=== PATIENT | female | born 1930 | race Caucasian/White ===

== ENCOUNTER → 2017-03-18 | Outpatient (CLI) | payer MEDICARE, OTHER ==
--- NOTE | 2017-03-18 11:03 | XCELERA REPORT ---
[address] [address] Lower Extremity Arterial Evaluation Name: DEBORA JOEL Age: 86 yrs Gender: Female : 1930 Patient Status: Outpatient Patient Location: Study Date: 03/18/2017 08:48 AM Procedure: A color flow and duplex scan of the lower extremity arteries was performed bilaterally with velocity and waveform anaylsis. Ankle brachial indicies performed. Reason For Study: ULCER, CELLULITIS Ordering Physician: MIS ELIZONDO Performed By: Joel Green Measurements and Calculations Right Left CORRECTIONAL SUPERVISOR LIEUTENANT PSV 134.5 91.3 cm/sec Prox PFA PSV -196.4 cm/sec Dist SFA PSV -63.3 cm/sec Dist Pop A PSV 56.8 103.1 cm/sec Dist RAPHAEL PSV 82.9 59.1 cm/sec Prox ELECTROLYTIC DE SCALER PSV 13.9 cm/sec Dist ELECTROLYTIC DE SCALER PSV 9.8 44.1 cm/sec Harjinder Pedis PSV -68.4 cm/sec Right Side Arterial Evaluation Normal velocity and triphasic waveforms noted from the Common Femoral artery. to the Anterior Tibial artery. Biphasic in the Dorsalis Pedis with well preserved velocity. Monophasic in the Posterior Tibial artery . 0-19% stenosis at the Anterior Tibial artery. Sequential changes in the Posterior Tibial artery. Ankle Brachial index is 1.26 Difficult study with patient in wheel chair. Left Side Arterial Evaluation Normal velocity and triphasic waveforms noted from the Common Femoral artery to the infrageniculate vessels. 0 % stenosis noted.. Ankle Brachial index is 1.24 Difficult study with patient in wheel chair. Interpretation Summary Mild hemodynamically significant lesions in the right lower extremity only, on duplex imaging, at rest. No hemodynamically significant lesions in the left lower extremity only, on duplex imaging, at rest. Difficult study, done with the patient in a wheel chair. : MIS ELIZONDO Lennox
--- NOTE | 2017-03-18 11:12 | RADIOLOGY REPORT (SQ) ---
EXAM DESCRIPTION: ANKLE LEFT AP/LATERAL COMPLETED DATE/TIME: 03/18/2017 11:01 am REASON FOR STUDY: CELLULITIS LEFT LOWER LIMB: ULCER LEFT HEEL/MID FOOT L03.116 CELLULITIS OF LEFT L OWER LIMB L97.222 NON-PRESSURE CHRONIC ULCER OF LEFT CALF W FAT LAYER COMPARISON: None. NUMBER OF VIEWS: Two views. TECHNIQUE: AP and lateral radiographic images acquired of the left ankle. LIMITATIONS: None. FINDINGS: MINERALIZATION: There is severe diffuse osteopenia. BONES: No acute fracture or dislocation. No worrisome bone lesions. JOINTS: No effusions. SOFT TISSUES: There is fullness in the soft tissues along the heel and ventral surface of the foot. Mild soft tissue swelling dorsally. OTHER: No other significant finding. IMPRESSION: Diffuse osteopenia. No conventional radiographic evidence of osteomyelitis. There is a soft tissue defect and edema. TECHNICAL DOCUMENTATION: JOB ID: [id number] [employer]- All Rights Reserved
--- NOTE | 2017-03-18 11:13 | RADIOLOGY REPORT (SQ) ---
EXAM DESCRIPTION: FOOT LEFT COMPLETE COMPLETED DATE/TIME: 03/18/2017 11:01 am REASON FOR STUDY: CELLULITIS LEFT LOWER LIMB: ULCER LEFT HEEL/MID FOOT L03.116 CELLULITIS OF LEFT L OWER LIMB L97.222 NON-PRESSURE CHRONIC ULCER OF LEFT CALF W FAT LAYER COMPARISON: None. NUMBER OF VIEWS: Two views. TECHNIQUE: AP and lateral without weight bearing radiographic images acquired of the left foot. LIMITATIONS: None. FINDINGS: MINERALIZATION: There is diffuse osteopenia. BONES: No acute fracture or dislocation. No worrisome bone lesions. No significant osteophytes. JOINTS: No erosions. No noah-articular osteopenia. No chondrocalcinosis. SOFT TISSUES: Soft tissue fullness along the ventral aspect of the foot is again noted most marked un derlying the calcaneus. There is soft tissue swelling dorsally as well. OTHER: No other significant finding. IMPRESSION: Diffuse osteopenia. Soft tissue swelling. No conventional radiographic evidence of ost eomyelitis. TECHNICAL DOCUMENTATION: JOB ID: [id number] [employer]- All Rights Reserved
== END ==
LOC: SP 08:17
PROVIDERS: ATTEND Podiatrist
DX: L03.116 Cellulitis of left lower limb (principal); L97.222 Non-pressure chronic ulcer of left calf with fat layer exposed; L97.522 Non-pressure chronic ulcer of other part of left foot with fat layer exposed; L97.321 Non-pressure chronic ulcer of left ankle limited to breakdown of skin; G60.8 Other hereditary and idiopathic neuropathies
CPT/HCPCS: 93925

== ENCOUNTER 2017-05-13 13:50 | Inpatient (IN) | payer MEDICARE, OTHER ==
[2017-05-13] MEDS ORDERED: NORMAL SALINE 1000 ML 1,000 ML IV ONE (13:58)
[2017-05-13] MEDS ORDERED: CEFEPIME INJ 1 GM VIAL IM ONE ×2 (13:58→18:00)
[2017-05-13] MEDS ORDERED: VANCOMYCIN HCL INJ 1000 MG VIAL IV ONE ×2 (13:58→18:00)
--- NOTE | 2017-05-13 14:33 | ER Document Report ---
ED General - General Chief Complaint: Fever Stated Complaint: FEVER Time Seen by Provider: 05/13/17 13:58 Notes: 86-year-old female with a history of paraplegia postoperatively for several years bedbound and a history of a large wound on her back which is being treated with a wound VAC by Dr. Cornejo presents to the ED with increasing drainage malodorous from her wound as well as fever and altered mental status. This was yesterday and is slightly better today. It is now constant. She states she felt feverish but has no other complaints. She states that the wound VAC is always smelly. She has no cough shortness of breath headache or abdominal pain. No nausea or vomiting. Activated is a prehospital sepsis alert. TRAVEL OUTSIDE OF THE [place] IN LAST 30 DAYS: No Past Medical History - General Information source: Patient - Social History Smoking Status: Never Smoker Family History: None Review of Systems - Review of Systems Notes: REVIEW OF SYSTEMS GEN: Denies fever, chills, weight loss ENT: Denies sore throat, nasal discharge, ear pain EYES: Denies blurry vision, eye pain, discharge CV: Denies chest pain, palpitations, edema RESP: Denies cough, shortness of breath, wheezing GI: Denies abdominal pain, nausea, vomiting, diarrhea MSK: Denies joint pain/swelling, edema, SKIN: Wounds with wound VAC LYMPH: Denies swollen glands/lymph nodes NEURO: Slight lower extremity numbness and weakness PSYCH: Denies depression, suicidal or homicidal ideation PHYSICAL EXAMINATION General: No acute distress, well-nourished Head: Atraumatic, normocephalic ENT: Mouth normal, oropharynx moist, no exudates or tonsillar enlargement Eyes: Conjunctiva normal, pupils equal, lids normal Neck: No JVD, supple, no guarding CVS: Normal rate, regular rhythm, no murmurs Resp: No resp distress, equal and normal breath sounds bilaterally GI: Nondistended, soft, no tenderness to palpation, no rebound or guarding Ext: No deformities, no edema, normal range of motion in upper and lower ext Back: There is a deep ulcer approximately 4 x 4 centimeters across, containing purulent material that probes down to the bone, and left ischial area. Surrounded by mild redness but no bullae and there is no crepitus. Skin: No rash, warm Lymphatic: No lymphadeopathy noted Neuro: Awake, alert. Face symmetric. GCS 15. Physical Exam - Vital signs Vitals: Temp Pulse Resp BP Pulse Ox 99.8 F 82 18 111/45 L 97 05/13/17 14:26 05/13/17 14:26 05/13/17 14:26 05/13/17 14:26 05/13/17 14:26 Course - Re-evaluation Re-evalutation: 05/13/17 15:32 This is an 86-year-old female presenting with fever and tachycardia in the setting of oysterman immobility and a known ulcer in her left sacral issue area. On exam she is a very deep ulcer with poor granulation that probes to bone and is surrounded by redness and mild purulence. Her prehospital vital signs suggested sepsis so I initiated a sepsis protocol. She will receive antibiotics. I did obtain a wound culture. Other cultures obtained. She was given some fluids. Her vital signs remained stable. I discussed the case with the surgical list weight and balance control agent who agreed to see the patient in consultation but admit to the hospitalist. Patient was admitted to, and accepted by Dr. Kartik Torres at approximately 3: 30 PM. Patient and family were counseled. 05/13/17 15:34 - Vital Signs Vital signs: Temp Pulse Resp BP Pulse Ox 99.8 F 82 18 111/45 L 97 05/13/17 14:26 05/13/17 14:26 05/13/17 14:26 05/13/17 14:26 05/13/17 14:26 - Laboratory Result Diagrams: 05/13/17 14:17 05/13/17 14:17 Laboratory results interpreted by me: 05/13/17 05/13/17 05/13/17 14:17 14:17 14:17 Hgb 10.8 L Hct 32.0 L RDW 14.1 H PT 16.3 H VBG pH VBG pCO2 Sodium 133.4 L Carbon Dioxide 19 L Creatinine 1.29 H Est GFR ( Amer) 48 L Est GFR (Non-Af Amer) 39 L Glucose 115 H Calcium 8.1 L Direct Bilirubin 0.5 H Alkaline Phosphatase 136 H Total Protein 6.2 L Albumin 2.8 L 05/13/17 14:17 Hgb Hct RDW PT VBG pH 7.55 H VBG pCO2 24.7 L Sodium Carbon Dioxide Creatinine Est GFR ( Amer) Est GFR (Non-Af Amer) Glucose Calcium Direct Bilirubin Alkaline Phosphatase Total Protein Albumin - Diagnostic Test Radiology reviewed: Pending, Image reviewed Discharge - Discharge Clinical Impression: Decubitus ulcer of ischial area Qualifiers: Pressure ulcer stage: stage 4 Laterality: left Qualified Code(s): L89.324 - Pressure ulcer of left buttock, stage 4 Condition: Fair Disposition: ADMITTED INPATIENT Admitting Provider: Hospitalist Unit Admitted: Telemetry
[2017-05-13 14:37] LABS: VENOUS BLOOD BASE EXCESS 0.1 mmol/L; VENOUS BLOOD HCO3 21.3 mmol/L (20-32); VENOUS BLOOD PCO2 24.7 mmHg (35-63); VENOUS BLOOD PH 7.55 (7.30-7.42)
[2017-05-13 14:42] LABS: PROTHROMBIN TIME 16.3 SEC (11.4-15.4)
[2017-05-13 14:50] LABS: ABSOLUTE BASOPHILS # (AUTO) 0.1 10^3/uL (0.0-0.2); ABSOLUTE LYMPHOCYTES (AUTO) 1.3 10^3/uL (0.5-4.7); ABSOLUTE MONOCYTES (AUTO) 0.7 10^3/uL (0.1-1.4); ABSOLUTE NEUT (AUTO) 5.5 10^3/uL (1.7-8.2); BASOPHILS % (AUTO) 0.9 % (0-2); EOSINOPHILS % (AUTO) 0.5 % (0-6); HEMOGLOBIN 10.8 g/dL (12.0-15.5); HGB HCT DIFFERENCE 0.4; LYMPHOCYTES % (AUTO) 16.6 % (13-45); MEAN CORPUSCULAR HEMOGLOBIN 28.8 pg (27.0-33.4); MEAN CORPUSCULAR HGB CONC 33.7 g/dL (32.0-36.0); MEAN CORPUSCULAR VOLUME 86 fl (80-97); MONOCYTES % (AUTO) 9.9 % (3-13); RED BLOOD COUNT 3.74 10^6/uL (3.72-5.28); RED CELL DISTRIBUTION WIDTH 14.1 % (11.5-14.0); SEGMENTED NEUTROPHILS % (AUTO) 72.1 % (42-78); WHITE BLOOD COUNT 7.6 10^3/uL (4.0-10.5)
[2017-05-13 14:51] LABS: ALANINE AMINOTRANSFERASE 19 U/L (9-52); ALBUMIN 2.8 g/dL (3.5-5.0); ALKALINE PHOSPHATASE 136 U/L (38-126); ANION GAP 8 (5-19); ASPARTATE AMINO TRANSFERASE 16 U/L (14-36); BILIRUBIN,DIRECT 0.5 mg/dL (0.0-0.4); BILIRUBIN,TOTAL 0.6 mg/dL (0.2-1.3); BLOOD UREA NITROGEN 19 mg/dL (7-20); CALCIUM 8.1 mg/dL (8.4-10.2); CARBON DIOXIDE 19 mmol/L (22-30); CHLORIDE 106 mmol/L (98-107); CREATININE RESULT 1.29 mg/dL (0.52-1.25); GLUCOSE 115 mg/dL (75-110); SODIUM 133.4 mmol/L (137-145); TOTAL PROTEIN 6.2 g/dL (6.3-8.2)
--- NOTE | 2017-05-13 15:05 | RADIOLOGY REPORT (SQ) ---
EXAM DESCRIPTION: CHEST SINGLE VIEW COMPLETED DATE/TIME: 05/13/2017 2:49 pm REASON FOR STUDY: fever COMPARISON: None. EXAM PARAMETERS: NUMBER OF VIEWS: One view. TECHNIQUE: Single frontal radiographic view of the chest acquired. RADIATION DOSE: NA LIMITATIONS: None. FINDINGS: LUNGS AND PLEURA: No opacities, masses or pneumothorax. No pleural effusion. MEDIASTINUM AND HILAR STRUCTURES: No masses. Contour normal. HEART AND VASCULAR STRUCTURES: Heart normal in size. Normal vasculature. BONES: No acute findings. HARDWARE: None in the chest. OTHER: No other significant finding. IMPRESSION: NO ACUTE RADIOGRAPHIC FINDING IN THE CHEST. TECHNICAL DOCUMENTATION: JOB ID: [id number]
--- NOTE | 2017-05-13 16:14 | RADIOLOGY REPORT (SQ) ---
EXAM DESCRIPTION: CT PELVIS WITHOUT COMPLETED DATE/TIME: 05/13/2017 3:48 pm REASON FOR STUDY: deep decub L lower buttock to Bone COMPARISON: None. TECHNIQUE: CT scan of the pelvis performed without intravenous or oral contrast. Images reviewed wi th soft tissue and bone windows. Reconstructed coronal and sagittal MPR images reviewed. All images stored on PACS. All CT scanners at this facility use dose modulation, iterative reconstruction, and/or weight based d osing when appropriate to reduce radiation dose to as low as reasonably achievable (ALARA). [facility]: Dose Right [facility]: CareDose [facility]: Dose Right [facility]: Teradose 4D [facility]: [employer] RADIATION DOSE: Up-to-date CT equipment and radiation dose reduction techniques were employed. CTDIv ol: 10.6 mGy. DLP: 387 mGy-cm. mGy. LIMITATIONS: None. FINDINGS: There is a decubitus ulcer over the left gluteal region. Gas abuts the posterior margin o f the ischial tuberosity. No definite erosions or active periosteal reaction. Pelvic floor contents unremarkable. IMPRESSION: Left gluteal decubitus ulcer with gas abutting the ischial tuberosity. If important to evaluate for osteomyelitis, consider noncontrast MRI or bone scan. TECHNICAL DOCUMENTATION: JOB ID: [id number] Quality ID # [id number]: Final reports with documentation of one or more dose reduction techniques (e.g., Au tomated exposure control, adjustment of the mA and/or kV according to patient size, use of iterative reconstruction technique) 2010 [employer]- All Rights Reserved
[2017-05-13] MEDS ORDERED: CEFEPIME 2 GM/D5W RTU 50 ML IV ONE (17:34)
[2017-05-13] MEDS ORDERED: ACETAMINOPHEN 325 MG TABLET PO PRN (17:35)
[2017-05-13] MEDS ORDERED: ONDANSETRON HCL INJ/PF 4 MG/2 ML SDV IV PRN (17:35)
[2017-05-13] MEDS ORDERED: ERTAPENEM SODIUM INJ 1 GM VIAL IV SCH (17:45)
--- NOTE | 2017-05-13 18:10 | PDOC H&P ---
History of Present Illness Admission Date/PCP: 05/13/17 16:26 ROULA ISAAC PA-C Patient complains of: altered mental status History of Present Illness: DEBORA JOEL is a 86 year old female with history of spina bifida for multiple years chronically debilitated and bedbound sent to the emergency room by the family because of change in mental status. The patient has been dealing with decubitus ulcers for about 4 months. 2 months ago the patient developed a tunneling ulcer that is progressively getting worse and seen by Dr. Cornejo 2 weeks ago where debridement was performed and wound vacuum was placed. For the past week the patient has been noted to have foul-smelling drainage coming from the wound VAC. Subsequently she started getting confused and sluggish for the past 3 days. Family noted fever as well and decrease in appetite. There is no coughing. Patient denies painful urination. Patient denies any diarrhea as well. Patient had another decubitus ulcer on the left foot but improving according to the family. In the emergency room, temperature was 99.8 lactic acid level is normal WBC is normal. The patient was then referred for admission. Patient denies any sinus congestion no sore throat as well. Past Medical History Neurological Medical History: Reports: Other - Paraplegic Musculoskeltal Medical History: Reports: Other - Spina bifida Skin Medical History: Reports: Other - Multiple decubitus ulcers status 2-4 stage II of the foot and stage II-IV on the left buttocks Past Surgical History Past Surgical History: Reports: Other - Back surgery and surgery for spina bifida. Social History Information Source: Patient Smoking Status: Never Smoker Frequency of Alcohol Use: None Hx Recreational Drug Use: No Drugs: None Family History Family History: None Parental Family History Reviewed: Yes Children Family History Reviewed: Yes Sibling(s) Family History Reviewed.: Yes Medication/Allergy Allergies/Adverse Reactions: No Known Allergies Allergy (Unverified 05/13/17 17:00) Review of Systems Constitutional: PRESENT: chills, fever(s). ABSENT: headache(s), night sweats, weight gain, weight loss Ears: ABSENT: hearing changes Nose, Mouth, and Throat: ABSENT: mouth pain, sore throat Cardiovascular: ABSENT: chest pain, dyspnea on exertion, edema, orthropnea, palpitations Respiratory: ABSENT: cough, dyspnea, hemoptysis, sputum Gastrointestinal: ABSENT: abdominal pain, constipation, diarrhea, hematemesis, hematochezia, melena, nausea, vomiting Genitourinary: ABSENT: dysuria, hematuria Musculoskeletal: ABSENT: joint swelling Integumentary: ABSENT: pruritus, rash, wounds Neurological: PRESENT: other - Paraplegic. ABSENT: abnormal gait, abnormal speech, confusion, convulsions, dizziness, focal weakness, syncope Psychiatric: ABSENT: anxiety, depression, homidical ideation, suicidal ideation Endocrine: ABSENT: cold intolerance, heat intolerance, polydipsia, polyuria Hematologic/Lymphatic: ABSENT: easy bleeding, easy bruising Physical Exam Vital Signs: Temp Pulse Resp BP Pulse Ox 99.8 F 82 18 111/45 L 97 05/13/17 14:26 05/13/17 14:26 05/13/17 14:05/13/17 14:05/13/17 14:26 General appearance: PRESENT: no acute distress, cooperative Head exam: PRESENT: atraumatic, normocephalic Eye exam: PRESENT: conjunctiva pink, EOMI, PERRLA - Sluggish however. ABSENT: scleral icterus Ear exam: PRESENT: normal external ear exam. ABSENT: drainage Mouth exam: PRESENT: dry mucosa, neck supple, tongue midline Throat exam: ABSENT: post pharyngeal erythema, tonsillar erythema Neck exam: ABSENT: carotid bruit, JVD, lymphadenopathy, thyromegaly Respiratory exam: PRESENT: clear to auscultation shannan, unlabored. ABSENT: rales , rhonchi, wheezes Cardiovascular exam: PRESENT: RRR. ABSENT: diastolic murmur, rubs, systolic murmur, tachycardia Pulses: PRESENT: normal dorsalis pedis pul Vascular exam: PRESENT: normal capillary refill GI/Abdominal exam: PRESENT: normal bowel sounds, soft. ABSENT: distended, guarding, mass, organolmegaly, rebound, tenderness Rectal exam: PRESENT: deferred Extremities exam: PRESENT: pedal edema - Bilateral. ABSENT: calf tenderness Neurological exam: PRESENT: alert, awake, oriented to person, oriented to place , oriented to time, oriented to situation Psychiatric exam: PRESENT: appropriate affect, normal mood. ABSENT: homicidal ideation, suicidal ideation Skin exam: PRESENT: dry, warm, other - Patient has stage II decubitus ulcers noted on the distal aspect of the left leg medially on the malleolus and on the foot. There is a stage II decubitus ulcers noted posteriorly on the thigh just below the buttocks on the left. There is a stage IV decubitus ulcer with visualization of the bone on the left buttocks with foul-smelling drainage noted.. ABSENT: cyanosis Results Impressions: Chest X-Ray 05/13/17 13:58 IMPRESSION: NO ACUTE RADIOGRAPHIC FINDING IN THE CHEST. Pelvis CT 05/13/17 15:21 IMPRESSION: Left gluteal decubitus ulcer with gas abutting the ischial tuberosity. If important to evaluate for osteomyelitis, consider noncontrast MRI or bone scan. Assessment & Plan - Diagnosis (1) Osteomyelitis of left hip Is this a current diagnosis for this admission?: Yes (2) Decubitus ulcer, stage 4 with infection Is this a current diagnosis for this admission?: Yes (3) Anemia of chronic disease Is this a current diagnosis for this admission?: Yes (4) Paraplegia Is this a current diagnosis for this admission?: Yes (5) Decubitus ulcer, stage II Qualifiers: Pressure ulcer location: unspecified location Qualified Code(s): L89.92 - Pressure ulcer of unspecified site, stage 2 Is this a current diagnosis for this admission?: Yes (6) Spina bifida Qualifiers: Spinal region: unspecified Presence of hydrocephalus: without hydrocephalus Qualified Code(s): Q05.9 - Spina bifida, unspecified Is this a current diagnosis for this admission?: Yes - Time Time Spent: 50 to 70 Minutes - Inpatient Certification Based on my medical assessment, after consideration of the patient's comorbidities, presenting symptoms, or acuity I expect that the services needed warrant INPATIENT care.: Yes I certify that my determination is in accordance with my understanding of Medicare's requirements for reasonable and necessary INPATIENT services [42 CFR 412.3e].: Yes Medical Necessity: Significant Comorbidiites Make Outpatient Treatment Too Risky , Need For IV Fluids, Need for IV Antibiotics, Need for Surgery, Risk of Complication if Not Cared For in Hospital Post Hospital Care: D/C Ancillary Specialist Documentation - Plan Summary Plan Summary: The patient will be admitted to the medical floor. We will begin intravenous Invanz and vancomycin and send wound drainage for culture. We will consult surgery for evaluation and debridement of the wound. We will have radiology put a PICC line and consult workforce planner for 6 weeks of IV antibiotics for osteomyelitis in a shelter facility setting. Patient lives alone being cared for by her 2 sons, we will consult workforce planner for long-term placement. DVT prophylaxis with Lovenox will be placed. Further testing depends on the initial evaluations outlined above.
[2017-05-13] MEDS ORDERED: ENOXAPARIN SODIUM INJ 40 MG/0.4 ML DISP.SYRIN SUBCUT ONE (19:00)
--- NOTE | 2017-05-13 19:22 | EKG REPORT ---
SEVERITY:- ABNORMAL ECG - SINUS RHYTHM NONSPECIFIC T ABNORMALITIES, ANT-LAT LEADS : Confirmed by: Anjel Romo MD 13-May-2017 19:21:13
[2017-05-13] MEDS: DOCUSATE SODIUM 100 MG CAPSULE PO SCH (20:10)
[2017-05-13] MEDS: ERTAPENEM SODIUM 1 GM in NORMAL SALINE 50 ML IV SCH (21:46)
[2017-05-13] MEDS ORDERED: MAG HYDROX/AL HYDROX/SIMETH SUSP 30 ML UDCUP PO ONE (23:45)
[2017-05-14 00:49] LABS: APPEARANCE,URINE SLIGHTLY-CLOUDY; BILIRUBIN,URINE NEGATIVE (NEGATIVE); GLUCOSE, URINE NEGATIVE (NEGATIVE); KETONES,URINE NEGATIVE (NEGATIVE); LEUKOCYTE ESTERASE,URINE MODERATE (NEGATIVE); NITRITE,URINE NEGATIVE (NEGATIVE); PROTEIN,URINE NEGATIVE (NEGATIVE)
[2017-05-14 05:42] LABS: ABSOLUTE BASOPHILS # (AUTO) 0.1 10^3/uL (0.0-0.2); ABSOLUTE EOSINOPHILS # (AUTO) 0.2 10^3/uL (0.0-0.6); ABSOLUTE LYMPHOCYTES (AUTO) 1.1 10^3/uL (0.5-4.7); ABSOLUTE MONOCYTES (AUTO) 0.8 10^3/uL (0.1-1.4); ABSOLUTE NEUT (AUTO) 4.1 10^3/uL (1.7-8.2); BASOPHILS % (AUTO) 0.9 % (0-2); EOSINOPHILS % (AUTO) 2.5 % (0-6); HEMATOCRIT 32.2 % (36.0-47.0); HEMOGLOBIN 10.7 g/dL (12.0-15.5); HGB HCT DIFFERENCE -0.1; LYMPHOCYTES % (AUTO) 17.4 % (13-45); MEAN CORPUSCULAR HEMOGLOBIN 28.7 pg (27.0-33.4); MEAN CORPUSCULAR HGB CONC 33.1 g/dL (32.0-36.0); MEAN CORPUSCULAR VOLUME 87 fl (80-97); MONOCYTES % (AUTO) 13.3 % (3-13); RED BLOOD COUNT 3.72 10^6/uL (3.72-5.28); RED CELL DISTRIBUTION WIDTH 14.1 % (11.5-14.0); SEGMENTED NEUTROPHILS % (AUTO) 65.9 % (42-78); WHITE BLOOD COUNT 6.2 10^3/uL (4.0-10.5)
[2017-05-14 06:11] LABS: ANION GAP 8 (5-19); BLOOD UREA NITROGEN 18 mg/dL (7-20); CARBON DIOXIDE 21 mmol/L (22-30); CHLORIDE 110 mmol/L (98-107); CREATININE RESULT 1.25 mg/dL (0.52-1.25); GLUCOSE 99 mg/dL (75-110); POTASSIUM 4.4 mmol/L (3.6-5.0); SODIUM 138.9 mmol/L (137-145)
[2017-05-14] MEDS: LANSOPRAZOLE 30 MG TAB.RAP.DR PO SCH (06:14)
[2017-05-14] MEDS ORDERED: VANCOMYCIN HCL INJ 1000 MG VIAL IV SCH (10:00)
--- NOTE | 2017-05-14 11:01 | PDOC PROGRESS REPORT ---
Subjective Progress Note for:: 05/14/17 Subjective:: Patient denies any complaints. Physical Exam Vital Signs: Temp Pulse Resp BP Pulse Ox 97.8 F 70 16 114/39 L 100 05/14/17 08:38 05/14/17 08:38 05/14/17 08:38 05/14/17 08:38 05/14/17 08:38 Intake & Output 05/13/17 05/14/17 05/15/17 06:59 06:59 06:59 Intake Total 1170 Output Total 335 Balance 835 Weight 151.3 kg General appearance: PRESENT: no acute distress Eye exam: PRESENT: conjunctiva pink. ABSENT: scleral icterus Mouth exam: PRESENT: moist, tongue midline Neck exam: ABSENT: JVD Respiratory exam: PRESENT: clear to auscultation shannan. ABSENT: rales, rhonchi, wheezes Cardiovascular exam: PRESENT: RRR. ABSENT: diastolic murmur, rubs, systolic murmur GI/Abdominal exam: PRESENT: normal bowel sounds, soft. ABSENT: distended, guarding, mass, organolmegaly, rebound, tenderness Neurological exam: PRESENT: alert, awake, oriented to person, oriented to place , oriented to time, oriented to situation, CN II-XII grossly intact Psychiatric exam: PRESENT: appropriate affect Skin exam: PRESENT: other - Dressing in place on the sacrum. Results Laboratory Results: 05/14/17 04:41 05/14/17 04:41 05/14/17 05/14/17 05/14/17 00:15 04:41 04:41 WBC 6.2 RBC 3.72 Hgb 10.7 L Hct 32.2 L MCV 87 MCH 28.7 MCHC 33.1 RDW 14.1 H Plt Count 293 Seg Neutrophils % 65.9 Lymphocytes % 17.4 Monocytes % 13.3 H Eosinophils % 2.5 Basophils % 0.9 Absolute Neutrophils 4.1 Absolute Lymphocytes 1.1 Absolute Monocytes 0.8 Absolute Eosinophils 0.2 Absolute Basophils 0.1 Sodium 138.9 Potassium 4.4 Chloride 110 H Carbon Dioxide 21 L Anion Gap 8 BUN 18 Creatinine 1.25 Est GFR ( Amer) 49 L Est GFR (Non-Af Amer) 41 L Glucose 99 Calcium 8.0 L Urine Color YELLOW Urine Appearance SLIGHTLY-CLOUDY Urine pH 6.0 Ur Specific [place] 1.010 Urine Protein NEGATIVE Urine Glucose (UA) NEGATIVE Urine Ketones NEGATIVE Urine Blood SMALL H Urine Nitrite NEGATIVE Ur Leukocyte Esterase MODERATE H Urine WBC (Auto) 73 Urine RBC (Auto) 3 Impressions: Chest X-Ray 05/13/17 13:58 IMPRESSION: NO ACUTE RADIOGRAPHIC FINDING IN THE CHEST. Pelvis CT 05/13/17 15:21 IMPRESSION: Left gluteal decubitus ulcer with gas abutting the ischial tuberosity. If important to evaluate for osteomyelitis, consider noncontrast MRI or bone scan. Assessment & Plan - Diagnosis (1) Osteomyelitis of left hip Is this a current diagnosis for this admission?: YesPlan: Patient has decubitus ulcer with osteomyelitis now. Has been started on vancomycin and ertapenem. Awaiting culture results. Patient will need at least 6 weeks of IV antibiotics. She is unable to do home antibiotics given her debility and will need to go to a [facility] facility. (2) Decubitus ulcer, stage 4 with infection Is this a current diagnosis for this admission?: YesPlan: On antibiotics. Continue with local wound care. (3) Anemia of chronic disease Is this a current diagnosis for this admission?: YesPlan: Hemoglobin is stable (4) Paraplegia Is this a current diagnosis for this admission?: Yes (5) Spina bifida Qualifiers: Spinal region: unspecified Presence of hydrocephalus: without hydrocephalus Qualified Code(s): Q05.9 - Spina bifida, unspecified Is this a current diagnosis for this admission?: Yes - Time Time Spent with patient: 25-34 minutes - Inpatient Certification Medical Necessity: Need Close Monitoring Due to Risk of Patient Decompensation
[2017-05-14] MEDS: DOCUSATE SODIUM 100 MG CAPSULE PO SCH ×2 (12:22→18:31)
[2017-05-14] MEDS: ENOXAPARIN SODIUM INJ 40 MG/0.4 ML DISP.SYRIN SUBCUT SCH (12:24)
[2017-05-14] MEDS: NORMAL SALINE 1000 ML 1,000 ML IV PRN (12:41)
--- NOTE | 2017-05-14 14:19 | RADIOLOGY REPORT (SQ) ---
EXAM DESCRIPTION: PICC INSERTION; FLUORO/CV PLACEMENT; U/S GUIDE FOR VASCULAR ACCESS COMPLETED DATE/TIME: 05/14/2017 1:50 pm REASON FOR STUDY: Prolong IV antibiotics for osteomyelitis; IV ABX; IV ACCESS COMPARISON: AP chest 05/13/2017 FLUOROSCOPY TIME: 1 minutes 28 seconds 1 ultrasound and 1 fluoroscopic images saved to PACS. TECHNIQUE: Fluoroscopic and ultrasound guided PICC placement. LIMITATIONS: None. PROCEDURE: After written consent and assessment were obtained, the patient was brought into the fluo roscopy room and place supine on the table. Ultrasound was used on the patient's left arm for PICC a ccess. The left arm was prepped and draped in a sterile fashion along with the ultrasound probe. The entry site was anesthetized with 3 mL of 1% lidocaine. A 21 gauge 7 cm needle was advanced through th e skin and into the left basilic vein under live ultrasound guidance. An ultrasound image was saved to PACS confirming access site. A .018 guide wire was then inserted through the needle and into the venous system. The needle was the removed and an 11 blade scalpel was used to make a 1cm skin incisio n. A 5 fr peel-away sheath was advanced over the wire and into the venous system. A measurement was then made using the existing wire and live fluoroscopic guidance. The wire was then removed and the t rimmed. The PICC was advanced through the peel-away sheath and into the venous system. The peel-away sheath was removed and the catheter was adhered to the patients arm with a stat lock. The catheter wa s then aspirated and flushed and a sterile bandage was placed over the access site. A fluoroscopic s pot image was saved to PACS confirming the catheter tip within the superior vena cava. IMPRESSION: SUCCESSFUL PLACEMENT OF A 5 FR DUAL LUMEN 37 CM PICC IN THE LEFT BASILIC VEIN. COMMENT: Patient medication list reviewed: Yes- Quality ID# [id number]:Eligible professional attests to doc umenting in the medical record they obtained, updated, or reviewed the patient's current medications. . Quality ID 145: Final reports for procedures using fluoroscopy that document radiation exposure juvenal jose, or exposure time and number of fluorographic images (if radiation exposure indices are not avail able) Quality ID #76: The patient was prepped and draped using maximum sterile barrier technique including cap, mask, sterile gown, sterile gloves, a large sterile sheet, hand hygiene, and 2% Chlorhexidine fo r cutaneous antisepsis. When ultrasound is used, sterile ultrasound techniques are followed requiring sterile gel and sterile probes. TECHNICAL DOCUMENTATION: JOB ID: [id number] [facility] [employer]- All Rights Reserved
[2017-05-14] MEDS: VANCOMYCIN HCL 1,500 MG in DEXTROSE 5%-WATER 250 ML IV SCH (18:32)
[2017-05-14] MEDS: ERTAPENEM SODIUM 1 GM in NORMAL SALINE 50 ML IV SCH (21:55)
[2017-05-15 03:25] LABS: ABSOLUTE EOSINOPHILS # (AUTO) 0.2 10^3/uL (0.0-0.6); ABSOLUTE LYMPHOCYTES (AUTO) 1.6 10^3/uL (0.5-4.7); ABSOLUTE MONOCYTES (AUTO) 0.8 10^3/uL (0.1-1.4); ABSOLUTE NEUT (AUTO) 2.9 10^3/uL (1.7-8.2); BASOPHILS % (AUTO) 0.9 % (0-2); EOSINOPHILS % (AUTO) 4.4 % (0-6); HEMATOCRIT 28.4 % (36.0-47.0); HEMOGLOBIN 9.3 g/dL (12.0-15.5); HGB HCT DIFFERENCE -0.5; LYMPHOCYTES % (AUTO) 28.5 % (13-45); MEAN CORPUSCULAR HEMOGLOBIN 28.5 pg (27.0-33.4); MEAN CORPUSCULAR HGB CONC 32.8 g/dL (32.0-36.0); MEAN CORPUSCULAR VOLUME 87 fl (80-97); MONOCYTES % (AUTO) 15.1 % (3-13); RED BLOOD COUNT 3.26 10^6/uL (3.72-5.28); RED CELL DISTRIBUTION WIDTH 13.9 % (11.5-14.0); SEGMENTED NEUTROPHILS % (AUTO) 51.1 % (42-78); WHITE BLOOD COUNT 5.6 10^3/uL (4.0-10.5)
[2017-05-15 03:35] LABS: ANION GAP 8 (5-19); BLOOD UREA NITROGEN 12 mg/dL (7-20); CALCIUM 7.6 mg/dL (8.4-10.2); CARBON DIOXIDE 19 mmol/L (22-30); CHLORIDE 112 mmol/L (98-107); GLUCOSE 85 mg/dL (75-110); SODIUM 138.5 mmol/L (137-145)
[2017-05-15] MEDS: LANSOPRAZOLE 30 MG TAB.RAP.DR PO SCH (06:28)
[2017-05-15] MEDS: NORMAL SALINE 1000 ML 1,000 ML IV PRN (07:54)
[2017-05-15] MEDS: ENOXAPARIN SODIUM INJ 40 MG/0.4 ML DISP.SYRIN SUBCUT SCH (10:12)
[2017-05-15] MEDS: DOCUSATE SODIUM 100 MG CAPSULE PO SCH ×2 (10:12→18:06)
--- NOTE | 2017-05-15 11:42 | OPERATIVE REPORT E ---
Operative Report NAME: DEBORA JOEL : 1930 AGE: 86Y DATE OF SURGERY: 05/15/2017 ROOM: 403 PREOPERATIVE DIAGNOSIS: Deep decubitus ulcer along the left trochanteric area of the hip. POSTOPERATIVE DIAGNOSIS: Deep decubitus ulcer along the left trochanteric area of the hip. PROCEDURE: Sharp debridement of left trochanteric ulcer down to the bone. SURGEON: DEEPAK SMITH M.D. DESCRIPTION OF PROCEDURE: The patient was placed in the right lateral decubitus position and the left trochanteric hip ulcer was identified. There is some necrotic tissue around the sides of the ulcer, which roughly measured about 3 cm in diameter. The necrotic tissue was sharply debrided with the use of an 11-blade down to the area where it started to bleed. It was noted down into the bone. The bone can be identified. Because of this, theoretically, patient definitely has osteomyelitis and needed 6 weeks of IV antibiotics. After most of the necrotic tissue was debrided, the wound was packed with gauze. This will be removed later today. It was packed to control some of the bleeding. Sterile dressing was then placed on top. Other ulcers noted in sacral area that appears to be stage 2, relatively superficial and nothing to debride. Another ulcer along the left heel is dry with no evidence of infection. Therefore, I do not think this needed to be debrided at this time. Just leave the ulcer in site with thick scab in place unless it becomes infected or just leave it alone. She also has some superficial ulceration along the lateral distal lower leg and they do not need to be debrided at this time. Patient tolerated procedure well. DICTATING PHYSICIAN: DEEPAK SMITH M.D. [id number] PHY#: [id number] ID: [id number] JOB#: [id number] ACCT: [id number] cc:DEEPAK SMITH M.D. > [id number]
--- NOTE | 2017-05-15 13:11 | PDOC PROGRESS REPORT ---
Subjective Progress Note for:: 05/15/17 Subjective:: Patient denies any complaints. Physical Exam Vital Signs: Temp Pulse Resp BP Pulse Ox 98.0 F 61 19 120/43 L 100 05/15/17 11:08 05/15/17 11:08 05/15/17 11:08 05/15/17 11:08 05/15/17 11:08 Intake & Output 05/14/17 05/15/17 05/16/17 06:59 06:59 06:59 Intake Total 1170 2782 Output Total 335 320 Balance 835 2462 Weight 151.3 kg 76.1 kg General appearance: PRESENT: no acute distress Eye exam: PRESENT: conjunctiva pink. ABSENT: scleral icterus Mouth exam: PRESENT: moist, tongue midline Neck exam: ABSENT: JVD Respiratory exam: PRESENT: clear to auscultation shannan. ABSENT: rales, rhonchi, wheezes Cardiovascular exam: PRESENT: RRR. ABSENT: diastolic murmur, rubs, systolic murmur GI/Abdominal exam: PRESENT: normal bowel sounds, soft. ABSENT: distended, guarding, mass, organolmegaly, rebound, tenderness Extremities exam: ABSENT: calf tenderness, clubbing, pedal edema Neurological exam: PRESENT: alert, awake, oriented to person, oriented to place , oriented to time, oriented to situation, CN II-XII grossly intact. ABSENT: motor sensory deficit Psychiatric exam: PRESENT: appropriate affect Skin exam: PRESENT: dry, intact, warm. ABSENT: cyanosis, rash Results Laboratory Results: 05/15/17 03:10 05/15/17 03:10 05/15/17 05/15/17 03:10 03:10 WBC 5.6 RBC 3.26 L Hgb 9.3 L Hct 28.4 L MCV 87 MCH 28.5 MCHC 32.8 RDW 13.9 Plt Count 257 Seg Neutrophils % 51.1 Lymphocytes % 28.5 Monocytes % 15.1 H Eosinophils % 4.4 Basophils % 0.9 Absolute Neutrophils 2.9 Absolute Lymphocytes 1.6 Absolute Monocytes 0.8 Absolute Eosinophils 0.2 Absolute Basophils 0.0 Sodium 138.5 Potassium 4.0 Chloride 112 H Carbon Dioxide 19 L Anion Gap 8 BUN 12 Creatinine 1.10 Est GFR ( Amer) 57 L Est GFR (Non-Af Amer) 47 L Glucose 85 Calcium 7.6 L Impressions: Chest X-Ray 05/13/17 13:58 IMPRESSION: NO ACUTE RADIOGRAPHIC FINDING IN THE CHEST. Pelvis CT 05/13/17 15:21 IMPRESSION: Left gluteal decubitus ulcer with gas abutting the ischial tuberosity. If important to evaluate for osteomyelitis, consider noncontrast MRI or bone scan. Guidance Fluoroscopy 05/14/17 00:00 IMPRESSION: SUCCESSFUL PLACEMENT OF A 5 FR DUAL LUMEN 37 CM PICC IN THE LEFT BASILIC VEIN. Interventional Vascular Procedure 05/14/17 00:00 IMPRESSION: SUCCESSFUL PLACEMENT OF A 5 FR DUAL LUMEN 37 CM PICC IN THE LEFT BASILIC VEIN. PICC Line Insertion 05/14/17 00:00 IMPRESSION: SUCCESSFUL PLACEMENT OF A 5 FR DUAL LUMEN 37 CM PICC IN THE LEFT BASILIC VEIN. Assessment & Plan - Diagnosis (1) Osteomyelitis of left hip Is this a current diagnosis for this admission?: Yes Plan: Patient has decubitus ulcer with osteomyelitis now. Has been started on vancomycin and ertapenem. Patient will need at least 6 weeks of IV antibiotics. She is unable to do home antibiotics given her debility and will need to go to a alf facility. (2) Decubitus ulcer, stage 4 with infection Is this a current diagnosis for this admission?: Yes Plan: On antibiotics. Continue with local wound care. (3) Anemia of chronic disease Is this a current diagnosis for this admission?: Yes Plan: Hemoglobin is stable (4) Paraplegia Is this a current diagnosis for this admission?: Yes (5) Spina bifida Qualifiers: Spinal region: unspecified Presence of hydrocephalus: without hydrocephalus Qualified Code(s): Q05.9 - Spina bifida, unspecified Is this a current diagnosis for this admission?: Yes - Time Time Spent with patient: 25-34 minutes - Inpatient Certification Medical Necessity: Need for IV Antibiotics
[2017-05-15] MEDS: VANCOMYCIN HCL 1,500 MG in DEXTROSE 5%-WATER 250 ML IV SCH (18:06)
[2017-05-15] MEDS: ERTAPENEM SODIUM 1 GM in NORMAL SALINE 50 ML IV SCH (21:50)
[2017-05-16] MEDS: LANSOPRAZOLE 30 MG TAB.RAP.DR PO SCH (05:56)
[2017-05-16 06:16] LABS: ABSOLUTE BASOPHILS # (AUTO) 0.1 10^3/uL (0.0-0.2); ABSOLUTE EOSINOPHILS # (AUTO) 0.3 10^3/uL (0.0-0.6); ABSOLUTE LYMPHOCYTES (AUTO) 1.7 10^3/uL (0.5-4.7); ABSOLUTE MONOCYTES (AUTO) 0.9 10^3/uL (0.1-1.4); ABSOLUTE NEUT (AUTO) 2.8 10^3/uL (1.7-8.2); BASOPHILS % (AUTO) 1.1 % (0-2); HEMATOCRIT 29.9 % (36.0-47.0); HEMOGLOBIN 9.8 g/dL (12.0-15.5); HGB HCT DIFFERENCE -0.5; LYMPHOCYTES % (AUTO) 29.5 % (13-45); MEAN CORPUSCULAR HEMOGLOBIN 28.6 pg (27.0-33.4); MEAN CORPUSCULAR HGB CONC 32.7 g/dL (32.0-36.0); MEAN CORPUSCULAR VOLUME 87 fl (80-97); MONOCYTES % (AUTO) 15.4 % (3-13); RED BLOOD COUNT 3.42 10^6/uL (3.72-5.28); RED CELL DISTRIBUTION WIDTH 14.3 % (11.5-14.0); WHITE BLOOD COUNT 5.7 10^3/uL (4.0-10.5)
[2017-05-16 06:37] LABS: ANION GAP 7 (5-19); BLOOD UREA NITROGEN 10 mg/dL (7-20); CALCIUM 8.3 mg/dL (8.4-10.2); CARBON DIOXIDE 22 mmol/L (22-30); CHLORIDE 112 mmol/L (98-107); CREATININE RESULT 0.94 mg/dL (0.52-1.25); GLUCOSE 89 mg/dL (75-110); POTASSIUM 4.5 mmol/L (3.6-5.0); SODIUM 140.5 mmol/L (137-145)
[2017-05-16] MEDS: ENOXAPARIN SODIUM INJ 40 MG/0.4 ML DISP.SYRIN SUBCUT SCH (10:33)
[2017-05-16] MEDS: DOCUSATE SODIUM 100 MG CAPSULE PO SCH ×2 (10:33→18:03)
--- NOTE | 2017-05-16 11:04 | PDOC PROGRESS REPORT ---
Subjective Progress Note for:: 05/16/17 Subjective:: Patient denies any complaints. Physical Exam Vital Signs: Temp Pulse Resp BP Pulse Ox 98.0 F 68 18 121/42 L 100 05/16/17 08:36 05/16/17 08:36 05/16/17 08:36 05/16/17 08:36 05/16/17 08:36 Intake & Output 05/15/17 05/16/17 05/17/17 06:59 06:59 06:59 Intake Total 2782 2850 Output Total 320 2700 Balance 2462 150 Weight 76.1 kg 76.7 kg General appearance: PRESENT: no acute distress Eye exam: PRESENT: conjunctiva pink. ABSENT: scleral icterus Mouth exam: PRESENT: moist, tongue midline Neck exam: ABSENT: JVD Respiratory exam: PRESENT: clear to auscultation shannan. ABSENT: rales, rhonchi, wheezes Cardiovascular exam: PRESENT: RRR. ABSENT: diastolic murmur, rubs, systolic murmur GI/Abdominal exam: PRESENT: normal bowel sounds, soft. ABSENT: distended, guarding, mass, organolmegaly, rebound, tenderness Extremities exam: ABSENT: calf tenderness, clubbing, pedal edema Neurological exam: PRESENT: alert, awake, oriented to person, oriented to place , oriented to time, oriented to situation Psychiatric exam: PRESENT: appropriate affect Skin exam: PRESENT: other - dressing in place on sacrum Results Laboratory Results: 05/16/17 05:41 05/16/17 05:40 05/16/17 05/16/17 05:40 05:41 WBC 5.7 RBC 3.42 L Hgb 9.8 L Hct 29.9 L MCV 87 MCH 28.6 MCHC 32.7 RDW 14.3 H Plt Count 284 Seg Neutrophils % 49.0 Lymphocytes % 29.5 Monocytes % 15.4 H Eosinophils % 5.0 Basophils % 1.1 Absolute Neutrophils 2.8 Absolute Lymphocytes 1.7 Absolute Monocytes 0.9 Absolute Eosinophils 0.3 Absolute Basophils 0.1 Sodium 140.5 Potassium 4.5 Chloride 112 H Carbon Dioxide 22 Anion Gap 7 BUN 10 Creatinine 0.94 Est GFR ( Amer) > 60 Est GFR (Non-Af Amer) 57 L Glucose 89 Calcium 8.3 L 05/14/17 00:15 Catheterized Urine Urine Culture - Final NO GROWTH 2 DAYS Impressions: Chest X-Ray 05/13/17 13:58 IMPRESSION: NO ACUTE RADIOGRAPHIC FINDING IN THE CHEST. Pelvis CT 05/13/17 15:21 IMPRESSION: Left gluteal decubitus ulcer with gas abutting the ischial tuberosity. If important to evaluate for osteomyelitis, consider noncontrast MRI or bone scan. Guidance Fluoroscopy 05/14/17 00:00 IMPRESSION: SUCCESSFUL PLACEMENT OF A 5 FR DUAL LUMEN 37 CM PICC IN THE LEFT BASILIC VEIN. Interventional Vascular Procedure 05/14/17 00:00 IMPRESSION: SUCCESSFUL PLACEMENT OF A 5 FR DUAL LUMEN 37 CM PICC IN THE LEFT BASILIC VEIN. PICC Line Insertion 05/14/17 00:00 IMPRESSION: SUCCESSFUL PLACEMENT OF A 5 FR DUAL LUMEN 37 CM PICC IN THE LEFT BASILIC VEIN. Assessment & Plan - Diagnosis (1) Osteomyelitis of left hip Is this a current diagnosis for this admission?: Yes Plan: Patient has decubitus ulcer with osteomyelitis now. Has been started on vancomycin and ertapenem. Patient will need at least 6 weeks of IV antibiotics. She is unable to do home antibiotics given her debility and will need to go to a long term facility. (2) Decubitus ulcer, stage 4 with infection Is this a current diagnosis for this admission?: Yes Plan: On antibiotics. Continue with local wound care. (3) Anemia of chronic disease Is this a current diagnosis for this admission?: Yes Plan: Hemoglobin is stable (4) Paraplegia Is this a current diagnosis for this admission?: Yes (5) Spina bifida Qualifiers: Spinal region: unspecified Presence of hydrocephalus: without hydrocephalus Qualified Code(s): Q05.9 - Spina bifida, unspecified Is this a current diagnosis for this admission?: Yes - Time Time Spent with patient: 25-34 minutes - Inpatient Certification Medical Necessity: Need for IV Antibiotics
[2017-05-16] MEDS: NORMAL SALINE 1000 ML 1,000 ML IV PRN (18:04)
[2017-05-16] MEDS: ERTAPENEM SODIUM 1 GM in NORMAL SALINE 50 ML IV SCH (21:55)
[2017-05-17] MEDS: LANSOPRAZOLE 30 MG TAB.RAP.DR PO SCH (05:11)
[2017-05-17 06:10] LABS: ABSOLUTE BASOPHILS # (AUTO) 0.1 10^3/uL (0.0-0.2); ABSOLUTE EOSINOPHILS # (AUTO) 0.3 10^3/uL (0.0-0.6); ABSOLUTE LYMPHOCYTES (AUTO) 1.7 10^3/uL (0.5-4.7); ABSOLUTE MONOCYTES (AUTO) 0.8 10^3/uL (0.1-1.4); ABSOLUTE NEUT (AUTO) 3.2 10^3/uL (1.7-8.2); BASOPHILS % (AUTO) 1.2 % (0-2); EOSINOPHILS % (AUTO) 4.3 % (0-6); HEMATOCRIT 30.5 % (36.0-47.0); HGB HCT DIFFERENCE -0.5; MEAN CORPUSCULAR HEMOGLOBIN 28.7 pg (27.0-33.4); MEAN CORPUSCULAR HGB CONC 32.8 g/dL (32.0-36.0); MEAN CORPUSCULAR VOLUME 88 fl (80-97); MONOCYTES % (AUTO) 13.2 % (3-13); RED BLOOD COUNT 3.48 10^6/uL (3.72-5.28); RED CELL DISTRIBUTION WIDTH 14.3 % (11.5-14.0); SEGMENTED NEUTROPHILS % (AUTO) 53.3 % (42-78); WHITE BLOOD COUNT 5.9 10^3/uL (4.0-10.5)
[2017-05-17 06:32] LABS: ANION GAP 7 (5-19); BLOOD UREA NITROGEN 8 mg/dL (7-20); CALCIUM 8.3 mg/dL (8.4-10.2); CARBON DIOXIDE 23 mmol/L (22-30); CHLORIDE 110 mmol/L (98-107); GLUCOSE 87 mg/dL (75-110); POTASSIUM 4.4 mmol/L (3.6-5.0); SODIUM 140.3 mmol/L (137-145)
[2017-05-17] MEDS: ENOXAPARIN SODIUM INJ 40 MG/0.4 ML DISP.SYRIN SUBCUT SCH (10:23)
[2017-05-17] MEDS: DOCUSATE SODIUM 100 MG CAPSULE PO SCH ×2 (10:24→17:44)
[2017-05-17] MEDS: NORMAL SALINE 1000 ML 1,000 ML IV PRN (10:24)
--- NOTE | 2017-05-17 13:40 | PDOC PROGRESS REPORT ---
Subjective Progress Note for:: 05/17/17 Subjective:: Patient denies any complaints. Physical Exam Vital Signs: Temp Pulse Resp BP Pulse Ox 98.0 F 69 18 106/41 L 98 05/17/17 11:53 05/17/17 11:53 05/17/17 11:53 05/17/17 11:53 05/17/17 11:53 Intake & Output 05/16/17 05/17/17 05/18/17 06:59 06:59 06:59 Intake Total 2850 2470 Output Total 2700 2600 Balance 150 -130 Weight 76.7 kg 76.7 kg General appearance: PRESENT: no acute distress Eye exam: PRESENT: conjunctiva pink. ABSENT: scleral icterus Mouth exam: PRESENT: moist, tongue midline Neck exam: ABSENT: JVD Respiratory exam: PRESENT: clear to auscultation shannan. ABSENT: rales, rhonchi, wheezes Cardiovascular exam: PRESENT: RRR. ABSENT: diastolic murmur, rubs, systolic murmur GI/Abdominal exam: PRESENT: normal bowel sounds, soft. ABSENT: distended, guarding, mass, organolmegaly, rebound, tenderness Extremities exam: ABSENT: calf tenderness, clubbing, pedal edema Neurological exam: PRESENT: alert, awake, oriented to person, oriented to place , oriented to time, oriented to situation, CN II-XII grossly intact Psychiatric exam: PRESENT: appropriate affect Skin exam: PRESENT: dry, intact, warm, other. ABSENT: cyanosis, rash Results Laboratory Results: 05/17/17 05:45 05/17/17 05:45 05/17/17 05/17/17 05:45 05:45 WBC 5.9 RBC 3.48 L Hgb 10.0 L Hct 30.5 L MCV 88 MCH 28.7 MCHC 32.8 RDW 14.3 H Plt Count 298 Seg Neutrophils % 53.3 Lymphocytes % 28.0 Monocytes % 13.2 H Eosinophils % 4.3 Basophils % 1.2 Absolute Neutrophils 3.2 Absolute Lymphocytes 1.7 Absolute Monocytes 0.8 Absolute Eosinophils 0.3 Absolute Basophils 0.1 Sodium 140.3 Potassium 4.4 Chloride 110 H Carbon Dioxide 23 Anion Gap 7 BUN 8 Creatinine 0.90 Est GFR ( Amer) > 60 Est GFR (Non-Af Amer) > 60 Glucose 87 Calcium 8.3 L 05/14/17 00:15 Catheterized Urine Urine Culture - Final NO GROWTH 2 DAYS Impressions: Chest X-Ray 05/13/17 13:58 IMPRESSION: NO ACUTE RADIOGRAPHIC FINDING IN THE CHEST. Pelvis CT 05/13/17 15:21 IMPRESSION: Left gluteal decubitus ulcer with gas abutting the ischial tuberosity. If important to evaluate for osteomyelitis, consider noncontrast MRI or bone scan. Guidance Fluoroscopy 05/14/17 00:00 IMPRESSION: SUCCESSFUL PLACEMENT OF A 5 FR DUAL LUMEN 37 CM PICC IN THE LEFT BASILIC VEIN. Interventional Vascular Procedure 05/14/17 00:00 IMPRESSION: SUCCESSFUL PLACEMENT OF A 5 FR DUAL LUMEN 37 CM PICC IN THE LEFT BASILIC VEIN. PICC Line Insertion 05/14/17 00:00 IMPRESSION: SUCCESSFUL PLACEMENT OF A 5 FR DUAL LUMEN 37 CM PICC IN THE LEFT BASILIC VEIN. Assessment & Plan - Diagnosis (1) Osteomyelitis of left hip Is this a current diagnosis for this admission?: Yes Plan: Patient has decubitus ulcer with osteomyelitis now. Has been on ertapenem. Patient will need at least 6 weeks of IV antibiotics. She is unable to do home antibiotics given her debility and will need to go to a senior living facility. (2) Decubitus ulcer, stage 4 with infection Is this a current diagnosis for this admission?: Yes Plan: On antibiotics. Continue with local wound care. (3) Anemia of chronic disease Is this a current diagnosis for this admission?: Yes Plan: Hemoglobin is stable (4) Paraplegia Is this a current diagnosis for this admission?: Yes (5) Spina bifida Qualifiers: Spinal region: unspecified Presence of hydrocephalus: without hydrocephalus Qualified Code(s): Q05.9 - Spina bifida, unspecified Is this a current diagnosis for this admission?: Yes - Time Time Spent with patient: 25-34 minutes - Inpatient Certification Medical Necessity: Need for IV Antibiotics - Plan Summary Plan Summary: We will plan on discharge to skilled nurse facility when a bed becomes available.
[2017-05-17] MEDS: ERTAPENEM SODIUM 1 GM in NORMAL SALINE 50 ML IV SCH (22:53)
[2017-05-18] MEDS: NORMAL SALINE 1000 ML 1,000 ML IV PRN ×2 (01:34→15:55)
[2017-05-18] MEDS: LANSOPRAZOLE 30 MG TAB.RAP.DR PO SCH (05:28)
[2017-05-18 05:42] LABS: ABSOLUTE BASOPHILS # (AUTO) 0.1 10^3/uL (0.0-0.2); ABSOLUTE EOSINOPHILS # (AUTO) 0.3 10^3/uL (0.0-0.6); ABSOLUTE LYMPHOCYTES (AUTO) 1.7 10^3/uL (0.5-4.7); ABSOLUTE MONOCYTES (AUTO) 0.8 10^3/uL (0.1-1.4); ABSOLUTE NEUT (AUTO) 4.7 10^3/uL (1.7-8.2); BASOPHILS % (AUTO) 0.9 % (0-2); EOSINOPHILS % (AUTO) 3.5 % (0-6); HEMOGLOBIN 9.1 g/dL (12.0-15.5); HGB HCT DIFFERENCE 0.3; MEAN CORPUSCULAR HEMOGLOBIN 29.2 pg (27.0-33.4); MEAN CORPUSCULAR HGB CONC 33.5 g/dL (32.0-36.0); MEAN CORPUSCULAR VOLUME 87 fl (80-97); MONOCYTES % (AUTO) 10.1 % (3-13); RED CELL DISTRIBUTION WIDTH 13.9 % (11.5-14.0); SEGMENTED NEUTROPHILS % (AUTO) 62.5 % (42-78); WHITE BLOOD COUNT 7.5 10^3/uL (4.0-10.5)
[2017-05-18 05:56] LABS: ANION GAP 5 (5-19); BLOOD UREA NITROGEN 9 mg/dL (7-20); CALCIUM 7.4 mg/dL (8.4-10.2); CARBON DIOXIDE 23 mmol/L (22-30); CHLORIDE 112 mmol/L (98-107); CREATININE RESULT 0.87 mg/dL (0.52-1.25); GLUCOSE 106 mg/dL (75-110); POTASSIUM 3.8 mmol/L (3.6-5.0); SODIUM 139.8 mmol/L (137-145)
[2017-05-18] MEDS: DOCUSATE SODIUM 100 MG CAPSULE PO SCH ×2 (11:36→18:16)
[2017-05-18] MEDS: NORMAL SALINE 10 ML SDV (SCHEDULED) IV SCH ×2 (11:36→21:42)
[2017-05-18] MEDS: ENOXAPARIN SODIUM INJ 40 MG/0.4 ML DISP.SYRIN SUBCUT SCH (11:37)
--- NOTE | 2017-05-18 12:14 | PDOC PROGRESS REPORT ---
Subjective Progress Note for:: 05/18/17 Subjective:: Patient denies any complaints. Physical Exam Vital Signs: Temp Pulse Resp BP Pulse Ox 97.8 F 67 16 109/47 L 99 05/18/17 08:13 05/18/17 08:13 05/18/17 08:13 05/18/17 08:13 05/18/17 08:13 Intake & Output 05/17/17 05/18/17 05/19/17 06:59 06:59 06:59 Intake Total 2470 1989 Output Total 2600 800 Balance -130 1190 Weight 76.7 kg 76.7 kg General appearance: PRESENT: no acute distress Eye exam: PRESENT: conjunctiva pink. ABSENT: scleral icterus Ear exam: PRESENT: normal external ear exam Mouth exam: PRESENT: moist, tongue midline Neck exam: ABSENT: JVD Respiratory exam: PRESENT: clear to auscultation shannan. ABSENT: rales, rhonchi, wheezes Cardiovascular exam: PRESENT: RRR. ABSENT: diastolic murmur, rubs, systolic murmur Pulses: PRESENT: normal dorsalis pedis pul GI/Abdominal exam: PRESENT: normal bowel sounds, soft. ABSENT: distended, guarding, mass, organolmegaly, rebound, tenderness Neurological exam: PRESENT: alert, awake, oriented to person, oriented to place , oriented to time, oriented to situation, CN II-XII grossly intact. ABSENT: motor sensory deficit Psychiatric exam: PRESENT: appropriate affect Skin exam: PRESENT: dry, intact, warm. ABSENT: cyanosis, rash Results Laboratory Results: 05/18/17 05:25 05/18/17 05:25 05/17/17 05/18/17 05/18/17 18:26 05:25 05:25 WBC 7.5 RBC 3.10 L Hgb 9.1 L Hct 27.0 L MCV 87 MCH 29.2 MCHC 33.5 RDW 13.9 Plt Count 306 Seg Neutrophils % 62.5 Lymphocytes % 23.0 Monocytes % 10.1 Eosinophils % 3.5 Basophils % 0.9 Absolute Neutrophils 4.7 Absolute Lymphocytes 1.7 Absolute Monocytes 0.8 Absolute Eosinophils 0.3 Absolute Basophils 0.1 Sodium 139.8 Potassium 3.8 Chloride 112 H Carbon Dioxide 23 Anion Gap 5 BUN 9 Creatinine 0.87 Est GFR ( Amer) > 60 Est GFR (Non-Af Amer) > 60 Glucose 106 Calcium 7.4 L Stool Occult Blood NEGATIVE Impressions: Chest X-Ray 05/13/17 13:58 IMPRESSION: NO ACUTE RADIOGRAPHIC FINDING IN THE CHEST. Pelvis CT 05/13/17 15:21 IMPRESSION: Left gluteal decubitus ulcer with gas abutting the ischial tuberosity. If important to evaluate for osteomyelitis, consider noncontrast MRI or bone scan. Guidance Fluoroscopy 05/14/17 00:00 IMPRESSION: SUCCESSFUL PLACEMENT OF A 5 FR DUAL LUMEN 37 CM PICC IN THE LEFT BASILIC VEIN. Interventional Vascular Procedure 05/14/17 00:00 IMPRESSION: SUCCESSFUL PLACEMENT OF A 5 FR DUAL LUMEN 37 CM PICC IN THE LEFT BASILIC VEIN. PICC Line Insertion 05/14/17 00:00 IMPRESSION: SUCCESSFUL PLACEMENT OF A 5 FR DUAL LUMEN 37 CM PICC IN THE LEFT BASILIC VEIN. Assessment & Plan - Diagnosis (1) Osteomyelitis of left hip Is this a current diagnosis for this admission?: Yes Plan: Patient has decubitus ulcer with osteomyelitis now. Has been on ertapenem. Patient will need at least 6 weeks of IV antibiotics. She is unable to do home antibiotics given her debility and will need to go to a snf facility. (2) Decubitus ulcer, stage 4 with infection Is this a current diagnosis for this admission?: Yes Plan: On antibiotics. Continue with local wound care. (3) Anemia of chronic disease Is this a current diagnosis for this admission?: Yes Plan: Hemoglobin is stable (4) Paraplegia Is this a current diagnosis for this admission?: Yes (5) Spina bifida Qualifiers: Spinal region: unspecified Presence of hydrocephalus: without hydrocephalus Qualified Code(s): Q05.9 - Spina bifida, unspecified Is this a current diagnosis for this admission?: Yes - Time Time Spent with patient: 25-34 minutes - Inpatient Certification Medical Necessity: Need Close Monitoring Due to Risk of Patient Decompensation - Plan Summary Plan Summary: Patient be discharged to skilled nurse facility when bed becomes available.
[2017-05-18] MEDS: ERTAPENEM SODIUM 1 GM in NORMAL SALINE 50 ML IV SCH (21:42)
[2017-05-19] MEDS: LANSOPRAZOLE 30 MG TAB.RAP.DR PO SCH (05:16)
[2017-05-19 05:34] LABS: ABSOLUTE BASOPHILS # (AUTO) 0.1 10^3/uL (0.0-0.2); ABSOLUTE EOSINOPHILS # (AUTO) 0.2 10^3/uL (0.0-0.6); ABSOLUTE LYMPHOCYTES (AUTO) 1.7 10^3/uL (0.5-4.7); ABSOLUTE MONOCYTES (AUTO) 0.8 10^3/uL (0.1-1.4); ABSOLUTE NEUT (AUTO) 7.2 10^3/uL (1.7-8.2); BASOPHILS % (AUTO) 1.3 % (0-2); EOSINOPHILS % (AUTO) 2.4 % (0-6); HEMOGLOBIN 9.3 g/dL (12.0-15.5); HGB HCT DIFFERENCE -0.1; LYMPHOCYTES % (AUTO) 16.6 % (13-45); MEAN CORPUSCULAR HEMOGLOBIN 28.9 pg (27.0-33.4); MEAN CORPUSCULAR HGB CONC 33.1 g/dL (32.0-36.0); MEAN CORPUSCULAR VOLUME 87 fl (80-97); MONOCYTES % (AUTO) 7.6 % (3-13); RED BLOOD COUNT 3.21 10^6/uL (3.72-5.28); RED CELL DISTRIBUTION WIDTH 14.4 % (11.5-14.0); SEGMENTED NEUTROPHILS % (AUTO) 72.1 % (42-78)
[2017-05-19 05:50] LABS: ANION GAP 5 (5-19); BLOOD UREA NITROGEN 9 mg/dL (7-20); CALCIUM 7.3 mg/dL (8.4-10.2); CARBON DIOXIDE 20 mmol/L (22-30); CHLORIDE 114 mmol/L (98-107); CREATININE RESULT 0.81 mg/dL (0.52-1.25); GLUCOSE 78 mg/dL (75-110); POTASSIUM 3.7 mmol/L (3.6-5.0); SODIUM 138.9 mmol/L (137-145)
[2017-05-19] MEDS ORDERED: VANCOMYCIN HCL 0 MG in DEXTROSE 5%-WATER 250 ML IV NR (08:00)
--- NOTE | 2017-05-19 09:27 | PDOC PROGRESS REPORT ---
Subjective Progress Note for:: 05/19/17 Subjective:: Patient denies any complaints. She did have a fever yesterday evening. Physical Exam Vital Signs: Temp Pulse Resp BP Pulse Ox 97.7 F 68 14 113/43 L 98 05/19/17 04:00 05/19/17 04:00 05/19/17 04:00 05/19/17 04:00 05/19/17 04:00 Intake & Output 05/18/17 05/19/17 05/20/17 06:59 06:59 06:59 Intake Total 1989 2209 Output Total 800 1025 Balance 1190 1185 Weight 76.7 kg 77 kg General appearance: PRESENT: no acute distress Eye exam: PRESENT: conjunctiva pink. ABSENT: scleral icterus Mouth exam: PRESENT: moist, tongue midline Neck exam: ABSENT: JVD Respiratory exam: PRESENT: clear to auscultation shannan. ABSENT: rales, rhonchi, wheezes Cardiovascular exam: PRESENT: RRR. ABSENT: diastolic murmur, rubs, systolic murmur GI/Abdominal exam: PRESENT: normal bowel sounds, soft. ABSENT: distended, guarding, mass, organolmegaly, rebound, tenderness Extremities exam: ABSENT: calf tenderness, clubbing, pedal edema Neurological exam: PRESENT: alert, awake, oriented to person, oriented to place , oriented to time, oriented to situation Psychiatric exam: PRESENT: appropriate affect Skin exam: PRESENT: other - Dressing in place on the sacrum. Results Laboratory Results: 05/19/17 05:22 05/19/17 05:22 05/19/17 05/19/17 05:22 05:22 WBC 10.0 RBC 3.21 L Hgb 9.3 L Hct 28.0 L MCV 87 MCH 28.9 MCHC 33.1 RDW 14.4 H Plt Count 303 Seg Neutrophils % 72.1 Lymphocytes % 16.6 Monocytes % 7.6 Eosinophils % 2.4 Basophils % 1.3 Absolute Neutrophils 7.2 Absolute Lymphocytes 1.7 Absolute Monocytes 0.8 Absolute Eosinophils 0.2 Absolute Basophils 0.1 Sodium 138.9 Potassium 3.7 Chloride 114 H Carbon Dioxide 20 L Anion Gap 5 BUN 9 Creatinine 0.81 Est GFR ( Amer) > 60 Est GFR (Non-Af Amer) > 60 Glucose 78 Calcium 7.3 L Impressions: Chest X-Ray 05/13/17 13:58 IMPRESSION: NO ACUTE RADIOGRAPHIC FINDING IN THE CHEST. Pelvis CT 05/13/17 15:21 IMPRESSION: Left gluteal decubitus ulcer with gas abutting the ischial tuberosity. If important to evaluate for osteomyelitis, consider noncontrast MRI or bone scan. Guidance Fluoroscopy 05/14/17 00:00 IMPRESSION: SUCCESSFUL PLACEMENT OF A 5 FR DUAL LUMEN 37 CM PICC IN THE LEFT BASILIC VEIN. Interventional Vascular Procedure 05/14/17 00:00 IMPRESSION: SUCCESSFUL PLACEMENT OF A 5 FR DUAL LUMEN 37 CM PICC IN THE LEFT BASILIC VEIN. PICC Line Insertion 05/14/17 00:00 IMPRESSION: SUCCESSFUL PLACEMENT OF A 5 FR DUAL LUMEN 37 CM PICC IN THE LEFT BASILIC VEIN. Assessment & Plan - Diagnosis (1) Osteomyelitis of left hip Is this a current diagnosis for this admission?: Yes Plan: Patient has decubitus ulcer with osteomyelitis now. Has been on ertapenem. The patient spiked a temperature last night. Because of this we will add back on vancomycin. Patient will need at least 6 weeks of IV antibiotics. She is unable to do home antibiotics given her debility and will need to go to a custodial facility. (2) Decubitus ulcer, stage 4 with infection Is this a current diagnosis for this admission?: Yes Plan: On antibiotics. Continue with local wound care. (3) Anemia of chronic disease Is this a current diagnosis for this admission?: Yes Plan: Hemoglobin is stable (4) Paraplegia Is this a current diagnosis for this admission?: Yes (5) Spina bifida Qualifiers: Spinal region: unspecified Presence of hydrocephalus: without hydrocephalus Qualified Code(s): Q05.9 - Spina bifida, unspecified Is this a current diagnosis for this admission?: Yes - Time Time Spent with patient: 25-34 minutes - Inpatient Certification Medical Necessity: Need for IV Antibiotics
[2017-05-19] MEDS: DOCUSATE SODIUM 100 MG CAPSULE PO SCH ×2 (09:38→17:33)
[2017-05-19] MEDS: VANCOMYCIN HCL 1,250 MG in DEXTROSE 5%-WATER 250 ML IV SCH (09:39)
[2017-05-19] MEDS: NORMAL SALINE 10 ML SDV (SCHEDULED) IV SCH ×2 (09:39→22:10)
[2017-05-19] MEDS: ENOXAPARIN SODIUM INJ 40 MG/0.4 ML DISP.SYRIN SUBCUT SCH (09:40)
[2017-05-19] MEDS: ERTAPENEM SODIUM 1 GM in NORMAL SALINE 50 ML IV SCH (22:10)
[2017-05-20] MEDS: NORMAL SALINE 1000 ML 1,000 ML IV PRN (00:36)
[2017-05-20] MEDS: LANSOPRAZOLE 30 MG TAB.RAP.DR PO SCH (05:30)
[2017-05-20 05:48] LABS: ABSOLUTE EOSINOPHILS # (AUTO) 0.3 10^3/uL (0.0-0.6); ABSOLUTE LYMPHOCYTES (AUTO) 1.7 10^3/uL (0.5-4.7); ABSOLUTE MONOCYTES (AUTO) 0.7 10^3/uL (0.1-1.4); BASOPHILS % (AUTO) 0.7 % (0-2); EOSINOPHILS % (AUTO) 4.7 % (0-6); HEMATOCRIT 27.2 % (36.0-47.0); HGB HCT DIFFERENCE -0.2; LYMPHOCYTES % (AUTO) 25.4 % (13-45); MEAN CORPUSCULAR HEMOGLOBIN 28.4 pg (27.0-33.4); MEAN CORPUSCULAR VOLUME 86 fl (80-97); MONOCYTES % (AUTO) 10.8 % (3-13); RED BLOOD COUNT 3.16 10^6/uL (3.72-5.28); RED CELL DISTRIBUTION WIDTH 14.6 % (11.5-14.0); SEGMENTED NEUTROPHILS % (AUTO) 58.4 % (42-78); WHITE BLOOD COUNT 6.8 10^3/uL (4.0-10.5)
[2017-05-20 06:03] LABS: ANION GAP 5 (5-19); BLOOD UREA NITROGEN 14 mg/dL (7-20); CALCIUM 7.6 mg/dL (8.4-10.2); CARBON DIOXIDE 22 mmol/L (22-30); CHLORIDE 114 mmol/L (98-107); CREATININE RESULT 0.81 mg/dL (0.52-1.25); GLUCOSE 86 mg/dL (75-110); POTASSIUM 3.9 mmol/L (3.6-5.0); SODIUM 140.6 mmol/L (137-145)
[2017-05-20] MEDS: ZINC SULFATE 220 MG CAPSULE PO SCH (10:03)
[2017-05-20] MEDS: ASCORBIC ACID 500 MG TABLET PO SCH (10:03)
[2017-05-20] MEDS: DOCUSATE SODIUM 100 MG CAPSULE PO SCH ×2 (10:03→17:51)
[2017-05-20] MEDS: MULTIVITAMIN TABLET PO SCH (10:03)
[2017-05-20] MEDS: NORMAL SALINE 10 ML SDV (SCHEDULED) IV SCH ×2 (10:04→23:50)
[2017-05-20] MEDS: VANCOMYCIN HCL 1,250 MG in DEXTROSE 5%-WATER 250 ML IV SCH (10:05)
[2017-05-20] MEDS: ENOXAPARIN SODIUM INJ 40 MG/0.4 ML DISP.SYRIN SUBCUT SCH (10:06)
--- NOTE | 2017-05-20 15:39 | OPERATIVE REPORT E ---
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 POSTOPERATIVE DIAGNOSIS: Multiple stage IV and stage III pressure decubiti of the left ischium, central sacral coccygeal area, left upper thigh, and left leg. OPERATION: Excisional debridement of skin, devitalized subcutaneous tissue, and fascia of stage IV left ischial wound. SURGEON: YOHANA ESCOBAR M.D. ANESTHESIA: None. DRAINS: None. TISSUE REMOVED OR ALTERED: None, viable tissue. COMPLICATIONS: None. PROCEDURE: Patient was rolled on the right lateral decubitus position. A surgical timeout was conducted. The wounds needing debridement consisted of the left ischial tuberosity stage IV pressure ulcer which was deep, with a significant amount of foul-smelling black liquified fibrinous eschar. The eschar was sharply debrided with tenotomy scissors and #10 blade. We got down to the periosteum areas. Certainly this appears clinically to be consistent with osteomyelitis. The sacral wound and the left upper thigh wound posteriorly did not require immediate debridement. Approximately 2 gm of tissue was removed. The wound of the left ischium was approximately 4 x 4 x 4 cm. The wounds were irrigated with saline, washed with peroxide, re-irrigated with saline and packed with gauze 4 x 4. Patient tolerated the procedure well. RECOMMENDATIONS: 1. New, high level of pressure offloading; I discussed this with the patient and patient's son provisionally. They will need to explore specialty care beds as well. These wounds will not heal on her posterior pelvis without pressure offloading; the proximity of the wounds to the fecal stream is also problematic in this 86-year-old weak female. 2. Suggested consulting Discharge Planning and Home Health Services to consider Specialty Intermediate Facility to assist with complex wound management. 3. Patient can continue to follow up with the [facility]. DICTATING PHYSICIAN: YOHANA ESCOBAR M.D. [id number] PHY#: [id number] ID: [id number] JOB#: [id number] ACCT: [id number] cc:YOHANA ESCOBAR M.D. >
--- NOTE | 2017-05-20 15:56 | PDOC PROGRESS REPORT ---
Subjective Progress Note for:: 05/20/17 Subjective:: Patient denies any complaints. Physical Exam Vital Signs: Temp Pulse Resp BP Pulse Ox 98.5 F 73 17 112/41 L 99 05/20/17 12:01 05/20/17 12:01 05/20/17 12:01 05/20/17 12:01 05/20/17 12:01 Intake & Output 05/19/17 05/20/17 05/21/17 06:59 06:59 06:59 Intake Total 2210 3570 Output Total 1025 2075 Balance 1185 1495 Weight 77 kg 81.3 kg General appearance: PRESENT: no acute distress Eye exam: PRESENT: conjunctiva pink. ABSENT: scleral icterus Ear exam: PRESENT: normal external ear exam Mouth exam: PRESENT: moist, tongue midline Neck exam: ABSENT: JVD Respiratory exam: PRESENT: clear to auscultation shannan. ABSENT: rales, rhonchi, wheezes Cardiovascular exam: PRESENT: RRR. ABSENT: diastolic murmur, rubs, systolic murmur GI/Abdominal exam: PRESENT: normal bowel sounds, soft. ABSENT: distended, guarding, mass, organolmegaly, rebound, tenderness Extremities exam: ABSENT: calf tenderness, clubbing, pedal edema Neurological exam: PRESENT: alert, awake, oriented to person, oriented to place , oriented to time, oriented to situation Psychiatric exam: PRESENT: appropriate affect Skin exam: PRESENT: other - Stage IV decubitus on the left lower buttock area near the gluteal fold area Results Laboratory Results: 05/20/17 05:35 05/20/17 05:35 05/20/17 05/20/17 05:35 05:35 WBC 6.8 RBC 3.16 L Hgb 9.0 L Hct 27.2 L MCV 86 MCH 28.4 MCHC 33.0 RDW 14.6 H Plt Count 314 Seg Neutrophils % 58.4 Lymphocytes % 25.4 Monocytes % 10.8 Eosinophils % 4.7 Basophils % 0.7 Absolute Neutrophils 4.0 Absolute Lymphocytes 1.7 Absolute Monocytes 0.7 Absolute Eosinophils 0.3 Absolute Basophils 0.0 Sodium 140.6 Potassium 3.9 Chloride 114 H Carbon Dioxide 22 Anion Gap 5 BUN 14 Creatinine 0.81 Est GFR ( Amer) > 60 Est GFR (Non-Af Amer) > 60 Glucose 86 Calcium 7.6 L Impressions: Chest X-Ray 05/13/17 13:58 IMPRESSION: NO ACUTE RADIOGRAPHIC FINDING IN THE CHEST. Pelvis CT 05/13/17 15:21 IMPRESSION: Left gluteal decubitus ulcer with gas abutting the ischial tuberosity. If important to evaluate for osteomyelitis, consider noncontrast MRI or bone scan. Guidance Fluoroscopy 05/14/17 00:00 IMPRESSION: SUCCESSFUL PLACEMENT OF A 5 FR DUAL LUMEN 37 CM PICC IN THE LEFT BASILIC VEIN. Interventional Vascular Procedure 05/14/17 00:00 IMPRESSION: SUCCESSFUL PLACEMENT OF A 5 FR DUAL LUMEN 37 CM PICC IN THE LEFT BASILIC VEIN. PICC Line Insertion 05/14/17 00:00 IMPRESSION: SUCCESSFUL PLACEMENT OF A 5 FR DUAL LUMEN 37 CM PICC IN THE LEFT BASILIC VEIN. Assessment & Plan - Diagnosis (1) Osteomyelitis of left hip Is this a current diagnosis for this admission?: Yes Plan: Patient has decubitus ulcer with osteomyelitis now. Has been on ertapenem. The patient spiked a temperature earlier in the week. Because of this we added back on vancomycin. Patient will need at least 6 weeks of IV antibiotics. I discussed the case with infectious disease at [facility]. They recommended changing the ertapenem to Rocephin. She is unable to do home antibiotics given her debility and will need to go to a [facility] facility. (2) Decubitus ulcer, stage 4 with infection Is this a current diagnosis for this admission?: Yes Plan: On antibiotics. Continue with local wound care. (3) Anemia of chronic disease Is this a current diagnosis for this admission?: Yes Plan: Hemoglobin is stable (4) Paraplegia Is this a current diagnosis for this admission?: Yes (5) Spina bifida Qualifiers: Spinal region: unspecified Presence of hydrocephalus: without hydrocephalus Qualified Code(s): Q05.9 - Spina bifida, unspecified Is this a current diagnosis for this admission?: Yes - Time Time Spent with patient: 25-34 minutes - Inpatient Certification Medical Necessity: Need for IV Antibiotics
[2017-05-20] MEDS ORDERED: CEFTRIAXONE 2 GM/D5W RTU 2 GM/50 ML RTUPB IV SCH (22:00)
[2017-05-21] MEDS: NORMAL SALINE 10 ML SDV (AFTER EACH USE) IV PRN (05:08)
[2017-05-21] MEDS: LANSOPRAZOLE 30 MG TAB.RAP.DR PO SCH (05:10)
[2017-05-21 06:29] LABS: ABSOLUTE BASOPHILS # (AUTO) 0.1 10^3/uL (0.0-0.2); ABSOLUTE EOSINOPHILS # (AUTO) 0.4 10^3/uL (0.0-0.6); ABSOLUTE LYMPHOCYTES (AUTO) 1.7 10^3/uL (0.5-4.7); ABSOLUTE MONOCYTES (AUTO) 0.9 10^3/uL (0.1-1.4); ABSOLUTE NEUT (AUTO) 4.8 10^3/uL (1.7-8.2); BASOPHILS % (AUTO) 0.9 % (0-2); EOSINOPHILS % (AUTO) 4.7 % (0-6); HEMATOCRIT 26.9 % (36.0-47.0); HGB HCT DIFFERENCE 0.1; LYMPHOCYTES % (AUTO) 22.1 % (13-45); MEAN CORPUSCULAR HGB CONC 33.5 g/dL (32.0-36.0); MEAN CORPUSCULAR VOLUME 87 fl (80-97); MONOCYTES % (AUTO) 11.7 % (3-13); RED BLOOD COUNT 3.11 10^6/uL (3.72-5.28); RED CELL DISTRIBUTION WIDTH 14.2 % (11.5-14.0); SEGMENTED NEUTROPHILS % (AUTO) 60.6 % (42-78); WHITE BLOOD COUNT 7.8 10^3/uL (4.0-10.5)
[2017-05-21 06:40] LABS: ANION GAP 6 (5-19); BLOOD UREA NITROGEN 17 mg/dL (7-20); CALCIUM 7.9 mg/dL (8.4-10.2); CARBON DIOXIDE 24 mmol/L (22-30); CHLORIDE 110 mmol/L (98-107); CREATININE RESULT 0.84 mg/dL (0.52-1.25); GLUCOSE 91 mg/dL (75-110); POTASSIUM 4.1 mmol/L (3.6-5.0); SODIUM 140.1 mmol/L (137-145)
[2017-05-21] MEDS: MULTIVITAMIN TABLET PO SCH (11:06)
[2017-05-21] MEDS: ASCORBIC ACID 500 MG TABLET PO SCH (11:07)
[2017-05-21] MEDS: ZINC SULFATE 220 MG CAPSULE PO SCH (11:07)
[2017-05-21] MEDS: NORMAL SALINE 10 ML SDV (SCHEDULED) IV SCH (11:07)
[2017-05-21] MEDS: ENOXAPARIN SODIUM INJ 40 MG/0.4 ML DISP.SYRIN SUBCUT SCH (11:08)
[2017-05-21] MEDS: NORMAL SALINE 1000 ML 1,000 ML IV PRN (11:10)
[2017-05-21] MEDS: VANCOMYCIN HCL 1,250 MG in DEXTROSE 5%-WATER 250 ML IV SCH (11:11)
[2017-05-21] MEDS: DOCUSATE SODIUM 100 MG CAPSULE PO SCH ×2 (11:13→17:50)
[2017-05-21] MEDS ORDERED: AMPICILLIN SOD/SULBACTAM 1.5 GM VIAL IV SCH (14:00)
--- NOTE | 2017-05-21 14:04 | PDOC PROGRESS REPORT ---
Subjective Progress Note for:: 05/21/17 Subjective:: Patient is feeling much better. There is no chills or fever. Denies any shortness of breath, nausea or vomiting, abdominal pain, purulent drainage in the wounds. No diarrhea noted as well. Physical Exam Vital Signs: Temp Pulse Resp BP Pulse Ox 97.9 F 84 20 119/34 L 98 05/21/17 12:47 05/21/17 12:47 05/21/17 12:47 05/21/17 12:47 05/21/17 12:47 Intake & Output 05/20/17 05/21/17 05/22/17 06:59 06:59 06:59 Intake Total 3570 1310 Output Total 2075 1700 Balance 1495 -390 Weight 81.3 kg 79 kg General appearance: PRESENT: no acute distress, cooperative Head exam: PRESENT: normocephalic Eye exam: PRESENT: EOMI Mouth exam: PRESENT: moist, neck supple Neck exam: ABSENT: JVD Respiratory exam: PRESENT: clear to auscultation shannan. ABSENT: rhonchi, wheezes Cardiovascular exam: PRESENT: RRR. ABSENT: gallop GI/Abdominal exam: PRESENT: normal bowel sounds, soft. ABSENT: distended Neurological exam: PRESENT: alert, awake, oriented to situation Skin exam: PRESENT: dry, warm. ABSENT: cyanosis Results Laboratory Results: 05/21/17 05:10 05/21/17 05:10 05/21/17 05/21/17 05:10 05:10 WBC 7.8 RBC 3.11 L Hgb 9.0 L Hct 26.9 L MCV 87 MCH 29.0 MCHC 33.5 RDW 14.2 H Plt Count 324 Seg Neutrophils % 60.6 Lymphocytes % 22.1 Monocytes % 11.7 Eosinophils % 4.7 Basophils % 0.9 Absolute Neutrophils 4.8 Absolute Lymphocytes 1.7 Absolute Monocytes 0.9 Absolute Eosinophils 0.4 Absolute Basophils 0.1 Sodium 140.1 Potassium 4.1 Chloride 110 H Carbon Dioxide 24 Anion Gap 6 BUN 17 Creatinine 0.84 Est GFR ( Amer) > 60 Est GFR (Non-Af Amer) > 60 Glucose 91 Calcium 7.9 L Impressions: Chest X-Ray 05/13/17 13:58 IMPRESSION: NO ACUTE RADIOGRAPHIC FINDING IN THE CHEST. Pelvis CT 05/13/17 15:21 IMPRESSION: Left gluteal decubitus ulcer with gas abutting the ischial tuberosity. If important to evaluate for osteomyelitis, consider noncontrast MRI or bone scan. Guidance Fluoroscopy 05/14/17 00:00 IMPRESSION: SUCCESSFUL PLACEMENT OF A 5 FR DUAL LUMEN 37 CM PICC IN THE LEFT BASILIC VEIN. Interventional Vascular Procedure 05/14/17 00:00 IMPRESSION: SUCCESSFUL PLACEMENT OF A 5 FR DUAL LUMEN 37 CM PICC IN THE LEFT BASILIC VEIN. PICC Line Insertion 05/14/17 00:00 IMPRESSION: SUCCESSFUL PLACEMENT OF A 5 FR DUAL LUMEN 37 CM PICC IN THE LEFT BASILIC VEIN. Assessment & Plan - Diagnosis (1) Osteomyelitis of left hip Is this a current diagnosis for this admission?: Yes (2) Decubitus ulcer, stage 4 with infection Is this a current diagnosis for this admission?: Yes (3) Anemia of chronic disease Is this a current diagnosis for this admission?: Yes (4) Paraplegia Is this a current diagnosis for this admission?: Yes (5) Decubitus ulcer, stage II Qualifiers: Pressure ulcer location: unspecified location Qualified Code(s): L89.92 - Pressure ulcer of unspecified site, stage 2 Is this a current diagnosis for this admission?: Yes (6) Spina bifida Qualifiers: Spinal region: unspecified Presence of hydrocephalus: without hydrocephalus Qualified Code(s): Q05.9 - Spina bifida, unspecified Is this a current diagnosis for this admission?: Yes - Time Time Spent with patient: 25-34 minutes - Plan Summary Plan Summary: Laboratories reviewed culture and sensitivity as well reviewed. Organisms are sensitive to ampicillin. I will therefore start the patient on Unasyn and arrange for home IV antibiotics and wound care in a [facility] facility setting. Continue supportive care. Discontinue ceftriaxone and vancomycin.
[2017-05-21] MEDS: AMPICILLIN SODIUM/SULBACTAM NA 1.5 GM in NORMAL SALINE 50 ML IV SCH (17:52)
[2017-05-22] MEDS: NORMAL SALINE 10 ML SDV (SCHEDULED) IV SCH ×3 (00:26→22:05)
[2017-05-22] MEDS: AMPICILLIN SODIUM/SULBACTAM NA 1.5 GM in NORMAL SALINE 50 ML IV SCH ×5 (00:26→23:31)
[2017-05-22] MEDS: NORMAL SALINE 1000 ML 1,000 ML IV PRN (00:26)
[2017-05-22] MEDS: NORMAL SALINE 10 ML SDV (AFTER EACH USE) IV PRN (04:47)
[2017-05-22] MEDS: LANSOPRAZOLE 30 MG TAB.RAP.DR PO SCH (06:59)
[2017-05-22] MEDS: ENOXAPARIN SODIUM INJ 40 MG/0.4 ML DISP.SYRIN SUBCUT SCH (09:52)
[2017-05-22] MEDS: MULTIVITAMIN TABLET PO SCH (09:53)
[2017-05-22] MEDS: DOCUSATE SODIUM 100 MG CAPSULE PO SCH ×2 (09:53→18:18)
[2017-05-22] MEDS: ASCORBIC ACID 500 MG TABLET PO SCH (09:53)
[2017-05-22] MEDS: ZINC SULFATE 220 MG CAPSULE PO SCH (09:53)
--- NOTE | 2017-05-22 15:15 | PDOC PROGRESS REPORT ---
Subjective Progress Note for:: 05/22/17 Subjective:: Patient voiced no complaints. Denies any nausea or vomiting. No chills or fever. No diarrhea. Patient is doing well. Physical Exam Vital Signs: Temp Pulse Resp BP Pulse Ox 98.5 F 73 17 110/41 L 97 05/22/17 08:06 05/22/17 08:06 05/22/17 08:06 05/22/17 08:06 05/22/17 08:06 Intake & Output 05/21/17 05/22/17 05/23/17 06:59 06:59 06:59 Intake Total 1310 2793 Output Total 1700 1600 Balance -390 1193 Weight 79 kg 81.2 kg General appearance: PRESENT: no acute distress, cooperative Eye exam: PRESENT: EOMI Mouth exam: PRESENT: moist, neck supple Neck exam: ABSENT: JVD Respiratory exam: PRESENT: clear to auscultation shannan Cardiovascular exam: PRESENT: RRR GI/Abdominal exam: PRESENT: soft. ABSENT: distended Extremities exam: PRESENT: pedal edema - Unchanged Neurological exam: PRESENT: alert, awake, oriented to situation Results Laboratory Results: 05/21/17 05:10 05/21/17 05:10 Impressions: Chest X-Ray 05/13/17 13:58 IMPRESSION: NO ACUTE RADIOGRAPHIC FINDING IN THE CHEST. Pelvis CT 05/13/17 15:21 IMPRESSION: Left gluteal decubitus ulcer with gas abutting the ischial tuberosity. If important to evaluate for osteomyelitis, consider noncontrast MRI or bone scan. Guidance Fluoroscopy 05/14/17 00:00 IMPRESSION: SUCCESSFUL PLACEMENT OF A 5 FR DUAL LUMEN 37 CM PICC IN THE LEFT BASILIC VEIN. Interventional Vascular Procedure 05/14/17 00:00 IMPRESSION: SUCCESSFUL PLACEMENT OF A 5 FR DUAL LUMEN 37 CM PICC IN THE LEFT BASILIC VEIN. PICC Line Insertion 05/14/17 00:00 IMPRESSION: SUCCESSFUL PLACEMENT OF A 5 FR DUAL LUMEN 37 CM PICC IN THE LEFT BASILIC VEIN. Assessment & Plan - Diagnosis (1) Osteomyelitis of left hip Is this a current diagnosis for this admission?: Yes (2) Decubitus ulcer, stage 4 with infection Is this a current diagnosis for this admission?: Yes (3) Anemia of chronic disease Is this a current diagnosis for this admission?: Yes (4) Paraplegia Is this a current diagnosis for this admission?: Yes (5) Decubitus ulcer, stage II Qualifiers: Pressure ulcer location: unspecified location Qualified Code(s): L89.92 - Pressure ulcer of unspecified site, stage 2 Is this a current diagnosis for this admission?: Yes (6) Spina bifida Qualifiers: Spinal region: unspecified Presence of hydrocephalus: without hydrocephalus Qualified Code(s): Q05.9 - Spina bifida, unspecified Is this a current diagnosis for this admission?: Yes - Time Time Spent with patient: Less than 15 minutes - Plan Summary Plan Summary: Continue current IV antibiotics. IV fluids to [facility]. Awaiting long-term care placement.
[2017-05-23] MEDS: AMPICILLIN SODIUM/SULBACTAM NA 1.5 GM in NORMAL SALINE 50 ML IV SCH ×3 (05:13→18:34)
[2017-05-23] MEDS: LANSOPRAZOLE 30 MG TAB.RAP.DR PO SCH (05:13)
[2017-05-23] MEDS: NORMAL SALINE 1000 ML 1,000 ML IV PRN (06:42)
[2017-05-23] MEDS: ENOXAPARIN SODIUM INJ 40 MG/0.4 ML DISP.SYRIN SUBCUT SCH (09:58)
[2017-05-23] MEDS: DOCUSATE SODIUM 100 MG CAPSULE PO SCH ×2 (09:58→18:34)
[2017-05-23] MEDS: ASCORBIC ACID 500 MG TABLET PO SCH (09:58)
[2017-05-23] MEDS: MULTIVITAMIN TABLET PO SCH (09:59)
[2017-05-23] MEDS: ZINC SULFATE 220 MG CAPSULE PO SCH (09:59)
[2017-05-23] MEDS: NORMAL SALINE 10 ML SDV (SCHEDULED) IV SCH ×2 (10:18→21:43)
--- NOTE | 2017-05-23 11:34 | PDOC PROGRESS REPORT ---
Subjective Progress Note for:: 05/23/17 Subjective:: Patient voiced no complaints. Denies any nausea or vomiting. No chills or fever. No diarrhea. Stable at this time. Physical Exam Vital Signs: Temp Pulse Resp BP Pulse Ox 98.7 F 83 17 111/57 L 96 05/23/17 07:56 05/23/17 07:56 05/23/17 07:56 05/23/17 07:56 05/23/17 07:56 Intake & Output 05/22/17 05/23/17 05/24/17 06:59 06:59 06:59 Intake Total 2793 2520 Output Total 1600 1450 Balance 1193 1070 Weight 81.2 kg 79.2 kg General appearance: PRESENT: no acute distress, cooperative Head exam: PRESENT: normocephalic Eye exam: PRESENT: EOMI Mouth exam: PRESENT: moist, neck supple Neck exam: ABSENT: JVD Respiratory exam: PRESENT: clear to auscultation shannan Cardiovascular exam: PRESENT: RRR GI/Abdominal exam: PRESENT: soft. ABSENT: distended Neurological exam: PRESENT: alert, awake, oriented to situation Skin exam: PRESENT: dry, warm. ABSENT: cyanosis Results Laboratory Results: 05/21/17 05:10 05/21/17 05:10 Impressions: Chest X-Ray 05/13/17 13:58 IMPRESSION: NO ACUTE RADIOGRAPHIC FINDING IN THE CHEST. Pelvis CT 05/13/17 15:21 IMPRESSION: Left gluteal decubitus ulcer with gas abutting the ischial tuberosity. If important to evaluate for osteomyelitis, consider noncontrast MRI or bone scan. Guidance Fluoroscopy 05/14/17 00:00 IMPRESSION: SUCCESSFUL PLACEMENT OF A 5 FR DUAL LUMEN 37 CM PICC IN THE LEFT BASILIC VEIN. Interventional Vascular Procedure 05/14/17 00:00 IMPRESSION: SUCCESSFUL PLACEMENT OF A 5 FR DUAL LUMEN 37 CM PICC IN THE LEFT BASILIC VEIN. PICC Line Insertion 05/14/17 00:00 IMPRESSION: SUCCESSFUL PLACEMENT OF A 5 FR DUAL LUMEN 37 CM PICC IN THE LEFT BASILIC VEIN. Assessment & Plan - Diagnosis (1) Osteomyelitis of left hip Is this a current diagnosis for this admission?: Yes (2) Decubitus ulcer, stage 4 with infection Is this a current diagnosis for this admission?: Yes (3) Anemia of chronic disease Is this a current diagnosis for this admission?: Yes (4) Paraplegia Is this a current diagnosis for this admission?: Yes (5) Decubitus ulcer, stage II Qualifiers: Pressure ulcer location: unspecified location Qualified Code(s): L89.92 - Pressure ulcer of unspecified site, stage 2 Is this a current diagnosis for this admission?: Yes (6) Spina bifida Qualifiers: Spinal region: unspecified Presence of hydrocephalus: without hydrocephalus Qualified Code(s): Q05.9 - Spina bifida, unspecified Is this a current diagnosis for this admission?: Yes - Time Time Spent with patient: Less than 15 minutes - Plan Summary Plan Summary: Continue current medications and anti-biotics. Await SNF bed.
[2017-05-24] MEDS: AMPICILLIN SODIUM/SULBACTAM NA 1.5 GM in NORMAL SALINE 50 ML IV SCH ×5 (00:04→23:22)
[2017-05-24] MEDS: LANSOPRAZOLE 30 MG TAB.RAP.DR PO SCH (05:25)
[2017-05-24] MEDS: ZINC SULFATE 220 MG CAPSULE PO SCH (10:57)
[2017-05-24] MEDS: MULTIVITAMIN TABLET PO SCH (10:58)
[2017-05-24] MEDS: ASCORBIC ACID 500 MG TABLET PO SCH (10:58)
[2017-05-24] MEDS: NORMAL SALINE 10 ML SDV (SCHEDULED) IV SCH ×2 (10:58→23:22)
[2017-05-24] MEDS: ENOXAPARIN SODIUM INJ 40 MG/0.4 ML DISP.SYRIN SUBCUT SCH (10:59)
[2017-05-24] MEDS: DOCUSATE SODIUM 100 MG CAPSULE PO SCH ×2 (10:59→17:57)
--- NOTE | 2017-05-24 11:31 | PDOC PROGRESS REPORT ---
Subjective Progress Note for:: 05/24/17 Subjective:: Voice no complaints. No diarrhea, chills nor fever. Physical Exam Vital Signs: Temp Pulse Resp BP Pulse Ox 99.2 F 73 18 108/56 L 96 05/24/17 08:22 05/24/17 08:22 05/24/17 08:22 05/24/17 08:22 05/24/17 08:22 Intake & Output 05/23/17 05/24/17 05/25/17 06:59 06:59 06:59 Intake Total 2520 1584 200 Output Total 1450 1600 700 Balance 1070 -16 -500 Weight 79.2 kg 78.6 kg General appearance: PRESENT: no acute distress, cooperative, obese Mouth exam: PRESENT: moist, neck supple Respiratory exam: PRESENT: clear to auscultation shannan Cardiovascular exam: PRESENT: RRR GI/Abdominal exam: PRESENT: soft. ABSENT: distended Neurological exam: PRESENT: alert, awake, oriented to situation Results Laboratory Results: 05/21/17 05:10 05/21/17 05:10 Impressions: Chest X-Ray 05/13/17 13:58 IMPRESSION: NO ACUTE RADIOGRAPHIC FINDING IN THE CHEST. Pelvis CT 05/13/17 15:21 IMPRESSION: Left gluteal decubitus ulcer with gas abutting the ischial tuberosity. If important to evaluate for osteomyelitis, consider noncontrast MRI or bone scan. Guidance Fluoroscopy 05/14/17 00:00 IMPRESSION: SUCCESSFUL PLACEMENT OF A 5 FR DUAL LUMEN 37 CM PICC IN THE LEFT BASILIC VEIN. Interventional Vascular Procedure 05/14/17 00:00 IMPRESSION: SUCCESSFUL PLACEMENT OF A 5 FR DUAL LUMEN 37 CM PICC IN THE LEFT BASILIC VEIN. PICC Line Insertion 05/14/17 00:00 IMPRESSION: SUCCESSFUL PLACEMENT OF A 5 FR DUAL LUMEN 37 CM PICC IN THE LEFT BASILIC VEIN. Assessment & Plan - Diagnosis (1) Osteomyelitis of left hip Is this a current diagnosis for this admission?: Yes (2) Decubitus ulcer, stage 4 with infection Is this a current diagnosis for this admission?: Yes (3) Anemia of chronic disease Is this a current diagnosis for this admission?: Yes (4) Paraplegia Is this a current diagnosis for this admission?: Yes (5) Decubitus ulcer, stage II Qualifiers: Pressure ulcer location: unspecified location Qualified Code(s): L89.92 - Pressure ulcer of unspecified site, stage 2 Is this a current diagnosis for this admission?: Yes (6) Spina bifida Qualifiers: Spinal region: unspecified Presence of hydrocephalus: without hydrocephalus Qualified Code(s): Q05.9 - Spina bifida, unspecified Is this a current diagnosis for this admission?: Yes - Time Time Spent with patient: Less than 15 minutes - Plan Summary Plan Summary: Awaiting subacute bed for wound care, IV antibiotics for 4 weeks, and physical therapy.
[2017-05-24] MEDS: NORMAL SALINE 1000 ML 1,000 ML IV PRN (19:05)
[2017-05-25] MEDS: LANSOPRAZOLE 30 MG TAB.RAP.DR PO SCH (05:50)
[2017-05-25] MEDS: AMPICILLIN SODIUM/SULBACTAM NA 1.5 GM in NORMAL SALINE 50 ML IV SCH ×4 (05:50→23:09)
--- NOTE | 2017-05-25 09:36 | PDOC PROGRESS REPORT ---
Subjective Progress Note for:: 05/25/17 Subjective:: Patient voices no complaints at all. Denies having diarrhea. No chills or fever reported. No shortness of breath noted as well. Physical Exam Vital Signs: Temp Pulse Resp BP Pulse Ox 98.7 F 71 16 108/37 L 97 05/25/17 08:35 05/25/17 08:35 05/25/17 08:35 05/25/17 08:35 05/25/17 08:35 Intake & Output 05/24/17 05/25/17 05/26/17 06:59 06:59 06:59 Intake Total 1584 2659 Output Total 1600 2700 Balance -16 -41 Weight 78.6 kg 78.6 kg General appearance: PRESENT: no acute distress, cooperative Head exam: PRESENT: normocephalic Eye exam: PRESENT: EOMI Mouth exam: PRESENT: moist, neck supple Neck exam: ABSENT: JVD Respiratory exam: PRESENT: clear to auscultation shnanan. ABSENT: rhonchi, wheezes Cardiovascular exam: PRESENT: RRR. ABSENT: gallop GI/Abdominal exam: PRESENT: soft. ABSENT: distended Neurological exam: PRESENT: alert, awake, oriented to situation Skin exam: PRESENT: dry, warm. ABSENT: cyanosis Results Laboratory Results: 05/21/17 05:10 05/21/17 05:10 Impressions: Chest X-Ray 05/13/17 13:58 IMPRESSION: NO ACUTE RADIOGRAPHIC FINDING IN THE CHEST. Pelvis CT 05/13/17 15:21 IMPRESSION: Left gluteal decubitus ulcer with gas abutting the ischial tuberosity. If important to evaluate for osteomyelitis, consider noncontrast MRI or bone scan. Guidance Fluoroscopy 05/14/17 00:00 IMPRESSION: SUCCESSFUL PLACEMENT OF A 5 FR DUAL LUMEN 37 CM PICC IN THE LEFT BASILIC VEIN. Interventional Vascular Procedure 05/14/17 00:00 IMPRESSION: SUCCESSFUL PLACEMENT OF A 5 FR DUAL LUMEN 37 CM PICC IN THE LEFT BASILIC VEIN. PICC Line Insertion 05/14/17 00:00 IMPRESSION: SUCCESSFUL PLACEMENT OF A 5 FR DUAL LUMEN 37 CM PICC IN THE LEFT BASILIC VEIN. Assessment & Plan - Diagnosis (1) Osteomyelitis of left hip Is this a current diagnosis for this admission?: Yes (2) Decubitus ulcer, stage 4 with infection Is this a current diagnosis for this admission?: Yes (3) Anemia of chronic disease Is this a current diagnosis for this admission?: Yes (4) Paraplegia Is this a current diagnosis for this admission?: Yes (5) Decubitus ulcer, stage II Qualifiers: Pressure ulcer location: unspecified location Qualified Code(s): L89.92 - Pressure ulcer of unspecified site, stage 2 Is this a current diagnosis for this admission?: Yes (6) Spina bifida Qualifiers: Spinal region: unspecified Presence of hydrocephalus: without hydrocephalus Qualified Code(s): Q05.9 - Spina bifida, unspecified Is this a current diagnosis for this admission?: Yes - Time Time Spent with patient: Less than 15 minutes - Plan Summary Plan Summary: Continue current antibiotics. Awaiting [facility] facility bed.
[2017-05-25] MEDS: MULTIVITAMIN TABLET PO SCH (10:30)
[2017-05-25] MEDS: ZINC SULFATE 220 MG CAPSULE PO SCH (10:30)
[2017-05-25] MEDS: DOCUSATE SODIUM 100 MG CAPSULE PO SCH ×2 (10:30→18:25)
[2017-05-25] MEDS: ASCORBIC ACID 500 MG TABLET PO SCH (10:33)
[2017-05-25] MEDS: ENOXAPARIN SODIUM INJ 40 MG/0.4 ML DISP.SYRIN SUBCUT SCH (10:34)
[2017-05-25] MEDS: NORMAL SALINE 10 ML SDV (SCHEDULED) IV SCH ×2 (10:36→22:50)
[2017-05-25] MEDS: NORMAL SALINE 1000 ML 1,000 ML IV PRN (22:49)
[2017-05-26] MEDS: AMPICILLIN SODIUM/SULBACTAM NA 1.5 GM in NORMAL SALINE 50 ML IV SCH ×4 (05:45→23:18)
[2017-05-26] MEDS: LANSOPRAZOLE 30 MG TAB.RAP.DR PO SCH (05:45)
--- NOTE | 2017-05-26 09:58 | PDOC PROGRESS REPORT ---
Subjective Progress Note for:: 05/26/17 Subjective:: Patient is doing well, no reported diarrhea, no reported temperature spikes, nausea no vomiting. Tolerating diet. Patient voices no complaints. Physical Exam Vital Signs: Temp Pulse Resp BP Pulse Ox 98.3 F 72 17 111/34 L 96 05/26/17 08:02 05/26/17 08:02 05/26/17 08:02 05/26/17 08:02 05/26/17 08:02 Intake & Output 05/25/17 05/26/17 05/27/17 06:59 06:59 06:59 Intake Total 2659 3074 Output Total 2700 2160 Balance -41 914 Weight 78.6 kg 79.3 kg General appearance: PRESENT: no acute distress, cooperative Head exam: PRESENT: normocephalic Eye exam: PRESENT: EOMI Mouth exam: PRESENT: moist, neck supple Neck exam: ABSENT: JVD Respiratory exam: PRESENT: clear to auscultation shannan Cardiovascular exam: PRESENT: RRR GI/Abdominal exam: PRESENT: soft. ABSENT: distended Neurological exam: PRESENT: alert, awake, oriented to situation Skin exam: PRESENT: dry, warm. ABSENT: cyanosis Results Laboratory Results: 05/21/17 05:10 05/21/17 05:10 Impressions: Chest X-Ray 05/13/17 13:58 IMPRESSION: NO ACUTE RADIOGRAPHIC FINDING IN THE CHEST. Pelvis CT 05/13/17 15:21 IMPRESSION: Left gluteal decubitus ulcer with gas abutting the ischial tuberosity. If important to evaluate for osteomyelitis, consider noncontrast MRI or bone scan. Guidance Fluoroscopy 05/14/17 00:00 IMPRESSION: SUCCESSFUL PLACEMENT OF A 5 FR DUAL LUMEN 37 CM PICC IN THE LEFT BASILIC VEIN. Interventional Vascular Procedure 05/14/17 00:00 IMPRESSION: SUCCESSFUL PLACEMENT OF A 5 FR DUAL LUMEN 37 CM PICC IN THE LEFT BASILIC VEIN. PICC Line Insertion 05/14/17 00:00 IMPRESSION: SUCCESSFUL PLACEMENT OF A 5 FR DUAL LUMEN 37 CM PICC IN THE LEFT BASILIC VEIN. Assessment & Plan - Diagnosis (1) Osteomyelitis of left hip Is this a current diagnosis for this admission?: Yes (2) Decubitus ulcer, stage 4 with infection Is this a current diagnosis for this admission?: Yes (3) Anemia of chronic disease Is this a current diagnosis for this admission?: Yes (4) Paraplegia Is this a current diagnosis for this admission?: Yes (5) Decubitus ulcer, stage II Qualifiers: Pressure ulcer location: unspecified location Qualified Code(s): L89.92 - Pressure ulcer of unspecified site, stage 2 Is this a current diagnosis for this admission?: Yes (6) Spina bifida Qualifiers: Spinal region: unspecified Presence of hydrocephalus: without hydrocephalus Qualified Code(s): Q05.9 - Spina bifida, unspecified Is this a current diagnosis for this admission?: Yes - Time Time Spent with patient: Less than 15 minutes - Plan Summary Plan Summary: Continue current medications and supportive care. Awaiting subacute facility bed for transfer.
[2017-05-26] MEDS: ASCORBIC ACID 500 MG TABLET PO SCH (11:45)
[2017-05-26] MEDS: DOCUSATE SODIUM 100 MG CAPSULE PO SCH ×2 (11:46→18:27)
[2017-05-26] MEDS: ZINC SULFATE 220 MG CAPSULE PO SCH (11:46)
[2017-05-26] MEDS: ENOXAPARIN SODIUM INJ 40 MG/0.4 ML DISP.SYRIN SUBCUT SCH (11:47)
[2017-05-26] MEDS: MULTIVITAMIN TABLET PO SCH (11:47)
[2017-05-26] MEDS: NORMAL SALINE 10 ML SDV (SCHEDULED) IV SCH ×2 (12:07→23:18)
[2017-05-27] MEDS: LANSOPRAZOLE 30 MG TAB.RAP.DR PO SCH (06:01)
[2017-05-27] MEDS: AMPICILLIN SODIUM/SULBACTAM NA 1.5 GM in NORMAL SALINE 50 ML IV SCH ×3 (06:01→18:30)
[2017-05-27] MEDS: ASCORBIC ACID 500 MG TABLET PO SCH (09:59)
[2017-05-27] MEDS: MULTIVITAMIN TABLET PO SCH (09:59)
[2017-05-27] MEDS: ZINC SULFATE 220 MG CAPSULE PO SCH (09:59)
[2017-05-27] MEDS: DOCUSATE SODIUM 100 MG CAPSULE PO SCH ×2 (09:59→18:30)
[2017-05-27] MEDS: ENOXAPARIN SODIUM INJ 40 MG/0.4 ML DISP.SYRIN SUBCUT SCH (10:03)
--- NOTE | 2017-05-27 11:15 | PDOC PROGRESS REPORT ---
Subjective Progress Note for:: 05/27/17 Subjective:: Denies having any diarrhea. Voices no complaints at all. Physical Exam Vital Signs: Temp Pulse Resp BP Pulse Ox 98.4 F 75 17 99/50 L 97 05/27/17 07:57 05/27/17 07:57 05/27/17 07:57 05/27/17 07:57 05/27/17 07:57 Intake & Output 05/26/17 05/27/17 05/28/17 06:59 06:59 06:59 Intake Total 3074 2184 Output Total 2160 1800 Balance 914 384 Weight 79.3 kg 79.2 kg General appearance: PRESENT: no acute distress, cooperative Eye exam: PRESENT: EOMI Mouth exam: PRESENT: moist, neck supple Neck exam: ABSENT: JVD Respiratory exam: PRESENT: clear to auscultation shannan Cardiovascular exam: PRESENT: RRR GI/Abdominal exam: PRESENT: soft. ABSENT: distended Neurological exam: PRESENT: alert, awake, oriented to situation Skin exam: PRESENT: dry, warm. ABSENT: cyanosis Results Laboratory Results: 05/21/17 05:10 05/21/17 05:10 Impressions: Chest X-Ray 05/13/17 13:58 IMPRESSION: NO ACUTE RADIOGRAPHIC FINDING IN THE CHEST. Pelvis CT 05/13/17 15:21 IMPRESSION: Left gluteal decubitus ulcer with gas abutting the ischial tuberosity. If important to evaluate for osteomyelitis, consider noncontrast MRI or bone scan. Guidance Fluoroscopy 05/14/17 00:00 IMPRESSION: SUCCESSFUL PLACEMENT OF A 5 FR DUAL LUMEN 37 CM PICC IN THE LEFT BASILIC VEIN. Interventional Vascular Procedure 05/14/17 00:00 IMPRESSION: SUCCESSFUL PLACEMENT OF A 5 FR DUAL LUMEN 37 CM PICC IN THE LEFT BASILIC VEIN. PICC Line Insertion 05/14/17 00:00 IMPRESSION: SUCCESSFUL PLACEMENT OF A 5 FR DUAL LUMEN 37 CM PICC IN THE LEFT BASILIC VEIN. Assessment & Plan - Diagnosis (1) Osteomyelitis of left hip Is this a current diagnosis for this admission?: Yes (2) Decubitus ulcer, stage 4 with infection Is this a current diagnosis for this admission?: Yes (3) Anemia of chronic disease Is this a current diagnosis for this admission?: Yes (4) Paraplegia Is this a current diagnosis for this admission?: Yes (5) Decubitus ulcer, stage II Qualifiers: Pressure ulcer location: unspecified location Qualified Code(s): L89.92 - Pressure ulcer of unspecified site, stage 2 Is this a current diagnosis for this admission?: Yes (6) Spina bifida Qualifiers: Spinal region: unspecified Presence of hydrocephalus: without hydrocephalus Qualified Code(s): Q05.9 - Spina bifida, unspecified Is this a current diagnosis for this admission?: Yes - Time Time Spent with patient: Less than 15 minutes - Plan Summary Plan Summary: Continue current medication and antibiotic. Awaiting approval by [facility] facility for patient to be admitted for wound care, IV antibiotic infusion for 4 weeks, and therapy.
[2017-05-27] MEDS: NORMAL SALINE 10 ML SDV (SCHEDULED) IV SCH ×2 (13:03→21:49)
[2017-05-28] MEDS: AMPICILLIN SODIUM/SULBACTAM NA 1.5 GM in NORMAL SALINE 50 ML IV SCH ×3 (00:31→11:26)
[2017-05-28] MEDS: LANSOPRAZOLE 30 MG TAB.RAP.DR PO SCH (05:16)
[2017-05-28] MEDS: ASCORBIC ACID 500 MG TABLET PO SCH (09:46)
[2017-05-28] MEDS: DOCUSATE SODIUM 100 MG CAPSULE PO SCH ×2 (09:47→17:56)
[2017-05-28] MEDS: MULTIVITAMIN TABLET PO SCH (09:47)
[2017-05-28] MEDS: ZINC SULFATE 220 MG CAPSULE PO SCH (09:48)
[2017-05-28] MEDS: ENOXAPARIN SODIUM INJ 40 MG/0.4 ML DISP.SYRIN SUBCUT SCH (09:52)
[2017-05-28] MEDS: NORMAL SALINE 10 ML SDV (AFTER EACH USE) IV PRN ×2 (09:52→10:07)
[2017-05-28] MEDS: NORMAL SALINE 10 ML SDV (SCHEDULED) IV SCH ×2 (10:15→22:19)
[2017-05-28] MEDS: ONDANSETRON HCL INJ/PF 4 MG/2 ML SDV IV PRN ×2 (11:31→17:56)
--- NOTE | 2017-05-28 13:30 | PDOC PROGRESS REPORT ---
Subjective Progress Note for:: 05/28/17 Subjective:: Patient denies any complaints. Physical Exam Vital Signs: Temp Pulse Resp BP Pulse Ox 97.8 F 70 14 104/82 99 05/28/17 11:40 05/28/17 11:40 05/28/17 11:40 05/28/17 11:40 05/28/17 11:40 Intake & Output 05/27/17 05/28/17 05/29/17 06:59 06:59 06:59 Intake Total 2184 2292 Output Total 1800 2150 Balance 384 142 Weight 79.2 kg 79.2 kg General appearance: PRESENT: no acute distress Eye exam: PRESENT: conjunctiva pink. ABSENT: scleral icterus Mouth exam: PRESENT: moist, tongue midline Neck exam: ABSENT: JVD Respiratory exam: PRESENT: clear to auscultation shannan. ABSENT: rales, rhonchi, wheezes Cardiovascular exam: PRESENT: RRR. ABSENT: diastolic murmur, rubs, systolic murmur GI/Abdominal exam: PRESENT: normal bowel sounds, soft. ABSENT: distended, guarding, mass, organolmegaly, rebound, tenderness Extremities exam: ABSENT: calf tenderness, clubbing, pedal edema Neurological exam: PRESENT: alert, awake, oriented to person, oriented to place , oriented to time, oriented to situation Psychiatric exam: PRESENT: appropriate affect Skin exam: PRESENT: other - Dressing in place on the buttock Results Laboratory Results: 05/21/17 05:10 05/21/17 05:10 Impressions: Chest X-Ray 05/13/17 13:58 IMPRESSION: NO ACUTE RADIOGRAPHIC FINDING IN THE CHEST. Pelvis CT 05/13/17 15:21 IMPRESSION: Left gluteal decubitus ulcer with gas abutting the ischial tuberosity. If important to evaluate for osteomyelitis, consider noncontrast MRI or bone scan. Guidance Fluoroscopy 05/14/17 00:00 IMPRESSION: SUCCESSFUL PLACEMENT OF A 5 FR DUAL LUMEN 37 CM PICC IN THE LEFT BASILIC VEIN. Interventional Vascular Procedure 05/14/17 00:00 IMPRESSION: SUCCESSFUL PLACEMENT OF A 5 FR DUAL LUMEN 37 CM PICC IN THE LEFT BASILIC VEIN. PICC Line Insertion 05/14/17 00:00 IMPRESSION: SUCCESSFUL PLACEMENT OF A 5 FR DUAL LUMEN 37 CM PICC IN THE LEFT BASILIC VEIN. Assessment & Plan - Diagnosis (1) Osteomyelitis of left hip Is this a current diagnosis for this admission?: Yes Plan: Patient has decubitus ulcer with osteomyelitis now. Currently on Unasyn. Patient will need at least 6 weeks of IV antibiotics. She is unable to do home antibiotics given her debility and will need to go [facility] a [facility] facility. (2) Decubitus ulcer, stage 4 with infection Is this a current diagnosis for this admission?: Yes Plan: On antibiotics. Continue with local wound care. (3) Anemia of chronic disease Is this a current diagnosis for this admission?: Yes Plan: Hemoglobin is stable (4) Paraplegia Is this a current diagnosis for this admission?: Yes (5) Spina bifida Qualifiers: Spinal region: unspecified Presence of hydrocephalus: without hydrocephalus Qualified Code(s): Q05.9 - Spina bifida, unspecified Is this a current diagnosis for this admission?: Yes - Time Time Spent with patient: 15-24 minutes - Inpatient Certification Medical Necessity: Need for IV Antibiotics - Plan Summary Plan Summary: We will transfer to skilled nurse facility for IV antibiotics when a bed becomes available.
[2017-05-29] MEDS: LANSOPRAZOLE 30 MG TAB.RAP.DR PO SCH (05:24)
[2017-05-29 06:26] LABS: ABSOLUTE BASOPHILS # (AUTO) 0.1 10^3/uL (0.0-0.2); ABSOLUTE EOSINOPHILS # (AUTO) 0.2 10^3/uL (0.0-0.6); ABSOLUTE LYMPHOCYTES (AUTO) 1.1 10^3/uL (0.5-4.7); ABSOLUTE MONOCYTES (AUTO) 0.9 10^3/uL (0.1-1.4); ABSOLUTE NEUT (AUTO) 8.7 10^3/uL (1.7-8.2); BASOPHILS % (AUTO) 0.7 % (0-2); HEMATOCRIT 25.7 % (36.0-47.0); HEMOGLOBIN 8.4 g/dL (12.0-15.5); HGB HCT DIFFERENCE -0.5; LYMPHOCYTES % (AUTO) 10.2 % (13-45); MEAN CORPUSCULAR HEMOGLOBIN 28.4 pg (27.0-33.4); MEAN CORPUSCULAR HGB CONC 32.8 g/dL (32.0-36.0); MEAN CORPUSCULAR VOLUME 87 fl (80-97); MONOCYTES % (AUTO) 8.6 % (3-13); RED BLOOD COUNT 2.97 10^6/uL (3.72-5.28); RED CELL DISTRIBUTION WIDTH 14.4 % (11.5-14.0); SEGMENTED NEUTROPHILS % (AUTO) 78.5 % (42-78)
[2017-05-29 06:32] LABS: ANION GAP 7 (5-19); BLOOD UREA NITROGEN 22 mg/dL (7-20); CARBON DIOXIDE 23 mmol/L (22-30); CHLORIDE 111 mmol/L (98-107); CREATININE RESULT 0.94 mg/dL (0.52-1.25); GLUCOSE 92 mg/dL (75-110); POTASSIUM 4.4 mmol/L (3.6-5.0); SODIUM 140.7 mmol/L (137-145)
[2017-05-29] MEDS: MULTIVITAMIN TABLET PO SCH (09:29)
[2017-05-29] MEDS: DOCUSATE SODIUM 100 MG CAPSULE PO SCH ×2 (09:29→18:31)
[2017-05-29] MEDS: ZINC SULFATE 220 MG CAPSULE PO SCH (09:29)
[2017-05-29] MEDS: ASCORBIC ACID 500 MG TABLET PO SCH (09:29)
[2017-05-29] MEDS: NORMAL SALINE 10 ML SDV (SCHEDULED) IV SCH ×2 (09:30→23:37)
[2017-05-29] MEDS: ENOXAPARIN SODIUM INJ 40 MG/0.4 ML DISP.SYRIN SUBCUT SCH (10:00)
--- NOTE | 2017-05-29 11:14 | PDOC PROGRESS REPORT ---
Subjective Progress Note for:: 05/29/17 Subjective:: Patient denies any complaints. Physical Exam Vital Signs: Temp Pulse Resp BP Pulse Ox 98.8 F 80 20 112/42 L 95 05/29/17 07:47 05/29/17 07:47 05/29/17 07:47 05/29/17 07:47 05/29/17 07:47 Intake & Output 05/28/17 05/29/17 05/30/17 06:59 06:59 06:59 Intake Total 2292 1660 Output Total 2150 2900 Balance 142 -1240 Weight 79.2 kg 79.2 kg General appearance: PRESENT: no acute distress Eye exam: PRESENT: conjunctiva pink. ABSENT: scleral icterus Mouth exam: PRESENT: moist, tongue midline Neck exam: ABSENT: JVD Respiratory exam: PRESENT: clear to auscultation shannan. ABSENT: rales, rhonchi, wheezes Cardiovascular exam: PRESENT: RRR. ABSENT: diastolic murmur, rubs, systolic murmur GI/Abdominal exam: PRESENT: normal bowel sounds, soft. ABSENT: distended, guarding, mass, organolmegaly, rebound, tenderness Extremities exam: ABSENT: calf tenderness, clubbing, pedal edema Neurological exam: PRESENT: alert, awake, oriented to person, oriented to place , oriented to time, oriented to situation, CN II-XII grossly intact. ABSENT: motor sensory deficit Psychiatric exam: PRESENT: appropriate affect Skin exam: PRESENT: other - Dressing in place on the buttocks Results Laboratory Results: 05/29/17 05:55 05/29/17 05:55 05/29/17 05/29/17 05:55 05:55 WBC 11.0 H RBC 2.97 L Hgb 8.4 L Hct 25.7 L MCV 87 MCH 28.4 MCHC 32.8 RDW 14.4 H Plt Count 336 Seg Neutrophils % 78.5 H Lymphocytes % 10.2 L Monocytes % 8.6 Eosinophils % 2.0 Basophils % 0.7 Absolute Neutrophils 8.7 H Absolute Lymphocytes 1.1 Absolute Monocytes 0.9 Absolute Eosinophils 0.2 Absolute Basophils 0.1 Sodium 140.7 Potassium 4.4 Chloride 111 H Carbon Dioxide 23 Anion Gap 7 BUN 22 H Creatinine 0.94 Est GFR ( Amer) > 60 Est GFR (Non-Af Amer) 57 L Glucose 92 Calcium 8.0 L Impressions: Chest X-Ray 05/13/17 13:58 IMPRESSION: NO ACUTE RADIOGRAPHIC FINDING IN THE CHEST. Pelvis CT 05/13/17 15:21 IMPRESSION: Left gluteal decubitus ulcer with gas abutting the ischial tuberosity. If important to evaluate for osteomyelitis, consider noncontrast MRI or bone scan. Guidance Fluoroscopy 05/14/17 00:00 IMPRESSION: SUCCESSFUL PLACEMENT OF A 5 FR DUAL LUMEN 37 CM PICC IN THE LEFT BASILIC VEIN. Interventional Vascular Procedure 05/14/17 00:00 IMPRESSION: SUCCESSFUL PLACEMENT OF A 5 FR DUAL LUMEN 37 CM PICC IN THE LEFT BASILIC VEIN. PICC Line Insertion 05/14/17 00:00 IMPRESSION: SUCCESSFUL PLACEMENT OF A 5 FR DUAL LUMEN 37 CM PICC IN THE LEFT BASILIC VEIN. Assessment & Plan - Diagnosis (1) Osteomyelitis of left hip Is this a current diagnosis for this admission?: Yes Plan: Patient has decubitus ulcer with osteomyelitis now. Currently on Unasyn. Patient will need at least 6 weeks of IV antibiotics. She is unable to do home antibiotics given her debility and will need to go to a [facility] facility. (2) Decubitus ulcer, stage 4 with infection Is this a current diagnosis for this admission?: Yes Plan: On antibiotics. Continue with local wound care. (3) Anemia of chronic disease Is this a current diagnosis for this admission?: Yes Plan: Hemoglobin is stable (4) Paraplegia Is this a current diagnosis for this admission?: Yes (5) Spina bifida Qualifiers: Spinal region: unspecified Presence of hydrocephalus: without hydrocephalus Qualified Code(s): Q05.9 - Spina bifida, unspecified Is this a current diagnosis for this admission?: Yes - Time Time Spent with patient: 25-34 minutes - Inpatient Certification Medical Necessity: Need for IV Antibiotics - Plan Summary Plan Summary: We will discharge to a skilled nurse facility when a bed becomes available.
[2017-05-29] MEDS: NORMAL SALINE 1000 ML 1,000 ML IV PRN (18:33)
[2017-05-30] MEDS: LANSOPRAZOLE 30 MG TAB.RAP.DR PO SCH (05:44)
[2017-05-30] MEDS: ENOXAPARIN SODIUM INJ 40 MG/0.4 ML DISP.SYRIN SUBCUT SCH (09:28)
[2017-05-30] MEDS: ASCORBIC ACID 500 MG TABLET PO SCH (09:28)
[2017-05-30] MEDS: ZINC SULFATE 220 MG CAPSULE PO SCH (09:28)
[2017-05-30] MEDS: MULTIVITAMIN TABLET PO SCH (09:28)
[2017-05-30] MEDS: DOCUSATE SODIUM 100 MG CAPSULE PO SCH ×2 (09:29→17:10)
[2017-05-30] MEDS: NORMAL SALINE 10 ML SDV (SCHEDULED) IV SCH ×2 (09:30→22:47)
--- NOTE | 2017-05-30 10:11 | PDOC PROGRESS REPORT ---
Subjective Progress Note for:: 05/30/17 Subjective:: Patient denies any complaints. Physical Exam Vital Signs: Temp Pulse Resp BP Pulse Ox 98.1 F 73 16 111/38 L 95 05/30/17 07:55 05/30/17 07:55 05/30/17 07:55 05/30/17 07:55 05/30/17 07:55 Intake & Output 05/29/17 05/30/17 05/31/17 06:59 06:59 06:59 Intake Total 1660 2460 Output Total 2900 1730 Balance -1240 730 Weight 79.2 kg 79.2 kg General appearance: PRESENT: no acute distress Eye exam: PRESENT: conjunctiva pink. ABSENT: scleral icterus Mouth exam: PRESENT: moist, tongue midline Neck exam: ABSENT: JVD Respiratory exam: PRESENT: clear to auscultation shannan. ABSENT: rales, rhonchi, wheezes Cardiovascular exam: PRESENT: RRR. ABSENT: diastolic murmur, rubs, systolic murmur GI/Abdominal exam: PRESENT: normal bowel sounds, soft. ABSENT: distended, guarding, mass, organolmegaly, rebound, tenderness Extremities exam: ABSENT: calf tenderness, clubbing, pedal edema Neurological exam: PRESENT: alert, awake, oriented to person, oriented to place , oriented to time, oriented to situation Psychiatric exam: PRESENT: appropriate affect Skin exam: PRESENT: other - Dressing in place on her buttock Results Laboratory Results: 05/29/17 05:55 05/29/17 05:55 Impressions: Chest X-Ray 05/13/17 13:58 IMPRESSION: NO ACUTE RADIOGRAPHIC FINDING IN THE CHEST. Pelvis CT 05/13/17 15:21 IMPRESSION: Left gluteal decubitus ulcer with gas abutting the ischial tuberosity. If important to evaluate for osteomyelitis, consider noncontrast MRI or bone scan. Guidance Fluoroscopy 05/14/17 00:00 IMPRESSION: SUCCESSFUL PLACEMENT OF A 5 FR DUAL LUMEN 37 CM PICC IN THE LEFT BASILIC VEIN. Interventional Vascular Procedure 05/14/17 00:00 IMPRESSION: SUCCESSFUL PLACEMENT OF A 5 FR DUAL LUMEN 37 CM PICC IN THE LEFT BASILIC VEIN. PICC Line Insertion 05/14/17 00:00 IMPRESSION: SUCCESSFUL PLACEMENT OF A 5 FR DUAL LUMEN 37 CM PICC IN THE LEFT BASILIC VEIN. Assessment & Plan - Diagnosis (1) Osteomyelitis of left hip Is this a current diagnosis for this admission?: Yes Plan: Patient has decubitus ulcer with osteomyelitis now. Currently on Unasyn. Patient will need at least 6 weeks of IV antibiotics. She is unable to do home antibiotics given her debility and will need to go to a longterm facility. (2) Decubitus ulcer, stage 4 with infection Is this a current diagnosis for this admission?: Yes Plan: On antibiotics. Continue with local wound care. (3) Anemia of chronic disease Is this a current diagnosis for this admission?: Yes Plan: Hemoglobin is stable (4) Paraplegia Is this a current diagnosis for this admission?: Yes (5) Spina bifida Qualifiers: Spinal region: unspecified Presence of hydrocephalus: without hydrocephalus Qualified Code(s): Q05.9 - Spina bifida, unspecified Is this a current diagnosis for this admission?: Yes - Time Time Spent with patient: 25-34 minutes - Inpatient Certification Medical Necessity: Need Close Monitoring Due to Risk of Patient Decompensation, Need for IV Antibiotics - Plan Summary Plan Summary: We will discharge to a longterm facility when bed becomes available.
[2017-05-30] MEDS: AMPICILLIN SODIUM/SULBACTAM NA 1.5 GM in NORMAL SALINE 50 ML IV SCH ×2 (14:10→20:22)
[2017-05-30] MEDS: NYSTATIN TOPICAL POWDER 15 GM TP SCH (17:10)
[2017-05-30] MEDS: MAG HYDROX/AL HYDROX/SIMETH SUSP 30 ML UDCUP PO PRN (18:14)
[2017-05-31] MEDS: NORMAL SALINE 1000 ML 1,000 ML IV PRN (02:19)
[2017-05-31] MEDS: AMPICILLIN SODIUM/SULBACTAM NA 1.5 GM in NORMAL SALINE 50 ML IV SCH ×4 (02:19→21:15)
[2017-05-31] MEDS: LANSOPRAZOLE 30 MG TAB.RAP.DR PO SCH (06:15)
[2017-05-31] MEDS: NORMAL SALINE 10 ML SDV (SCHEDULED) IV SCH ×2 (09:32→21:17)
[2017-05-31] MEDS: MULTIVITAMIN TABLET PO SCH (09:32)
[2017-05-31] MEDS: ZINC SULFATE 220 MG CAPSULE PO SCH (09:32)
[2017-05-31] MEDS: ENOXAPARIN SODIUM INJ 40 MG/0.4 ML DISP.SYRIN SUBCUT SCH (09:32)
[2017-05-31] MEDS: ASCORBIC ACID 500 MG TABLET PO SCH (09:32)
[2017-05-31] MEDS: DOCUSATE SODIUM 100 MG CAPSULE PO SCH ×2 (09:32→17:58)
[2017-05-31] MEDS: NYSTATIN TOPICAL POWDER 15 GM TP SCH ×2 (09:33→17:59)
--- NOTE | 2017-05-31 10:00 | PDOC PROGRESS REPORT ---
Subjective Progress Note for:: 05/31/17 Subjective:: Patient denies any complaints. Physical Exam Vital Signs: Temp Pulse Resp BP Pulse Ox 98.4 F 71 20 109/36 L 96 05/31/17 04:00 05/31/17 04:00 05/31/17 04:00 05/31/17 04:00 05/31/17 04:00 Intake & Output 05/30/17 05/31/17 06/01/17 06:59 06:59 06:59 Intake Total 2460 1355 Output Total 1730 2675 Balance 730 -1320 Weight 79.2 kg 76.2 kg General appearance: PRESENT: no acute distress Eye exam: PRESENT: conjunctiva pink. ABSENT: scleral icterus Mouth exam: PRESENT: moist, tongue midline Neck exam: ABSENT: JVD Respiratory exam: PRESENT: clear to auscultation shannan. ABSENT: rales, rhonchi, wheezes Cardiovascular exam: PRESENT: RRR. ABSENT: diastolic murmur, rubs, systolic murmur GI/Abdominal exam: PRESENT: normal bowel sounds, soft. ABSENT: distended, guarding, mass, organolmegaly, rebound, tenderness Neurological exam: PRESENT: alert, awake, oriented to person, oriented to place , oriented to time, oriented to situation Psychiatric exam: PRESENT: appropriate affect Skin exam: PRESENT: other - Dressings in place on the buttocks Results Laboratory Results: 05/29/17 05:55 05/29/17 05:55 Impressions: Chest X-Ray 05/13/17 13:58 IMPRESSION: NO ACUTE RADIOGRAPHIC FINDING IN THE CHEST. Pelvis CT 05/13/17 15:21 IMPRESSION: Left gluteal decubitus ulcer with gas abutting the ischial tuberosity. If important to evaluate for osteomyelitis, consider noncontrast MRI or bone scan. Guidance Fluoroscopy 05/14/17 00:00 IMPRESSION: SUCCESSFUL PLACEMENT OF A 5 FR DUAL LUMEN 37 CM PICC IN THE LEFT BASILIC VEIN. Interventional Vascular Procedure 05/14/17 00:00 IMPRESSION: SUCCESSFUL PLACEMENT OF A 5 FR DUAL LUMEN 37 CM PICC IN THE LEFT BASILIC VEIN. PICC Line Insertion 05/14/17 00:00 IMPRESSION: SUCCESSFUL PLACEMENT OF A 5 FR DUAL LUMEN 37 CM PICC IN THE LEFT BASILIC VEIN. Assessment & Plan - Diagnosis (1) Osteomyelitis of left hip Is this a current diagnosis for this admission?: Yes Plan: Patient has decubitus ulcer with osteomyelitis now. Currently on Unasyn. Patient will need at least 6 weeks of IV antibiotics. She is unable to do home antibiotics given her debility and will need to go to a [facility] facility. (2) Decubitus ulcer, stage 4 with infection Is this a current diagnosis for this admission?: Yes Plan: On antibiotics. Continue with local wound care. (3) Anemia of chronic disease Is this a current diagnosis for this admission?: Yes Plan: Hemoglobin is stable (4) Paraplegia Is this a current diagnosis for this admission?: Yes (5) Spina bifida Qualifiers: Spinal region: unspecified Presence of hydrocephalus: without hydrocephalus Qualified Code(s): Q05.9 - Spina bifida, unspecified Is this a current diagnosis for this admission?: Yes - Time Time Spent with patient: 25-34 minutes - Inpatient Certification Medical Necessity: Need for IV Antibiotics - Plan Summary Plan Summary: Awaiting on skilled nurse facility placement.
[2017-06-01] MEDS: AMPICILLIN SODIUM/SULBACTAM NA 1.5 GM in NORMAL SALINE 50 ML IV SCH ×4 (03:46→21:53)
[2017-06-01] MEDS: LANSOPRAZOLE 30 MG TAB.RAP.DR PO SCH (06:53)
[2017-06-01] MEDS: DOCUSATE SODIUM 100 MG CAPSULE PO SCH ×2 (10:02→17:09)
[2017-06-01] MEDS: ASCORBIC ACID 500 MG TABLET PO SCH (10:02)
[2017-06-01] MEDS: ENOXAPARIN SODIUM INJ 40 MG/0.4 ML DISP.SYRIN SUBCUT SCH (10:02)
[2017-06-01] MEDS: NORMAL SALINE 10 ML SDV (SCHEDULED) IV SCH ×2 (10:02→21:48)
[2017-06-01] MEDS: NYSTATIN TOPICAL POWDER 15 GM TP SCH ×2 (10:02→17:08)
[2017-06-01] MEDS: ZINC SULFATE 220 MG CAPSULE PO SCH (10:03)
[2017-06-01] MEDS: MULTIVITAMIN TABLET PO SCH (10:03)
--- NOTE | 2017-06-01 10:15 | PDOC PROGRESS REPORT ---
Subjective Progress Note for:: 06/01/17 Subjective:: Patient denies any complaints. Physical Exam Vital Signs: Temp Pulse Resp BP Pulse Ox 99.1 F 77 16 111/39 L 95 06/01/17 08:22 06/01/17 08:22 06/01/17 08:22 06/01/17 08:22 06/01/17 08:22 Intake & Output 05/31/17 06/01/17 06/02/17 06:59 06:59 06:59 Intake Total 1355 2903 Output Total 2675 1875 Balance -1320 1028 Weight 76.2 kg 76.2 kg General appearance: PRESENT: no acute distress Eye exam: PRESENT: conjunctiva pink. ABSENT: scleral icterus Mouth exam: PRESENT: moist, tongue midline Neck exam: ABSENT: JVD Respiratory exam: PRESENT: clear to auscultation shannan. ABSENT: rales, rhonchi, wheezes Cardiovascular exam: PRESENT: RRR. ABSENT: diastolic murmur, rubs, systolic murmur GI/Abdominal exam: PRESENT: normal bowel sounds, soft. ABSENT: distended, guarding, mass, organolmegaly, rebound, tenderness Extremities exam: ABSENT: calf tenderness, clubbing, pedal edema Neurological exam: PRESENT: alert, awake, oriented to person, oriented to place , oriented to time, oriented to situation Psychiatric exam: PRESENT: appropriate affect Skin exam: PRESENT: other - Dressing in place on the buttocks Results Laboratory Results: 05/29/17 05:55 05/29/17 05:55 Impressions: Chest X-Ray 05/13/17 13:58 IMPRESSION: NO ACUTE RADIOGRAPHIC FINDING IN THE CHEST. Pelvis CT 05/13/17 15:21 IMPRESSION: Left gluteal decubitus ulcer with gas abutting the ischial tuberosity. If important to evaluate for osteomyelitis, consider noncontrast MRI or bone scan. Guidance Fluoroscopy 05/14/17 00:00 IMPRESSION: SUCCESSFUL PLACEMENT OF A 5 FR DUAL LUMEN 37 CM PICC IN THE LEFT BASILIC VEIN. Interventional Vascular Procedure 05/14/17 00:00 IMPRESSION: SUCCESSFUL PLACEMENT OF A 5 FR DUAL LUMEN 37 CM PICC IN THE LEFT BASILIC VEIN. PICC Line Insertion 05/14/17 00:00 IMPRESSION: SUCCESSFUL PLACEMENT OF A 5 FR DUAL LUMEN 37 CM PICC IN THE LEFT BASILIC VEIN. Assessment & Plan - Diagnosis (1) Osteomyelitis of left hip Is this a current diagnosis for this admission?: Yes Plan: Patient has decubitus ulcer with osteomyelitis now. Currently on Unasyn. Patient will need at least 6 weeks of IV antibiotics. She is unable to do home antibiotics given her debility and will need to go to a care home facility. (2) Decubitus ulcer, stage 4 with infection Is this a current diagnosis for this admission?: Yes Plan: On antibiotics. Continue with local wound care. (3) Anemia of chronic disease Is this a current diagnosis for this admission?: Yes Plan: Hemoglobin is stable (4) Paraplegia Is this a current diagnosis for this admission?: Yes (5) Spina bifida Qualifiers: Spinal region: unspecified Presence of hydrocephalus: without hydrocephalus Qualified Code(s): Q05.9 - Spina bifida, unspecified Is this a current diagnosis for this admission?: Yes - Time Time Spent with patient: 25-34 minutes - Inpatient Certification Medical Necessity: Need Close Monitoring Due to Risk of Patient Decompensation, Need for IV Antibiotics - Plan Summary Plan Summary: Awaiting on a bed at a skilled nurse facility for IV antibiotics.
[2017-06-01] MEDS: NORMAL SALINE 1000 ML 1,000 ML IV PRN (13:50)
[2017-06-02] MEDS: AMPICILLIN SODIUM/SULBACTAM NA 1.5 GM in NORMAL SALINE 50 ML IV SCH ×4 (03:27→22:13)
[2017-06-02] MEDS: LANSOPRAZOLE 30 MG TAB.RAP.DR PO SCH (06:18)
[2017-06-02] MEDS: ASCORBIC ACID 500 MG TABLET PO SCH (10:10)
[2017-06-02] MEDS: DOCUSATE SODIUM 100 MG CAPSULE PO SCH ×2 (10:10→17:06)
[2017-06-02] MEDS: NORMAL SALINE 10 ML SDV (SCHEDULED) IV SCH ×2 (10:10→22:17)
[2017-06-02] MEDS: MULTIVITAMIN TABLET PO SCH (10:10)
[2017-06-02] MEDS: ZINC SULFATE 220 MG CAPSULE PO SCH (10:10)
[2017-06-02] MEDS: ENOXAPARIN SODIUM INJ 40 MG/0.4 ML DISP.SYRIN SUBCUT SCH (10:11)
[2017-06-02] MEDS: NYSTATIN TOPICAL POWDER 15 GM TP SCH ×2 (10:11→17:06)
--- NOTE | 2017-06-02 10:11 | PDOC PROGRESS REPORT ---
Subjective Progress Note for:: 06/02/17 Subjective:: Patient denies any complaints. Physical Exam Vital Signs: Temp Pulse Resp BP Pulse Ox 99.1 F 75 18 111/40 L 98 06/02/17 07:36 06/02/17 07:36 06/02/17 07:36 06/02/17 07:36 06/02/17 07:36 Intake & Output 06/01/17 06/02/17 06/03/17 06:59 06:59 06:59 Intake Total 2903 1942 Output Total 1875 1460 Balance 1028 482 Weight 76.2 kg 75.5 kg General appearance: PRESENT: no acute distress Eye exam: PRESENT: conjunctiva pink. ABSENT: scleral icterus Mouth exam: PRESENT: moist, tongue midline Neck exam: ABSENT: JVD Respiratory exam: PRESENT: clear to auscultation shannan. ABSENT: rales, rhonchi, wheezes Cardiovascular exam: PRESENT: RRR. ABSENT: diastolic murmur, rubs, systolic murmur GI/Abdominal exam: PRESENT: normal bowel sounds, soft. ABSENT: distended, guarding, mass, organolmegaly, rebound, tenderness Extremities exam: ABSENT: calf tenderness, clubbing, pedal edema Neurological exam: PRESENT: alert, awake, oriented to person, oriented to place , oriented to time, oriented to situation Psychiatric exam: PRESENT: appropriate affect Skin exam: PRESENT: other - Dressings in place and the sacrum and buttocks Results Laboratory Results: 05/29/17 05:55 05/29/17 05:55 Impressions: Chest X-Ray 05/13/17 13:58 IMPRESSION: NO ACUTE RADIOGRAPHIC FINDING IN THE CHEST. Pelvis CT 05/13/17 15:21 IMPRESSION: Left gluteal decubitus ulcer with gas abutting the ischial tuberosity. If important to evaluate for osteomyelitis, consider noncontrast MRI or bone scan. Guidance Fluoroscopy 05/14/17 00:00 IMPRESSION: SUCCESSFUL PLACEMENT OF A 5 FR DUAL LUMEN 37 CM PICC IN THE LEFT BASILIC VEIN. Interventional Vascular Procedure 05/14/17 00:00 IMPRESSION: SUCCESSFUL PLACEMENT OF A 5 FR DUAL LUMEN 37 CM PICC IN THE LEFT BASILIC VEIN. PICC Line Insertion 05/14/17 00:00 IMPRESSION: SUCCESSFUL PLACEMENT OF A 5 FR DUAL LUMEN 37 CM PICC IN THE LEFT BASILIC VEIN. Assessment & Plan - Diagnosis (1) Osteomyelitis of left hip Is this a current diagnosis for this admission?: Yes Plan: Patient has decubitus ulcer with osteomyelitis now. Currently on Unasyn. Patient will need at least 6 weeks of IV antibiotics. She is unable to do home antibiotics given her debility and will need to go to a [facility] facility. (2) Decubitus ulcer, stage 4 with infection Is this a current diagnosis for this admission?: Yes Plan: On antibiotics. Continue with local wound care. (3) Anemia of chronic disease Is this a current diagnosis for this admission?: Yes Plan: Hemoglobin is stable (4) Paraplegia Is this a current diagnosis for this admission?: Yes (5) Spina bifida Qualifiers: Spinal region: unspecified Presence of hydrocephalus: without hydrocephalus Qualified Code(s): Q05.9 - Spina bifida, unspecified Is this a current diagnosis for this admission?: Yes - Time Time Spent with patient: 25-34 minutes - Inpatient Certification Medical Necessity: Need for IV Antibiotics
[2017-06-02] MEDS: ONDANSETRON HCL INJ/PF 4 MG/2 ML SDV IV PRN (12:06)
[2017-06-03] MEDS: AMPICILLIN SODIUM/SULBACTAM NA 1.5 GM in NORMAL SALINE 50 ML IV SCH ×4 (03:25→21:58)
[2017-06-03 03:57] LABS: ABSOLUTE BASOPHILS # (AUTO) 0.1 10^3/uL (0.0-0.2); ABSOLUTE EOSINOPHILS # (AUTO) 0.4 10^3/uL (0.0-0.6); ABSOLUTE LYMPHOCYTES (AUTO) 1.7 10^3/uL (0.5-4.7); ABSOLUTE MONOCYTES (AUTO) 0.9 10^3/uL (0.1-1.4); ABSOLUTE NEUT (AUTO) 4.1 10^3/uL (1.7-8.2); BASOPHILS % (AUTO) 1.2 % (0-2); EOSINOPHILS % (AUTO) 4.9 % (0-6); HEMATOCRIT 26.5 % (36.0-47.0); HEMOGLOBIN 8.8 g/dL (12.0-15.5); HGB HCT DIFFERENCE -0.1; LYMPHOCYTES % (AUTO) 24.4 % (13-45); MEAN CORPUSCULAR HEMOGLOBIN 28.5 pg (27.0-33.4); MEAN CORPUSCULAR HGB CONC 33.3 g/dL (32.0-36.0); MEAN CORPUSCULAR VOLUME 86 fl (80-97); MONOCYTES % (AUTO) 11.9 % (3-13); RED CELL DISTRIBUTION WIDTH 14.1 % (11.5-14.0); SEGMENTED NEUTROPHILS % (AUTO) 57.6 % (42-78); WHITE BLOOD COUNT 7.2 10^3/uL (4.0-10.5)
[2017-06-03 04:09] LABS: ANION GAP 9 (5-19); BLOOD UREA NITROGEN 21 mg/dL (7-20); CALCIUM 8.5 mg/dL (8.4-10.2); CARBON DIOXIDE 24 mmol/L (22-30); CHLORIDE 108 mmol/L (98-107); CREATININE RESULT 0.91 mg/dL (0.52-1.25); GLUCOSE 89 mg/dL (75-110); POTASSIUM 4.6 mmol/L (3.6-5.0)
[2017-06-03] MEDS: LANSOPRAZOLE 30 MG TAB.RAP.DR PO SCH (05:04)
[2017-06-03] MEDS: ENOXAPARIN SODIUM INJ 40 MG/0.4 ML DISP.SYRIN SUBCUT SCH (10:47)
[2017-06-03] MEDS: DOCUSATE SODIUM 100 MG CAPSULE PO SCH ×2 (10:47→17:44)
[2017-06-03] MEDS: ASCORBIC ACID 500 MG TABLET PO SCH (10:47)
[2017-06-03] MEDS: MULTIVITAMIN TABLET PO SCH (10:47)
[2017-06-03] MEDS: ZINC SULFATE 220 MG CAPSULE PO SCH (10:47)
[2017-06-03] MEDS: NYSTATIN TOPICAL POWDER 15 GM TP SCH ×2 (10:49→17:45)
[2017-06-03] MEDS: NORMAL SALINE 10 ML SDV (SCHEDULED) IV SCH ×2 (10:49→21:58)
[2017-06-03] MEDS: MAG HYDROX/AL HYDROX/SIMETH SUSP 30 ML UDCUP PO PRN (11:32)
--- NOTE | 2017-06-03 13:20 | PDOC PROGRESS REPORT ---
Subjective Progress Note for:: 06/03/17 Subjective:: Patient denies any complaints. Physical Exam Vital Signs: Temp Pulse Resp BP Pulse Ox 98.0 F 74 15 112/44 L 98 06/03/17 11:21 06/03/17 11:21 06/03/17 11:21 06/03/17 11:21 06/03/17 11:21 Intake & Output 06/02/17 06/03/17 06/04/17 06:59 06:59 06:59 Intake Total 1942 2535 Output Total 1460 825 Balance 482 1710 Weight 75.5 kg 73 kg General appearance: PRESENT: no acute distress Eye exam: PRESENT: conjunctiva pink. ABSENT: scleral icterus Mouth exam: PRESENT: moist, tongue midline Neck exam: ABSENT: JVD Respiratory exam: PRESENT: clear to auscultation shannan. ABSENT: rales, rhonchi, wheezes Cardiovascular exam: PRESENT: RRR. ABSENT: diastolic murmur, rubs, systolic murmur GI/Abdominal exam: PRESENT: normal bowel sounds, soft. ABSENT: distended, guarding, mass, organolmegaly, rebound, tenderness Neurological exam: PRESENT: alert, awake, oriented to person, oriented to place , oriented to time, oriented to situation, CN II-XII grossly intact Psychiatric exam: PRESENT: appropriate affect Skin exam: PRESENT: other - Dressing in place on the sacrum and buttocks area Results Laboratory Results: 06/03/17 03:30 06/03/17 03:30 06/03/17 06/03/17 03:30 03:30 WBC 7.2 RBC 3.10 L Hgb 8.8 L Hct 26.5 L MCV 86 MCH 28.5 MCHC 33.3 RDW 14.1 H Plt Count 340 Seg Neutrophils % 57.6 Lymphocytes % 24.4 Monocytes % 11.9 Eosinophils % 4.9 Basophils % 1.2 Absolute Neutrophils 4.1 Absolute Lymphocytes 1.7 Absolute Monocytes 0.9 Absolute Eosinophils 0.4 Absolute Basophils 0.1 Sodium 141.0 Potassium 4.6 Chloride 108 H Carbon Dioxide 24 Anion Gap 9 BUN 21 H Creatinine 0.91 Est GFR ( Amer) > 60 Est GFR (Non-Af Amer) 59 L Glucose 89 Calcium 8.5 Impressions: Chest X-Ray 05/13/17 13:58 IMPRESSION: NO ACUTE RADIOGRAPHIC FINDING IN THE CHEST. Pelvis CT 05/13/17 15:21 IMPRESSION: Left gluteal decubitus ulcer with gas abutting the ischial tuberosity. If important to evaluate for osteomyelitis, consider noncontrast MRI or bone scan. Guidance Fluoroscopy 05/14/17 00:00 IMPRESSION: SUCCESSFUL PLACEMENT OF A 5 FR DUAL LUMEN 37 CM PICC IN THE LEFT BASILIC VEIN. Interventional Vascular Procedure 05/14/17 00:00 IMPRESSION: SUCCESSFUL PLACEMENT OF A 5 FR DUAL LUMEN 37 CM PICC IN THE LEFT BASILIC VEIN. PICC Line Insertion 05/14/17 00:00 IMPRESSION: SUCCESSFUL PLACEMENT OF A 5 FR DUAL LUMEN 37 CM PICC IN THE LEFT BASILIC VEIN. Assessment & Plan - Diagnosis (1) Osteomyelitis of left hip Is this a current diagnosis for this admission?: Yes Plan: Patient has decubitus ulcer with osteomyelitis now. Currently on Unasyn. Patient will need at least 6 weeks of IV antibiotics. She is unable to do home antibiotics given her debility and will need to go to a correction facility. (2) Decubitus ulcer, stage 4 with infection Is this a current diagnosis for this admission?: Yes Plan: On antibiotics. Continue with local wound care. (3) Anemia of chronic disease Is this a current diagnosis for this admission?: Yes Plan: Hemoglobin is stable (4) Paraplegia Is this a current diagnosis for this admission?: Yes (5) Spina bifida Qualifiers: Spinal region: unspecified Presence of hydrocephalus: without hydrocephalus Qualified Code(s): Q05.9 - Spina bifida, unspecified Is this a current diagnosis for this admission?: Yes - Time Time Spent with patient: 25-34 minutes - Inpatient Certification Medical Necessity: Need for IV Antibiotics
[2017-06-03] MEDS: ONDANSETRON HCL INJ/PF 4 MG/2 ML SDV IV PRN (14:08)
[2017-06-03] MEDS ORDERED: MAG HYDROX/AL HYDROX/SIMETH SUSP 30 ML UDCUP PO PRN (17:44)
[2017-06-03] MEDS ORDERED: LIDOCAINE 2% VISCOUS SOLN 20 ML UDCUP PO PRN (17:44)
[2017-06-04] MEDS: AMPICILLIN SODIUM/SULBACTAM NA 1.5 GM in NORMAL SALINE 50 ML IV SCH ×2 (03:03→08:35)
[2017-06-04] MEDS: LANSOPRAZOLE 30 MG TAB.RAP.DR PO SCH (06:28)
--- NOTE | 2017-06-04 09:26 | PDOC PROGRESS REPORT ---
Subjective Progress Note for:: 06/04/17 Subjective:: Patient voices no complaints at all. There is no diarrhea. No chills or fever. Patient is on a chronic Alberto catheter. She had leukocytosis late last month and has normalized. She is going on her fourth week of IV antibiotics. Repeat culture now growing Pseudomonas. No reported nausea or vomiting, abdominal pain nor diarrhea. Physical Exam Vital Signs: Temp Pulse Resp BP Pulse Ox 98.4 F 74 18 142/46 H 96 06/04/17 07:35 06/04/17 07:35 06/04/17 07:35 06/04/17 07:35 06/04/17 07:35 Intake & Output 06/03/17 06/04/17 06/05/17 06:59 06:59 06:59 Intake Total 2535 1940 Output Total 825 1200 Balance 1710 740 Weight 73 kg 78.4 kg General appearance: PRESENT: no acute distress, cooperative Head exam: PRESENT: normocephalic Eye exam: PRESENT: EOMI Mouth exam: PRESENT: moist, neck supple Neck exam: ABSENT: JVD Respiratory exam: PRESENT: clear to auscultation shannan, unlabored Cardiovascular exam: PRESENT: RRR, +S1, +S2. ABSENT: gallop GI/Abdominal exam: PRESENT: normal bowel sounds, soft. ABSENT: distended, tenderness Extremities exam: PRESENT: pedal edema Neurological exam: PRESENT: alert, awake, oriented to situation Skin exam: PRESENT: dry, warm. ABSENT: cyanosis Results Laboratory Results: 06/03/17 03:30 06/03/17 03:30 Impressions: Chest X-Ray 05/13/17 13:58 IMPRESSION: NO ACUTE RADIOGRAPHIC FINDING IN THE CHEST. Pelvis CT 05/13/17 15:21 IMPRESSION: Left gluteal decubitus ulcer with gas abutting the ischial tuberosity. If important to evaluate for osteomyelitis, consider noncontrast MRI or bone scan. Guidance Fluoroscopy 05/14/17 00:00 IMPRESSION: SUCCESSFUL PLACEMENT OF A 5 FR DUAL LUMEN 37 CM PICC IN THE LEFT BASILIC VEIN. Interventional Vascular Procedure 05/14/17 00:00 IMPRESSION: SUCCESSFUL PLACEMENT OF A 5 FR DUAL LUMEN 37 CM PICC IN THE LEFT BASILIC VEIN. PICC Line Insertion 05/14/17 00:00 IMPRESSION: SUCCESSFUL PLACEMENT OF A 5 FR DUAL LUMEN 37 CM PICC IN THE LEFT BASILIC VEIN. Assessment & Plan - Diagnosis (1) Osteomyelitis of left hip Is this a current diagnosis for this admission?: Yes (2) Decubitus ulcer, stage 4 with infection Is this a current diagnosis for this admission?: Yes (3) Anemia of chronic disease Is this a current diagnosis for this admission?: Yes (4) Paraplegia Is this a current diagnosis for this admission?: Yes (5) Decubitus ulcer, stage II Qualifiers: Pressure ulcer location: unspecified location Qualified Code(s): L89.92 - Pressure ulcer of unspecified site, stage 2 Is this a current diagnosis for this admission?: Yes (6) Spina bifida Qualifiers: Spinal region: unspecified Presence of hydrocephalus: without hydrocephalus Qualified Code(s): Q05.9 - Spina bifida, unspecified Is this a current diagnosis for this admission?: Yes - Time Time Spent with patient: 25-34 minutes - Plan Summary Plan Summary: We are going to change the antibiotic to Zosyn every 8 hours. Discontinue ampicillin. Continue wound care. Patient is off wound VAC at this time. Continue supportive care.
[2017-06-04] MEDS ORDERED: PIPERACILLIN/TAZOBACTAM 3.375 GM VIAL IV SCH (09:30)
[2017-06-04] MEDS: ASCORBIC ACID 500 MG TABLET PO SCH (10:13)
[2017-06-04] MEDS: MULTIVITAMIN TABLET PO SCH (10:13)
[2017-06-04] MEDS: NORMAL SALINE 10 ML SDV (SCHEDULED) IV SCH ×2 (10:13→22:49)
[2017-06-04] MEDS: ZINC SULFATE 220 MG CAPSULE PO SCH (10:13)
[2017-06-04] MEDS: DOCUSATE SODIUM 100 MG CAPSULE PO SCH ×2 (10:14→18:05)
[2017-06-04] MEDS: ENOXAPARIN SODIUM INJ 40 MG/0.4 ML DISP.SYRIN SUBCUT SCH (10:14)
[2017-06-04] MEDS: NYSTATIN TOPICAL POWDER 15 GM TP SCH ×2 (10:16→18:06)
[2017-06-04] MEDS: PIPERACILLIN SODIUM/TAZOBACTAM 3.375 GM in NORMAL SALINE 100 ML IV SCH ×2 (15:06→22:49)
[2017-06-05] MEDS: LANSOPRAZOLE 30 MG TAB.RAP.DR PO SCH (05:28)
[2017-06-05] MEDS: PIPERACILLIN SODIUM/TAZOBACTAM 3.375 GM in NORMAL SALINE 100 ML IV SCH ×3 (05:28→21:14)
--- NOTE | 2017-06-05 10:59 | PDOC PROGRESS REPORT ---
Subjective Progress Note for:: 06/05/17 Subjective:: Patient voiced no complaints. No diarrhea chills or fever. No nausea or vomiting. No pain or discomfort at this time. Physical Exam Vital Signs: Temp Pulse Resp BP Pulse Ox 97.8 F 62 19 114/51 L 98 06/05/17 08:28 06/05/17 08:28 06/05/17 08:28 06/05/17 08:28 06/05/17 08:28 Intake & Output 06/04/17 06/05/17 06/06/17 06:59 06:59 06:59 Intake Total 1940 1198 Output Total 1200 300 Balance 740 898 Weight 78.4 kg 78.5 kg General appearance: PRESENT: no acute distress, cooperative Mouth exam: PRESENT: moist, neck supple Neck exam: ABSENT: JVD Respiratory exam: PRESENT: clear to auscultation shannan Cardiovascular exam: PRESENT: RRR GI/Abdominal exam: PRESENT: soft. ABSENT: distended Extremities exam: PRESENT: pedal edema Neurological exam: PRESENT: alert, awake, oriented to situation Skin exam: PRESENT: dry, warm. ABSENT: cyanosis Results Laboratory Results: 06/03/17 03:30 06/03/17 03:30 Impressions: Chest X-Ray 05/13/17 13:58 IMPRESSION: NO ACUTE RADIOGRAPHIC FINDING IN THE CHEST. Pelvis CT 05/13/17 15:21 IMPRESSION: Left gluteal decubitus ulcer with gas abutting the ischial tuberosity. If important to evaluate for osteomyelitis, consider noncontrast MRI or bone scan. Guidance Fluoroscopy 05/14/17 00:00 IMPRESSION: SUCCESSFUL PLACEMENT OF A 5 FR DUAL LUMEN 37 CM PICC IN THE LEFT BASILIC VEIN. Interventional Vascular Procedure 05/14/17 00:00 IMPRESSION: SUCCESSFUL PLACEMENT OF A 5 FR DUAL LUMEN 37 CM PICC IN THE LEFT BASILIC VEIN. PICC Line Insertion 05/14/17 00:00 IMPRESSION: SUCCESSFUL PLACEMENT OF A 5 FR DUAL LUMEN 37 CM PICC IN THE LEFT BASILIC VEIN. Assessment & Plan - Diagnosis (1) Osteomyelitis of left hip Is this a current diagnosis for this admission?: Yes (2) Decubitus ulcer, stage 4 with infection Is this a current diagnosis for this admission?: Yes (3) Anemia of chronic disease Is this a current diagnosis for this admission?: Yes (4) Paraplegia Is this a current diagnosis for this admission?: Yes (5) Decubitus ulcer, stage II Qualifiers: Pressure ulcer location: unspecified location Qualified Code(s): L89.92 - Pressure ulcer of unspecified site, stage 2 Is this a current diagnosis for this admission?: Yes (6) Spina bifida Qualifiers: Spinal region: unspecified Presence of hydrocephalus: without hydrocephalus Qualified Code(s): Q05.9 - Spina bifida, unspecified Is this a current diagnosis for this admission?: Yes - Time Time Spent with patient: Less than 15 minutes - Plan Summary Plan Summary: Continue current antibiotic. Awaiting placement.
[2017-06-05] MEDS: DOCUSATE SODIUM 100 MG CAPSULE PO SCH ×2 (11:42→18:41)
[2017-06-05] MEDS: MULTIVITAMIN TABLET PO SCH (11:42)
[2017-06-05] MEDS: ZINC SULFATE 220 MG CAPSULE PO SCH (11:43)
[2017-06-05] MEDS: ASCORBIC ACID 500 MG TABLET PO SCH (11:43)
[2017-06-05] MEDS: ENOXAPARIN SODIUM INJ 40 MG/0.4 ML DISP.SYRIN SUBCUT SCH (11:46)
[2017-06-05] MEDS: NORMAL SALINE 10 ML SDV (SCHEDULED) IV SCH ×2 (12:18→21:18)
[2017-06-05] MEDS: NYSTATIN TOPICAL POWDER 15 GM TP SCH ×2 (12:18→18:41)
[2017-06-06] MEDS: LANSOPRAZOLE 30 MG TAB.RAP.DR PO SCH (06:09)
[2017-06-06] MEDS: PIPERACILLIN SODIUM/TAZOBACTAM 3.375 GM in NORMAL SALINE 100 ML IV SCH ×3 (06:09→22:51)
[2017-06-06] MEDS: ASCORBIC ACID 500 MG TABLET PO SCH (09:32)
[2017-06-06] MEDS: ZINC SULFATE 220 MG CAPSULE PO SCH (09:33)
[2017-06-06] MEDS: DOCUSATE SODIUM 100 MG CAPSULE PO SCH ×2 (09:33→18:05)
[2017-06-06] MEDS: MULTIVITAMIN TABLET PO SCH (09:33)
[2017-06-06] MEDS: ENOXAPARIN SODIUM INJ 40 MG/0.4 ML DISP.SYRIN SUBCUT SCH (09:34)
[2017-06-06] MEDS: NORMAL SALINE 10 ML SDV (SCHEDULED) IV SCH ×2 (10:38→22:51)
[2017-06-06] MEDS: NYSTATIN TOPICAL POWDER 15 GM TP SCH (10:38)
--- NOTE | 2017-06-06 13:31 | PDOC PROGRESS REPORT ---
Subjective Progress Note for:: 06/06/17 Subjective:: Patient voices no complaints. No reported temperature spikes diarrhea. No nausea or vomiting. Doing well. Physical Exam Vital Signs: Temp Pulse Resp BP Pulse Ox 98.0 F 72 18 121/52 L 99 06/06/17 12:00 06/06/17 12:00 06/06/17 12:00 06/06/17 12:00 06/06/17 12:00 Intake & Output 06/05/17 06/06/17 06/07/17 06:59 06:59 06:59 Intake Total 1198 1797 Output Total 300 1200 Balance 898 597 Weight 78.5 kg 74.6 kg General appearance: PRESENT: no acute distress, cooperative Neck exam: ABSENT: JVD Respiratory exam: PRESENT: clear to auscultation shannan Cardiovascular exam: PRESENT: RRR. ABSENT: gallop GI/Abdominal exam: PRESENT: soft. ABSENT: distended Neurological exam: PRESENT: alert, awake, oriented to situation Skin exam: PRESENT: dry, warm. ABSENT: cyanosis Results Laboratory Results: 06/03/17 03:30 06/03/17 03:30 Impressions: Chest X-Ray 05/13/17 13:58 IMPRESSION: NO ACUTE RADIOGRAPHIC FINDING IN THE CHEST. Pelvis CT 05/13/17 15:21 IMPRESSION: Left gluteal decubitus ulcer with gas abutting the ischial tuberosity. If important to evaluate for osteomyelitis, consider noncontrast MRI or bone scan. Guidance Fluoroscopy 05/14/17 00:00 IMPRESSION: SUCCESSFUL PLACEMENT OF A 5 FR DUAL LUMEN 37 CM PICC IN THE LEFT BASILIC VEIN. Interventional Vascular Procedure 05/14/17 00:00 IMPRESSION: SUCCESSFUL PLACEMENT OF A 5 FR DUAL LUMEN 37 CM PICC IN THE LEFT BASILIC VEIN. PICC Line Insertion 05/14/17 00:00 IMPRESSION: SUCCESSFUL PLACEMENT OF A 5 FR DUAL LUMEN 37 CM PICC IN THE LEFT BASILIC VEIN. Assessment & Plan - Diagnosis (1) Osteomyelitis of left hip Is this a current diagnosis for this admission?: Yes (2) Decubitus ulcer, stage 4 with infection Is this a current diagnosis for this admission?: Yes (3) Anemia of chronic disease Is this a current diagnosis for this admission?: Yes (4) Paraplegia Is this a current diagnosis for this admission?: Yes (5) Decubitus ulcer, stage II Qualifiers: Pressure ulcer location: unspecified location Qualified Code(s): L89.92 - Pressure ulcer of unspecified site, stage 2 Is this a current diagnosis for this admission?: Yes (6) Spina bifida Qualifiers: Spinal region: unspecified Presence of hydrocephalus: without hydrocephalus Qualified Code(s): Q05.9 - Spina bifida, unspecified Is this a current diagnosis for this admission?: Yes - Time Time Spent with patient: Less than 15 minutes - Plan Summary Plan Summary: Continue current medications. Awaiting subacute bed for rehab, wound care, and IV antibiotic infusion.
[2017-06-07] MEDS: LANSOPRAZOLE 30 MG TAB.RAP.DR PO SCH (06:08)
[2017-06-07] MEDS: PIPERACILLIN SODIUM/TAZOBACTAM 3.375 GM in NORMAL SALINE 100 ML IV SCH ×2 (06:08→13:09)
[2017-06-07] MEDS: ZINC SULFATE 220 MG CAPSULE PO SCH (10:17)
[2017-06-07] MEDS: DOCUSATE SODIUM 100 MG CAPSULE PO SCH ×2 (10:17→18:45)
[2017-06-07] MEDS: ASCORBIC ACID 500 MG TABLET PO SCH (10:17)
[2017-06-07] MEDS: MULTIVITAMIN TABLET PO SCH (10:17)
[2017-06-07] MEDS: ENOXAPARIN SODIUM INJ 40 MG/0.4 ML DISP.SYRIN SUBCUT SCH (10:19)
[2017-06-07] MEDS: NORMAL SALINE 10 ML SDV (AFTER EACH USE) IV PRN (10:19)
--- NOTE | 2017-06-07 11:38 | PDOC PROGRESS REPORT ---
Subjective Progress Note for:: 06/07/17 Subjective:: Patient voiced no complaints. No diarrhea chills nor fever. Physical Exam Vital Signs: Temp Pulse Resp BP Pulse Ox 97.7 F 61 18 123/50 L 98 06/07/17 08:00 06/07/17 08:00 06/07/17 08:00 06/07/17 08:00 06/07/17 08:00 Intake & Output 06/06/17 06/07/17 06/08/17 06:59 06:59 06:59 Intake Total 1797 1637 Output Total 1200 1120 Balance 597 517 Weight 74.6 kg 74.7 kg General appearance: PRESENT: no acute distress, cooperative Neurological exam: PRESENT: alert, awake, oriented to person, oriented to place , oriented to time, oriented to situation Psychiatric exam: ABSENT: agitated Focused psych exam: ABSENT: restlessness Skin exam: ABSENT: cyanosis Results Laboratory Results: 06/03/17 03:30 06/03/17 03:30 06/02/17 16:15 Decubitis Ulcer - Coccyx Gram Stain - Final 06/02/17 16:15 Decubitis Ulcer - Coccyx Wound Culture - Final Pseudomonas Aeruginosa No Anaerobic Organisms Impressions: Chest X-Ray 05/13/17 13:58 IMPRESSION: NO ACUTE RADIOGRAPHIC FINDING IN THE CHEST. Pelvis CT 05/13/17 15:21 IMPRESSION: Left gluteal decubitus ulcer with gas abutting the ischial tuberosity. If important to evaluate for osteomyelitis, consider noncontrast MRI or bone scan. Guidance Fluoroscopy 05/14/17 00:00 IMPRESSION: SUCCESSFUL PLACEMENT OF A 5 FR DUAL LUMEN 37 CM PICC IN THE LEFT BASILIC VEIN. Interventional Vascular Procedure 05/14/17 00:00 IMPRESSION: SUCCESSFUL PLACEMENT OF A 5 FR DUAL LUMEN 37 CM PICC IN THE LEFT BASILIC VEIN. PICC Line Insertion 05/14/17 00:00 IMPRESSION: SUCCESSFUL PLACEMENT OF A 5 FR DUAL LUMEN 37 CM PICC IN THE LEFT BASILIC VEIN. Assessment & Plan - Diagnosis (1) Osteomyelitis of left hip Is this a current diagnosis for this admission?: Yes (2) Decubitus ulcer, stage 4 with infection Is this a current diagnosis for this admission?: Yes (3) Anemia of chronic disease Is this a current diagnosis for this admission?: Yes (4) Paraplegia Is this a current diagnosis for this admission?: Yes (5) Decubitus ulcer, stage II Qualifiers: Pressure ulcer location: unspecified location Qualified Code(s): L89.92 - Pressure ulcer of unspecified site, stage 2 Is this a current diagnosis for this admission?: Yes (6) Spina bifida Qualifiers: Spinal region: unspecified Presence of hydrocephalus: without hydrocephalus Qualified Code(s): Q05.9 - Spina bifida, unspecified Is this a current diagnosis for this admission?: Yes - Time Time Spent with patient: Less than 15 minutes - Plan Summary Plan Summary: Continue current medications. Still waiting for subacute rehabilitation bed.
[2017-06-07] MEDS: NORMAL SALINE 10 ML SDV (SCHEDULED) IV SCH ×2 (13:10→22:03)
[2017-06-07] MEDS: ONDANSETRON HCL INJ/PF 4 MG/2 ML SDV IV PRN (19:42)
[2017-06-07] MEDS: PIPERACILLIN SODIUM/TAZOBACTAM 3.375 GM in DEXTROSE 5%-WATER 100 ML IV SCH (22:03)
[2017-06-08] MEDS: PIPERACILLIN SODIUM/TAZOBACTAM 3.375 GM in DEXTROSE 5%-WATER 100 ML IV SCH ×3 (05:41→22:19)
[2017-06-08] MEDS: LANSOPRAZOLE 30 MG TAB.RAP.DR PO SCH (05:41)
[2017-06-08] MEDS: MULTIVITAMIN TABLET PO SCH (11:05)
[2017-06-08] MEDS: ASCORBIC ACID 500 MG TABLET PO SCH (11:05)
[2017-06-08] MEDS: ZINC SULFATE 220 MG CAPSULE PO SCH (11:05)
[2017-06-08] MEDS ORDERED: SODIUM CHLORIDE 5% OPH SOLN 15 ML OU PRN (11:06)
[2017-06-08] MEDS: DOCUSATE SODIUM 100 MG CAPSULE PO SCH ×2 (11:06→18:29)
[2017-06-08] MEDS: ENOXAPARIN SODIUM INJ 40 MG/0.4 ML DISP.SYRIN SUBCUT SCH (11:07)
[2017-06-08] MEDS: NORMAL SALINE 10 ML SDV (SCHEDULED) IV SCH ×2 (11:07→22:19)
--- NOTE | 2017-06-08 11:09 | PDOC PROGRESS REPORT ---
Subjective Progress Note for:: 06/08/17 Subjective:: Complain of dry eyes today. Otherwise no chills fever nausea vomiting or diarrhea. No pain or discomfort. Physical Exam Vital Signs: Temp Pulse Resp BP Pulse Ox 97.7 F 65 16 118/52 L 98 06/08/17 08:51 06/08/17 08:51 06/08/17 08:51 06/08/17 08:51 06/08/17 08:51 Intake & Output 06/07/17 06/08/17 06/09/17 06:59 06:59 06:59 Intake Total 1637 1550 Output Total 1120 1200 Balance 517 350 Weight 74.7 kg 74.8 kg General appearance: PRESENT: no acute distress, cooperative Eye exam: PRESENT: conjunctiva pink, EOMI. ABSENT: conjunctival injection Mouth exam: PRESENT: moist, neck supple Results Laboratory Results: 06/03/17 03:30 06/03/17 03:30 Impressions: Chest X-Ray 05/13/17 13:58 IMPRESSION: NO ACUTE RADIOGRAPHIC FINDING IN THE CHEST. Pelvis CT 05/13/17 15:21 IMPRESSION: Left gluteal decubitus ulcer with gas abutting the ischial tuberosity. If important to evaluate for osteomyelitis, consider noncontrast MRI or bone scan. Guidance Fluoroscopy 05/14/17 00:00 IMPRESSION: SUCCESSFUL PLACEMENT OF A 5 FR DUAL LUMEN 37 CM PICC IN THE LEFT BASILIC VEIN. Interventional Vascular Procedure 05/14/17 00:00 IMPRESSION: SUCCESSFUL PLACEMENT OF A 5 FR DUAL LUMEN 37 CM PICC IN THE LEFT BASILIC VEIN. PICC Line Insertion 05/14/17 00:00 IMPRESSION: SUCCESSFUL PLACEMENT OF A 5 FR DUAL LUMEN 37 CM PICC IN THE LEFT BASILIC VEIN. Assessment & Plan - Diagnosis (1) Osteomyelitis of left hip Is this a current diagnosis for this admission?: Yes (2) Decubitus ulcer, stage 4 with infection Is this a current diagnosis for this admission?: Yes (3) Anemia of chronic disease Is this a current diagnosis for this admission?: Yes (4) Paraplegia Is this a current diagnosis for this admission?: Yes (5) Decubitus ulcer, stage II Qualifiers: Pressure ulcer location: unspecified location Qualified Code(s): L89.92 - Pressure ulcer of unspecified site, stage 2 Is this a current diagnosis for this admission?: Yes (6) Spina bifida Qualifiers: Spinal region: unspecified Presence of hydrocephalus: without hydrocephalus Qualified Code(s): Q05.9 - Spina bifida, unspecified Is this a current diagnosis for this admission?: Yes - Time Time Spent with patient: Less than 15 minutes - Plan Summary Plan Summary: We will give saline eyedrops as needed, continue IV antibiotics going on her fourth week, continue supportive care, awaiting bed at the facility.
[2017-06-08] MEDS: NORMAL SALINE 1000 ML 1,000 ML IV PRN (18:30)
[2017-06-09] MEDS: PIPERACILLIN SODIUM/TAZOBACTAM 3.375 GM in DEXTROSE 5%-WATER 100 ML IV SCH ×3 (06:21→22:34)
[2017-06-09] MEDS: LANSOPRAZOLE 30 MG TAB.RAP.DR PO SCH (06:21)
[2017-06-09] MEDS: ASCORBIC ACID 500 MG TABLET PO SCH (11:33)
[2017-06-09] MEDS: MULTIVITAMIN TABLET PO SCH (11:33)
[2017-06-09] MEDS: ZINC SULFATE 220 MG CAPSULE PO SCH (11:33)
[2017-06-09] MEDS: DOCUSATE SODIUM 100 MG CAPSULE PO SCH ×2 (11:34→19:07)
[2017-06-09] MEDS: ENOXAPARIN SODIUM INJ 40 MG/0.4 ML DISP.SYRIN SUBCUT SCH (11:35)
[2017-06-09] MEDS: NORMAL SALINE 10 ML SDV (SCHEDULED) IV SCH ×2 (11:39→22:35)
--- NOTE | 2017-06-09 12:01 | PDOC PROGRESS REPORT ---
Subjective Progress Note for:: 06/09/17 Subjective:: Patient voices no complaints at all. No reported diarrhea, chills nor fever, respiratory distress, nor any discomfort. Physical Exam Vital Signs: Temp Pulse Resp BP Pulse Ox 97.5 F 62 16 131/60 H 96 06/09/17 08:24 06/09/17 08:24 06/09/17 08:00 06/09/17 08:24 06/09/17 08:24 Intake & Output 06/08/17 06/09/17 06/10/17 06:59 06:59 06:59 Intake Total 1550 1579 Output Total 1200 800 Balance 350 779 Weight 74.8 kg General appearance: PRESENT: no acute distress, cooperative Neurological exam: PRESENT: alert, awake, oriented to situation Psychiatric exam: ABSENT: agitated Focused psych exam: ABSENT: restlessness Results Laboratory Results: 06/03/17 03:30 06/03/17 03:30 Impressions: Chest X-Ray 05/13/17 13:58 IMPRESSION: NO ACUTE RADIOGRAPHIC FINDING IN THE CHEST. Pelvis CT 05/13/17 15:21 IMPRESSION: Left gluteal decubitus ulcer with gas abutting the ischial tuberosity. If important to evaluate for osteomyelitis, consider noncontrast MRI or bone scan. Guidance Fluoroscopy 05/14/17 00:00 IMPRESSION: SUCCESSFUL PLACEMENT OF A 5 FR DUAL LUMEN 37 CM PICC IN THE LEFT BASILIC VEIN. Interventional Vascular Procedure 05/14/17 00:00 IMPRESSION: SUCCESSFUL PLACEMENT OF A 5 FR DUAL LUMEN 37 CM PICC IN THE LEFT BASILIC VEIN. PICC Line Insertion 05/14/17 00:00 IMPRESSION: SUCCESSFUL PLACEMENT OF A 5 FR DUAL LUMEN 37 CM PICC IN THE LEFT BASILIC VEIN. Assessment & Plan - Diagnosis (1) Osteomyelitis of left hip Is this a current diagnosis for this admission?: Yes (2) Decubitus ulcer, stage 4 with infection Is this a current diagnosis for this admission?: Yes (3) Anemia of chronic disease Is this a current diagnosis for this admission?: Yes (4) Paraplegia Is this a current diagnosis for this admission?: Yes (5) Decubitus ulcer, stage II Qualifiers: Pressure ulcer location: unspecified location Qualified Code(s): L89.92 - Pressure ulcer of unspecified site, stage 2 Is this a current diagnosis for this admission?: Yes (6) Spina bifida Qualifiers: Spinal region: unspecified Presence of hydrocephalus: without hydrocephalus Qualified Code(s): Q05.9 - Spina bifida, unspecified Is this a current diagnosis for this admission?: Yes - Time Time Spent with patient: 25-34 minutes - Patient completing her fourth week of IV antibiotic in the hospital. Still waiting for subacute rehabilitation bed.
[2017-06-09] MEDS: NORMAL SALINE 10 ML SDV (AFTER EACH USE) IV PRN (22:34)
[2017-06-10] MEDS: LANSOPRAZOLE 30 MG TAB.RAP.DR PO SCH (05:39)
[2017-06-10] MEDS: PIPERACILLIN SODIUM/TAZOBACTAM 3.375 GM in DEXTROSE 5%-WATER 100 ML IV SCH ×3 (05:39→21:54)
[2017-06-10] MEDS: MULTIVITAMIN TABLET PO SCH (09:41)
[2017-06-10] MEDS: ZINC SULFATE 220 MG CAPSULE PO SCH (09:41)
[2017-06-10] MEDS: ASCORBIC ACID 500 MG TABLET PO SCH (09:41)
[2017-06-10] MEDS: DOCUSATE SODIUM 100 MG CAPSULE PO SCH ×2 (09:41→19:17)
[2017-06-10] MEDS: ENOXAPARIN SODIUM INJ 40 MG/0.4 ML DISP.SYRIN SUBCUT SCH (09:42)
[2017-06-10] MEDS: NORMAL SALINE 10 ML SDV (SCHEDULED) IV SCH ×2 (09:48→21:54)
[2017-06-10] MEDS: ONDANSETRON HCL INJ/PF 4 MG/2 ML SDV IV PRN (12:57)
--- NOTE | 2017-06-10 16:18 | PDOC PROGRESS REPORT ---
Subjective Progress Note for:: 06/10/17 Subjective:: Patient has been stable without any complaints. No diarrhea at all. No reported distress or discomfort. Physical Exam Vital Signs: Temp Pulse Resp BP Pulse Ox 98.1 F 70 15 133/54 H 99 06/10/17 00:00 06/10/17 11:25 06/10/17 11:25 06/10/17 11:25 06/10/17 11:25 Intake & Output 06/09/17 06/10/17 06/11/17 06:59 06:59 06:59 Intake Total 1579 1959 Output Total 800 2850 Balance 779 -891 Weight 75.5 kg General appearance: PRESENT: no acute distress, cooperative Neurological exam: PRESENT: alert, awake, oriented to person, oriented to place , oriented to time, oriented to situation Results Laboratory Results: 06/03/17 03:30 06/03/17 03:30 Impressions: Chest X-Ray 05/13/17 13:58 IMPRESSION: NO ACUTE RADIOGRAPHIC FINDING IN THE CHEST. Pelvis CT 05/13/17 15:21 IMPRESSION: Left gluteal decubitus ulcer with gas abutting the ischial tuberosity. If important to evaluate for osteomyelitis, consider noncontrast MRI or bone scan. Guidance Fluoroscopy 05/14/17 00:00 IMPRESSION: SUCCESSFUL PLACEMENT OF A 5 FR DUAL LUMEN 37 CM PICC IN THE LEFT BASILIC VEIN. Interventional Vascular Procedure 05/14/17 00:00 IMPRESSION: SUCCESSFUL PLACEMENT OF A 5 FR DUAL LUMEN 37 CM PICC IN THE LEFT BASILIC VEIN. PICC Line Insertion 05/14/17 00:00 IMPRESSION: SUCCESSFUL PLACEMENT OF A 5 FR DUAL LUMEN 37 CM PICC IN THE LEFT BASILIC VEIN. Assessment & Plan - Diagnosis (1) Osteomyelitis of left hip Is this a current diagnosis for this admission?: Yes (2) Decubitus ulcer, stage 4 with infection Is this a current diagnosis for this admission?: Yes (3) Anemia of chronic disease Is this a current diagnosis for this admission?: Yes (4) Paraplegia Is this a current diagnosis for this admission?: Yes (5) Decubitus ulcer, stage II Qualifiers: Pressure ulcer location: unspecified location Qualified Code(s): L89.92 - Pressure ulcer of unspecified site, stage 2 Is this a current diagnosis for this admission?: Yes (6) Spina bifida Qualifiers: Spinal region: unspecified Presence of hydrocephalus: without hydrocephalus Qualified Code(s): Q05.9 - Spina bifida, unspecified Is this a current diagnosis for this admission?: Yes - Time Time Spent with patient: Less than 15 minutes - Plan Summary Plan Summary: Patient is awaiting facility for subacute care and IV antibiotic infusion. Patient is completing 4 weeks.
[2017-06-11] MEDS: LANSOPRAZOLE 30 MG TAB.RAP.DR PO SCH (05:49)
[2017-06-11] MEDS: PIPERACILLIN SODIUM/TAZOBACTAM 3.375 GM in DEXTROSE 5%-WATER 100 ML IV SCH (05:49)
[2017-06-11] MEDS: ASCORBIC ACID 500 MG TABLET PO SCH (09:25)
[2017-06-11] MEDS: DOCUSATE SODIUM 100 MG CAPSULE PO SCH (09:25)
[2017-06-11] MEDS: ZINC SULFATE 220 MG CAPSULE PO SCH (09:25)
[2017-06-11] MEDS: MULTIVITAMIN TABLET PO SCH (09:25)
[2017-06-11] MEDS: NORMAL SALINE 10 ML SDV (SCHEDULED) IV SCH (09:26)
[2017-06-11] MEDS: ENOXAPARIN SODIUM INJ 40 MG/0.4 ML DISP.SYRIN SUBCUT SCH (09:26)
--- NOTE | 2017-06-11 10:24 | PDOC TRANSFER SUMMARY ---
General - Admit/Disc Date/PCP Admission Date/Primary Care Provider: 05/13/17 17:35 ROULA ISAAC PA-C Discharge Date: 06/11/17 - Discharge Diagnosis (1) Osteomyelitis of left hip Is this a current diagnosis for this admission?: Yes Summary: getting zosyn iv. Last dose July 01, 2017 (2) Decubitus ulcer, stage 4 with infection Is this a current diagnosis for this admission?: Yes (3) Anemia of chronic disease Is this a current diagnosis for this admission?: Yes (4) Paraplegia Is this a current diagnosis for this admission?: Yes (5) Spina bifida Is this a current diagnosis for this admission?: Yes - Additional Information Discharge Diet: Regular Discharge Activity: Bedrest Home Medications: Ascorbic Acid [Vitamin C 500 mg Tablet] 500 mg PO DAILY tablet 06/11/17 Docusate Sodium [Colace 100 mg Capsule] 100 mg PO BID capsule 06/11/17 Heparin Sodium,Porcine [Heparin Flush 10 Unit/ml 5 ml Disp.syrg] 30 unit IV .AFTER EACH USE PRN disp.syrin 06/11/17 Heparin Sodium,Porcine [Heparin Flush 10 Unit/ml 5 ml Disp.syrg] 30 unit IV Q12 disp.syrin 06/11/17 Multivitamin [Tab-A-Shahzad (Multiple Vitamin) Tablet] 1 tab PO DAILY tablet 06/11 Piperacillin Sodium/Tazobactam [Zosyn Inj 3.375 gm Vial] 3.375 gm IV Q8 vial Sodium Chloride [Landy-128 Oph Soln 5% 15 ml] 1 drop OU Q3HP PRN bottle Zinc Sulfate [Zinc-220 Capsule] 220 mg PO DAILY capsule 06/11/17 History of Present Illness Admission Date/PCP: 05/13/17 17:35 ROULA ISAAC PA-C History of Present Illness: DEBORA JOEL is a 86 year old female with history of spina bifida for multiple years chronically debilitated and bedbound sent to the emergency room by the family because of change in mental status. The patient has been dealing with decubitus ulcers for about 4 months. 2 months ago the patient developed a tunneling ulcer that is progressively getting worse and seen by Dr. Cornejo 2 weeks ago where debridement was performed and wound vacuum was placed. For the past week the patient has been noted to have foul-smelling drainage coming from the wound VAC. Subsequently she started getting confused and sluggish for the past 3 days. Family noted fever as well and decrease in appetite. There is no coughing. Patient denies painful urination. Patient denies any diarrhea as well. Patient had another decubitus ulcer on the left foot but improving according to the family. In the emergency room, temperature was 99.8 lactic acid level is normal WBC is normal. The patient was then referred for admission. Patient denies any sinus congestion no sore throat as well. Hospital Course Hospital Course: 86 year old female with paraplegia secondary to spina bifida who presented with decubiti of sacrum and buttocks. She had debridement by surgery and the sacral wound went to the coccyx, consistent with osteomyelitis. She was started on IV antibiotics and grew out E. coli, enterococcus, and pseudomonas. She was placed on zosyn 3.375 grams q 8 hours for six weeks total. The last dose will be July 01, 2017. She has been getting wet to dry dressing changes to the coccyx wound BID. the other wounds have been getting allyven dressings changed daily. The coccyx wound is stage 4. She also has wounds on left hip, right buttock and heels. She has paraplegia and has no other chronic health problems. Physical Exam Vital Signs: Temp Pulse Resp BP Pulse Ox 98.1 F 71 17 117/65 97 06/11/17 00:29 06/11/17 00:29 06/11/17 00:29 06/11/17 00:29 06/11/17 00:29 Intake & Output 06/10/17 06/11/17 06/12/17 06:59 06:59 06:59 Intake Total 1959 1085 Output Total 2850 900 Balance -891 185 Weight 75.5 kg 75.5 kg General appearance: PRESENT: no acute distress Eye exam: PRESENT: conjunctiva pink. ABSENT: scleral icterus Mouth exam: PRESENT: moist, tongue midline Neck exam: ABSENT: JVD Respiratory exam: PRESENT: clear to auscultation shannan. ABSENT: rales, rhonchi, wheezes Cardiovascular exam: PRESENT: RRR. ABSENT: diastolic murmur, rubs, systolic murmur Vascular exam: PRESENT: normal capillary refill GI/Abdominal exam: PRESENT: normal bowel sounds, soft. ABSENT: distended, guarding, mass, organolmegaly, rebound, tenderness Extremities exam: ABSENT: calf tenderness, clubbing Neurological exam: PRESENT: alert, awake, oriented to person, oriented to place , oriented to time, oriented to situation, CN II-XII grossly intact, motor sensory deficit - paraplegia Psychiatric exam: PRESENT: appropriate affect Skin exam: PRESENT: other - sacral, left hip, right buttock wounds. also bilateral heel wounds Results Laboratory Results: 06/03/17 03:30 06/03/17 03:30 Impressions: Chest X-Ray 05/13/17 13:58 IMPRESSION: NO ACUTE RADIOGRAPHIC FINDING IN THE CHEST. Pelvis CT 05/13/17 15:21 IMPRESSION: Left gluteal decubitus ulcer with gas abutting the ischial tuberosity. If important to evaluate for osteomyelitis, consider noncontrast MRI or bone scan. Guidance Fluoroscopy 05/14/17 00:00 IMPRESSION: SUCCESSFUL PLACEMENT OF A 5 FR DUAL LUMEN 37 CM PICC IN THE LEFT BASILIC VEIN. Interventional Vascular Procedure 05/14/17 00:00 IMPRESSION: SUCCESSFUL PLACEMENT OF A 5 FR DUAL LUMEN 37 CM PICC IN THE LEFT BASILIC VEIN. PICC Line Insertion 05/14/17 00:00 IMPRESSION: SUCCESSFUL PLACEMENT OF A 5 FR DUAL LUMEN 37 CM PICC IN THE LEFT BASILIC VEIN. Transfer Plan - Disposition Transfer Plan: transfer to [facility] for iv antibiotics - Time Spent with Patient Time spent with patient: Greater than 30 Minutes Qualifiers PATEINT BEING DISCHARGED WITH ANY OF THE FOLLOWING DIAGNOSIS?: No Plan Discharge Plan: transfer to [facility] today Time Spent: Greater than 30 Minutes
[2017-06-11 12:34] VITALS: BP 106/38
== END 2017-06-11 14:59 | DRG 463 ==
LOC: ER 13:50 → UNDOADMIN 16:26 → EH 16:26 → 4N 19:03
PROC: 0JBC0ZZ Excision of Pelvic Region Subcutaneous Tissue and Fascia, Open Approach (ICD-10-PCS; principal; 2017-05-13)
PROC: 02HV33Z Insertion of Infusion Device into Superior Vena Cava, Percutaneous Approach (ICD-10-PCS; 2017-05-14)
PROC: B5181ZA Fluoroscopy of Superior Vena Cava using Low Osmolar Contrast, Guidance (ICD-10-PCS; 2017-05-14)
PROC: B548ZZA Ultrasonography of Superior Vena Cava, Guidance (ICD-10-PCS; 2017-05-14)
PROC: 0QB70ZZ Excision of Left Upper Femur, Open Approach (ICD-10-PCS; 2017-05-15)
DX: M86.8X8 Other osteomyelitis, other site (principal); L89.154 Pressure ulcer of sacral region, stage 4; L89.893 Pressure ulcer of other site, stage 3; G82.20 Paraplegia, unspecified; Q05.9 Spina bifida, unspecified; D63.8 Anemia in other chronic diseases classified elsewhere; Z74.01 Bed confinement status; Z79.899 Other long term (current) drug therapy
CPT/HCPCS: 36415; 36569; 71010; 72192; 76937; 77001; 80048; 80053; 80202; 81001; 82272; 82803; 82962; 83605; 84443; 85025; 85610; 85652; 86140; 87040; 87070; 87075; 87077; 87086; 87186; 87205; 93005; 93010; 99285; J0295; J0692; J0696; J1335; J1642; J1650; J2405; J2543; J3370; J3490; J7030; J7060

== ENCOUNTER → 2017-06-26 | Outpatient (CLI) | payer MEDICARE, OTHER ==
--- NOTE | 2017-06-26 16:57 | RADIOLOGY REPORT (SQ) ---
EXAM DESCRIPTION: MRI PELVIS COMBO COMPLETED DATE/TIME: 06/26/2017 3:52 pm REASON FOR STUDY: PRESSURE ULCER OF LEFT BUTTOCK STAGE 4 L89.324 PRESSURE ULCER OF LEFT BUTTOCK, ST AGE 6 COMPARISON: CT pelvis without contrast 05/13/2017 TECHNIQUE: Multiplanar multisequence imaging performed without and with contrast including axial, sa gittal and coronal T2, axial T, axial gradient fat sat T1, axial, sagittal and coronal fat sat T2 pos t contrast. CONTRAST TYPE AND DOSE: 15 mL Prohance. RENAL FUNCTION: GFR > 60. LIMITATIONS: None. FINDINGS: The patient has a left ischial decubitus ulcer, with an air-filled tract from the skin to the inferior aspect of the ischium. There is abnormal marrow edema and contrast enhancement in the left ischium worrisome for osteomyelit is, best shown on coronal images 13-18, and axial images 28-37. There is profound muscular atrophy throughout the left gluteal muscles. BLADDER AND URETHRA: Alberto catheter in the bladder. Bladder unremarkable. Urethra not well seen. PELVIC SOFT TISSUES: No adenopathy or free fluid UTERUS: Uterus is 8 x 5 x 7 cm size. There is fluid in the fundal endometrium, and a 2.6 cm submucos al left fundal fibroid. RIGHT OVARY: Normal size. No masses. LEFT OVARY: Normal size. No masses. 1.6 cm cyst left ovary FREE FLUID: None. PELVIC SKELETAL STRUCTURES: No fracture. EXTRA PELVIS SOFT TISSUES: No inguinal adenopathy. Left gluteal muscle atrophy OTHER: No other significant finding. IMPRESSION: Left ischial decubitus ulcer, with an air field tract from the skin to the inferior surf lucas of the ischium. Abnormal marrow edema and marrow enhancement of the left ischium worrisome for o steomyelitis TECHNICAL DOCUMENTATION: JOB ID: [id number] [employer]- All Rights Reserved
== END ==
LOC: RAD 14:55
PROVIDERS: ATTEND Surgery
DX: L89.324 Pressure ulcer of left buttock, stage 4 (principal)
CPT/HCPCS: 72197; A9576

== ENCOUNTER → 2017-08-14 | Outpatient (CLI) | payer MEDICARE, OTHER ==
[2017-08-14 11:19] LABS: ALBUMIN 3.3 g/dL (3.5-5.0); C-REACTIVE PROTEIN 64.5 mg/L (<10.0)
[2017-08-14 11:29] LABS: PREALBUMIN 9.8 mg/dL (17.6-36.0)
== END ==
LOC: LAB 09:52
PROVIDERS: ATTEND Surgery
DX: L89.893 Pressure ulcer of other site, stage 3 (principal); M86.38 Chronic multifocal osteomyelitis, other site
CPT/HCPCS: 36415; 82040; 84134; 86140

== ENCOUNTER → 2017-08-21 | Outpatient (CLI) | payer MEDICARE, OTHER ==
--- NOTE | 2017-08-21 12:35 | RADIOLOGY REPORT (SQ) ---
EXAM DESCRIPTION: MRI PELVIS COMBO COMPLETED DATE/TIME: 08/21/2017 10:13 am REASON FOR STUDY: CHRONIC MULTIFOCAL OSTEOMYELITIS OTHER SITE M86.38 CHRONIC MULTIFOCAL OSTEOMYELIT IS, OTHER SITE L89.324 PRESSURE ULCER OF LEFT BUTTOCK, STAGE 4 COMPARISON: MRI pelvis 06/26/2017 CT pelvis 05/13/2017 TECHNIQUE: Multiplanar multisequence imaging performed without and with contrast including axial, sa gittal and coronal T2, axial T, axial gradient fat sat T1, axial, sagittal and coronal fat sat T2 pos t contrast. CONTRAST TYPE AND DOSE: 15 mL Prohance. RENAL FUNCTION: GFR > 60. LIMITATIONS: None. FINDINGS: The patient has a left ischial region decubitus ulcer, 3.6 cm in diameter. An air filled tract extends from the skin surface to the left ischial tuberosity. Tract has enhancing granulation tissue. No focal abscess. There is persistent abnormal marrow edema and contrast enhancement along the left ischial tuberosity, unchanged from 06/26/2017 MRI pelvis. No right-sided ischial ulcer. There is edema of the skin and subcutaneous fat along the sacrococcygeal junction, early or developin g decubitus ulcer may be present in this area. This is a new finding compared to 06/26/2017. BLADDER AND URETHRA: Bladder decompressed with Alberto catheter. No gross mucosal lesions. PELVIC SOFT TISSUES: Normal. No masses. No free pelvic fluid. UTERUS: Normal size. Unchanged submucosal fibroids. RIGHT OVARY: Normal size. No masses. LEFT OVARY: Normal size. No masses. FREE FLUID: None. PELVIC SKELETAL STRUCTURES: As above EXTRA PELVIS SOFT TISSUES: As above OTHER: No other significant finding. IMPRESSION: Persistent left ischial decubitus ulcer with granulation tissue along its path to the le ft ischial tuberosity. Persistent left ischial tuberosity marrow edema and enhancement worrisome for osteomyelitis New area of skin thickening, skin edema and subcutaneous edema over the sacrococcygeal junction regio n worrisome for developing sacral decubitus ulcer TECHNICAL DOCUMENTATION: JOB ID: [id number] All Rights Reserved
== END ==
LOC: RAD 08:07
PROVIDERS: ATTEND Surgery
DX: M86.38 Chronic multifocal osteomyelitis, other site (principal); L89.324 Pressure ulcer of left buttock, stage 4
CPT/HCPCS: 82565; 72197; A9576

== ENCOUNTER 2017-08-28 11:01 | Emergency (ER) | payer MEDICARE, OTHER ==
[~2017-08-28 11:01] MED LIST: CEFTRIAXONE 1 GM/D5W RTU 1 GM/50 ML RTUPB IV SCH
[2017-08-28] MEDS ORDERED: ONDANSETRON HCL INJ/PF 4 MG/2 ML SDV IV ONE (11:14)
[2017-08-28] MEDS ORDERED: ACETAMINOPHEN 325 MG TABLET PO ONE (11:40)
[2017-08-28 11:47] LABS: HEMOGLOBIN 10.5 g/dL (12.0-15.5); HGB HCT DIFFERENCE -0.5; MEAN CORPUSCULAR HEMOGLOBIN 27.2 pg (27.0-33.4); MEAN CORPUSCULAR HGB CONC 32.7 g/dL (32.0-36.0); MEAN CORPUSCULAR VOLUME 83 fl (80-97); RED BLOOD COUNT 3.86 10^6/uL (3.72-5.28); RED CELL DISTRIBUTION WIDTH 15.7 % (11.5-14.0); WHITE BLOOD COUNT 18.4 10^3/uL (4.0-10.5)
[2017-08-28 12:09] LABS: ALANINE AMINOTRANSFERASE 26 U/L (9-52); ALBUMIN 3.3 g/dL (3.5-5.0); ALKALINE PHOSPHATASE 132 U/L (38-126); ANION GAP 15 (5-19); ASPARTATE AMINO TRANSFERASE 21 U/L (14-36); BILIRUBIN,DIRECT 0.4 mg/dL (0.0-0.4); BILIRUBIN,TOTAL 0.5 mg/dL (0.2-1.3); BLOOD UREA NITROGEN 42 mg/dL (7-20); CALCIUM 8.5 mg/dL (8.4-10.2); CARBON DIOXIDE 16 mmol/L (22-30); CHLORIDE 104 mmol/L (98-107); CREATININE RESULT 1.79 mg/dL (0.52-1.25); GLUCOSE 130 mg/dL (75-110); LIPASE 143.1 U/L (23-300); POTASSIUM 4.6 mmol/L (3.6-5.0); SODIUM 135.3 mmol/L (137-145); TOTAL PROTEIN 6.6 g/dL (6.3-8.2)
[2017-08-28 12:17] LABS: BAND NEUTROPHILS % (MANUAL) 5 % (3-5); BASOPHILS % (MANUAL) 0 % (0-2); EOSINOPHILS % (MANUAL) 0 % (0-6); LYMPHOCYTES % (MANUAL) 0 % (13-45); TOTAL CELLS COUNTED 100
[2017-08-28 12:18] LABS: ANISOCYTOSIS SLIGHT
[2017-08-28] MEDS ORDERED: NORMAL SALINE 1000 ML 1,000 ML IV ONE ×4 (12:27→15:42)
--- NOTE | 2017-08-28 12:27 | ER Document Report ---
ED GI/ - General Chief Complaint: Nausea Stated Complaint: NAUSEA,VOMITING Time Seen by Provider: 08/28/17 11:13 Notes: The patient is a 86-year-old female, past medical history chronic sacral wounds (followed at the wound care center), spina bifida, indwelling waterman due to wounds, presents from the wound care center after she started having nausea and vomiting this morning. Patient was found to have a fever on arrival to the ER. She was given 4 mg IV Zofran and 200 mL normal saline with mild relief of her nausea. Patient denies abdominal pain, chest pain, shortness of breath, urinary symptoms, cough, rash, dysuria, flank pain, hematemesis, diarrhea or constipation. TRAVEL OUTSIDE OF THE [place] IN LAST 30 DAYS: No - Related Data Allergies/Adverse Reactions: gabapentin Adverse Reaction (Verified 08/28/17 11:46) Past Medical History - General Information source: Patient - Social History Smoking Status: Never Smoker Chew tobacco use (# tins/day): No Frequency of alcohol use: None Drug Abuse: None Family History: None Patient has suicidal ideation: No Patient has homicidal ideation: No Renal/ Medical History: Denies: Hx Peritoneal Dialysis Past Surgical History: Reports: Other - Back surgery and surgery for spina bifida. Review of Systems - Review of Systems Notes: REVIEW OF SYSTEMS: CONSTITUTIONAL: +fevers, -chills EENT: -eye pain, -difficulty swallowing, -nasal congestion CARDIOVASCULAR:-chest pain, -syncope. RESPIRATORY: -cough, -SOB GASTROINTESTINAL: -abdominal pain, +nausea, +vomiting, -diarrhea GENITOURINARY: -dysuria, -hematuria MUSCULOSKELETAL: -back pain, -neck pain SKIN: -rash or skin lesions. HEMATOLOGIC: -easy bruising or bleeding. LYMPHATIC: -swollen, enlarged glands. NEUROLOGICAL: -altered mental status or loss of consciousness, -headache, - neurologic symptoms PSYCHIATRIC: -anxiety, -depression. ALL OTHER SYSTEMS REVIEWED AND NEGATIVE. Physical Exam - Vital signs Vitals: Temp Pulse Resp BP Pulse Ox 103 F H 98 20 132/89 H 96 08/28/17 11:01 08/28/17 11:01 08/28/17 11:01 08/28/17 11:01 08/28/17 11:01 - Notes Notes: PHYSICAL EXAMINATION: GENERAL: Well-appearing, well-nourished and in no acute distress. HEAD: Atraumatic, normocephalic. EYES: Pupils equal round and reactive to light, extraocular movements intact, sclera anicteric, conjunctiva are normal. ENT: nares patent, oropharynx clear without exudates. Moist mucous membranes. NECK: Normal range of motion, supple without lymphadenopathy LUNGS: Breath sounds clear to auscultation bilaterally and equal. No wheezes rales or rhonchi. HEART: Regular rate and rhythm without murmurs ABDOMEN: Soft, nontender, normoactive bowel sounds. No guarding, no rebound. No masses appreciated. : Chronic indwelling waterman. EXTREMITIES: Chronic contractions of lower extremities. NEUROLOGICAL: AAOx4. No acute findings. PSYCH: Normal mood, normal affect. SKIN: Chronic sacral wounds. Course - Re-evaluation Re-evalutation: Patient with a few hours of nausea and vomiting. She was found to have a fever on arrival to the ER and a leukocytosis. Patient also has acute kidney injury, most likely from prerenal azotemia and dehydration and a 7 mm obstructing distal right urethral calculus on CT. Rocephin started and patient requires transfer due to septic kidney stone to a center with urology. Please call to [facility] [place] at 14:52 and awaiting transfer. 08/28/17 15:30 [facility] [place] said Dr. Mcnally (Urologist) is in surgery and it may be some time to call back. Placed call to [facility] to discuss transfer and awaiting callback. 08/28/17 15:45 Spoke to Danna Lynn (Dr. Jay's PA at [facility]) and Dr. Jay has accepted patient to OR for emergent removal. Pt started on ABx and continues on IVF due to pt becoming hypotensive. - Vital Signs Vital signs: Temp Pulse Resp BP Pulse Ox 102.5 F H 98 23 H 75/61 L 96 08/28/17 14:30 08/28/17 11:01 08/28/17 15:06 08/28/17 15:06 08/28/17 15:06 - Laboratory Result Diagrams: 08/28/17 11:20 08/28/17 11:20 Laboratory results interpreted by me: 08/28/17 08/28/17 08/28/17 11:20 11:20 14:20 WBC 18.4 H Hgb 10.5 L Hct 32.0 L RDW 15.7 H Seg Neuts % (Manual) 89 H Lymphocytes % (Manual) 0 L Abs Neuts (Manual) 17.3 H Abs Lymphs (Manual) 0.0 L VBG pH VBG pCO2 VBG HCO3 Sodium 135.3 L Carbon Dioxide 16 L BUN 42 H Creatinine 1.79 H Est GFR ( Amer) 33 L Est GFR (Non-Af Amer) 27 L Glucose 130 H Alkaline Phosphatase 132 H Albumin 3.3 L Urine Protein 100 H Urine Ketones TRACE H Urine Blood MODERATE H Urine Nitrite POSITIVE H Ur Leukocyte Esterase LARGE H 08/28/17 14:54 WBC Hgb Hct RDW Seg Neuts % (Manual) Lymphocytes % (Manual) Abs Neuts (Manual) Abs Lymphs (Manual) VBG pH 7.49 H VBG pCO2 20.7 L VBG HCO3 15.4 L Sodium Carbon Dioxide BUN Creatinine Est GFR ( Amer) Est GFR (Non-Af Amer) Glucose Alkaline Phosphatase Albumin Urine Protein Urine Ketones Urine Blood Urine Nitrite Ur Leukocyte Esterase - Diagnostic Test Radiology reviewed: Image reviewed, Reports reviewed Radiology results interpreted by me: CXR: NAD - EKG Interpretation by Me EKG shows normal: Sinus rhythm, [place], Intervals, QRS Complexes, ST-T Waves Rate: Normal When compared to previous EKG there are: No significant change Critical Care Note - Critical Care Note Total time excluding time spent on procedures (mins): 35 Discharge - Discharge Clinical Impression: Kidney stone, SUAD (acute kidney injury) UTI (urinary tract infection) Qualifiers: Urinary tract infection type: site unspecified Hematuria presence: with hematuria Qualified Code(s): N39.0 - Urinary tract infection, site not specified Condition: Serious Disposition: [facility]
--- NOTE | 2017-08-28 13:02 | RADIOLOGY REPORT (SQ) ---
EXAM DESCRIPTION: CHEST SINGLE VIEW COMPLETED DATE/TIME: 08/28/2017 12:52 pm REASON FOR STUDY: fever COMPARISON: 05/13/2017. EXAM PARAMETERS: NUMBER OF VIEWS: One view. TECHNIQUE: Single frontal radiographic view of the chest acquired. RADIATION DOSE: NA LIMITATIONS: None. FINDINGS: LUNGS AND PLEURA: No opacities, masses or pneumothorax. No pleural effusion. MEDIASTINUM AND HILAR STRUCTURES: No masses. Contour normal. HEART AND VASCULAR STRUCTURES: Heart normal in size. Normal vasculature. BONES: No acute findings. HARDWARE: None in the chest. OTHER: No other significant finding. IMPRESSION: NO ACUTE RADIOGRAPHIC FINDING IN THE CHEST. TECHNICAL DOCUMENTATION: JOB ID: [id number] [email or web address]- All Rights Reserved
--- NOTE | 2017-08-28 13:22 | EKG REPORT ---
SEVERITY:- ABNORMAL ECG - SINUS RHYTHM ABNORMAL T, CONSIDER ISCHEMIA, LATERAL LEADS : Confirmed by: Anjel Romo MD 28-Aug-2017 13:22:35
--- NOTE | 2017-08-28 14:31 | RADIOLOGY REPORT (SQ) ---
EXAM DESCRIPTION: CT ABD/PELVIS NO ORAL OR IV COMPLETED DATE/TIME: 08/28/2017 2:10 pm REASON FOR STUDY: N/V, obstruction? Elevated GFR COMPARISON: MRI pelvis 08/21/2017, 06/26/2017 CT pelvis 05/13/2017 TECHNIQUE: CT scan of the abdomen and pelvis performed without intravenous or oral contrast. Images reviewed with lung, soft tissue, and bone windows. Reconstructed coronal and sagittal MPR images revi ewed. All images stored on PACS. All CT scanners at this facility use dose modulation, iterative reconstruction, and/or weight based d osing when appropriate to reduce radiation dose to as low as reasonably achievable (ALARA). [facility]: Dose Right [facility]: CareDose [facility]: Dose Right [facility]: Teradose 4D [facility]: LawKick RADIATION DOSE: 7.1mGy. LIMITATIONS: Motion artifact. Streak artifact from lumbar hardware at L1-2 FINDINGS: LOWER CHEST: Cardiomegaly. Hiatal hernia. No focal infiltrates NON-CONTRASTED LIVER, SPLEEN, ADRENALS: Evaluation limited by lack of IV contrast. No identified sign ificant masses. PANCREAS: No masses. No peripancreatic inflammatory changes. GALLBLADDER: No identified stones by CT criteria. No inflammatory changes to suggest cholecystitis. RIGHT KIDNEY AND URETER: A 7 mm distal right ureteral stone is present with moderate right hydronephr osis and hydroureter. Calculus is best shown on axial image 70 and coronal image 36. A 12 mm right lower pole calculus is present, intrarenal nonobstructive, with Hounsfield units of 124 . No focal right renal masses or cysts. LEFT KIDNEY AND URETER: No suspicious masses. Assessment limited by lack of IV contrast. No signifi cant calcifications. No hydronephrosis or hydroureter. AORTA AND RETROPERITONEUM: No aneurysm. No retroperitoneal masses or adenopathy. BOWEL AND PERITONEAL CAVITY: No obvious masses or inflammatory changes. No free fluid. Colonic diver ticulosis without CT signs of acute diverticulitis APPENDIX: Normal. PELVIS, BLADDER, AND ABDOMINAL WALL:No abnormal masses. No free fluid. Bladder normal. BONES: Lumbar fusion at L1-2 with hardware. OTHER: There is a left ischial decubitus ulcer extending down to the ischial tuberosity. Stable bony sclerosis left ischial tuberosity. IMPRESSION: Moderate right hydronephrosis and hydroureter from distal right ureteral calculus. COMMENT: Quality ID # [id number]: Final reports with documentation of one or more dose reduction techniques (e.g., Automated exposure control, adjustment of the mA and/or kV according to patient size, use of iterative reconstruction technique) TECHNICAL DOCUMENTATION: JOB ID: [id number] [employer]- All Rights Reserved
[2017-08-28] MEDS ORDERED: CEFTRIAXONE 1 GM/D5W RTU 1 GM/50 ML RTUPB IV ONE (14:48)
[2017-08-28 15:00] LABS: APPEARANCE,URINE TURBID; BILIRUBIN,URINE NEGATIVE (NEGATIVE); CALCIUM OXALATE CRYSTALS,URINE FEW /HPF; GLUCOSE, URINE NEGATIVE (NEGATIVE); KETONES,URINE TRACE mg/dL (NEGATIVE); LEUKOCYTE ESTERASE,URINE LARGE (NEGATIVE); NITRITE,URINE POSITIVE (NEGATIVE); PROTEIN,URINE 100 mg/dL (NEGATIVE); URINE SPECIFIC GRAVITY 1.019; UROBILINOGEN,URINE NEGATIVE mg/dL (<2.0)
[2017-08-28 15:08] LABS: VENOUS BLOOD BASE EXCESS -6.5 mmol/L; VENOUS BLOOD HCO3 15.4 mmol/L (20-32); VENOUS BLOOD PCO2 20.7 mmHg (35-63); VENOUS BLOOD PH 7.49 (7.30-7.42)
[2017-08-28 16:19] VITALS: BP 85/38
== END 2017-08-28 16:45 | disposition short-term general hospital (02) ==
LOC: ER 11:01
DX: A41.9 Sepsis, unspecified organism (principal); N13.6 Pyonephrosis; N17.9 Acute kidney failure, unspecified; R31.9 Hematuria, unspecified; R11.2 Nausea with vomiting, unspecified; R50.9 Fever, unspecified; Q05.9 Spina bifida, unspecified
CPT/HCPCS: 93005; 99291; 96361; 51702; 96374; 36415; 87040; 83690; 85025; 87077; 80053; 81001; 84484; 87186; 82803; 83605; 71010; 74176; 93010; A9270; J2405; J7030

== ENCOUNTER 2019-08-15 20:05 | Inpatient (IN) | payer MEDICARE, OTHER ==
[2019-08-15 20:37] LABS: HEMATOCRIT 34.2 % (36.0-47.0); MEAN CORPUSCULAR HEMOGLOBIN 26.6 pg (27.0-33.4); MEAN CORPUSCULAR HGB CONC 32.2 g/dL (32.0-36.0); MEAN CORPUSCULAR VOLUME 83 fl (80-97); PLATELET COUNT 239 10^3/uL (150-450); RED BLOOD COUNT 4.13 10^6/uL (3.72-5.28); RED CELL DISTRIBUTION WIDTH 15.3 % (11.5-14.0); WHITE BLOOD COUNT 17.3 10^3/uL (4.0-10.5)
[2019-08-15] MEDS ORDERED: NORMAL SALINE 1000 ML 1,000 ML IV ONE (20:50)
[2019-08-15] MEDS ORDERED: CEFTRIAXONE 1 GM/D5W RTU 1 GM/50 ML RTUPB IV ONE (20:53)
[2019-08-15 20:59] LABS: ALBUMIN 3.4 g/dL (3.5-5.0); ALKALINE PHOSPHATASE 113 U/L (38-126); ANION GAP 13 (5-19); ASPARTATE AMINO TRANSFERASE 21 U/L (14-36); BILIRUBIN,DIRECT 0.4 mg/dL (0.0-0.4); BILIRUBIN,TOTAL 0.9 mg/dL (0.2-1.3); BLOOD UREA NITROGEN 40 mg/dL (7-20); CALCIUM 8.2 mg/dL (8.4-10.2); CARBON DIOXIDE 19 mmol/L (22-30); CHLORIDE 105 mmol/L (98-107); GLUCOSE 112 mg/dL (75-110); POTASSIUM 4.7 mmol/L (3.6-5.0); TOTAL PROTEIN 7.8 g/dL (6.3-8.2)
[2019-08-15 21:00] LABS: ABSOLUTE LYMPHOCYTES# (MANUAL) 0.7 10^3/uL (0.5-4.7); ABSOLUTE MONOCYTES # (MANUAL) 0.5 10^3/uL (0.1-1.4); ANISOCYTOSIS SLIGHT; BAND NEUTROPHILS % (MANUAL) 2 % (3-5); BASOPHILS % (MANUAL) 0 % (0-2); EOSINOPHILS % (MANUAL) 4 % (0-6); LYMPHOCYTES % (MANUAL) 4 % (13-45); MONOCYTES % (MANUAL) 3 % (3-13); PLATELET COMMENT ADEQUATE; SEGMENTED NEUTROPHILS % (MAN) 87 % (42-78); TOTAL CELLS COUNTED 100
[2019-08-15 21:14] LABS: APPEARANCE,URINE SLIGHTLY-CLOUDY; BILIRUBIN,URINE NEGATIVE (NEGATIVE); COLOR,URINE AMBER; GLUCOSE, URINE NEGATIVE (NEGATIVE); KETONES,URINE 20 mg/dL (NEGATIVE); LEUKOCYTE ESTERASE,URINE LARGE (NEGATIVE); NITRITE,URINE POSITIVE (NEGATIVE); PROTEIN,URINE 30 mg/dL (NEGATIVE); URINE SPECIFIC GRAVITY 1.015; UROBILINOGEN,URINE NEGATIVE mg/dL (<2.0)
[2019-08-15] MEDS ORDERED: ONDANSETRON HCL INJ/PF 4 MG/2 ML SDV IV ONE (21:26)
[2019-08-15] MEDS ORDERED: ACETAMINOPHEN 325 MG TABLET PO ONE (21:42)
[2019-08-15] MEDS ORDERED: NORMAL SALINE 1000 ML 400 ML IV ONE (21:43)
--- NOTE | 2019-08-15 21:43 | ER Document Report ---
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 States on 07/05/2019 she did present to her primary care provider. States she was diagnosed with a urinary tract infection and placed on Macrobid. States she has been taking medications as prescribed. States in the last 3 days she started with some generalized nausea and intermittent episodes of diarrhea. States she does see wound management for decubitus ulcer as well as an ulcer on her right lower extremity. States she sees wound management every other Saturday and also has a home health aide change her bandages every Saturday and Saturday. Patient voices she has not been able to eat or drink anything in the last 24 hours due to nausea. Patient's denying any trauma, injuries, falls. She is denying any abdominal pain although states she cannot feel from her bellybutton distally. TRAVEL OUTSIDE OF THE [place] IN LAST 30 DAYS: No - Related Data Allergies/Adverse Reactions: gabapentin Adverse Reaction (Verified 08/15/19 20:15) Home Medications: zofran. mirtazapine, nitrofurantoin, Past Medical History - General Information source: Patient - Social History Smoking Status: Never Smoker Chew tobacco use (# tins/day): No Frequency of alcohol use: None Drug Abuse: None Family History: None Patient has suicidal ideation: No Patient has homicidal ideation: No - Past Medical History Cardiac Medical History: Denies: Hx Hypercholesterolemia, Hx Hypertension Pulmonary Medical History: Denies: Hx COPD Endocrine Medical History: Denies: Hx Diabetes Mellitus Type 1, Hx Diabetes Francesca itus Type 2 Renal/ Medical History: Denies: Hx Peritoneal Dialysis Past Surgical History: Reports: Hx Orthopedic Surgery - [facility], Other - Back surgery and surgery for spina bifida. Review of Systems - Review of Systems Constitutional: Fever EENT: No symptoms reported Cardiovascular: No symptoms reported Respiratory: No symptoms reported Gastrointestinal: See HPI Genitourinary: See HPI Female Genitourinary: No symptoms reported Musculoskeletal: See HPI Skin: See HPI Hematologic/Lymphatic: No symptoms reported Neurological/Psychological: See HPI Physical Exam - Vital signs Vitals: Temp Pulse Resp BP Pulse Ox 99.2 F 96 24 H 111/44 L 98 08/15/19 20:05 08/15/19 20:05 08/15/19 20:05 08/15/19 20:05 08/15/19 20:05 - Notes Notes: GENERAL: Alert, interacts well. No acute distress. HEAD: Normocephalic, atraumatic. EYES: Pupils equal, round, and reactive to light. Extraocular movements intact. ENT: Oral mucosa dry, tongue midline. NECK: Full range of motion. Supple. Trachea midline. LUNGS: Clear to auscultation bilaterally, no wheezes, rales, or rhonchi. No respiratory distress. HEART: Regular rate and rhythm. No murmur ABDOMEN: Soft, non-tender. Non-distended. Bowel sounds present in all 4 q uadrants. EXTREMITIES: Moves BL upper extremities spontaneously, normal radial pulses bilaterally. No cyanosis. LBTKA, ulcer noted right lower foot, dressed with clean gauze. BACK: no cervical, thoracic, lumbar midline tenderness. NEUROLOGICAL: Alert and oriented x3. Normal speech. PSYCH: Normal affect, normal mood. SKIN: Warm, dry, normal turgor. Course - Re-evaluation Re-evalutation: Patient does have a urinary Alberto catheter all the time. 08/15/19 21:42 Nurses have performed a rectal temperature at this time and patient is noted to be febrile at 101. She remains non-tachycardic, non-hypotensive. I have treated with oral antipyretics. Patient's urine does show signs of infection, treated with ceftriaxone via IV. Patient had received 500 cc normal saline solution by EMS. Did receive another liter in the emergency department. 08/15/19 21:44 With EMS' fluid and ED fluid pt. did receive 30 mL/kg fluid bolus. 08/15/19 22:49 I have spoken with hospitalist Dr. Leal who will admit the patient. - Vital Signs Vital signs: Temp Pulse Resp BP Pulse Ox 99.5 F 96 18 98/30 L 91 L 08/15/19 22:55 08/15/19 20:05 08/15/19 23:01 08/15/19 23:00 08/15/19 23:01 - Laboratory Result Diagrams: 08/15/19 20:28 08/15/19 20:28 Laboratory results interpreted by me: 08/15/19 08/15/19 08/15/19 20:28 20:28 20:34 WBC 17.3 H Hgb 11.0 L Hct 34.2 L MCH 26.6 L RDW 15.3 H Seg Neuts % (Manual) 87 H Band Neutrophils % 2 L Lymphocytes % (Manual) 4 L Abs Neuts (Manual) 15.4 H Absolute Eos (Manual) 0.7 H Sodium 136.7 L Carbon Dioxide 19 L BUN 40 H Est GFR ( Amer) 58 L Est GFR (MDRD) Non-Af 48 L Glucose 112 H Calcium 8.2 L Albumin 3.4 L Urine Protein 30 H Urine Ketones 20 H Urine Blood MODERATE H Urine Nitrite POSITIVE H Ur Leukocyte Esterase LARGE H Discharge - Discharge Clinical Impression: Urinary tract infection Qualifiers: Urinary tract infection type: catheter-associated UTI Indwelling urinary catheter type: indwelling urethral catheter Encounter type: initial encounter Qualified Code(s): T83.511A - Infection and inflammatory reaction due to indwelling urethral catheter, initial encounter Condition: Stable Disposition: ADMITTED INPATIENT Admitting Provider: Elvis (Hospitalist) Unit Admitted: Medical Floor
--- NOTE | 2019-08-15 21:48 | RADIOLOGY REPORT (SQ) ---
EXAM DESCRIPTION: [facility]: XR CHEST 1 VIEW CLINICAL HISTORY: 88 years Female, Tachypnea COMPARISON: 08/28/2017 FINDINGS: Lungs are clear, with no focal infiltrate, pneumothorax, or pleural effusion. Heart appears slightly enlarged, but this is likely due to the AP portable positioning. Bony structures are unremarkable. IMPRESSION: 1. No acute pulmonary findings.
[2019-08-15] MEDS ORDERED: TEMAZEPAM 7.5 MG CAPSULE PO PRN (23:41)
[2019-08-15] MEDS ORDERED: MAGNESIUM HYDROXIDE SUSP 30 ML UDCUP PO PRN (23:41)
[2019-08-15] MEDS ORDERED: MORPHINE SULFATE 10 MG/ML INJ IV PRN ×3 (23:44)
[2019-08-16] MEDS ORDERED: INFLUENZA QUAD (6MOS+) 2019-20 VAC 0.5 ML SYR IM ONE (01:24)
--- NOTE | 2019-08-16 01:24 | PDOC H&P ---
History of Present Illness Admission Date/PCP: 08/15/2019 23:03 NO LOCAL MD Patient complains of: Fever History of Present Illness: DEBORA JOEL is a 88 year old female who presented to the emergency room with a a 10-day history of fever. The patient and her family admit that she had developed a subjective fever and was evaluated at a local walk-in clinic 10 days ago with a diagnosis of urinary tract infection (in the setting of a chronic indwelling Alberto catheter) and treatment with Macrobid twice daily which she has taken to the completion of the prescription (10 days). The urine culture from that visit grew Proteus mirabilis not sensitive to Macrobid (sensitive to Rocephin). Since that time her fever has progressively worsened and has been associated with chills and generalized malaise. For the last 3 days her fever has been accompanied by diarrhea, nausea and decreased oral intake. She denies other associated or accompanying signs and symptoms. She admits prior similar symptoms with infections in the past. She has not identified any aggravating or ameliorating factors for her fever. In the emergency room she is found to have an elevated temperature at 101 F, and elevated white blood count and signs of obvious dehydration. She was started on IV antibiotics and given bolus IV fluids. She will subsequently be admitted to the hospital for further evaluatio n and treatment. Past Medical History Cardiac Medical History: Denies: Coronary Artery Disease, Hyperlipidema, Hypertension Pulmonary Medical History: Denies: Asthma, Chronic Obstructive Pulmonary Disease (COPD) EENT Medical History: Denies: Cataracts, Ears - Hearing aids Neurological Medical History: Reports: Other - Spina bifida with paraplegia Denies: Hemorrhagic CVA, Ischemic CVA, Seizures Endocrine Medical History: Denies: Diabetes Mellitus Type 1, Diabetes Mellitus Type 2, Hyperthyroidism, Hypothyroidism Renal/ Medical History: Reports: Other - Chronic indwelling Alberto catheter Denies: Chronic Kidney Disease, Nephrolithiasis Malignancy Medical History: Reports: None GI Medical History: Denies: Cirrhosis, Crohn's Disease, Hepatitis, Ulcerative Colitis Musculoskeltal Medical History: Reports: Other - 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 Social History Information Source: Patient, Relative Lives with: Family Smoking Status: Never Smoker Electronic Cigarette use?: No Frequency of Alcohol Use: None Hx Recreational Drug Use: No Drugs: None Hx Prescription Drug Abuse: No - Advance Directive Resuscitation Status: Full Code Surrogate healthcare decision maker:: Juanpablo Joel Family History Family History: denies: CAD, DM, Hypertension, Malignancy Parental Family History Reviewed: Yes Children Family History Reviewed: No Sibling(s) Family History Reviewed.: Yes Medication/Allergy Home Medications: Mirtazapine [Remeron 15 mg Tablet] 1 tab PO DAILY 08/16/19 Ondansetron [Zofran Odt 4 mg Tablet (6 Tab/ER Disp)] 1 tab PO Q8H PRN 08/16/19 Allergies/Adverse Reactions: gabapentin Adverse Reaction (Verified 08/15/19 20:15) Review of Systems Constitutional: PRESENT: as per HPI, anorexia, chills, fever(s), other - Male is Eyes: ABSENT: visual disturbances, other - Eye pain Ears: ABSENT: hearing changes, other - Ear pain Nose, Mouth, and Throat: PRESENT: other - Dry lips and mouth. ABSENT: headache(s), mouth pain, sore throat Cardiovascular: ABSENT: chest pain, palpitations Respiratory: ABSENT: cough, dyspnea Gastrointestinal: ABSENT: abdominal pain, constipation, diarrhea, nausea, vomiting Genitourinary: PRESENT: other - chronic indwelling Alberto catheter. ABSENT: dysuria, hematuria Musculoskeletal: ABSENT: back pain, joint swelling, muscle weakness Integumentary: ABSENT: pruritus, rash Neurological: ABSENT: confusion, convulsions, focal weakness, memory loss, syncope Psychiatric: ABSENT: anxiety, depression Endocrine: ABSENT: cold intolerance, heat intolerance Hematologic/Lymphatic: ABSENT: easy bleeding, easy bruising Allergic/Immunologic: ABSENT: seasonal rhinorrhea Physical Exam Vital Signs: Temp Pulse Resp BP Pulse Ox 99.5 F 96 18 98/30 L 91 L 08/15/19 22:55 08/15/19 20:05 08/15/19 23:01 08/15/19 23:00 08/15/19 23:01 Intake & Output 08/13/19 08/14/19 08/15/19 23:59 23:59 23:59 Intake Total 1050 Balance 1050 Weight 63.3 kg General appearance: PRESENT: no acute distress, cooperative Head exam: PRESENT: atraumatic, normocephalic Eye exam: PRESENT: conjunctiva pink. ABSENT: conjunctival injection, scleral icterus Ear exam: PRESENT: normal external ear exam. ABSENT: bleeding, drainage Mouth exam: PRESENT: dry mucosa, neck supple Neck exam: ABSENT: thyromegaly, tracheal deviation Respiratory exam: PRESENT: clear to auscultation shannan, symmetrical, unlabored Cardiovascular exam: PRESENT: RRR. ABSENT: clicks, gallop, rubs Pulses: PRESENT: normal radial pulses, normal dorsalis pedis pul Vascular exam: PRESENT: normal capillary refill. ABSENT: pallor GI/Abdominal exam: PRESENT: normal bowel sounds, soft Rectal exam: PRESENT: deferred Extremities exam: ABSENT: joint swelling, pedal edema Musculoskeletal exam: PRESENT: deformity - Status post left BKA, other - Paraplegia is noted Neurological exam: PRESENT: alert, oriented to person, oriented to place, oriented to time, oriented to situation, CN II-XII grossly intact, motor sensory deficit - Paraplegia is noted Psychiatric exam: PRESENT: appropriate affect, normal mood Skin exam: PRESENT: dry, warm, other - There is noted to be a sacral decubitus ulcer present, there is a decubitus ulcer of the right heel noted. ABSENT: jaundice, rash, urticaria Results Laboratory Results: 08/15/19 20:28 08/15/19 20:28 08/15/19 08/15/19 08/15/19 20:28 20:28 20:34 WBC 17.3 H RBC 4.13 Hgb 11.0 L Hct 34.2 L MCV 83 MCH 26.6 L MCHC 32.2 RDW 15.3 H Plt Count 239 Seg Neutrophils % Not Reportable Sodium 136.7 L Potassium 4.7 Chloride 105 Carbon Dioxide 19 L Anion Gap 13 BUN 40 H Creatinine 1.08 Est GFR ( Amer) 58 L Glucose 112 H Lactic Acid Calcium 8.2 L Total Bilirubin 0.9 AST 21 Alkaline Phosphatase 113 Total Protein 7.8 Albumin 3.4 L Urine Color LYUDMILA Urine Appearance SLIGHTLY-CLOUDY Urine pH 7.0 Ur Specific [place] 1.015 Urine Protein 30 H Urine Glucose (UA) NEGATIVE Urine Ketones 20 H Urine Blood MODERATE H Urine Nitrite POSITIVE H Ur Leukocyte Esterase LARGE H Urine WBC (Auto) 52 Urine RBC (Auto) 23 08/15/19 21:50 WBC RBC Hgb Hct MCV MCH MCHC RDW Plt Count Seg Neutrophils % Sodium Potassium Chloride Carbon Dioxide Anion Gap BUN Creatinine Est GFR ( Amer) Glucose Lactic Acid 1.5 Calcium Total Bilirubin AST Alkaline Phosphatase Total Protein Albumin Urine Color Urine Appearance Urine pH Ur Specific [place] Urine Protein Urine Glucose (UA) Urine Ketones Urine Blood Urine Nitrite Ur Leukocyte Esterase Urine WBC (Auto) Urine RBC (Auto) Impressions: Chest X-Ray 08/15/19 20:52 IMPRESSION: 1. No acute pulmonary findings. Assessment and Plan - Diagnosis (1) Urinary tract infection Qualifiers: Urinary tract infection type: catheter-associated UTI Indwelling urinary catheter type: indwelling urethral catheter Encounter type: initial encounter Qualified Code(s): T83.511A - Infection and inflammatory reaction due to indwelling urethral catheter, initial encounter; N39.0 - Urinary tract infection, site not specified Is this a current diagnosis for this admission?: Yes (2) Leukocytosis Qualifiers: Leukocytosis type: unspecified Qualified Code(s): D72.829 - Elevated white blood cell count, unspecified Is this a current diagnosis for this admission?: Yes (3) Decreased oral intake Is this a current diagnosis for this admission?: Yes (4) Nausea Is this a current diagnosis for this admission?: Yes (5) Fever and chills Is this a current diagnosis for this admission?: Yes (6) Anemia of chronic disease Is this a current diagnosis for this admission?: Yes (7) Paraplegia Is this a current diagnosis for this admission?: Yes (8) Spina bifida Qualifiers: Spinal region: lumbosacral Presence of hydrocephalus: without hydrocephalus Qualified Code(s): Q05.7 - Lumbar spina bifida without hydrocephalus Is this a current diagnosis for this admission?: Yes (9) Decubitus ulcer of right heel Qualifiers: Pressure injury stage: unspecified pressure injury stage Qualified Code(s): L89.619 - Pressure ulcer of right heel, unspecified stage Is this a current diagnosis for this admission?: Yes (10) Decubitus ulcer of sacral area Qualifiers: Pressure injury stage: unspecified pressure injury stage Qualified Code(s): L89.159 - Pressure ulcer of sacral region, unspecified stage Is this a current diagnosis for this admission?: Yes - Plan Summary Summary: Patient is admitted to the medical floor and will receive routine supportive and symptomatic cares. She will be treated with IV fluid utilizing D5LR at 167 mL/h initially. She will be treated with IV antibiotics utilizing Rocephin 1 g daily. Her fever will be treated with Tylenol as required. She will have daily CBCs and metabolic profiles obtained for ongoing evaluation and adjustment of therapy. She will receive wound care by the nursing staff and a surgical consult may be obtained if required. Her current wound management is done by the local wound care clinic. She will use morphine sulfate 2 to 4 mg IV every 2 hours on as-needed basis for pain. She will have Phenergan 12.5 mg IV every 4 hours on an as-needed basis for nausea or vomiting. - Time Time Spent with patient: 15-24 minutes Medications reviewed and adjusted accordingly: Yes Anticipated discharge: Home with Homehealth - Inpatient Certification Based on my medical assessment, after consideration of the patient's comorbidities, presenting symptoms, or acuity I expect that the services needed warrant INPATIENT care.: Yes I certify that my determination is in accordance with my understanding of Medicare's requirements for reasonable and necessary INPATIENT services [42 CFR 412.3e].: Yes Medical Necessity: Failure to Improve With Outpatient Therapy, Need Close Monitoring Due to Risk of Patient Decompensation, Need For IV Fluids, Need for IV Antibiotics, Risk of Complication if Not Cared For in Hospital
[2019-08-16] MEDS: DEXTROSE 5%-LACTATED RINGERS 1,000 ML IV PRN ×3 (05:29→17:54)
[2019-08-16] MEDS: HEPARIN SOD (PORCINE) 5,000 UNIT/ML 1 ML VIAL SUBCUT SCH ×3 (05:29→21:53)
[2019-08-16 05:31] LABS: HEMATOCRIT 30.3 % (36.0-47.0); HEMOGLOBIN 9.9 g/dL (12.0-15.5); MEAN CORPUSCULAR HGB CONC 32.9 g/dL (32.0-36.0); MEAN CORPUSCULAR VOLUME 82 fl (80-97); PLATELET COUNT 210 10^3/uL (150-450); RED BLOOD COUNT 3.68 10^6/uL (3.72-5.28); RED CELL DISTRIBUTION WIDTH 15.4 % (11.5-14.0); WHITE BLOOD COUNT 11.1 10^3/uL (4.0-10.5)
[2019-08-16 05:55] LABS: ANION GAP 10 (5-19); BLOOD UREA NITROGEN 38 mg/dL (7-20); CALCIUM 7.9 mg/dL (8.4-10.2); CARBON DIOXIDE 20 mmol/L (22-30); CHLORIDE 104 mmol/L (98-107); GLUCOSE 89 mg/dL (75-110); POTASSIUM 4.3 mmol/L (3.6-5.0)
[2019-08-16] MEDS: FAMOTIDINE 20 MG TABLET PO SCH ×2 (10:11→21:48)
[2019-08-16] MEDS: DOCUSATE SODIUM 100 MG CAPSULE PO SCH ×2 (10:12→17:03)
--- NOTE | 2019-08-16 15:21 | PDOC PROGRESS REPORT ---
Subjective Progress Note for:: 08/16/19 Subjective:: No adverse events overnight. Vital signs been stable. White blood cell count is down. Cultures are still pending. The only thing she is complaining of today is a little bit of blurred vision which is bilateral and symmetrical. Reason For Visit: URINARY TRACT INFECTION,DEHYDRATION Physical Exam Vital Signs: Temp Pulse Resp BP Pulse Ox 97.8 F 64 18 102/40 L 95 08/16/19 07:21 08/16/19 07:21 08/16/19 07:21 08/16/19 07:21 08/16/19 07:21 Intake & Output 08/15/19 08/16/19 08/17/19 06:59 06:59 06:59 Intake Total 1450 1000 Output Total 300 Balance 1150 1000 Weight 61.5 kg General appearance: PRESENT: no acute distress, cooperative, disheveled Eye exam: PRESENT: EOMI, PERRLA. ABSENT: conjunctival injection, nystagmus, scleral icterus Respiratory exam: PRESENT: clear to auscultation shannan, symmetrical, unlabored. ABSENT: accessory muscle use, chest wall tenderness, crackles, prolonged expiratory phas, rhonchi, tachypnea, wheezes Cardiovascular exam: PRESENT: RRR, +S1, +S2 Pulses: PRESENT: normal carotid pulses Vascular exam: PRESENT: normal capillary refill GI/Abdominal exam: PRESENT: normal bowel sounds, soft. ABSENT: distended, guarding, rebound, tenderness Extremities exam: ABSENT: clubbing, pedal edema Musculoskeletal exam: PRESENT: normal inspection. ABSENT: deformity Neurological exam: PRESENT: alert, awake, oriented to person, oriented to place, oriented to time, oriented to situation, CN II-XII grossly intact Psychiatric exam: PRESENT: appropriate affect, normal mood Skin exam: PRESENT: dry, warm Results Laboratory Results: 08/16/19 04:08 08/16/19 04:08 08/15/19 08/15/19 08/15/19 20:28 20:28 20:34 WBC 17.3 H RBC 4.13 Hgb 11.0 L Hct 34.2 L MCV 83 MCH 26.6 L MCHC 32.2 RDW 15.3 H Plt Count 239 Seg Neutrophils % Not Reportable Sodium 136.7 L Potassium 4.7 Chloride 105 Carbon Dioxide 19 L Anion Gap 13 BUN 40 H Creatinine 1.08 Est GFR ( Amer) 58 L Glucose 112 H Lactic Acid Calcium 8.2 L Magnesium Total Bilirubin 0.9 AST 21 Alkaline Phosphatase 113 Total Protein 7.8 Albumin 3.4 L Urine Color LYUDMILA Urine Appearance SLIGHTLY-CLOUDY Urine pH 7.0 Ur Specific [place] 1.015 Urine Protein 30 H Urine Glucose (UA) NEGATIVE Urine Ketones 20 H Urine Blood MODERATE H Urine Nitrite POSITIVE H Ur Leukocyte Esterase LARGE H Urine WBC (Auto) 52 Urine RBC (Auto) 23 08/15/19 08/16/19 08/16/19 21:50 04:08 04:08 WBC 11.1 H RBC 3.68 L Hgb 9.9 L Hct 30.3 L MCV 82 MCH 27.0 MCHC 32.9 RDW 15.4 H Plt Count 210 Seg Neutrophils % Sodium 134.4 L Potassium 4.3 Chloride 104 Carbon Dioxide 20 L Anion Gap 10 BUN 38 H Creatinine 1.10 Est GFR ( Amer) 57 L Glucose 89 Lactic Acid 1.5 Calcium 7.9 L Magnesium 2.1 Total Bilirubin AST Alkaline Phosphatase Total Protein Albumin Urine Color Urine Appearance Urine pH Ur Specific [place] Urine Protein Urine Glucose (UA) Urine Ketones Urine Blood Urine Nitrite Ur Leukocyte Esterase Urine WBC (Auto) Urine RBC (Auto) Impressions: Chest X-Ray 08/15/19 20:52 IMPRESSION: 1. No acute pulmonary findings. Assessment and Plan - Diagnosis (1) Urinary tract infection Qualifiers: Urinary tract infection type: catheter-associated UTI Indwelling urinary catheter type: indwelling urethral catheter Encounter type: initial encounter Qualified Code(s): T83.511A - Infection and inflammatory reaction due to indwelling urethral catheter, initial encounter; N39.0 - Urinary tract infection, site not specified Is this a current diagnosis for this admission?: Yes Plan: Currently on Rocephin, cultures pending (2) Decubitus ulcer of right heel Qualifiers: Pressure injury stage: unspecified pressure injury stage Qualified Code(s): L89.619 - Pressure ulcer of right heel, unspecified stage Is this a current diagnosis for this admission?: Yes Plan: Local wound care including offloading (3) Decubitus ulcer of sacral area Qualifiers: Pressure injury stage: unspecified pressure injury stage Qualified Code(s): L89.159 - Pressure ulcer of sacral region, unspecified stage Is this a current diagnosis for this admission?: Yes Plan: Local wound care as she was doing at home (4) Paraplegia Is this a current diagnosis for this admission?: Yes (5) Spina bifida Qualifiers: Spinal region: lumbosacral Presence of hydrocephalus: without hydrocephalus Qualified Code(s): Q05.7 - Lumbar spina bifida without hydrocephalus Is this a current diagnosis for this admission?: Yes - Plan Summary Summary: Patient is admitted to the medical floor and will receive routine supportive and symptomatic cares. She will be treated with IV fluid utilizing D5LR at 167 mL/h initially. She will be treated with IV antibiotics utilizing Rocephin 1 g daily. Her fever will be treated with Tylenol as required. She will have daily CBCs and metabolic profiles obtained for ongoing evaluation and adjustment of therapy. She will receive wound care by the nursing staff and a surgical consult may be obtained if required. Her current wound management is done by the local wound care clinic. She will use morphine sulfate 2 to 4 mg IV every 2 hours on as-needed basis for pain. She will have Phenergan 12.5 mg IV every 4 hours on an as-needed basis for nausea or vomiting. - Time Time Spent with patient: 15-24 minutes
[2019-08-16] MEDS: ACETAMINOPHEN 325 MG TABLET PO PRN (21:50)
[2019-08-16] MEDS ORDERED: CEFTRIAXONE 1 GM/D5W RTU 1 GM/50 ML RTUPB IV SCH (22:00)
[2019-08-17] MEDS: HEPARIN SOD (PORCINE) 5,000 UNIT/ML 1 ML VIAL SUBCUT SCH ×3 (05:33→21:29)
[2019-08-17] MEDS: DEXTROSE 5%-LACTATED RINGERS 1,000 ML IV PRN ×2 (05:33→12:24)
[2019-08-17 05:48] LABS: HEMATOCRIT 28.1 % (36.0-47.0); HEMOGLOBIN 9.3 g/dL (12.0-15.5); MEAN CORPUSCULAR HEMOGLOBIN 27.3 pg (27.0-33.4); MEAN CORPUSCULAR HGB CONC 33.1 g/dL (32.0-36.0); MEAN CORPUSCULAR VOLUME 83 fl (80-97); PLATELET COUNT 203 10^3/uL (150-450); RED BLOOD COUNT 3.41 10^6/uL (3.72-5.28); RED CELL DISTRIBUTION WIDTH 15.2 % (11.5-14.0); WHITE BLOOD COUNT 6.7 10^3/uL (4.0-10.5)
[2019-08-17] MEDS: DOCUSATE SODIUM 100 MG CAPSULE PO SCH ×2 (09:11→17:05)
[2019-08-17] MEDS: FAMOTIDINE 20 MG TABLET PO SCH ×2 (09:13→21:29)
[2019-08-17] MEDS: MAG HYDROX/AL HYDROX/SIMETH SUSP 30 ML UDCUP PO PRN (12:43)
--- NOTE | 2019-08-17 15:00 | PDOC PROGRESS REPORT ---
Subjective Progress Note for:: 08/17/19 Subjective:: No adverse events overnight. No new complaints. She says that her vision is not so blurry today. Appetite is fair. Reason For Visit: URINARY TRACT INFECTION,DEHYDRATION Physical Exam Vital Signs: Temp Pulse Resp BP Pulse Ox 98.1 F 67 18 115/35 L 98 08/17/19 11:13 08/17/19 11:13 08/17/19 11:13 08/17/19 11:13 08/17/19 11:13 Intake & Output 08/16/19 08/17/19 08/18/19 06:59 06:59 06:59 Intake Total 1450 4223 1480 Output Total 300 1775 Balance 1150 2448 1480 Weight 61.5 kg 58.8 kg 58.8 kg General appearance: PRESENT: no acute distress, cooperative, disheveled Eye exam: PRESENT: EOMI, PERRLA. ABSENT: conjunctival injection, nystagmus, scleral icterus Respiratory exam: PRESENT: clear to auscultation shannan, symmetrical, unlabored. ABSENT: accessory muscle use, chest wall tenderness, crackles, prolonged expiratory phas, rhonchi, tachypnea, wheezes Cardiovascular exam: PRESENT: RRR, +S1, +S2 Pulses: PRESENT: normal carotid pulses Vascular exam: PRESENT: normal capillary refill GI/Abdominal exam: PRESENT: normal bowel sounds, soft. ABSENT: distended, guarding, rebound, tenderness Neurological exam: PRESENT: alert, awake, oriented to person, oriented to place, oriented to time, oriented to situation Psychiatric exam: PRESENT: appropriate affect, normal mood Results Laboratory Results: 08/17/19 04:40 08/16/19 04:08 08/17/19 04:40 WBC 6.7 RBC 3.41 L Hgb 9.3 L Hct 28.1 L MCV 83 MCH 27.3 MCHC 33.1 RDW 15.2 H Plt Count 203 08/15/19 20:34 Alberto Catheter Urine Culture - Final Pseudomonas Aeruginosa Impressions: Chest X-Ray 08/15/19 20:52 IMPRESSION: 1. No acute pulmonary findings. Assessment and Plan - Diagnosis (1) Urinary tract infection Qualifiers: Urinary tract infection type: catheter-associated UTI Indwelling urinary ca theter type: indwelling urethral catheter Encounter type: initial encounter Qualified Code(s): T83.511A - Infection and inflammatory reaction due to indwelling urethral catheter, initial encounter; N39.0 - Urinary tract infection, site not specified Is this a current diagnosis for this admission?: Yes Plan: This is turned out to be a Pseudomonas that is resistant for quinolones. I have switched her antibiotics from Rocephin to cefepime. (2) Decubitus ulcer of right heel Qualifiers: Pressure injury stage: unspecified pressure injury stage Qualified Code(s): L89.619 - Pressure ulcer of right heel, unspecified stage Is this a current diagnosis for this admission?: Yes Plan: Local wound care including offloading (3) Decubitus ulcer of sacral area Qualifiers: Pressure injury stage: unspecified pressure injury stage Qualified Code(s): L89.159 - Pressure ulcer of sacral region, unspecified stage Is this a current diagnosis for this admission?: Yes Plan: Local wound care as she was doing at home (4) Paraplegia Is this a current diagnosis for this admission?: Yes (5) Spina bifida Qualifiers: Spinal region: lumbosacral Presence of hydrocephalus: without hydrocephalus Qualified Code(s): Q05.7 - Lumbar spina bifida without hydrocephalus Is this a current diagnosis for this admission?: Yes - Plan Summary Summary: Patient is admitted to the medical floor and will receive routine supportive and symptomatic cares. She will be treated with IV fluid utilizing D5LR at 167 mL/h initially. She will be treated with IV antibiotics utilizing Rocephin 1 g daily. Her fever will be treated with Tylenol as required. She will have daily CBCs and metabolic profiles obtained for ongoing evaluation and adjustment of therapy. She will receive wound care by the nursing staff and a surgical consult may be obtained if required. Her current wound management is done by the local wound care clinic. She will use morphine sulfate 2 to 4 mg IV every 2 hours on as-needed basis for pain. She will have Phenergan 12.5 mg IV every 4 hours on an as-needed basis for nausea or vomiting. - Time Time Spent with patient: 15-24 minutes
[2019-08-17] MEDS: CEFEPIME 1 GM/D5W RTU 1 GM/50 ML RTUPB IV SCH (21:29)
[2019-08-18] MEDS: DEXTROSE 5%-LACTATED RINGERS 1,000 ML IV PRN ×3 (02:59→20:14)
[2019-08-18] MEDS: HEPARIN SOD (PORCINE) 5,000 UNIT/ML 1 ML VIAL SUBCUT SCH ×3 (05:09→21:03)
[2019-08-18 05:15] LABS: HEMATOCRIT 27.4 % (36.0-47.0); HEMOGLOBIN 9.2 g/dL (12.0-15.5); MEAN CORPUSCULAR HEMOGLOBIN 27.5 pg (27.0-33.4); MEAN CORPUSCULAR HGB CONC 33.5 g/dL (32.0-36.0); MEAN CORPUSCULAR VOLUME 82 fl (80-97); PLATELET COUNT 244 10^3/uL (150-450); RED BLOOD COUNT 3.34 10^6/uL (3.72-5.28); RED CELL DISTRIBUTION WIDTH 15.3 % (11.5-14.0); WHITE BLOOD COUNT 7.4 10^3/uL (4.0-10.5)
[2019-08-18] MEDS: FAMOTIDINE 20 MG TABLET PO SCH ×2 (10:05→21:03)
[2019-08-18] MEDS: CEFEPIME 1 GM/D5W RTU 1 GM/50 ML RTUPB IV SCH ×2 (10:07→21:04)
[2019-08-18] MEDS: DOCUSATE SODIUM 100 MG CAPSULE PO SCH ×2 (10:15→17:00)
--- NOTE | 2019-08-18 16:19 | PDOC PROGRESS REPORT ---
Subjective Progress Note for:: 08/18/19 Subjective:: No adverse events overnight. No new complaints. Vital signs been stable. She says she feels pretty good. The only other thing she is had today has been a little bit of nausea. Reason For Visit: URINARY TRACT INFECTION,DEHYDRATION Physical Exam Vital Signs: Temp Pulse Resp BP Pulse Ox 98.8 F 78 17 134/39 H 96 08/18/19 12:00 08/18/19 12:00 08/18/19 12:00 08/18/19 12:00 08/18/19 12:00 Intake & Output 08/17/19 08/18/19 08/19/19 06:59 06:59 06:59 Intake Total 4223 3156 1914 Output Total 1775 1875 Balance 2448 1281 1914 Weight 58.8 kg 60.6 kg General appearance: PRESENT: no acute distress, cooperative, disheveled Eye exam: PRESENT: EOMI, PERRLA. ABSENT: conjunctival injection, nystagmus, scleral icterus Respiratory exam: PRESENT: clear to auscultation shannan, symmetrical, unlabored. ABSENT: accessory muscle use, chest wall tenderness, crackles, prolonged expiratory phas, rhonchi, tachypnea, wheezes Cardiovascular exam: PRESENT: RRR, +S1, +S2 Pulses: PRESENT: normal carotid pulses Vascular exam: PRESENT: normal capillary refill GI/Abdominal exam: PRESENT: normal bowel sounds, soft. ABSENT: distended, guarding, rebound, tenderness Neurological exam: PRESENT: alert, awake, oriented to person, oriented to place, oriented to time, oriented to situation Psychiatric exam: PRESENT: appropriate affect, normal mood Results Laboratory Results: 08/18/19 03:26 08/16/19 04:08 08/18/19 03:26 WBC 7.4 RBC 3.34 L Hgb 9.2 L Hct 27.4 L MCV 82 MCH 27.5 MCHC 33.5 RDW 15.3 H Plt Count 244 08/15/19 21:05 Blood Blood Culture - Final Staphylococcus Aureus Micrococcus Species 08/15/19 20:34 Alberto Catheter Urine Culture - Final Pseudomonas Aeruginosa Impressions: Chest X-Ray 08/15/19 20:52 IMPRESSION: 1. No acute pulmonary findings. Assessment and Plan - Diagnosis (1) Urinary tract infection Qualifiers: Urinary tract infection type: catheter-associated UTI Indwelling urinary c atheter type: indwelling urethral catheter Encounter type: initial encounter Qualified Code(s): T83.511A - Infection and inflammatory reaction due to indwelling urethral catheter, initial encounter; N39.0 - Urinary tract infection, site not specified Is this a current diagnosis for this admission?: Yes Plan: This is turned out to be a Pseudomonas that is resistant for quinolones. I have switched her antibiotics from Rocephin to cefepime. (2) Decubitus ulcer of right heel Qualifiers: Pressure injury stage: unspecified pressure injury stage Qualified Code(s): L89.619 - Pressure ulcer of right heel, unspecified stage Is this a current diagnosis for this admission?: Yes Plan: Local wound care including offloading (3) Decubitus ulcer of sacral area Qualifiers: Pressure injury stage: unspecified pressure injury stage Qualified Code(s): L89.159 - Pressure ulcer of sacral region, unspecified stage Is this a current diagnosis for this admission?: Yes Plan: Local wound care as she was doing at home (4) Paraplegia Is this a current diagnosis for this admission?: Yes (5) Spina bifida Qualifiers: Spinal region: lumbosacral Presence of hydrocephalus: without hydrocephalus Qualified Code(s): Q05.7 - Lumbar spina bifida without hydrocephalus Is this a current diagnosis for this admission?: Yes (6) Positive blood culture Is this a current diagnosis for this admission?: Yes Plan: Positive for a Staphylococcus aureus, MSSA. This is not management with booklet of her urine. I think she has a history of growing MRSA from 1 of her wounds, and this is definitely not bad organism. However, antibiotics that she has been on would have been sufficient to treat it now that we have the susceptibilities and we know this for effect. She is not really been looking like someone who had a true staph aureus bacteremia, I am not sure if she needs to be put through a work-up for it, so I have consulted infectious disease. Repeat blood cultures have been ordered. - Plan Summary Summary: Patient is admitted to the medical floor and will receive routine supportive and symptomatic cares. She will be treated with IV fluid utilizing D5LR at 167 mL/h initially. She will be treated with IV antibiotics utilizing Rocephin 1 g daily. Her fever will be treated with Tylenol as required. She will have daily CBCs and metabolic profiles obtained for ongoing evaluation and adjustment of therapy. She will receive wound care by the nursing staff and a surgical consult may be obtained if required. Her current wound management is done by the local wound care clinic. She will use morphine sulfate 2 to 4 mg IV every 2 hours on as-needed basis for pain. She will have Phenergan 12.5 mg IV every 4 hours on an as-needed basis for nausea or vomiting. - Time Time Spent with patient: 25-34 minutes
[2019-08-18] MEDS: PROMETHAZINE HCL INJ 25 MG/1 ML VIAL IV PRN (19:44)
[2019-08-18] MEDS: MAG HYDROX/AL HYDROX/SIMETH SUSP 30 ML UDCUP PO PRN (21:03)
[2019-08-18] MEDS: ACETAMINOPHEN 325 MG TABLET PO PRN (21:03)
[2019-08-19] MEDS: DEXTROSE 5%-LACTATED RINGERS 1,000 ML IV PRN ×3 (03:37→17:03)
[2019-08-19] MEDS: HEPARIN SOD (PORCINE) 5,000 UNIT/ML 1 ML VIAL SUBCUT SCH ×3 (05:06→21:07)
[2019-08-19] MEDS: PROMETHAZINE HCL INJ 25 MG/1 ML VIAL IV PRN ×3 (08:03→19:45)
[2019-08-19] MEDS: CEFEPIME 1 GM/D5W RTU 1 GM/50 ML RTUPB IV SCH ×2 (09:19→21:07)
[2019-08-19] MEDS: DOCUSATE SODIUM 100 MG CAPSULE PO SCH ×2 (09:19→17:04)
[2019-08-19] MEDS: FAMOTIDINE 20 MG TABLET PO SCH ×2 (09:19→21:06)
--- NOTE | 2019-08-19 10:16 | Progress Note ---
Provider Note Provider Note: [facility] Telephone Advice Consultation Chart reviewed. Patient is an 88-year-old woman with multiple comorbidities including chronic anemia, spina bifida with paraplegia and chronic indwelling waterman catheter, right heel decubitus ulcer and sacral ulcer. 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 She was brought to the hospital due to low grade fever at home. She visited her PCP about 10 days prior to admission due to same symptoms. She was diagnosed with UTI due to Proteus mirabilis. She received Macrobid, but apparently it was resistant to Macrobid. She continued not feeling well, she developed diarrhea, nausea, fever, chills, malaise, decreased oral intake. On admission she had fever of 101, had leukocytosis of 17k. She received IV fluids and ceftriaxone for possible UTI as UA was positive. Her blood cultures from 08/15 grew MSSA and Micrococcus, urine culture from same date grew Pseudomonas aeruginosa (resistant to fluoroquinolones). Ceftriaxone was changed to cefepime. Patient has clinically improved, she is afebrile and stable now, ID consulted for recommendations. 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 Allergies: gabapentin Adverse Reaction (Verified 08/15/19 20:15) Medications: Mirtazapine [Remeron 15 mg Tablet] 15 mg PO DAILYP PRN 08/16/19 Ondansetron [Zofran Odt 4 mg Tablet (6 Tab/ER Disp)] 1 tab PO Q8H PRN 08/16/19 Vital Signs: Temp Pulse Resp BP Pulse Ox 97.5 F 63 18 141/37 H 95 08/19/19 08:00 08/19/19 08:00 08/19/19 08:00 08/19/19 08:00 08/19/19 08:00 Intake & Output 08/18/19 08/19/19 08/20/19 06:59 06:59 06:59 Intake Total 1106 3821 957 Output Total 7071 1045 Balance 1281 5256 957 Weight 60.6 kg 62.6 kg Weight/Height Weight 62.6 kg Height 5 ft 2 in Laboratories: 08/18/19 03:26 08/16/19 04:08 MCV 82 fl (80-97) 08/18/19 03:26 MCH 27.5 pg (27.0-33.4) 08/18/19 03:26 MCHC 33.5 g/dL (32.0-36.0) 08/18/19 03:26 RDW 15.3 % (11.5-14.0) H 08/18/19 03:26 Seg Neutrophils % Not Reportable 08/15/19 20:28 Chloride 104 mmol/L (98-107) 08/16/19 04:08 Carbon Dioxide 20 mmol/L (22-30) L 08/16/19 04:08 Anion Gap 10 (5-19) 08/16/19 04:08 Est GFR ( Amer) 57 (>60) L 08/16/19 04:08 Glucose 89 mg/dL (75-110) 08/16/19 04:08 Lactic Acid 1.5 mmol/L (0.7-2.1) 08/15/19 21:50 Calcium 7.9 mg/dL (8.4-10.2) L 08/16/19 04:08 Magnesium 2.1 mg/dL (1.6-2.3) 08/16/19 04:08 Total Bilirubin 0.9 mg/dL (0.2-1.3) 08/15/19 20:28 AST 21 U/L (14-36) 08/15/19 20:28 Alkaline Phosphatase 113 U/L (38-126) 08/15/19 20:28 Total Protein 7.8 g/dL (6.3-8.2) 08/15/19 20:28 Albumin 3.4 g/dL (3.5-5.0) L 08/15/19 20:28 Urine Color LUYDMILA 08/15/19 20:34 Urine Appearance SLIGHTLY-CLOUDY 08/15/19 20:34 Urine pH 7.0 (5.0-9.0) 08/15/19 20:34 Ur Specific [place] 1.015 08/15/19 20:34 Urine Protein 30 mg/dL (NEGATIVE) H 08/15/19 20:34 Urine Glucose (UA) NEGATIVE mg/dL (NEGATIVE) 08/15/19 20:34 Urine Ketones 20 mg/dL (NEGATIVE) H 08/15/19 20:34 Urine Blood MODERATE (NEGATIVE) H 08/15/19 20:34 Urine Nitrite POSITIVE (NEGATIVE) H 08/15/19 20:34 Ur Leukocyte Esterase LARGE (NEGATIVE) H 08/15/19 20:34 Urine WBC (Auto) 52 /HPF 08/15/19 20:34 Urine RBC (Auto) 23 /HPF 08/15/19 20:34 Microbiology: 08/15/19 21:05 Blood Culture - Final Staphylococcus Aureus Micrococcus Species 08/15 Urine Culture Pseudomonas aeruginosa (resistant to fluoroquinolones) Radiology: Chest X-Ray 08/15/19 20:52 IMPRESSION: 1. No acute pulmonary findings. Assessment and Recommendations: Patient evaluated due to MSSA bacteremia and Pseudomonas UTI in the setting of indwelling waterman catheter. She clinically improved on cetriaxone even though the Pseudomonas from the urine was not being treated raising the possibility of it being a colonizer from the catheter. She is currently on cefepime which is adequate for both. Will recommended catheter exchange and TTE to rule out endocarditis. New blood cultures from 08/18 are in process. Not sure if the source of the MSSA bacteremia are the ulcers, but will recommend assess the ulcers for any potential need for source control (debridement, I&D if underlying abscess) or osteomyelitis as it will determine duration of therapy (4 vs 6 weeks). For now, continue cefepime and follow new cultures, TTE and ulcers evaluation. Shara Leos MD [facility] Infectious Disease [phone]
--- NOTE | 2019-08-19 19:05 | PDOC PROGRESS REPORT ---
Subjective Progress Note for:: 08/19/19 Subjective:: No adverse events overnight. No new complaints. She says she still has a little bit of nausea intermittently, but it responds to medication. No fevers. She did have one elevated temperature overnight last night but no clinical fever. Reason For Visit: URINARY TRACT INFECTION,DEHYDRATION Physical Exam Vital Signs: Temp Pulse Resp BP Pulse Ox 98.8 F 76 14 125/35 L 94 08/19/19 16:00 08/19/19 16:00 08/19/19 16:00 08/19/19 16:00 08/19/19 16:00 Intake & Output 08/18/19 08/19/19 08/20/19 06:59 06:59 06:59 Intake Total 3156 6421 2006 Output Total 1187 6730 Balance 1281 3936 2006 Weight 60.6 kg 62.6 kg General appearance: PRESENT: no acute distress, cooperative, disheveled Eye exam: PRESENT: EOMI, PERRLA. ABSENT: conjunctival injection, nystagmus, scleral icterus Respiratory exam: PRESENT: clear to auscultation shannan, symmetrical, unlabored. ABSENT: accessory muscle use, chest wall tenderness, crackles, prolonged expiratory phas, rhonchi, tachypnea, wheezes Cardiovascular exam: PRESENT: RRR, +S1, +S2 Pulses: PRESENT: normal carotid pulses Vascular exam: PRESENT: normal capillary refill GI/Abdominal exam: PRESENT: normal bowel sounds, soft. ABSENT: distended, guarding, rebound, tenderness Neurological exam: PRESENT: alert, awake, oriented to person, oriented to place, oriented to time, oriented to situation Psychiatric exam: PRESENT: appropriate affect, normal mood Results Laboratory Results: 08/18/19 03:26 08/16/19 04:08 Impressions: Chest X-Ray 08/15/19 20:52 IMPRESSION: 1. No acute pulmonary findings. Assessment and Plan - Diagnosis (1) Urinary tract infection Qualifiers: Urinary tract infection type: catheter-associated UTI Indwelling urinary catheter type: indwelling urethral catheter Encounter type: initial encounter Qualified Code(s): T83.511A - Infection and inflammatory reaction due to indwelling urethral catheter, initial encounter; N39.0 - Urinary tract infection, site not specified Is this a current diagnosis for this admission?: Yes Plan: This is turned out to be a Pseudomonas that is resistant for quinolones. I have switched her antibiotics from Rocephin to cefepime. (2) Decubitus ulcer of right heel Qualifiers: Pressure injury stage: unspecified pressure injury stage Qualified Code(s): L89.619 - Pressure ulcer of right heel, unspecified stage Is this a current diagnosis for this admission?: Yes Plan: Local wound care including offloading. Will obtain a surgical consultation and infectious disease recommendation. (3) Decubitus ulcer of sacral area Qualifiers: Pressure injury stage: unspecified pressure injury stage Qualified Code(s): L89.159 - Pressure ulcer of sacral region, unspecified stage Is this a current diagnosis for this admission?: Yes Plan: Local wound care as she was doing at home. Will obtain surgical consultation and infectious disease recommendation. (4) Paraplegia Is this a current diagnosis for this admission?: Yes (5) Spina bifida Qualifiers: Spinal region: lumbosacral Presence of hydrocephalus: without hydrocephalus Qualified Code(s): Q05.7 - Lumbar spina bifida without hydrocephalus Is this a current diagnosis for this admission?: Yes (6) Positive blood culture Is this a current diagnosis for this admission?: Yes Plan: We will get a TTE and surgical consultation as recommended by infectious disease - Plan Summary Summary: Patient is admitted to the medical floor and will receive routine supportive and symptomatic cares. She will be treated with IV fluid utilizing D5LR at 167 mL/h initially. She will be treated with IV antibiotics utilizing Rocephin 1 g daily. Her fever will be treated with Tylenol as required. She will have daily CBCs and metabolic profiles obtained for ongoing evaluation and adjustment of therapy. She will receive wound care by the nursing staff and a surgical consult may be obtained if required. Her current wound management is done by the local wound care clinic. She will use morphine sulfate 2 to 4 mg IV every 2 hours on as-needed basis for pain. She will have Phenergan 12.5 mg IV every 4 hours on an as-needed basis for nausea or vomiting. - Time Time Spent with patient: 15-24 minutes
[2019-08-20] MEDS: DEXTROSE 5%-LACTATED RINGERS 1,000 ML IV PRN ×4 (00:10→21:53)
[2019-08-20] MEDS: PROMETHAZINE HCL INJ 25 MG/1 ML VIAL IV PRN ×3 (00:10→15:32)
[2019-08-20] MEDS: HEPARIN SOD (PORCINE) 5,000 UNIT/ML 1 ML VIAL SUBCUT SCH ×3 (05:10→21:53)
[2019-08-20] MEDS: CEFEPIME 1 GM/D5W RTU 1 GM/50 ML RTUPB IV SCH ×2 (10:09→21:53)
[2019-08-20] MEDS: DOCUSATE SODIUM 100 MG CAPSULE PO SCH ×2 (10:13→17:12)
[2019-08-20] MEDS: FAMOTIDINE 20 MG TABLET PO SCH ×2 (10:13→21:53)
--- NOTE | 2019-08-20 14:13 | PDOC CONSULTATION ---
Consultation Consult Date: 08/20/19 Provider Consulted: DEEPAK SMITH Consult reason:: Right foot ulcer and sacral decubitus ulcer History of Present Illness Admission Date/PCP: 08/15/19 23:24 NO LOCALMD History of Present Illness: DEBORA JOEL is a 88 year old female post left BKA about a year ago and noted to have sacral and right foot decubitus ulcers. Patient was admitted for sepsis with UTI. Surgeries been consulted for an opinion on the sacral and right foot ulcers. Past Medical History Cardiac Medical History: Denies: Coronary Artery Disease, Hyperlipidema, Hypertension Pulmonary Medical History: Denies: Asthma, Chronic Obstructive Pulmonary Disease (COPD) EENT Medical History: Denies: Cataracts, Ears - Hearing aids Neurological Medical History: Reports: Other - Spina bifida with paraplegia Denies: Hemorrhagic CVA, Ischemic CVA, Seizures Endocrine Medical History: Denies: Diabetes Mellitus Type 1, Diabetes Mellitus Type 2, Hyperthyroidism, Hypothyroidism Renal/ Medical History: Reports: Other - Chronic indwelling Alberto catheter Denies: Chronic Kidney Disease, Nephrolithiasis Malignancy Medical History: Reports: None GI Medical History: Denies: Cirrhosis, Crohn's Disease, Hepatitis, Ulcerative Colitis Musculoskeltal Medical History: Reports: Other - 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 Social History Lives with: Family Smoking Status: Never Smoker Electronic Cigarette use?: No Frequency of Alcohol Use: None Hx Recreational Drug Use: No Drugs: None Hx Prescription Drug Abuse: No - Advance Directive Resuscitation Status: Full Code Family History Family History: denies: CAD, DM, Hypertension, Malignancy Parental Family History Reviewed: Yes Children Family History Reviewed: No Sibling(s) Family History Reviewed.: No Medication/Allergy Home Medications: Mirtazapine [Remeron 15 mg Tablet] 15 mg PO DAILYP PRN 08/16/19 Ondansetron [Zofran Odt 4 mg Tablet (6 Tab/ER Disp)] 1 tab PO Q8H PRN 08/16/19 Allergies/Adverse Reactions: gabapentin Adverse Reaction (Verified 08/15/19 20:15) Review of Systems Constitutional: PRESENT: fever(s) Integumentary: PRESENT: other - Mild pains along the sacral and right foot ulcer sites. Physical Exam Vital Signs: Temp Pulse Resp BP Pulse Ox 97.1 F 68 16 120/36 L 95 08/20/19 12:00 08/20/19 12:00 08/20/19 12:00 08/20/19 12:00 08/20/19 12:00 Intake & Output 08/19/19 08/20/19 08/21/19 06:59 06:59 06:59 Intake Total 4721 5783 270 Output Total 1945 875 350 Balance 2776 4908 -80 Weight 62.6 kg 62.4 kg General appearance: PRESENT: mild distress Head exam: PRESENT: atraumatic Eye exam: PRESENT: conjunctiva pink Neck exam: PRESENT: full ROM Cardiovascular exam: PRESENT: RRR Pulses: PRESENT: normal radial pulses Vascular exam: PRESENT: normal capillary refill Rectal exam: PRESENT: deferred, other - There is white deep stage II decubitus ulcer on the sacral area. This may be worse decubitus that appears to be healing quite well since its located through a 1-1/2 cm deep ulcer with surrounding skin that appears healed but has a less than 1 cm stage II sacral decubitus right in the center of the cavitation. Extremities exam: PRESENT: other - There is a superficial ulceration along the right foot towards the heel roughly measuring about 2 x 3cm. This does not appear to be full-thickness ulceration and therefore states 1-2 sacral decubitus. This is apparently is being treated with silver dressing. Results Laboratory Results: 08/18/19 03:26 08/16/19 04:08 Impressions: Chest X-Ray 08/15/19 20:52 IMPRESSION: 1. No acute pulmonary findings. Assessment & Plan - Diagnosis (1) Stage II pressure ulcer of right heel Is this a current diagnosis for this admission?: Yes (2) Sacral decubitus ulcer, stage II Is this a current diagnosis for this admission?: Yes (3) Urinary tract infection Qualifiers: Urinary tract infection type: catheter-associated UTI Indwelling urinary catheter type: indwelling urethral catheter Encounter type: initial encounter Qualified Code(s): T83.511A - Infection and inflammatory reaction due to indwelling urethral catheter, initial encounter; N39.0 - Urinary tract infection, site not specified Is this a current diagnosis for this admission?: Yes - Time Time Spent: 30 to 50 Minutes - Inpatient Certification Medical Necessity: Need for IV Antibiotics - Plan Summary Plan Summary: 88-year-old female admitted for UTI with sepsis. She has grade 1-2 right heel decubitus ulcer and grade 2 sacral decubitus. Both ulcer areas does not look inflamed and therefore patient sepsis most likely from the UTI rather than for these decubitus ulcers. Recommendations 1 continue with local wound care to right foot/heel grade 1-2 ulceration with silver preparation 2 start wet-to-dry dressing to the sacral decubitus area daily Surgery will sign off and call us for any further questions
--- NOTE | 2019-08-20 16:00 | PDOC PROGRESS REPORT ---
Subjective Progress Note for:: 08/20/19 Subjective:: No adverse events overnight. No new complaints. No elevated temperatures overnight. She is very pleasant. Reason For Visit: URINARY TRACT INFECTION,DEHYDRATION Physical Exam Vital Signs: Temp Pulse Resp BP Pulse Ox 97.1 F 68 16 120/36 L 95 08/20/19 12:00 08/20/19 12:00 08/20/19 12:00 08/20/19 12:00 08/20/19 12:00 Intake & Output 08/19/19 08/20/19 08/21/19 06:59 06:59 06:59 Intake Total 4721 5783 1270 Output Total 1945 875 350 Balance 5746 3848 920 Weight 62.6 kg 62.4 kg General appearance: PRESENT: no acute distress, cooperative, disheveled Eye exam: PRESENT: EOMI, PERRLA. ABSENT: conjunctival injection, nystagmus, scleral icterus Respiratory exam: PRESENT: clear to auscultation shannan, symmetrical, unlabored. ABSENT: accessory muscle use, chest wall tenderness, crackles, prolonged expiratory phas, rhonchi, tachypnea, wheezes Cardiovascular exam: PRESENT: RRR, +S1, +S2 Pulses: PRESENT: normal carotid pulses Vascular exam: PRESENT: normal capillary refill GI/Abdominal exam: PRESENT: normal bowel sounds, soft. ABSENT: distended, guarding, rebound, tenderness Neurological exam: PRESENT: alert, awake, oriented to person, oriented to place, oriented to time, oriented to situation Psychiatric exam: PRESENT: appropriate affect, normal mood Results Laboratory Results: 08/18/19 03:26 08/16/19 04:08 Impressions: Chest X-Ray 08/15/19 20:52 IMPRESSION: 1. No acute pulmonary findings. Assessment and Plan - Diagnosis (1) Urinary tract infection Qualifiers: Urinary tract infection type: catheter-associated UTI Indwelling urinary catheter type: indwelling urethral catheter Encounter type: initial encounter Qualified Code(s): T83.511A - Infection and inflammatory reaction due to indwelling urethral catheter, initial encounter; N39.0 - Urinary tract infection , site not specified Is this a current diagnosis for this admission?: Yes Plan: This is turned out to be a Pseudomonas that is resistant for quinolones. I have switched her antibiotics from Rocephin to cefepime. (2) Decubitus ulcer of right heel Qualifiers: Pressure injury stage: unspecified pressure injury stage Qualified Code(s): L89.619 - Pressure ulcer of right heel, unspecified stage Is this a current diagnosis for this admission?: Yes Plan: Local wound care including offloading. Dr. Clark did not believe the wound to be a source of infection. (3) Decubitus ulcer of sacral area Qualifiers: Pressure injury stage: unspecified pressure injury stage Qualified Code(s): L89.159 - Pressure ulcer of sacral region, unspecified stage Is this a current diagnosis for this admission?: Yes Plan: Local wound care as she was doing at home. Dr. Clark did not believe the wound to be a source of infection. (4) Paraplegia Is this a current diagnosis for this admission?: Yes (5) Spina bifida Qualifiers: Spinal region: lumbosacral Presence of hydrocephalus: without hydrocephalus Qualified Code(s): Q05.7 - Lumbar spina bifida without hydrocephalus Is this a current diagnosis for this admission?: Yes (6) Positive blood culture Is this a current diagnosis for this admission?: Yes Plan: Dr. Gomez saw the patient and checked out the wounds and do not believe them to be the source of her infection. TTE has been done and the read is still pending. It was reported preliminarily to be a technically difficult study, so if the views of the valves are not good, we may have to get her set up for a SYMONE. Repeat blood cultures are negative thus far. - Plan Summary Summary: Patient is admitted to the medical floor and will receive routine supportive and symptomatic cares. She will be treated with IV fluid utilizing D5LR at 167 mL/h initially. She will be treated with IV antibiotics utilizing Rocephin 1 g daily. Her fever will be treated with Tylenol as required. She will have daily CBCs and metabolic profiles obtained for ongoing evaluation and adjustment of therapy. She will receive wound care by the nursing staff and a surgical consult may be obtained if required. Her current wound management is done by the local wound care clinic. She will use morphine sulfate 2 to 4 mg IV every 2 hours on as-needed basis for pain. She will have Phenergan 12.5 mg IV every 4 hours on an as-needed basis for nausea or vomiting. - Time Time Spent with patient: 15-24 minutes
[2019-08-21] MEDS: DEXTROSE 5%-LACTATED RINGERS 1,000 ML IV PRN ×3 (04:27→18:33)
[2019-08-21] MEDS: HEPARIN SOD (PORCINE) 5,000 UNIT/ML 1 ML VIAL SUBCUT SCH ×3 (06:24→21:01)
[2019-08-21] MEDS: DOCUSATE SODIUM 100 MG CAPSULE PO SCH ×2 (09:32→18:33)
[2019-08-21] MEDS: FAMOTIDINE 20 MG TABLET PO SCH ×2 (09:32→21:01)
[2019-08-21] MEDS: PROMETHAZINE HCL INJ 25 MG/1 ML VIAL IV PRN (09:33)
[2019-08-21] MEDS: CEFEPIME 1 GM/D5W RTU 1 GM/50 ML RTUPB IV SCH ×2 (09:33→21:01)
--- NOTE | 2019-08-21 17:34 | PDOC PROGRESS REPORT ---
Subjective Progress Note for:: 08/21/19 Subjective:: No adverse events overnight. No new complaints. No fevers. She still has a little bit of intermittent nausea, but apparently has been going on for months. She says she usually takes the Zofran dissolving wafers at home and those do a pretty good job for her. She has been responding to IV Zofran here. Reason For Visit: URINARY TRACT INFECTION,DEHYDRATION Physical Exam Vital Signs: Temp Pulse Resp BP Pulse Ox 99.2 F 71 19 135/53 H 93 08/21/19 16:00 08/21/19 16:00 08/21/19 16:00 08/21/19 16:00 08/21/19 16:00 Intake & Output 08/20/19 08/21/19 08/22/19 06:59 06:59 06:59 Intake Total 5783 3520 1050 Output Total 875 1725 Balance 4908 1795 1050 Weight 62.4 kg 61.8 kg 61.8 kg General appearance: PRESENT: no acute distress, cooperative, disheveled Eye exam: PRESENT: EOMI, PERRLA. ABSENT: conjunctival injection, nystagmus, scleral icterus Respiratory exam: PRESENT: clear to auscultation shannan, symmetrical, unlabored. ABSENT: accessory muscle use, chest wall tenderness, crackles, prolonged expiratory phas, rhonchi, tachypnea, wheezes Cardiovascular exam: PRESENT: RRR, +S1, +S2 Pulses: PRESENT: normal carotid pulses Vascular exam: PRESENT: normal capillary refill GI/Abdominal exam: PRESENT: normal bowel sounds, soft. ABSENT: distended, guarding, rebound, tenderness Neurological exam: PRESENT: alert, awake, oriented to person, oriented to place, oriented to time, oriented to situation Psychiatric exam: PRESENT: appropriate affect, normal mood Results Laboratory Results: 08/18/19 03:26 08/16/19 04:08 08/15/19 21:50 Blood Blood Culture - Final NO GROWTH IN 5 DAYS Impressions: Chest X-Ray 08/15/19 20:52 IMPRESSION: 1. No acute pulmonary findings. Assessment and Plan - Diagnosis (1) Urinary tract infection Qualifiers: Urinary tract infection type: catheter-associated UTI Indwelling urinary catheter type: indwelling urethral catheter Encounter type: initial encounter Qualified Code(s): T83.511A - Infection and inflammatory reaction due to indwelling urethral catheter, initial encounter; N39.0 - Urinary tract infecti on, site not specified Is this a current diagnosis for this admission?: Yes Plan: This is turned out to be a Pseudomonas that is resistant for quinolones. I have switched her antibiotics from Rocephin to cefepime. (2) Decubitus ulcer of right heel Qualifiers: Pressure injury stage: unspecified pressure injury stage Qualified Code(s): L89.619 - Pressure ulcer of right heel, unspecified stage Is this a current diagnosis for this admission?: Yes Plan: Local wound care including offloading. Dr. Clark did not believe the wound to be a source of infection. (3) Decubitus ulcer of sacral area Qualifiers: Pressure injury stage: unspecified pressure injury stage Qualified Code(s): L89.159 - Pressure ulcer of sacral region, unspecified stage Is this a current diagnosis for this admission?: Yes Plan: Local wound care as she was doing at home. Dr. Clark did not believe the wound to be a source of infection. (4) Paraplegia Is this a current diagnosis for this admission?: Yes (5) Spina bifida Qualifiers: Spinal region: lumbosacral Presence of hydrocephalus: without hydrocephalus Qualified Code(s): Q05.7 - Lumbar spina bifida without hydrocephalus Is this a current diagnosis for this admission?: Yes (6) Positive blood culture Is this a current diagnosis for this admission?: Yes Plan: Going to go ahead and get a PICC line because she is going to need at least 2 weeks of IV antibiotics. It is not MSSA in the blood and so we have to consider it is a legitimate infection. Still waiting for the echocardiogram to get read, but based on my review I do not think that the images are very good quality. We will try to get her set up for a SYMONE next week. - Plan Summary Summary: Patient is admitted to the medical floor and will receive routine supportive and symptomatic cares. She will be treated with IV fluid utilizing D5LR at 167 mL/h initially. She will be treated with IV antibiotics utilizing Rocephin 1 g daily. Her fever will be treated with Tylenol as required. She will have daily CBCs and metabolic profiles obtained for ongoing evaluation and adjustment of therapy. She will receive wound care by the nursing staff and a surgical consult may be obtained if required. Her current wound management is done by the local wound care clinic. She will use morphine sulfate 2 to 4 mg IV every 2 hours on as-needed basis for pain. She will have Phenergan 12.5 mg IV every 4 hours on an as-needed basis for nausea or vomiting. - Time Time Spent with patient: 15-24 minutes
[2019-08-22] MEDS: HEPARIN SOD (PORCINE) 5,000 UNIT/ML 1 ML VIAL SUBCUT SCH ×3 (05:11→22:49)
[2019-08-22] MEDS: DEXTROSE 5%-LACTATED RINGERS 1,000 ML IV PRN ×2 (05:12→14:31)
[2019-08-22] MEDS: PROMETHAZINE HCL INJ 25 MG/1 ML VIAL IV PRN (05:14)
[2019-08-22] MEDS: CEFEPIME 1 GM/D5W RTU 1 GM/50 ML RTUPB IV SCH ×2 (09:49→22:49)
[2019-08-22] MEDS: FAMOTIDINE 20 MG TABLET PO SCH ×2 (09:50→22:48)
[2019-08-22] MEDS ORDERED: ONDANSETRON 4 MG TAB.RAPDIS ONE (10:06)
[2019-08-22] MEDS: DOCUSATE SODIUM 100 MG CAPSULE PO SCH ×2 (14:29→17:35)
[2019-08-22] MEDS: POLYETHYLENE GLYCOL 3350 POWDER 17 GM/1 PACKET PO SCH (14:29)
[2019-08-22] MEDS: ONDANSETRON 4 MG TAB.RAPDIS SL PRN ×2 (14:29→23:30)
--- NOTE | 2019-08-22 16:43 | PDOC PROGRESS REPORT ---
Subjective Progress Note for:: 08/22/19 Subjective:: No adverse events overnight. No new complaints. Nausea has improved. No fevers. Reason For Visit: URINARY TRACT INFECTION,DEHYDRATION Physical Exam Vital Signs: Temp Pulse Resp BP Pulse Ox 98.2 F 80 17 142/64 H 94 08/22/19 11:43 08/22/19 11:43 08/22/19 11:43 08/22/19 11:43 08/22/19 11:43 Intake & Output 08/21/19 08/22/19 08/23/19 06:59 06:59 06:59 Intake Total 3520 3490 1050 Output Total 1725 1750 Balance 1795 1740 1050 Weight 61.8 kg 62.4 kg General appearance: PRESENT: no acute distress, cooperative, disheveled Eye exam: PRESENT: EOMI, PERRLA. ABSENT: conjunctival injection, nystagmus, scleral icterus Respiratory exam: PRESENT: clear to auscultation shannan, symmetrical, unlabored. ABSENT: accessory muscle use, chest wall tenderness, crackles, prolonged expiratory phas, rhonchi, tachypnea, wheezes Cardiovascular exam: PRESENT: RRR, +S1, +S2 Pulses: PRESENT: normal carotid pulses Vascular exam: PRESENT: normal capillary refill GI/Abdominal exam: PRESENT: normal bowel sounds, soft. ABSENT: distended, guarding, rebound, tenderness Neurological exam: PRESENT: alert, awake, oriented to person, oriented to place, oriented to time, oriented to situation Psychiatric exam: PRESENT: appropriate affect, normal mood Results Laboratory Results: 08/18/19 03:26 08/16/19 04:08 Impressions: Chest X-Ray 08/15/19 20:52 IMPRESSION: 1. No acute pulmonary findings. Assessment and Plan - Diagnosis (1) Urinary tract infection Qualifiers: Urinary tract infection type: catheter-associated UTI Indwelling urinary catheter type: indwelling urethral catheter Encounter type: initial encounter Qualified Code(s): T83.511A - Infection and inflammatory reaction due to indwelling urethral catheter, initial encounter; N39.0 - Urinary tract infection, site not specified Is this a current diagnosis for this admission?: Yes Plan: This is turned out to be a Pseudomonas that is resistant for quinolones. I have switched her antibiotics from Rocephin to cefepime. (2) Decubitus ulcer of right heel Qualifiers: Pressure injury stage: unspecified pressure injury stage Qualified Code(s): L89.619 - Pressure ulcer of right heel, unspecified stage Is this a current diagnosis for this admission?: Yes Plan: Local wound care including offloading. Dr. Clark did not believe the wound to be a source of infection. (3) Decubitus ulcer of sacral area Qualifiers: Pressure injury stage: unspecified pressure injury stage Qualified Code(s): L89.159 - Pressure ulcer of sacral region, unspecified stage Is this a current diagnosis for this admission?: Yes Plan: Local wound care as she was doing at home. Dr. Clark did not believe the wound to be a source of infection. (4) Paraplegia Is this a current diagnosis for this admission?: Yes (5) Spina bifida Qualifiers: Spinal region: lumbosacral Presence of hydrocephalus: without hydrocephalus Qualified Code(s): Q05.7 - Lumbar spina bifida without hydrocephalus Is this a current diagnosis for this admission?: Yes (6) Positive blood culture Is this a current diagnosis for this admission?: Yes Plan: Going to go ahead and get a PICC line because she is going to need at least 2 weeks of IV antibiotics. It is MSSA in the blood and so we have to consider it is a legitimate infection. Still waiting for the echocardiogram to get read, but based on my review I do not think that the images are very good quality. We will try to get her set up for a SYMONE next week. - Plan Summary Summary: Patient is admitted to the medical floor and will receive routine supportive and symptomatic cares. She will be treated with IV fluid utilizing D5LR at 167 mL/h initially. She will be treated with IV antibiotics utilizing Rocephin 1 g daily. Her fever will be treated with Tylenol as required. She will have daily CBCs and metabolic profiles obtained for ongoing evaluation and adjustment of therapy. She will receive wound care by the nursing staff and a surgical consult may be obtained if required. Her current wound management is done by the local wound care clinic. She will use morphine sulfate 2 to 4 mg IV every 2 hours on as-needed basis for pain. She will have Phenergan 12.5 mg IV every 4 hours on an as-needed basis for nausea or vomiting. - Time Time Spent with patient: 15-24 minutes
[2019-08-23] MEDS: DEXTROSE 5%-LACTATED RINGERS 1,000 ML IV PRN ×3 (01:50→22:51)
[2019-08-23] MEDS: HEPARIN SOD (PORCINE) 5,000 UNIT/ML 1 ML VIAL SUBCUT SCH ×3 (06:58→22:51)
[2019-08-23] MEDS: ONDANSETRON 4 MG TAB.RAPDIS SL PRN ×2 (07:09→14:45)
[2019-08-23] MEDS: DOCUSATE SODIUM 100 MG CAPSULE PO SCH ×2 (10:29→19:13)
[2019-08-23] MEDS: CEFEPIME 1 GM/D5W RTU 1 GM/50 ML RTUPB IV SCH ×2 (10:30→22:51)
[2019-08-23] MEDS: FAMOTIDINE 20 MG TABLET PO SCH ×2 (10:30→22:51)
--- NOTE | 2019-08-23 13:17 | XCELERA REPORT ---
[address] [address] Transthoracic Echocardiogram Report Name: DEBORA JOEL Age: 88 yrs Gender: Female : 1930 Patient Status: Inpatient Patient Location: [address] [place], [place] [address] Study Date: 08/19/2019 06:03 PM Height: 62 in Weight: 138 lb BSA: 1.6 m2 Procedure: A two-dimensional transthoracic echocardiogram with color flow and Doppler was performed. Study Quality: Technically suboptimal. poor endocardial visualsation and poor doppler interogation. Reason For Study: MSSA bacteremia Ordering Physician: OBEY TAVAREZ Performed By: Cindy De Luna Interpretation Summary poor endocardial visualsation and poor doppler interogation. Probably no LVH.Probably moderate diffuse hypokinesis and moderately reduced LVEF. No or AR. Trace MR probably. Probably trace TR and mild pulmonary hypertension.RVSP is 43 mm of Hg , with RA mean of 10. Moderate left pleural effusion. No pericardial effusion. Recommend SYMONE. MMode/2D Measurements & Calculations RVDd: 2.2 cm LVIDd: 3.4 cm FS: 20.5 % Ao root diam: 2.4 cm IVSd: 1.1 cm LVIDs: 2.7 cm EDV(Teich): 48.4 ml Ao root area: 4.7 cm2 LVPWd: 0.92 cm ESV(Teich): 27.7 ml LA dimension: 3.4 cm EF(Teich): 42.8 % Doppler Measurements & Calculations MV E max angeli: MV P1/2t max angeli: Ao V2 max: LV V1 max P.8 cm/sec 107.2 cm/sec 138.5 cm/sec 2.4 mmHg MV A max angeli: MV P1/2t: 49.1 msec Ao max P.7 mmHgLV V1 max: 122.9 cm/sec MVA(P1/2t): 4.5 cm2 77.5 cm/sec MV E/A: 0.47 MV dec slope: 639.8 cm/sec2 MV dec time: 0.18 sec PA V2 max: TR max angeli: MV P1/2t-pr_phl: 89.0 cm/sec 289.1 cm/sec 49.1 msec PA max P.2 mmHg TR max P.4 mmHg : OBEY TAVAREZ Lakshmi
--- NOTE | 2019-08-23 14:35 | PDOC PROGRESS REPORT ---
Subjective Progress Note for:: 08/23/19 Subjective:: No adverse events overnight. No new complaints. Nausea has improved. No fevers. She still not eating very much even though she is not nauseated. Reason For Visit: URINARY TRACT INFECTION,DEHYDRATION Physical Exam Vital Signs: Temp Pulse Resp BP Pulse Ox 98.2 F 77 15 135/44 H 91 L 08/23/19 10:53 08/23/19 10:53 08/23/19 10:53 08/23/19 10:53 08/23/19 10:53 Intake & Output 08/22/19 08/23/19 08/24/19 06:59 06:59 06:59 Intake Total 3490 2902 1635 Output Total 1750 3150 400 Balance 1740 -248 1235 Weight 62.4 kg 63.2 kg General appearance: PRESENT: no acute distress, cooperative, disheveled Eye exam: PRESENT: EOMI, PERRLA. ABSENT: conjunctival injection, nystagmus, scleral icterus Respiratory exam: PRESENT: clear to auscultation shannan, symmetrical, unlabored. ABSENT: accessory muscle use, chest wall tenderness, crackles, prolonged expiratory phas, rhonchi, tachypnea, wheezes Cardiovascular exam: PRESENT: RRR, +S1, +S2 Pulses: PRESENT: normal carotid pulses Vascular exam: PRESENT: normal capillary refill GI/Abdominal exam: PRESENT: normal bowel sounds, soft. ABSENT: distended, guarding, rebound, tenderness Neurological exam: PRESENT: alert, awake, oriented to person, oriented to place, oriented to time, oriented to situation Psychiatric exam: PRESENT: appropriate affect, normal mood Results Laboratory Results: 08/18/19 03:26 08/16/19 04:08 08/18/19 10:38 Blood Blood Culture - Final NO GROWTH IN 5 DAYS 08/18/19 10:44 Blood Blood Culture - Final NO GROWTH IN 5 DAYS Impressions: Chest X-Ray 08/15/19 20:52 IMPRESSION: 1. No acute pulmonary findings. Assessment and Plan - Diagnosis (1) Urinary tract infection Qualifiers: Urinary tract infection type: catheter-associated UTI Indwelling urinary catheter type: indwelling urethral catheter Encounter type: initial encounter Qualified Code(s): T83.511A - Infection and inflammatory reaction due to indwelling urethral catheter, initial encounter; N39.0 - Urinary tract infection, site not specified Is this a current diagnosis for this admission?: Yes Plan: This is turned out to be a Pseudomonas that is resistant for quinolones. I have switched her antibiotics from Rocephin to cefepime. (2) Decubitus ulcer of right heel Qualifiers: Pressure injury stage: unspecified pressure injury stage Qualified Code(s): L89.619 - Pressure ulcer of right heel, unspecified stage Is this a current diagnosis for this admission?: Yes Plan: Local wound care including offloading. Dr. Clark did not believe the wound to be a source of infection. (3) Decubitus ulcer of sacral area Qualifiers: Pressure injury stage: unspecified pressure injury stage Qualified Code(s): L89.159 - Pressure ulcer of sacral region, unspecified stage Is this a current diagnosis for this admission?: Yes Plan: Local wound care as she was doing at home. Dr. Clark did not believe the wound to be a source of infection. (4) Paraplegia Is this a current diagnosis for this admission?: Yes (5) Spina bifida Qualifiers: Spinal region: lumbosacral Presence of hydrocephalus: without hydrocephalus Qualified Code(s): Q05.7 - Lumbar spina bifida without hydrocephalus Is this a current diagnosis for this admission?: Yes (6) Positive blood culture Is this a current diagnosis for this admission?: Yes Plan: Going to go ahead and get a PICC line because she is going to need at least 2 weeks of IV antibiotics. It is MSSA in the blood and so we have to consider it is a legitimate infection. Still waiting for the echocardiogram to get read, but based on my review I do not think that the images are very good quality. We will try to get her set up for a SYMONE next week. - Plan Summary Summary: Patient is admitted to the medical floor and will receive routine supportive and symptomatic cares. She will be treated with IV fluid utilizing D5LR at 167 mL/h initially. She will be treated with IV antibiotics utilizing Rocephin 1 g daily. Her fever will be treated with Tylenol as required. She will have daily CBCs and metabolic profiles obtained for ongoing evaluation and adjustment of therapy. She will receive wound care by the nursing staff and a surgical consult may be obtained if required. Her current wound management is done by the local wound care clinic. She will use morphine sulfate 2 to 4 mg IV every 2 hours on as-needed basis for pain. She will have Phenergan 12.5 mg IV every 4 hours on an as-needed basis for nausea or vomiting. - Time Time Spent with patient: 15-24 minutes
[2019-08-23] MEDS: POLYETHYLENE GLYCOL 3350 POWDER 17 GM/1 PACKET PO SCH (18:40)
[2019-08-24] MEDS: ONDANSETRON 4 MG TAB.RAPDIS SL PRN ×3 (02:33→18:10)
[2019-08-24] MEDS: DEXTROSE 5%-LACTATED RINGERS 1,000 ML IV PRN ×2 (06:18→22:25)
[2019-08-24] MEDS: HEPARIN SOD (PORCINE) 5,000 UNIT/ML 1 ML VIAL SUBCUT SCH ×3 (06:19→22:31)
[2019-08-24] MEDS: DOCUSATE SODIUM 100 MG CAPSULE PO SCH ×2 (10:18→18:09)
[2019-08-24] MEDS: FAMOTIDINE 20 MG TABLET PO SCH ×2 (10:19→22:27)
[2019-08-24] MEDS: CEFEPIME 1 GM/D5W RTU 1 GM/50 ML RTUPB IV SCH (10:19)
--- NOTE | 2019-08-24 10:45 | RADIOLOGY REPORT (SQ) ---
EXAM DESCRIPTION: PICC INSERTION; FLUORO/CV PLACEMENT; U/S GUIDE FOR VASCULAR ACCESS COMPLETED DATE/TIME: 08/24/2019 9:51 am REASON FOR STUDY: IV access; IV ACCESS COMPARISON: AP chest 08/15/2019 FLUOROSCOPY TIME: 13 seconds 1 ultrasound and 1 fluoroscopic digital images saved to PACS. TECHNIQUE: Fluoroscopic and ultrasound guided PICC placement. LIMITATIONS: None. PROCEDURE: After written consent and assessment were obtained, the patient was brought into the fluo roscopy room and placed supine on the table. Ultrasound evaluation of potential access sites were per formed. After successfully identifying a patent left basilic vein, the left arm was prepped and drape d in a sterile fashion along with the ultrasound probe. The entry site was anesthetized with 1% lidoc scott. A 21 gauge 7 cm needle was advanced through the skin and into the basilic vein under live ultra sound guidance. An ultrasound image was saved to PACS confirming access site. A .018 guide wire was then inserted through the needle and into the venous system. The needle was then removed and an 11 b lade scalpel was used to make a 1cm skin incision. A 5 fr peel-away sheath was advanced over the wir e and into the venous system. A measurement was then made using the existing wire and live fluoroscop ic guidance. The wire was then removed and trimmed. The PICC was advanced through the peel-away sheat h and into the venous system. The peel-away sheath was removed and the catheter was adhered to the pa tients arm with a stat lock. The catheter was then aspirated and flushed and a sterile bandage was pl aced over the access site. A fluoroscopic spot image was saved to PACS confirming the catheter tip w ithin the superior vena cava. IMPRESSION: SUCCESSFUL PLACEMENT OF A 5 FR DUAL LUMEN 40 CM PICC IN THE LEFT BASILIC VEIN. COMMENT: Patient medication list reviewed: Yes- Quality ID# 130:Eligible professional attests to doc umenting in the medical record they obtained, updated, or reviewed the patient's current medications. . Quality ID 145: Final reports for procedures using fluoroscopy that document radiation exposure juvenal jose, or exposure time and number of fluorographic images (if radiation exposure indices are not avail able) Quality ID #76: The patient was prepped and draped using maximum sterile barrier technique including cap, mask, sterile gown, sterile gloves, a large sterile sheet, hand hygiene, and 2% Chlorhexidine fo r cutaneous antisepsis. When ultrasound is used, sterile ultrasound techniques are followed requiring sterile gel and sterile probes. TECHNICAL DOCUMENTATION: JOB ID: [id number] [employer]- All Rights Reserved rev-02/14 Reading location - IP/workstation name: [email or web address]
[2019-08-24] MEDS: POLYETHYLENE GLYCOL 3350 POWDER 17 GM/1 PACKET PO SCH (12:09)
--- NOTE | 2019-08-24 20:10 | PDOC PROGRESS REPORT ---
Subjective Progress Note for:: 08/24/19 Reason For Visit: URINARY TRACT INFECTION,DEHYDRATION Physical Exam Vital Signs: Temp Pulse Resp BP Pulse Ox 98.6 F 89 17 162/66 H 93 08/24/19 16:51 08/24/19 16:51 08/24/19 16:51 08/24/19 16:51 08/24/19 16:51 Intake & Output 08/23/19 08/24/19 08/25/19 06:59 06:59 06:59 Intake Total 2902 4440 1480 Output Total 3150 1700 Balance -248 2740 1480 Weight 63.2 kg 64.9 kg 64.9 kg General appearance: PRESENT: no acute distress, cooperative, disheveled Eye exam: PRESENT: EOMI, PERRLA. ABSENT: conjunctival injection, nystagmus, scleral icterus Respiratory exam: PRESENT: clear to auscultation shannan, symmetrical, unlabored. ABSENT: accessory muscle use, chest wall tenderness, crackles, prolonged expi ratory phas, rhonchi, tachypnea, wheezes Cardiovascular exam: PRESENT: RRR, +S1, +S2 Pulses: PRESENT: normal carotid pulses Vascular exam: PRESENT: normal capillary refill GI/Abdominal exam: PRESENT: normal bowel sounds, soft. ABSENT: distended, guarding, rebound, tenderness Neurological exam: PRESENT: alert, awake, oriented to person, oriented to place, oriented to time, oriented to situation Psychiatric exam: PRESENT: appropriate affect, normal mood Results Laboratory Results: 08/18/19 03:26 08/16/19 04:08 Impressions: Chest X-Ray 08/15/19 20:52 IMPRESSION: 1. No acute pulmonary findings. Guidance Fluoroscopy 08/24/19 00:00 IMPRESSION: SUCCESSFUL PLACEMENT OF A 5 FR DUAL LUMEN 40 CM PICC IN THE LEFT BASILIC VEIN. Interventional Vascular Procedure 08/24/19 00:00 IMPRESSION: SUCCESSFUL PLACEMENT OF A 5 FR DUAL LUMEN 40 CM PICC IN THE LEFT BASILIC VEIN. PICC Line Insertion 08/24/19 00:00 IMPRESSION: SUCCESSFUL PLACEMENT OF A 5 FR DUAL LUMEN 40 CM PICC IN THE LEFT BASILIC VEIN. Assessment and Plan - Diagnosis (1) Urinary tract infection Qualifiers: Urinary tract infection type: catheter-associated UTI Indwelling urinary catheter type: indwelling urethral catheter Encounter type: initial encounter Qualified Code(s): T83.511A - Infection and inflammatory reaction due to indwelling urethral catheter, initial encounter; N39.0 - Urinary tract infection, site not specified Is this a current diagnosis for this admission?: Yes Plan: This is turned out to be a Pseudomonas that is resistant for quinolones. I have switched her antibiotics from Rocephin to cefepime. She will need a total of 10 days of cefepime (2) Decubitus ulcer of right heel Qualifiers: Pressure injury stage: unspecified pressure injury stage Qualified Code(s): L89.619 - Pressure ulcer of right heel, unspecified stage Is this a current diagnosis for this admission?: Yes Plan: Local wound care including offloading. Dr. Clark did not believe the wound to be a source of infection. (3) Decubitus ulcer of sacral area Qualifiers: Pressure injury stage: unspecified pressure injury stage Qualified Code(s): L89.159 - Pressure ulcer of sacral region, unspecified stage Is this a current diagnosis for this admission?: Yes Plan: Local wound care as she was doing at home. Dr. Clark did not believe the wound to be a source of infection. (4) Paraplegia Is this a current diagnosis for this admission?: Yes (5) Spina bifida Qualifiers: Spinal region: lumbosacral Presence of hydrocephalus: without hydrocephalus Qualified Code(s): Q05.7 - Lumbar spina bifida without hydrocephalus Is this a current diagnosis for this admission?: Yes (6) Positive blood culture Is this a current diagnosis for this admission?: Yes Plan: She has a PICC line now and the plan is for her to get a SYMONE on Saturday afternoon. If it is negative, she will need a total of 2 weeks of antibiotics for the MSSA that grew in the one blood culture from the first day of the set of negative blood cultures. The MSSA was pansensitive, so it seems as though it has responded to the cefepime that she has been on for her urinary tract infection. She would need another 4 days of Ancef after she completes her cefep atif. She has had family give her IV antibiotics at home and everyone seems to be comfortable with that plan at discharge. - Plan Summary Summary: Patient is admitted to the medical floor and will receive routine supportive and symptomatic cares. She will be treated with IV fluid utilizing D5LR at 167 mL/h initially. She will be treated with IV antibiotics utilizing Rocephin 1 g daily. Her fever will be treated with Tylenol as required. She will have daily CBCs and metabolic profiles obtained for ongoing evaluation and adjustment of therapy. She will receive wound care by the nursing staff and a surgical consult may be obtained if required. Her current wound management is done by the local wound care clinic. She will use morphine sulfate 2 to 4 mg IV every 2 hours on as-needed basis for pain. She will have Phenergan 12.5 mg IV every 4 hours on an as-needed basis for nausea or vomiting. - Time Time Spent with patient: 15-24 minutes
[2019-08-24] MEDS: ACETAMINOPHEN 325 MG TABLET PO PRN (22:30)
[2019-08-25] MEDS: ONDANSETRON 4 MG TAB.RAPDIS SL PRN ×4 (04:20→23:16)
[2019-08-25] MEDS: HEPARIN SOD (PORCINE) 5,000 UNIT/ML 1 ML VIAL SUBCUT SCH ×3 (05:15→21:13)
[2019-08-25] MEDS: DEXTROSE 5%-LACTATED RINGERS 1,000 ML IV PRN ×4 (06:57→23:23)
--- NOTE | 2019-08-25 08:32 | Progress Note ---
Provider Note Provider Note: [facility] Telephone Advice - Follow Up Chart reviewed. Patient initially evaluated due to MSSA bacteremia and UTI with Pseudomonas (catheter associated). She was initially on ceftriaxone empiricall y, then transitioned to cefepime. Urine culture was finalized and grew Pseudomonas (resistant to fluoroquinolones). Blood cultures wirh MSSA and Micrococcus. She has multiple decubitus ulcers but these were evaluated by surgery and didn't seem to be the source of the MSSA bacteremia. She had a TTE that was negative for valvular vegetations, but it was technically difficult. She has been scheduled for a SYMONE tomorrow. She is otherwise stable and comfortable per notes. Leukocytosis resolved. Vital Signs: Temp Pulse Resp BP Pulse Ox 98.6 F 76 18 141/50 H 92 08/25/19 00:00 08/25/19 00:00 08/25/19 00:00 08/25/19 00:00 08/25/19 00:00 Intake & Output 08/24/19 08/25/19 08/26/19 06:59 06:59 06:59 Intake Total 4440 2630 Output Total 1700 1175 Balance 2740 1455 Weight 64.9 kg 64.3 kg Weight/Height Weight 64.3 kg Height 5 ft 2 in Laboratories: 08/18/19 03:26 08/16/19 04:08 MCV 82 fl (80-97) 08/18/19 03:26 MCH 27.5 pg (27.0-33.4) 08/18/19 03:26 MCHC 33.5 g/dL (32.0-36.0) 08/18/19 03:26 RDW 15.3 % (11.5-14.0) H 08/18/19 03:26 Seg Neutrophils % Not Reportable 08/15/19 20:28 Chloride 104 mmol/L (98-107) 08/16/19 04:08 Carbon Dioxide 20 mmol/L (22-30) L 08/16/19 04:08 Anion Gap 10 (5-19) 08/16/19 04:08 Est GFR ( Amer) 57 (>60) L 08/16/19 04:08 Glucose 89 mg/dL (75-110) 08/16/19 04:08 Lactic Acid 1.5 mmol/L (0.7-2.1) 08/15/19 21:50 Calcium 7.9 mg/dL (8.4-10.2) L 08/16/19 04:08 Magnesium 2.1 mg/dL (1.6-2.3) 08/16/19 04:08 Total Bilirubin 0.9 mg/dL (0.2-1.3) 08/15/19 20:28 AST 21 U/L (14-36) 08/15/19 20:28 Alkaline Phosphatase 113 U/L (38-126) 08/15/19 20:28 Total Protein 7.8 g/dL (6.3-8.2) 08/15/19 20:28 Albumin 3.4 g/dL (3.5-5.0) L 08/15/19 20:28 Urine Color LYUDMILA 08/15/19 20:34 Urine Appearance SLIGHTLY-CLOUDY 08/15/19 20:34 Urine pH 7.0 (5.0-9.0) 08/15/19 20:34 Ur Specific [place] 1.015 08/15/19 20:34 Urine Protein 30 mg/dL (NEGATIVE) H 08/15/19 20:34 Urine Glucose (UA) NEGATIVE mg/dL (NEGATIVE) 08/15/19 20:34 Urine Ketones 20 mg/dL (NEGATIVE) H 08/15/19 20:34 Urine Blood MODERATE (NEGATIVE) H 08/15/19 20:34 Urine Nitrite POSITIVE (NEGATIVE) H 08/15/19 20:34 Ur Leukocyte Esterase LARGE (NEGATIVE) H 08/15/19 20:34 Urine WBC (Auto) 52 /HPF 08/15/19 20:34 Urine RBC (Auto) 23 /HPF 08/15/19 20:34 Microbiology: Blood culture: 08/15 MSSA + Micrococcus 1 set, 1 set negative 08/18 Negative Urine Culture 08/15 Pseudomonas aeruginosa (resistant to fluoroquinolones) Radiology: Chest X-Ray 08/15/19 20:52 IMPRESSION: 1. No acute pulmonary findings. Guidance Fluoroscopy 08/24/19 00:00 IMPRESSION: SUCCESSFUL PLACEMENT OF A 5 FR DUAL LUMEN 40 CM PICC IN THE LEFT BASILIC VEIN. Interventional Vascular Procedure 08/24/19 00:00 IMPRESSION: SUCCESSFUL PLACEMENT OF A 5 FR DUAL LUMEN 40 CM PICC IN THE LEFT BASILIC VEIN. PICC Line Insertion 11/25/19 00:00 IMPRESSION: SUCCESSFUL PLACEMENT OF A 5 FR DUAL LUMEN 40 CM PICC IN THE LEFT BASILIC VEIN. TTE: Poor endocardial visualization. Assessment nad recommendations: Patient with Pseudomonas aeruginosa UTI and MSSA bacteremia of unknown source. Multiple decubitus ulcers ruled out as the source of Staph bacteremia, she is awaiting for SYMONE to rule out endocarditis, although suspicion is low as she cleared the infection from the bloodstream and no other stigmata of endocarditis. She has received almost 10 days of cefepime for PSeudomonas UTI, can transition to cefazolin 2g every 8 hr after completing 10 days of cefepime. Duration of therapy for MSSA bacteremia of unknown source, from the community, should be 4 weeks, even if low grade bacteremia. The fact that Micrococcus was present as well raises suspicion for contaminaiton, but Staphylococcus aureus shouldn't be considered a contaminant as it can seed other areas in the body and cause metastatic infection (discitis, VOM, epidural abscess, septic arthritis, endocarditis, etc). For this reason, will recommend a total of 4 weeks from negative blood cultures if SYMONE negative for endocarditis. If SYMONE is positive, she will need 6 weeks. Please call us back if any questions. Shara Leos MD [facility] Infectious Disease [phone]
[2019-08-25] MEDS: DOCUSATE SODIUM 100 MG CAPSULE PO SCH ×2 (09:01→17:03)
[2019-08-25] MEDS: FAMOTIDINE 20 MG TABLET PO SCH ×2 (09:04→21:13)
[2019-08-25] MEDS ORDERED: CEFEPIME 1 GM/D5W RTU 1 GM/50 ML RTUPB IV SCH (10:00)
[2019-08-25] MEDS: POLYETHYLENE GLYCOL 3350 POWDER 17 GM/1 PACKET PO SCH (11:35)
[2019-08-25] MEDS ORDERED: NORMAL SALINE 10 ML SDV (AFTER EACH USE) IV PRN (13:30)
--- NOTE | 2019-08-25 17:09 | PDOC PROGRESS REPORT ---
Subjective Progress Note for:: 08/25/19 Reason For Visit: URINARY TRACT INFECTION,DEHYDRATION 08/25/2019 Patient has MSSA bacteremia, multiple decubitus ulcers at the source. She is scheduled for SYMONE tomorrow to rule out endocarditis even though suspicion is low Physical Exam Vital Signs: Temp Pulse Resp BP Pulse Ox 97.4 F 75 18 141/45 H 93 08/25/19 11:31 08/25/19 11:31 08/25/19 11:31 08/25/19 11:31 08/25/19 11:31 Intake & Output 08/24/19 08/25/19 08/26/19 06:59 06:59 06:59 Intake Total 4440 2630 1000 Output Total 1700 1175 Balance 2740 1455 1000 Weight 64.9 kg 64.3 kg General appearance: PRESENT: no acute distress Respiratory exam: PRESENT: clear to auscultation shannan. ABSENT: rales, rhonchi, wheezes Cardiovascular exam: PRESENT: RRR. ABSENT: diastolic murmur, rubs, systolic murmur Neurological exam: PRESENT: alert, awake, oriented to person, oriented to place, oriented to time, oriented to situation, CN II-XII grossly intact. ABSENT: motor sensory deficit Psychiatric exam: PRESENT: appropriate affect, normal mood. ABSENT: homicidal ideation, suicidal ideation Results Laboratory Results: 08/18/19 03:26 08/16/19 04:08 Impressions: Chest X-Ray 08/15/19 20:52 IMPRESSION: 1. No acute pulmonary findings. Guidance Fluoroscopy 08/24/19 00:00 IMPRESSION: SUCCESSFUL PLACEMENT OF A 5 FR DUAL LUMEN 40 CM PICC IN THE LEFT BASILIC VEIN. Interventional Vascular Procedure 08/24/19 00:00 IMPRESSION: SUCCESSFUL PLACEMENT OF A 5 FR DUAL LUMEN 40 CM PICC IN THE LEFT BASILIC VEIN. PICC Line Insertion 08/24/19 00:00 IMPRESSION: SUCCESSFUL PLACEMENT OF A 5 FR DUAL LUMEN 40 CM PICC IN THE LEFT BASILIC VEIN. Assessment and Plan - Diagnosis (1) Decreased oral intake Is this a current diagnosis for this admission?: Yes (2) Decubitus ulcer of right heel Qualifiers: Pressure injury stage: unspecified pressure injury stage Qualified Code(s): L89.619 - Pressure ulcer of right heel, unspecified stage Is this a current diagnosis for this admission?: Yes (3) Decubitus ulcer of sacral area Qualifiers: Pressure injury stage: unspecified pressure injury stage Qualified Code(s): L89.159 - Pressure ulcer of sacral region, unspecified stage Is this a current diagnosis for this admission?: Yes (4) Positive blood culture Is this a current diagnosis for this admission?: Yes (5) Sacral decubitus ulcer, stage II Is this a current diagnosis for this admission?: Yes (6) Spina bifida Qualifiers: Spinal region: lumbosacral Presence of hydrocephalus: without hydrocephalus Qualified Code(s): Q05.7 - Lumbar spina bifida without hydrocephalus Is this a current diagnosis for this admission?: Yes - Plan Summary Summary: Patient is admitted to the medical floor and will receive routine supportive and symptomatic cares. She will be treated with IV fluid utilizing D5LR at 167 mL/h initially. She will be treated with IV antibiotics utilizing Rocephin 1 g daily. Her fever will be treated with Tylenol as required. She will have daily CBCs and metabolic profiles obtained for ongoing evaluation and adjustment of therapy. She will receive wound care by the nursing staff and a surgical consult may be obtained if required. Her current wound management is done by the local wound care clinic. She will use morphine sulfate 2 to 4 mg IV every 2 hours on as-needed basis for pain. She will have Phenergan 12.5 mg IV every 4 hours on an as-needed basis for nausea or vomiting. 08/25/2019 Temperature 97.4 pulse 81 blood pressure 141/45, O2 sat 93% on room air Labs have been checked recently, recheck in the a.m. She is scheduled for SYMONE tomorrow And has PICC line in place and will need IV antibiotics for the next 4 weeks if SYMONE is negative if it is positive she will need 6 weeks For swollen 2 g every 8 hours - Time Time Spent with patient: 25-34 minutes
[2019-08-25] MEDS: NORMAL SALINE 10 ML SDV (SCHEDULED) IV SCH (21:13)
[2019-08-26] MEDS: ONDANSETRON 4 MG TAB.RAPDIS SL PRN ×4 (04:42→22:56)
[2019-08-26] MEDS: HEPARIN SOD (PORCINE) 5,000 UNIT/ML 1 ML VIAL SUBCUT SCH ×3 (05:42→21:23)
[2019-08-26] MEDS: DEXTROSE 5%-LACTATED RINGERS 1,000 ML IV PRN ×3 (08:08→22:57)
[2019-08-26 08:23] LABS: ABSOLUTE BASOPHILS # (AUTO) 0.1 10^3/uL (0.0-0.2); ABSOLUTE EOSINOPHILS # (AUTO) 0.5 10^3/uL (0.0-0.6); ABSOLUTE LYMPHOCYTES (AUTO) 1.7 10^3/uL (0.5-4.7); ABSOLUTE MONOCYTES (AUTO) 0.7 10^3/uL (0.1-1.4); ABSOLUTE NEUT (AUTO) 4.5 10^3/uL (1.7-8.2); BASOPHILS % (AUTO) 1.1 % (0-2); EOSINOPHILS % (AUTO) 6.7 % (0-6); HEMATOCRIT 26.7 % (36.0-47.0); HEMOGLOBIN 8.9 g/dL (12.0-15.5); LYMPHOCYTES % (AUTO) 22.4 % (13-45); MEAN CORPUSCULAR HEMOGLOBIN 27.1 pg (27.0-33.4); MEAN CORPUSCULAR HGB CONC 33.2 g/dL (32.0-36.0); MEAN CORPUSCULAR VOLUME 82 fl (80-97); MONOCYTES % (AUTO) 9.5 % (3-13); PLATELET COUNT 240 10^3/uL (150-450); RED BLOOD COUNT 3.27 10^6/uL (3.72-5.28); RED CELL DISTRIBUTION WIDTH 15.6 % (11.5-14.0); SEGMENTED NEUTROPHILS % (AUTO) 60.3 % (42-78); TOTAL CELLS COUNTED % (AUTO) 100 %; WHITE BLOOD COUNT 7.4 10^3/uL (4.0-10.5)
[2019-08-26 08:36] LABS: BLOOD UREA NITROGEN 6 mg/dL (7-20); CALCIUM 7.5 mg/dL (8.4-10.2); GLUCOSE 94 mg/dL (75-110); POTASSIUM 4.1 mmol/L (3.6-5.0)
[2019-08-26 08:43] LABS: CARBON DIOXIDE 27 mmol/L (22-30); CHLORIDE 107 mmol/L (98-107)
[2019-08-26 08:48] LABS: ANION GAP 3 (5-19)
[2019-08-26] MEDS: FAMOTIDINE 20 MG TABLET PO SCH ×2 (09:17→21:24)
[2019-08-26] MEDS: DOCUSATE SODIUM 100 MG CAPSULE PO SCH ×2 (09:19→17:44)
[2019-08-26] MEDS: NORMAL SALINE 10 ML SDV (SCHEDULED) IV SCH ×2 (09:19→21:24)
[2019-08-26] MEDS ORDERED: BENZOCAINE 20% AEROSOL SPRAY 60 GM ONE (11:34)
[2019-08-26] MEDS ORDERED: LIDOCAINE 2% VISCOUS SOLN 20 ML UDCUP ONE (11:34)
[2019-08-26] MEDS: POLYETHYLENE GLYCOL 3350 POWDER 17 GM/1 PACKET PO SCH (11:49)
[2019-08-26] MEDS ORDERED: LIDOCAINE 2% JELLY 5 ML TUBE ONE (13:19)
[2019-08-26] MEDS ORDERED: PROPOFOL INJ 200 MG/20 ML VIAL IV ONE (13:47)
--- NOTE | 2019-08-26 13:59 | PDOC PROGRESS REPORT ---
Subjective Progress Note for:: 08/26/19 Reason For Visit: URINARY TRACT INFECTION,DEHYDRATION UTI 08/26/2019 Had a SYMONE today results are not completed Supinate discharging patient either tomorrow or Joaquim It is normal now 7.4 and has been normal for several days Electrolytes appear grossly normal though calcium is low I will replace this, albumin is slightly low as well She is medically stable, patient has PICC line, patient will be discharged on IV antibiotics Physical Exam Vital Signs: Temp Pulse Resp BP Pulse Ox 98.0 F 97 18 165/61 H 91 L 08/26/19 13:16 08/26/19 13:16 08/26/19 13:16 08/26/19 13:16 08/26/19 13:16 Intake & Output 08/25/19 08/26/19 08/27/19 06:59 06:59 06:59 Intake Total 2630 4967 237 Output Total 1175 1025 600 Balance 1455 3942 -363 Weight 64.3 kg 67.4 kg General appearance: PRESENT: no acute distress Respiratory exam: PRESENT: clear to auscultation shannan. ABSENT: rales, rhonchi, wheezes Cardiovascular exam: PRESENT: RRR. ABSENT: diastolic murmur, rubs, systolic murmur Neurological exam: PRESENT: alert, awake, oriented to person, oriented to place, oriented to time, oriented to situation, CN II-XII grossly intact. ABSENT: motor sensory deficit Psychiatric exam: PRESENT: appropriate affect, normal mood. ABSENT: homicidal ideation, suicidal ideation Results Laboratory Results: 08/26/19 06:55 08/26/19 06:55 08/26/19 08/26/19 06:55 06:55 WBC 7.4 RBC 3.27 L Hgb 8.9 L Hct 26.7 L MCV 82 MCH 27.1 MCHC 33.2 RDW 15.6 H Plt Count 240 Seg Neutrophils % 60.3 Sodium 136.7 L Potassium 4.1 Chloride 107 Carbon Dioxide 27 Anion Gap 3 L BUN 6 L Creatinine 0.64 Est GFR ( Amer) > 60 Glucose 94 Calcium 7.5 L Impressions: Chest X-Ray 08/15/19 20:52 IMPRESSION: 1. No acute pulmonary findings. Guidance Fluoroscopy 08/24/19 00:00 IMPRESSION: SUCCESSFUL PLACEMENT OF A 5 FR DUAL LUMEN 40 CM PICC IN THE LEFT BASILIC VEIN. Interventional Vascular Procedure 08/24/19 00:00 IMPRESSION: SUCCESSFUL PLACEMENT OF A 5 FR DUAL LUMEN 40 CM PICC IN THE LEFT BASILIC VEIN. PICC Line Insertion 08/24/19 00:00 IMPRESSION: SUCCESSFUL PLACEMENT OF A 5 FR DUAL LUMEN 40 CM PICC IN THE LEFT BASILIC VEIN. Assessment and Plan - Diagnosis (1) Decreased oral intake Is this a current diagnosis for this admission?: Yes (2) Decubitus ulcer of right heel Qualifiers: Pressure injury stage: unspecified pressure injury stage Qualified Code(s): L89.619 - Pressure ulcer of right heel, unspecified stage Is this a current diagnosis for this admission?: Yes (3) Decubitus ulcer of sacral area Qualifiers: Pressure injury stage: unspecified pressure injury stage Qualified Code(s): L89.159 - Pressure ulcer of sacral region, unspecified stage Is this a current diagnosis for this admission?: Yes (4) Positive blood culture Is this a current diagnosis for this admission?: Yes (5) Sacral decubitus ulcer, stage II Is this a current diagnosis for this admission?: Yes (6) Spina bifida Qualifiers: Spinal region: lumbosacral Presence of hydrocephalus: without hydrocephalus Qualified Code(s): Q05.7 - Lumbar spina bifida without hydrocephalus Is this a current diagnosis for this admission?: Yes - Plan Summary Summary: Patient is admitted to the medical floor and will receive routine supportive and symptomatic cares. She will be treated with IV fluid utilizing D5LR at 167 mL/h initially. She will be treated with IV antibiotics utilizing Rocephin 1 g daily. Her fever will be treated with Tylenol as required. She will have daily CBCs and metabolic profiles obtained for ongoing evaluation and adjustment of therapy. She will receive wound care by the nursing staff and a surgical consult may be obtained if required. Her current wound management is done by [facility] local wound care clinic. She will use morphine sulfate 2 to 4 mg IV every 2 hours on as-needed basis for pain. She will have Phenergan 12.5 mg IV every 4 hours on an as-needed basis for nausea or vomiting. 08/25/2019 Temperature 97.4 pulse 81 blood pressure 141/45, O2 sat 93% on room air Labs have been checked recently, recheck in the a.m. She is scheduled for SYMONE tomorrow And has PICC line in place and will need IV antibiotics for the next 4 weeks if SYMONE is negative if it is positive she will need 6 weeks For swollen 2 g every 8 hours 08/26/2019 Eating SYMONE results, determine length of IV antibiotics at home Will discharge either tomorrow or Saturday Labs and chart reviewed as above - Time Time Spent with patient: 25-34 minutes
--- NOTE | 2019-08-26 14:34 | PDOC CONSULTATION ---
Consultation Consult Date: 08/26/19 Provider Consulted: VINH WING History of Present Illness Admission Date/PCP: 08/15/19 23:24 Patient complains of: MSSA bacteremia History of Present Illness: DEBORA JOEL is a 88 year old female Admitted with MSSS sepsis and bacteremia She is s/p L BKA and has had infected decubitus ulcers SYMONE has been requested. Past Medical History Cardiac Medical History: Denies: Coronary Artery Disease, Hyperlipidema, Hypertension Pulmonary Medical History: Denies: Asthma, Chronic Obstructive Pulmonary Disease (COPD) EENT Medical History: Denies: Cataracts, Ears - Hearing aids Neurological Medical History: Reports: Other - Spina bifida with paraplegia Denies: Hemorrhagic CVA, Ischemic CVA, Seizures Endocrine Medical History: Denies: Diabetes Mellitus Type 1, Diabetes Mellitus Type 2, Hyperthyroidism, Hypothyroidism Renal/ Medical History: Reports: Other - Chronic indwelling Alberto catheter Denies: Chronic Kidney Disease, Nephrolithiasis Malignancy Medical History: Reports: None GI Medical History: Denies: Cirrhosis, Crohn's Disease, Hepatitis, Ulcerative Colitis Musculoskeltal Medical History: Reports: Other - 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 Social History Lives with: Family Smoking Status: Never Smoker Electronic Cigarette use?: No Frequency of Alcohol Use: None Hx Recreational Drug Use: No Drugs: None Hx Prescription Drug Abuse: No - Advance Directive Resuscitation Status: Full Code Family History Family History: denies: CAD, DM, Hypertension, Malignancy Parental Family History Reviewed: No - Adavcned age. Poor recall Children Family History Reviewed: No Sibling(s) Family History Reviewed.: NA Medication/Allergy Home Medications: Mirtazapine [Remeron 15 mg Tablet] 15 mg PO DAILYP PRN 08/16/19 Ondansetron [Zofran Odt 4 mg Tablet (6 Tab/ER Disp)] 1 tab PO Q8H PRN 08/16/19 Allergies/Adverse Reactions: gabapentin Adverse Reaction (Verified 08/15/19 20:15) Review of Systems Constitutional: PRESENT: as per HPI Eyes: PRESENT: as per HPI Ears: PRESENT: as per HPI Nose, Mouth, and Throat: PRESENT: as per HPI Cardiovascular: PRESENT: as per HPI Respiratory: PRESENT: as per HPI Physical Exam Vital Signs: Temp Pulse Resp BP Pulse Ox 98.0 F 89 18 149/54 H 96 08/26/19 13:16 08/26/19 14:25 08/26/19 14:25 08/26/19 14:25 08/26/19 14:25 Intake & Output 08/25/19 08/26/19 08/27/19 06:59 06:59 06:59 Intake Total 2630 4967 237 Output Total 1175 1025 600 Balance 1455 3942 -363 Weight 64.3 kg 67.4 kg General appearance: PRESENT: no acute distress, cooperative Head exam: PRESENT: atraumatic Eye exam: PRESENT: conjunctiva pale, EOMI Mouth exam: PRESENT: moist Teeth exam: PRESENT: edentulous Neck exam: PRESENT: full ROM Respiratory exam: PRESENT: unlabored Pulses: PRESENT: normal radial pulses Psychiatric exam: PRESENT: appropriate affect Skin exam: PRESENT: dry Results Laboratory Results: 08/26/19 06:55 08/26/19 06:55 08/26/19 08/26/19 06:55 06:55 WBC 7.4 RBC 3.27 L Hgb 8.9 L Hct 26.7 L MCV 82 MCH 27.1 MCHC 33.2 RDW 15.6 H Plt Count 240 Seg Neutrophils % 60.3 Sodium 136.7 L Potassium 4.1 Chloride 107 Carbon Dioxide 27 Anion Gap 3 L BUN 6 L Creatinine 0.64 Est GFR ( Amer) > 60 Glucose 94 Calcium 7.5 L Impressions: Chest X-Ray 08/15/19 20:52 IMPRESSION: 1. No acute pulmonary findings. Guidance Fluoroscopy 08/24/19 00:00 IMPRESSION: SUCCESSFUL PLACEMENT OF A 5 FR DUAL LUMEN 40 CM PICC IN THE LEFT BASILIC VEIN. Interventional Vascular Procedure 08/24/19 00:00 IMPRESSION: SUCCESSFUL PLACEMENT OF A 5 FR DUAL LUMEN 40 CM PICC IN THE LEFT BASILIC VEIN. PICC Line Insertion 08/24/19 00:00 IMPRESSION: SUCCESSFUL PLACEMENT OF A 5 FR DUAL LUMEN 40 CM PICC IN THE LEFT BASILIC VEIN. Assessment & Plan - Diagnosis (1) Positive blood culture Is this a current diagnosis for this admission?: Yes Plan: SYMONE with General anesthesia - Notes Notes: SYMONE findings 1. LVEF diminished mildly to moderately- 40-45%. Prior Apical /anterior infarct 2. No vegetation on any heart valve 3. Mild MR and mild TR 4. Aortic valve trileaflet and no or AI 5. Left pleural effusion 6. Aneurysmal inter atrial septum 7. No pericardial effusion
[2019-08-26] MEDS: PROMETHAZINE HCL INJ 25 MG/1 ML VIAL IV PRN (16:51)
[2019-08-26] MEDS: ACETAMINOPHEN 325 MG TABLET PO PRN (20:33)
[2019-08-26] MEDS: CEFAZOLIN SODIUM 2 GM in DEXTROSE 5%-WATER 100 ML IV SCH (21:22)
[2019-08-26] MEDS ORDERED: CEFAZOLIN 2 GM/D5W RTU 2 GM/50 ML RTUPB IV SCH (22:00)
[2019-08-27] MEDS: PROMETHAZINE HCL INJ 25 MG/1 ML VIAL IV PRN (00:59)
[2019-08-27] MEDS ORDERED: LORAZEPAM INJ 2 MG/1 ML VIAL IV ONE (04:00)
[2019-08-27 04:40] LABS: VENOUS BLOOD BASE EXCESS -2.2 mmol/L; VENOUS BLOOD HCO3 23.7 mmol/L (20-32); VENOUS BLOOD PCO2 45.7 mmHg (35-63); VENOUS BLOOD PH 7.33 (7.30-7.42)
[2019-08-27] MEDS: CEFAZOLIN SODIUM 2 GM in DEXTROSE 5%-WATER 100 ML IV SCH ×3 (05:39→21:30)
[2019-08-27] MEDS: HEPARIN SOD (PORCINE) 5,000 UNIT/ML 1 ML VIAL SUBCUT SCH ×3 (05:39→21:31)
[2019-08-27] MEDS: DEXTROSE 5%-LACTATED RINGERS 1,000 ML IV PRN ×2 (05:47→18:49)
--- NOTE | 2019-08-27 06:20 | RADIOLOGY REPORT (SQ) ---
CLINICAL HISTORY: Acute hypoxia. CREAT 0.64 COMPARISON: None. TECHNIQUE: CT CHEST ANGIOGRAPHY WITHOUT THEN WITH IV CONTRAST on 08/27/2019 12:00 AM [employer]. MIPS reconstructions were generated. This exam was performed according to our departmental dose-optimization program, which includes automated exposure control, adjustment of the mA and/or kV according to patient size and/or use of iterative reconstruction technique. MIP images were generated. FINDINGS: Thoracic aorta is normal in course and caliber without aneurysm or dissection. Pulmonary arteries are adequately opacified without acute or chronic filling defects. The heart is enlarged. There is thickening of the left ventricular apex likely secondary to prior infarct. There is no pericardial effusion. Intrathoracic lymph nodes are not enlarged. There are large bilateral pleural effusions. Central airways are patent. There is extensive bibasilar atelectasis. There are no acute abnormalities within the limited images of the upper abdomen. There are no acute osseous findings. No suspicious bony lesions. IMPRESSION: Cardiomegaly with large pleural effusions. No aortic dissection or aneurysm. No pulmonary embolus. No definite pneumonia.
[2019-08-27] MEDS ORDERED: CALCIUM GLUCONATE 2,222 MG in DEXTROSE 5%-WATER 100 ML IV ONE (09:00)
[2019-08-27 09:08] LABS: ABSOLUTE BASOPHILS # (AUTO) 0.1 10^3/uL (0.0-0.2); ABSOLUTE EOSINOPHILS # (AUTO) 0.4 10^3/uL (0.0-0.6); ABSOLUTE LYMPHOCYTES (AUTO) 1.8 10^3/uL (0.5-4.7); ABSOLUTE MONOCYTES (AUTO) 0.7 10^3/uL (0.1-1.4); ABSOLUTE NEUT (AUTO) 6.4 10^3/uL (1.7-8.2); BASOPHILS % (AUTO) 0.8 % (0-2); EOSINOPHILS % (AUTO) 4.4 % (0-6); HEMOGLOBIN 9.7 g/dL (12.0-15.5); LYMPHOCYTES % (AUTO) 19.1 % (13-45); MEAN CORPUSCULAR HEMOGLOBIN 27.5 pg (27.0-33.4); MEAN CORPUSCULAR HGB CONC 33.6 g/dL (32.0-36.0); MEAN CORPUSCULAR VOLUME 82 fl (80-97); MONOCYTES % (AUTO) 7.7 % (3-13); PLATELET COUNT 218 10^3/uL (150-450); RED BLOOD COUNT 3.54 10^6/uL (3.72-5.28); RED CELL DISTRIBUTION WIDTH 15.3 % (11.5-14.0); TOTAL CELLS COUNTED % (AUTO) 100 %; WHITE BLOOD COUNT 9.4 10^3/uL (4.0-10.5)
[2019-08-27 09:26] LABS: ALKALINE PHOSPHATASE 125 U/L (38-126); ASPARTATE AMINO TRANSFERASE 15 U/L (14-36); BILIRUBIN,DIRECT 0.1 mg/dL (0.0-0.4); BILIRUBIN,TOTAL 0.2 mg/dL (0.2-1.3); BLOOD UREA NITROGEN 5 mg/dL (7-20); CALCIUM 7.4 mg/dL (8.4-10.2); CARBON DIOXIDE 27 mmol/L (22-30); CHLORIDE 104 mmol/L (98-107); GLUCOSE 105 mg/dL (75-110); POTASSIUM 4.1 mmol/L (3.6-5.0); TOTAL PROTEIN 5.5 g/dL (6.3-8.2)
[2019-08-27 09:32] LABS: ANION GAP 4 (5-19)
--- NOTE | 2019-08-27 09:51 | PDOC PROGRESS REPORT ---
Subjective Progress Note for:: 08/27/19 Reason For Visit: URINARY TRACT INFECTION,DEHYDRATION 08/27/2019 To nursing last night patient states she did not feel good, episode of nausea however no vomiting. She also complained of being tachypneic and diaphoretic. Was given IV Ativan good relief of symptoms. Physical Exam Vital Signs: Temp Pulse Resp BP Pulse Ox 97.2 F 87 16 147/62 H 97 08/27/19 00:00 08/27/19 00:00 08/27/19 00:00 08/26/19 20:08 08/27/19 00:00 Intake & Output 08/26/19 08/27/19 08/28/19 06:59 06:59 06:59 Intake Total 4967 3537 Output Total 1025 2600 Balance 3942 937 Weight 67.4 kg 71.9 kg General appearance: PRESENT: no acute distress, other - She is sleeping secondary to Ativan given IV at 0400 No signs of respiratory distress Respiratory exam: PRESENT: clear to auscultation shannan, other - No distress. ABSENT: rales, rhonchi, wheezes Cardiovascular exam: PRESENT: RRR. ABSENT: diastolic murmur, rubs, systolic murmur Neurological exam: PRESENT: altered, other - Lethargy secondary to IV Ativan Psychiatric exam: PRESENT: appropriate affect, normal mood. ABSENT: homicidal ideation, suicidal ideation Results Laboratory Results: 08/27/19 08:50 08/27/19 08:50 08/27/19 08/27/19 08/27/19 04:13 08:50 08:50 WBC 9.4 RBC 3.54 L Hgb 9.7 L Hct 29.0 L MCV 82 MCH 27.5 MCHC 33.6 RDW 15.3 H Plt Count 218 Seg Neutrophils % 68.0 VBG pH 7.33 VBG pCO2 45.7 VBG HCO3 23.7 VBG Base Excess -2.2 Sodium 135.0 L Potassium 4.1 Chloride 104 Carbon Dioxide 27 Anion Gap 4 L BUN 5 L Creatinine 0.54 Est GFR ( Amer) > 60 Glucose 105 Calcium 7.4 L Total Bilirubin 0.2 AST 15 Alkaline Phosphatase 125 Total Protein 5.5 L Albumin 2.0 L Impressions: Chest X-Ray 08/15/19 20:52 IMPRESSION: 1. No acute pulmonary findings. Guidance Fluoroscopy 08/24/19 00:00 IMPRESSION: SUCCESSFUL PLACEMENT OF A 5 FR DUAL LUMEN 40 CM PICC IN THE LEFT BASILIC VEIN. Interventional Vascular Procedure 08/24/19 00:00 IMPRESSION: SUCCESSFUL PLACEMENT OF A 5 FR DUAL LUMEN 40 CM PICC IN THE LEFT BASILIC VEIN. PICC Line Insertion 08/24/19 00:00 IMPRESSION: SUCCESSFUL PLACEMENT OF A 5 FR DUAL LUMEN 40 CM PICC IN THE LEFT BASILIC VEIN. Chest/Abdomen CTA 08/27/19 00:00 IMPRESSION: Cardiomegaly with large pleural effusions. No aortic dissection or aneurysm. No pulmonary embolus. No definite pneumonia. Assessment and Plan - Diagnosis (1) Decreased oral intake Is this a current diagnosis for this admission?: Yes (2) Decubitus ulcer of right heel Qualifiers: Pressure injury stage: unspecified pressure injury stage Qualified Code(s): L89.619 - Pressure ulcer of right heel, unspecified stage Is this a current diagnosis for this admission?: Yes (3) Decubitus ulcer of sacral area Qualifiers: Pressure injury stage: unspecified pressure injury stage Qualified Code(s): L89.159 - Pressure ulcer of sacral region, unspecified stage Is this a current diagnosis for this admission?: Yes (4) Positive blood culture Is this a current diagnosis for this admission?: Yes (5) Sacral decubitus ulcer, stage II Is this a current diagnosis for this admission?: Yes (6) Spina bifida Qualifiers: Spinal region: lumbosacral Presence of hydrocephalus: without hydrocephalus Qualified Code(s): Q05.7 - Lumbar spina bifida without hydrocephalus Is this a current diagnosis for this admission?: Yes - Plan Summary Summary: Patient is admitted to the medical floor and will receive routine supportive and symptomatic cares. She will be treated with IV fluid utilizing D5LR at 167 mL/h initially. She will be treated with IV antibiotics utilizing Rocephin 1 g daily. Her fever will be treated with Tylenol as required. She will have daily CBCs and metabolic profiles obtained for ongoing evaluation and adjustment of therapy. She will receive wound care by the nursing staff and a surgical consult may be obtained if required. Her current wound management is done by the local wound care clinic. She will use morphine sulfate 2 to 4 mg IV every 2 hours on as-needed basis for pain. She will have Phenergan 12.5 mg IV every 4 hours on an as-needed basis for nausea or vomiting. 08/25/2019 Temperature 97.4 pulse 81 blood pressure 141/45, O2 sat 93% on room air Labs have been checked recently, recheck in the a.m. She is scheduled for SYMONE tomorrow And has PICC line in place and will need IV antibiotics for the next 4 weeks if SYMONE is negative if it is positive she will need 6 weeks For swollen 2 g every 8 hours 08/26/2019 Eating SYMONE results, determine length of IV antibiotics at home Will discharge either tomorrow or Saturday Labs and chart reviewed as above 08/27/2019 She is vital signs are actually stable temperature 97.4, pulse 72, and regular blood pressure 144/58, O2 sat 99% on 2 L nasal cannula Patient Sleepy and arouses to pain appropriately Labs this morning showed normal white count 7.4 calcium is low at 7.5, albumin low at 2.0. Corrected calcium level of 9 Give patient some elemental calcium CT angiogram from last night shows large pleural effusions, not present on admi ssion chest x-ray Patient may been symptomatic from this last night. Going to talk to the patient today and find out if she would like a therapeutic thoracentesis prior to going home. Up until last night patient has had no indication of being short of breath, hypoxic or symptomatic from the pleural effusions. - Time Time Spent with patient: 25-34 minutes
[2019-08-27] MEDS: NORMAL SALINE 10 ML SDV (SCHEDULED) IV SCH ×2 (11:12→21:31)
[2019-08-27] MEDS: POLYETHYLENE GLYCOL 3350 POWDER 17 GM/1 PACKET PO SCH (11:34)
[2019-08-27] MEDS: FAMOTIDINE 20 MG TABLET PO SCH ×2 (11:34→21:31)
[2019-08-27] MEDS: DOCUSATE SODIUM 100 MG CAPSULE PO SCH ×2 (11:34→17:37)
[2019-08-27] MEDS ORDERED: GLUCAGON,HUMAN RECOMB 1 MG INJ SUBCUT PRN (18:19)
[2019-08-27] MEDS ORDERED: DEXTROSE 50%-WATER 25 GM/50 ML DISP.SYRIN IV PRN ×2 (18:19)
[2019-08-27] MEDS ORDERED: DEXTROSE 40% GEL 15 GM TUBE PO PRN ×2 (18:19)
[2019-08-27 19:13] LABS: PROTHROMBIN TIME 18.3 SEC (11.4-15.4)
[2019-08-27 19:14] LABS: PARTIAL THROMBOPLASTIN TIME 43.4 SEC (23.5-35.8)
[2019-08-28] MEDS: DEXTROSE 5%-LACTATED RINGERS 1,000 ML IV PRN ×2 (03:00→09:37)
[2019-08-28] MEDS: ONDANSETRON 4 MG TAB.RAPDIS SL PRN (05:33)
[2019-08-28] MEDS: HEPARIN SOD (PORCINE) 5,000 UNIT/ML 1 ML VIAL SUBCUT SCH ×3 (05:33→22:28)
[2019-08-28] MEDS: CEFAZOLIN SODIUM 2 GM in DEXTROSE 5%-WATER 100 ML IV SCH ×3 (05:33→22:28)
[2019-08-28] MEDS: DOCUSATE SODIUM 100 MG CAPSULE PO SCH ×3 (09:26→18:48)
[2019-08-28] MEDS: FAMOTIDINE 20 MG TABLET PO SCH ×2 (09:26→22:29)
[2019-08-28] MEDS: NORMAL SALINE 10 ML SDV (SCHEDULED) IV SCH ×2 (09:43→23:01)
[2019-08-28] MEDS: POLYETHYLENE GLYCOL 3350 POWDER 17 GM/1 PACKET PO SCH (11:05)
--- NOTE | 2019-08-28 12:48 | PDOC PROGRESS REPORT ---
Subjective Progress Note for:: 08/28/19 Reason For Visit: URINARY TRACT INFECTION,DEHYDRATION 08/28/2019 Patient had positive blood cultures and was being sent home with IV antibiotics, her recent CT scan of the chest showed large pleural effusion now she will need a thoracentesis performed Physical Exam Vital Signs: Temp Pulse Resp BP Pulse Ox 97.6 F 91 16 147/64 H 100 08/27/19 23:45 08/28/19 08:19 08/28/19 08:19 08/28/19 08:19 08/28/19 08:19 Intake & Output 08/27/19 08/28/19 08/29/19 06:59 06:59 06:59 Intake Total 3537 2300 1100 Output Total 2600 400 Balance 937 1900 1100 Weight 71.9 kg 67.3 kg General appearance: PRESENT: no acute distress, other - No significant shortness of breath while in bed Respiratory exam: PRESENT: clear to auscultation shannan. ABSENT: rales, rhonchi, wheezes Cardiovascular exam: PRESENT: RRR. ABSENT: diastolic murmur, rubs, systolic murmur Neurological exam: PRESENT: alert, awake, oriented to person, oriented to place, oriented to time, oriented to situation, CN II-XII grossly intact. ABSENT: motor sensory deficit Psychiatric exam: PRESENT: appropriate affect, normal mood. ABSENT: homicidal ideation, suicidal ideation Results Laboratory Results: 08/27/19 08:50 08/27/19 08:50 Impressions: Chest X-Ray 08/15/19 20:52 IMPRESSION: 1. No acute pulmonary findings. Guidance Fluoroscopy 08/24/19 00:00 IMPRESSION: SUCCESSFUL PLACEMENT OF A 5 FR DUAL LUMEN 40 CM PICC IN THE LEFT BASILIC VEIN. Interventional Vascular Procedure 08/24/19 00:00 IMPRESSION: SUCCESSFUL PLACEMENT OF A 5 FR DUAL LUMEN 40 CM PICC IN THE LEFT BASILIC VEIN. PICC Line Insertion 08/24/19 00:00 IMPRESSION: SUCCESSFUL PLACEMENT OF A 5 FR DUAL LUMEN 40 CM PICC IN THE LEFT BASILIC VEIN. Chest/Abdomen CTA 08/27/19 00:00 IMPRESSION: Cardiomegaly with large pleural effusions. No aortic dissection or aneurysm. No pulmonary embolus. No definite pneumonia. Assessment and Plan - Diagnosis (1) Decreased oral intake Is this a current diagnosis for this admission?: Yes (2) Decubitus ulcer of right heel Qualifiers: Pressure injury stage: unspecified pressure injury stage Qualified Code(s): L89.619 - Pressure ulcer of right heel, unspecified stage Is this a current diagnosis for this admission?: Yes (3) Decubitus ulcer of sacral area Qualifiers: Pressure injury stage: unspecified pressure injury stage Qualified Code(s): L89.159 - Pressure ulcer of sacral region, unspecified stage Is this a current diagnosis for this admission?: Yes (4) Positive blood culture Is this a current diagnosis for this admission?: Yes (5) Sacral decubitus ulcer, stage II Is this a current diagnosis for this admission?: Yes (6) Spina bifida Qualifiers: Spinal region: lumbosacral Presence of hydrocephalus: without hydrocephalus Qualified Code(s): Q05.7 - Lumbar spina bifida without hydrocephalus Is this a current diagnosis for this admission?: Yes - Plan Summary Summary: Patient is admitted to the medical floor and will receive routine supportive and symptomatic cares. She will be treated with IV fluid utilizing D5LR at 167 mL/h initially. She will be treated with IV antibiotics utilizing Rocephin 1 g daily. Her fever will be treated with Tylenol as required. She will have daily CBCs and metabolic profiles obtained for ongoing evaluation and adjustment of therapy. She will receive wound care by the nursing staff and a surgical consult may be obtained if required. Her current wound management is done by the local wound care clinic. She will use morphine sulfate 2 to 4 mg IV every 2 hours on as-needed basis for pain. She will have Phenergan 12.5 mg IV every 4 hours on an as-needed basis for nausea or vomiting. 08/25/2019 Temperature 97.4 pulse 81 blood pressure 141/45, O2 sat 93% on room air Labs have been checked recently, recheck in the a.m. She is scheduled for SYMONE tomorrow And has PICC line in place and will need IV antibiotics for the next 4 weeks if SYMONE is negative if it is positive she will need 6 weeks For swollen 2 g every 8 hours 08/26/2019 Eating SYMONE results, determine length of IV antibiotics at home Will discharge either tomorrow or Saturday Labs and chart reviewed as above 08/27/2019 She is vital signs are actually stable temperature 97.4, pulse 72, and regular blood pressure 144/58, O2 sat 99% on 2 L nasal cannula Patient Sleepy and arouses to pain appropriately Labs this morning showed normal white count 7.4 calcium is low at 7.5, albumin low at 2.0. Corrected calcium level of 9 Give patient some elemental calcium CT angiogram from last night shows large pleural effusions, not present on admission chest x-ray Patient may been symptomatic from this last night. Going to talk to the patient today and find out if she would like a therapeutic thoracentesis prior to going home. Up until last night patient has had no indication of being short of breath, hypoxic or symptomatic from the pleural effusions. 08/28/2019 Patient who is competent to make decisions like to have the pleural effusion drained. Her son who is at the bedside agreed. This will hopefully be done today. Charge planning is working to set up home antibiotics for the next 4 weeks. Discharge is pending when the thoracentesis is done INR today is 1.5, she is afebrile, pulse is in the 80s or low 90s, Oxygen saturation is in the upper 90s or 100 at 2 L nasal cannula - Time Time Spent with patient: 25-34 minutes
--- NOTE | 2019-08-28 15:45 | RADIOLOGY REPORT (SQ) ---
EXAM DESCRIPTION: U/S THORACENTESIS WITH IMAGING COMPLETED DATE/TIME: 08/28/2019 3:33 pm REASON FOR STUDY: pleural effusion COMPARISON: None. LIMITATIONS: None. PROCEDURE: Procedure, risks, benefit, and alternative explained to patient who then gave written con sent. The posterior right chest wall was marked using ultrasound guidance. A time-out was called fo r correct marking verification. Chest prepped and draped using sterile technique. Local anesthesia a chieved using 9 ml of 1% lidocaine injection. A 6fr Safe-T- Centesis set was introduced into the rig ht pleural space. Fluid was aspirated. The catheter was removed and the entry site was covered with sterile bandage. No immediate complications noted. Images acquired during the procedure were stored on PACS. FINDINGS: ENTRY SITE: posterior right chest. FLUID VOLUME: 800 cc FLUID ANALYSIS: Straw-colored OTHER: Fluid sent to the lab for testing. IMPRESSION: SUCCESSFUL THORACENTESIS USING ULTRASOUND GUIDANCE. COMMENT: Patient medication list reviewed: Yes- Quality ID# [id number]:Eligible professional attests to doc umenting in the medical record they obtained, updated, or reviewed the patient's current medications. TECHNICAL DOCUMENTATION: JOB ID: [id number] [employer]- All Rights Reserved Reading location - IP/workstation name: [email or web address]
[2019-08-28] MEDS ORDERED: 1/2 NORMAL SALINE 1,000 ML IV PRN (15:56)
--- NOTE | 2019-08-28 16:12 | RADIOLOGY REPORT (SQ) ---
EXAM DESCRIPTION: CHEST SINGLE VIEW COMPLETED DATE/TIME: 08/28/2019 3:28 pm REASON FOR STUDY: POST THORA RT PLEURAL EFFUSION COMPARISON: CT angio chest 08/27/2019 AP chest 08/15/2019 EXAM PARAMETERS: NUMBER OF VIEWS: One view. TECHNIQUE: Single frontal radiographic view of the chest acquired. RADIATION DOSE: NA LIMITATIONS: None. FINDINGS: LUNGS AND PLEURA: A moderate-sized left pleural effusion is present with left lower lobe a irspace disease, similar compared to CT chest 08/27/2019. Post right thoracentesis. No right-sided pneumothorax. No significant residual pleural fluid. Mini mal right basilar atelectasis is present. MEDIASTINUM AND HILAR STRUCTURES: No masses. Contour normal. HEART AND VASCULAR STRUCTURES: Stable cardiomegaly BONES: No acute findings. HARDWARE: Left-sided PICC line tip superior vena cava OTHER: No other significant finding. IMPRESSION: Post right thoracentesis. No right-sided pneumothorax. No significant residual right p leural fluid. Minimal right basilar atelectasis. Stable moderate left pleural effusion and left lower lobe airspace disease TECHNICAL DOCUMENTATION: JOB ID: [id number] [employer]- All Rights Reserved Reading location - IP/workstation name: [email or web address]
[2019-08-28 16:53] LABS: ARTERIAL BLOOD BASE EXCESS -0.5 mmol/L; ARTERIAL BLOOD H2CO3 1.34 mmol/L (1.05-1.35); ARTERIAL BLOOD O2 SATURATION 92.9 % (94-98); ARTERIAL BLOOD PCO2 44.6 mmHg (35-45); ARTERIAL BLOOD PH 7.37 (7.35-7.45); ARTERIAL BLOOD PO2 67.9 mmHg (80-100); ARTERIAL BLOOD TOTAL CO2 26.3 mmol/L (21-25)
[2019-08-28 16:54] LABS: ARTERIAL BLOOD FIO2 4
[2019-08-28] MEDS ORDERED: FUROSEMIDE INJ/PF 40 MG/4 ML SDV IV ONE (17:00)
--- NOTE | 2019-08-28 17:03 | Progress Note ---
Provider Note Provider Note: 08/28/2019 This afternoon at approximately 1600 hrs. called to the fourth floor to see the patient Namita Johnson, just returned from radiology following thoracentesis for a right pleural effusion. According to the op note approximately 800 cc of clear straw-colored fluid was removed without incident. The nurse reports that when the patient got back up on the floor she was in no respiratory distress but she was coughing. Quickly she started becoming hypoxic and tachypneic and her O2 sats dropped down into the low 80s. She was placed on nonrebreather but continued to have difficulty urinating. That portable chest x-ray was ordered as well as blood gas.. Portable chest x-ray shows no evidence of pneumothorax or complications following thoracentesis. I called the automotive leasing sales representative, Dr. Kramer, who responded quickly to the floor. He felt like the patient needed to be put on BIPAP and she continued to struggle may need to be intubated. Therefore she will be transported to ICU for closer observation. patient is medically stable for transfer.
--- NOTE | 2019-08-28 17:46 | RADIOLOGY REPORT (SQ) ---
EXAM DESCRIPTION: CHEST SINGLE VIEW COMPLETED DATE/TIME: 08/28/2019 4:49 pm REASON FOR STUDY: resp distress COMPARISON: 08/28/2019 15 24 imaging. EXAM PARAMETERS: NUMBER OF VIEWS: One view. TECHNIQUE: Single frontal radiographic view of the chest acquired. RADIATION DOSE: NA LIMITATIONS: None. FINDINGS: LUNGS AND PLEURA: Short interval development of hazy opacification of the right lower lung . Persistent left-sided pleural effusion. No pneumothorax. MEDIASTINUM AND HILAR STRUCTURES: No masses. Contour normal. HEART AND VASCULAR STRUCTURES: Heart normal in size. Normal vasculature. BONES: No acute findings. HARDWARE: Left upper extremity PICC terminates in the region of the superior vena cava. OTHER: No other significant finding. IMPRESSION: Short interval development of hazy opacification of the right lower lung may represent p ulmonary edema or aspiration. No pneumothorax. TECHNICAL DOCUMENTATION: JOB ID: [id number] [employer]- All Rights Reserved Reading location - IP/workstation name: [email or web address]
--- NOTE | 2019-08-28 17:52 | RADIOLOGY REPORT (SQ) ---
EXAM DESCRIPTION: CHEST SINGLE VIEW COMPLETED DATE/TIME: 08/28/2019 5:42 pm REASON FOR STUDY: resp distress COMPARISON: 08/28/2019 1640 hours EXAM PARAMETERS: NUMBER OF VIEWS: One view. TECHNIQUE: Single frontal radiographic view of the chest acquired. RADIATION DOSE: NA LIMITATIONS: None. FINDINGS: LUNGS AND PLEURA: Slightly improved aeration of the left lower lung with persistent hazy o pacification. Grossly stable appearance of a left-sided layering pleural effusion. No pneumothorax. MEDIASTINUM AND HILAR STRUCTURES: Stable. HEART AND VASCULAR STRUCTURES: Stable. BONES: No acute findings. HARDWARE: Left upper extremity PICC terminates in the region of the superior vena cava. OTHER: No other significant finding. IMPRESSION: Slightly improved radiographic appearance of the chest demonstrating improved aeration o f the right lower lung with persistent left-sided pleural effusion. TECHNICAL DOCUMENTATION: JOB ID: [id number] [employer]- All Rights Reserved Reading location - IP/workstation name: [email or web address]
--- NOTE | 2019-08-28 18:24 | CRITICAL CARE ADMISSION REPORT ---
HPI Date:: 08/28/19 Time:: 16:00 Reason for ICU Reason:: Re-expansion pulmonary edema and possible need for intubation. HPI: This patient is an 88 yo woman admitted 8 days ago with an infected sacral decubitus, proteus in urine. Her course has been recently complicated by effusions requiring thoracentesis. Today of L side with 800cc and tomorrow L side. Her post tap CXR should good drainage, no PTX. She recently has gotten SOB with evidence of re-expansion pulmoary edema to that side. Exacerbated by albumin of 2.0. Lasix given but likely will have no effect. Treatment is supportive care with positive pressure. On bipap and may need intubation. Still a full code. History obtained from:: Old records medical staff and patient - Diagnosis/Plan (1) Pulmonary edema Qualifiers: Chronicity: acute Qualified Code(s): J81.0 - Acute pulmonary edema Is this a current diagnosis for this admission?: Yes Plan: This is re-expansion pulmonary edema not related to CHF. Treatment should include positive pressure and time. If she cannt maintain her WOB may need to intubate (2) Sacral decubitus ulcer, stage II Is this a current diagnosis for this admission?: Yes Plan: Treated with wound care and antibiotics. (3) Hypoalbuminemia Is this a current diagnosis for this admission?: Yes Plan: With a level of 2.0 this is contributing as only 800cc of fluid drained - . Plan Summary: Watch overnight. Hope not to intubate. If stable in AM transfer to floor. 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 Denies: Hemorrhagic CVA, Ischemic CVA, Seizures Endocrine Medical History: Denies: Diabetes Mellitus Type 1, Diabetes Mellitus Type 2, Hyperthyroidism, Hypothyroidism Renal/ Medical History: Reports: Other - Chronic indwelling Alberto catheter Denies: Chronic Kidney Disease, Nephrolithiasis Malignancy Medical History: Reports: None GI Medical History: Denies: Cirrhosis, Crohn's Disease, Hepatitis, Ulcerative Colitis Musculoskeltal Medical History: Reports: Other - 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 Social/Family History - Social History Lives with: Family Smoking Status: Never Smoker Frequency of Alcohol Use: None Hx Recreational Drug Use: No Drugs: None Hx Prescription Drug Abuse: No - Medication/Allergies Home Medications: Mirtazapine [Remeron 15 mg Tablet] 15 mg PO DAILYP PRN 08/16/19 Ondansetron [Zofran Odt 4 mg Tablet (6 Tab/ER Disp)] 1 tab PO Q8H PRN 08/16/19 Allergies/Adverse Reactions: gabapentin Adverse Reaction (Verified 08/15/19 20:15) Review of Systems Constitutional: ABSENT: chills, fever(s), headache(s), weight gain, weight loss Eyes: ABSENT: visual disturbances Ears: ABSENT: hearing changes Cardiovascular: ABSENT: chest pain, dyspnea on exertion, edema, orthropnea, palpitations Respiratory: PRESENT: dyspnea, other - Increased WOB. Gastrointestinal: ABSENT: abdominal pain, constipation, diarrhea, hematemesis, hematochezia, nausea, vomiting Genitourinary: ABSENT: dysuria, hematuria Musculoskeletal: ABSENT: joint swelling Integumentary: PRESENT: wounds Neurological: ABSENT: abnormal gait, abnormal speech, confusion, dizziness, focal weakness, syncope Physical Exam Vital Signs: Temp Pulse Resp BP Pulse Ox 97.8 F 83 34 H 145/68 H 94 08/28/19 12:00 08/28/19 12:00 08/28/19 16:30 08/28/19 12:00 08/28/19 16:30 Intake & Output 08/27/19 08/28/19 08/29/19 06:59 06:59 06:59 Intake Total 3537 2300 1100 Output Total 2600 400 Balance 937 1900 1100 Weight 71.9 kg 67.3 kg Weight/Height Weight 67.3 kg Height 5 ft 2 in General appearance: PRESENT: mild distress Head exam: PRESENT: atraumatic, normocephalic Eye exam: PRESENT: conjunctiva pink, EOMI, PERRLA. ABSENT: scleral icterus Ear exam: PRESENT: normal external ear exam Mouth exam: PRESENT: moist, tongue midline Respiratory exam: PRESENT: accessory muscle use, crackles, retraction, tachypnea Cardiovascular exam: PRESENT: RRR. ABSENT: diastolic murmur, rubs, systolic murmur Pulses: PRESENT: normal dorsalis pedis pul GI/Abdominal exam: PRESENT: normal bowel sounds, soft. ABSENT: distended, guarding, mass, organolmegaly, rebound, tenderness Rectal exam: PRESENT: deferred Extremities exam: PRESENT: pedal edema Neurological exam: PRESENT: alert, awake, oriented to person, oriented to place, oriented to time, oriented to situation, CN II-XII grossly intact. ABSENT: motor sensory deficit Psychiatric exam: PRESENT: appropriate affect, normal mood. ABSENT: homicidal ideation, suicidal ideation Laboratory/Radiographs Laboratory Results: 08/27/19 08:50 08/27/19 08:50 08/28/19 16:29 Carbonic Acid 1.34 HCO3/H2CO3 Ratio 18:1 ABG pH 7.37 ABG pCO2 44.6 ABG pO2 67.9 L ABG HCO3 25.0 H ABG O2 Saturation 92.9 L ABG Base Excess -0.5 FiO2 4 Impressions: Guidance Fluoroscopy 08/24/19 00:00 IMPRESSION: SUCCESSFUL PLACEMENT OF A 5 FR DUAL LUMEN 40 CM PICC IN THE LEFT BASILIC VEIN. Interventional Vascular Procedure 08/24/19 00:00 IMPRESSION: SUCCESSFUL PLACEMENT OF A 5 FR DUAL LUMEN 40 CM PICC IN THE LEFT BASILIC VEIN. PICC Line Insertion 08/24/19 00:00 IMPRESSION: SUCCESSFUL PLACEMENT OF A 5 FR DUAL LUMEN 40 CM PICC IN THE LEFT BASILIC VEIN. Chest/Abdomen CTA 08/27/19 00:00 IMPRESSION: Cardiomegaly with large pleural effusions. No aortic dissection or aneurysm. No pulmonary embolus. No definite pneumonia. Thoracentesis Ultrasound 08/28/19 08:00 IMPRESSION: SUCCESSFUL THORACENTESIS USING ULTRASOUND GUIDANCE. Chest X-Ray 08/28/19 15:13 IMPRESSION: Post right thoracentesis. No right-sided pneumothorax. No significant residual right pleural fluid. Minimal right basilar atelectasis. Stable moderate left pleural effusion and left lower lobe airspace disease All labs, radiographs, diagnostic studies and EKGs were personally reviewed: Yes In addition, reports of radiographic and diagnostic studies were read: Yes Critical Time Critical Time (minutes): 40 -: The care of a critically ill patient is dynamic. This note represents a static moment in the admission process. orders and treatments may be given simulataneously and urgentl, and time is not sales and marketing representative of the treatment process. This patient requires Critical Care secondary to life threating organ or limb dysfunction. Without the need for Critical Care services, the patient is at risk for increasid mortality and morbidity.
[2019-08-28] MEDS ORDERED: NORMAL SALINE 1000 ML 500 ML IV ONE (23:00)
[2019-08-29] MEDS: NORMAL SALINE 1000 ML 1,000 ML IV PRN ×2 (00:03→11:41)
[2019-08-29] MEDS ORDERED: CALCIUM GLUCONATE 1,000 MG in DEXTROSE 5%-WATER 50 ML IV ONE (00:30)
[2019-08-29] MEDS ORDERED: CALCIUM GLUCONATE 1000 MG/10 ML INJ IV ONE (01:06)
[2019-08-29] MEDS: HEPARIN SOD (PORCINE) 5,000 UNIT/ML 1 ML VIAL SUBCUT SCH ×4 (06:24→21:35)
[2019-08-29] MEDS: CEFAZOLIN SODIUM 2 GM in DEXTROSE 5%-WATER 100 ML IV SCH ×3 (06:24→21:34)
--- NOTE | 2019-08-29 07:21 | PDOC CRITICAL CARE PROG REPORT ---
General Date:: 08/29/19 ICU Day:: 1 Hospital Day:: 15 Events in the past 12 to 24 Hours:: On bipap for re-expansion pulmonary edema, much better, on RA Review of systems relevant to events:: Respiratory Reason for ICU Addmission:: Re-expansion pulmonary edema and possible need for intubation. - Medications: Medications reviewed and adjusted accordingly: Yes Vasopressors:: None Sedation:: None Physical Exam Vital Signs: Temp Pulse Resp BP Pulse Ox 98.4 F 76 18 96/37 L 99 08/29/19 03:47 08/28/19 19:00 08/29/19 04:55 08/28/19 23:00 08/29/19 04:55 Intake & Output 08/28/19 08/29/19 08/30/19 06:59 06:59 06:59 Intake Total 2300 2300 Output Total 400 750 Balance 1900 1550 Weight 67.3 kg 74.9 kg Weight/Height Weight 74.9 kg Height 5 ft 2 in General appearance: PRESENT: no acute distress, well-developed, well-nourished Head exam: PRESENT: atraumatic, normocephalic Eye exam: PRESENT: conjunctiva pink, EOMI, PERRLA. ABSENT: scleral icterus Ear exam: PRESENT: normal external ear exam Mouth exam: PRESENT: moist, tongue midline Neck exam: PRESENT: carotid bruit Respiratory exam: PRESENT: clear to auscultation shannan. ABSENT: rales, rhonchi, wheezes Vascular exam: PRESENT: normal capillary refill GI/Abdominal exam: PRESENT: normal bowel sounds, soft. ABSENT: distended, guarding, mass, organolmegaly, rebound, tenderness Rectal exam: PRESENT: deferred Extremities exam: PRESENT: full ROM. ABSENT: calf tenderness, clubbing, pedal edema Neurological exam: PRESENT: alert, awake, oriented to person, oriented to place, oriented to time, oriented to situation, CN II-XII grossly intact. ABSENT: motor sensory deficit Skin exam: PRESENT: dry, intact, warm, other - Heel and sacral decubitis,. drsssed.. ABSENT: cyanosis, rash Laboratory/Radiographs Laboratory Results: 08/27/19 08:50 08/27/19 08:50 08/28/19 08/28/19 08/28/19 16:29 23:27 23:27 Carbonic Acid 1.34 HCO3/H2CO3 Ratio 18:1 ABG pH 7.37 ABG pCO2 44.6 ABG pO2 67.9 L ABG HCO3 25.0 H ABG O2 Saturation 92.9 L ABG Base Excess -0.5 FiO2 4 Ionized Calcium Diya 1.00 L Magnesium 1.5 L Impressions: Guidance Fluoroscopy 08/24/19 00:00 IMPRESSION: SUCCESSFUL PLACEMENT OF A 5 FR DUAL LUMEN 40 CM PICC IN THE LEFT BASILIC VEIN. Interventional Vascular Procedure 08/24/19 00:00 IMPRESSION: SUCCESSFUL PLACEMENT OF A 5 FR DUAL LUMEN 40 CM PICC IN THE LEFT BASILIC VEIN. PICC Line Insertion 08/24/19 00:00 IMPRESSION: SUCCESSFUL PLACEMENT OF A 5 FR DUAL LUMEN 40 CM PICC IN THE LEFT BASILIC VEIN. Chest/Abdomen CTA 08/27/19 00:00 IMPRESSION: Cardiomegaly with large pleural effusions. No aortic dissection or aneurysm. No pulmonary embolus. No definite pneumonia. Thoracentesis Ultrasound 08/28/19 08:00 IMPRESSION: SUCCESSFUL THORACENTESIS USING ULTRASOUND GUIDANCE. Chest X-Ray 08/28/19 17:13 IMPRESSION: Slightly improved radiographic appearance of the chest demonstrating improved aeration of the right lower lung with persistent left- sided pleural effusion. All labs, radiographs, diagnostic studies and EKGs were personally reviewed: Yes In addition, reports of radiographic and diagnostic studies were read: Yes Assessment and Plan - Diagnosis (1) Pulmonary edema Qualifiers: Chronicity: acute Qualified Code(s): J81.0 - Acute pulmonary edema Is this a current diagnosis for this admission?: Yes Plan: Resolved with a few hours of positive pressure via bipap. On RA. OK to tap other side. Be ready to use bipap if needed. (2) Sacral decubitus ulcer, stage II Is this a current diagnosis for this admission?: Yes Plan: Continue dressings. (3) Hypoalbuminemia Is this a current diagnosis for this admission?: Yes Plan: May benefit from high protien supplements to help heal decubiti. Critical Time Critical Time (minutes): 30 Level of Care: IMCU Anticipated discharge: SNF Within: within 48 hours -: 1. The care of a critical patient is a dynamic process. This note is a personal service representative synopsis but static in nature. The timeframe for treatments given in order is not necessary the actual time these treatments may have been done. 2. This patient requires critical care secondary to ongoing requirements for therapy not offered or safe outside the critical care environment. Transfer to a lower level of care with altered life or limb morbidity and mortality. 3. Multidisciplinary rounds completed. 4. ABCDE bundle addressed.
--- NOTE | 2019-08-29 09:08 | Progress Note ---
Provider Note Provider Note: 08/29/2019 Patient was still in the ICU this morning when I saw her on rounds, ever she is medically stable and going to be transferred to the floor today.. Patient and I discussed what happened yesterday and the fact that she still has the pleural effusion on the left side. Patient does not want a thoracentesis done today on the left side. she is going to continue to recuperate and rest today and we will discuss this in the morning. She was speaking in full sentences. Lungs are basically clear on both sides although slightly diminished on the left. Patient is hemodynamically stable for transfer to the floor.
[2019-08-29] MEDS: FAMOTIDINE 20 MG TABLET PO SCH ×2 (09:32→21:35)
[2019-08-29] MEDS: DOCUSATE SODIUM 100 MG CAPSULE PO SCH ×2 (11:24→17:27)
[2019-08-29] MEDS: NORMAL SALINE 10 ML SDV (SCHEDULED) IV SCH ×2 (11:40→21:35)
[2019-08-29] MEDS: NYSTATIN/TRIAMCIN CREAM 15 GM TP SCH ×4 (14:20→21:43)
[2019-08-29] MEDS: POLYETHYLENE GLYCOL 3350 POWDER 17 GM/1 PACKET PO SCH (14:20)
[2019-08-29] MEDS: ONDANSETRON 4 MG TAB.RAPDIS SL PRN (20:48)
[2019-08-30] MEDS: NORMAL SALINE 1000 ML 1,000 ML IV PRN ×2 (02:53→16:41)
[2019-08-30] MEDS: ONDANSETRON 4 MG TAB.RAPDIS SL PRN ×2 (02:53→08:08)
[2019-08-30] MEDS: CEFAZOLIN SODIUM 2 GM in DEXTROSE 5%-WATER 100 ML IV SCH ×3 (05:42→22:17)
[2019-08-30] MEDS: HEPARIN SOD (PORCINE) 5,000 UNIT/ML 1 ML VIAL SUBCUT SCH ×3 (05:43→21:49)
[2019-08-30 09:08] LABS: ABSOLUTE BASOPHILS # (AUTO) 0.1 10^3/uL (0.0-0.2); ABSOLUTE EOSINOPHILS # (AUTO) 0.1 10^3/uL (0.0-0.6); ABSOLUTE LYMPHOCYTES (AUTO) 1.9 10^3/uL (0.5-4.7); ABSOLUTE MONOCYTES (AUTO) 0.9 10^3/uL (0.1-1.4); ABSOLUTE NEUT (AUTO) 5.9 10^3/uL (1.7-8.2); BASOPHILS % (AUTO) 1.1 % (0-2); EOSINOPHILS % (AUTO) 0.9 % (0-6); HEMATOCRIT 26.3 % (36.0-47.0); HEMOGLOBIN 8.7 g/dL (12.0-15.5); LYMPHOCYTES % (AUTO) 21.4 % (13-45); MEAN CORPUSCULAR HEMOGLOBIN 27.3 pg (27.0-33.4); MEAN CORPUSCULAR HGB CONC 33.1 g/dL (32.0-36.0); MEAN CORPUSCULAR VOLUME 82 fl (80-97); PLATELET COUNT 248 10^3/uL (150-450); RED BLOOD COUNT 3.18 10^6/uL (3.72-5.28); RED CELL DISTRIBUTION WIDTH 15.7 % (11.5-14.0); SEGMENTED NEUTROPHILS % (AUTO) 66.6 % (42-78); TOTAL CELLS COUNTED % (AUTO) 100 %; WHITE BLOOD COUNT 8.9 10^3/uL (4.0-10.5)
[2019-08-30 09:25] LABS: BLOOD UREA NITROGEN 4 mg/dL (7-20); CALCIUM 7.1 mg/dL (8.4-10.2); GLUCOSE 89 mg/dL (75-110)
[2019-08-30 09:31] LABS: CARBON DIOXIDE 26 mmol/L (22-30); CHLORIDE 109 mmol/L (98-107)
[2019-08-30 09:39] LABS: ANION GAP 3 (5-19)
[2019-08-30] MEDS: FAMOTIDINE 20 MG TABLET PO SCH ×2 (09:42→21:49)
[2019-08-30] MEDS: NORMAL SALINE 10 ML SDV (SCHEDULED) IV SCH ×2 (09:43→21:49)
[2019-08-30] MEDS: DOCUSATE SODIUM 100 MG CAPSULE PO SCH ×2 (09:43→17:33)
[2019-08-30] MEDS: NYSTATIN/TRIAMCIN CREAM 15 GM TP SCH ×4 (10:01→22:19)
--- NOTE | 2019-08-30 10:43 | PDOC PROGRESS REPORT ---
Subjective Progress Note for:: 08/30/19 Reason For Visit: RESPIRATORY DISTRESS S/P THORACENTESIS 08/30/2019 Patient's primary medical problem is her bacteremia which she will need IV antibiotics to go home with. No further thoracentesis procedures during this hospitalization, per discussion with the patient Physical Exam Vital Signs: Temp Pulse Resp BP Pulse Ox 98.8 F 96 20 120/48 L 96 08/30/19 07:41 08/30/19 07:41 08/30/19 07:41 08/30/19 07:41 08/30/19 07:41 Intake & Output 08/29/19 08/30/19 08/31/19 06:59 06:59 06:59 Intake Total 2400 3017 100 Output Total 750 2777 Balance 1650 240 100 Weight 74.9 kg 80.5 kg General appearance: PRESENT: no acute distress, other - Sitting up in bed talking in full sentences no shortness of breath Vigorous complaint is nausea, which she says she has had for almost a year Respiratory exam: PRESENT: clear to auscultation shannan. ABSENT: rales, rhonchi, wheezes Cardiovascular exam: PRESENT: RRR. ABSENT: diastolic murmur, rubs, systolic murmur Neurological exam: PRESENT: alert, awake, oriented to person, oriented to place, oriented to time, oriented to situation, CN II-XII grossly intact. ABSENT: motor sensory deficit Psychiatric exam: PRESENT: appropriate affect, normal mood. ABSENT: homicidal ideation, suicidal ideation Results Laboratory Results: 08/30/19 08:48 08/30/19 08:48 08/30/19 08/30/19 08:48 08:48 WBC 8.9 RBC 3.18 L Hgb 8.7 L Hct 26.3 L MCV 82 MCH 27.3 MCHC 33.1 RDW 15.7 H Plt Count 248 Seg Neutrophils % 66.6 Sodium 138.1 Potassium 4.0 Chloride 109 H Carbon Dioxide 26 Anion Gap 3 L BUN 4 L Creatinine 0.66 Est GFR ( Amer) > 60 Glucose 89 Calcium 7.1 L Impressions: Guidance Fluoroscopy 08/24/19 00:00 IMPRESSION: SUCCESSFUL PLACEMENT OF A 5 FR DUAL LUMEN 40 CM PICC IN THE LEFT BASILIC VEIN. Interventional Vascular Procedure 08/24/19 00:00 IMPRESSION: SUCCESSFUL PLACEMENT OF A 5 FR DUAL LUMEN 40 CM PICC IN THE LEFT BASILIC VEIN. PICC Line Insertion 08/24/19 00:00 IMPRESSION: SUCCESSFUL PLACEMENT OF A 5 FR DUAL LUMEN 40 CM PICC IN THE LEFT BASILIC VEIN. Chest/Abdomen CTA 08/27/19 00:00 IMPRESSION: Cardiomegaly with large pleural effusions. No aortic dissection or aneurysm. No pulmonary embolus. No definite pneumonia. Thoracentesis Ultrasound 08/28/19 08:00 IMPRESSION: SUCCESSFUL THORACENTESIS USING ULTRASOUND GUIDANCE. Chest X-Ray 08/28/19 17:13 IMPRESSION: Slightly improved radiographic appearance of the chest demonstrating improved aeration of the right lower lung with persistent left- sided pleural effusion. Assessment and Plan - Diagnosis (1) Decreased oral intake Is this a current diagnosis for this admission?: Yes (2) Decubitus ulcer of right heel Qualifiers: Pressure injury stage: unspecified pressure injury stage Qualified Code(s): L89.619 - Pressure ulcer of right heel, unspecified stage Is this a current diagnosis for this admission?: Yes (3) Decubitus ulcer of sacral area Qualifiers: Pressure injury stage: unspecified pressure injury stage Qualified Code(s): L89.159 - Pressure ulcer of sacral region, unspecified stage Is this a current diagnosis for this admission?: Yes (4) Positive blood culture Is this a current diagnosis for this admission?: Yes (5) Sacral decubitus ulcer, stage II Is this a current diagnosis for this admission?: Yes (6) Spina bifida Qualifiers: Spinal region: lumbosacral Presence of hydrocephalus: without hydrocephalus Qualified Code(s): Q05.7 - Lumbar spina bifida without hydrocephalus Is this a current diagnosis for this admission?: Yes - Plan Summary Summary: Patient is admitted to the medical floor and will receive routine supportive and symptomatic cares. She will be treated with IV fluid utilizing D5LR at 167 mL/h initially. She will be treated with IV antibiotics utilizing Rocephin 1 g daily. Her fever will be treated with Tylenol as required. She will have daily CBCs and metabolic profiles obtained for ongoing evaluation and adjustment of therapy. She will receive wound care by the nursing staff and a surgical consult may be obtained if required. Her current wound management is done by the local wound care clinic. She will use morphine sulfate 2 to 4 mg IV every 2 hours on as-needed basis for pain. She will have Phenergan 12.5 mg IV every 4 hours on an as-needed basis for nausea or vomiting. 08/25/2019 Temperature 97.4 pulse 81 blood pressure 141/45, O2 sat 93% on room air Labs have been checked recently, recheck in the a.m. She is scheduled for SYMONE tomorrow And has PICC line in place and will need IV antibiotics for the next 4 weeks if SYMONE is negative if it is positive she will need 6 weeks For swollen 2 g every 8 hours 08/26/2019 Eating SYMONE results, determine length of IV antibiotics at home Will discharge either tomorrow or Saturday Labs and chart reviewed as above 08/27/2019 She is vital signs are actually stable temperature 97.4, pulse 72, and regular blood pressure 144/58, O2 sat 99% on 2 L nasal cannula Patient Sleepy and arouses to pain appropriately Labs this morning showed normal white count 7.4 calcium is low at 7.5, albumin low at 2.0. Corrected calcium level of 9 Give patient some elemental calcium CT angiogram from last night shows large pleural effusions, not present on admission chest x-ray Patient may been symptomatic from this last night. Going to talk to the patient today and find out if she would like a therapeutic thoracentesis prior to going home. Up until last night patient has had no indication of being short of breath, hypoxic or symptomatic from the pleural effusions. 08/28/2019 Patient who is competent to make decisions like to have the pleural effusion drained. Her son who is at the bedside agreed. This will hopefully be done today. Charge planning is working to set up home antibiotics for the next 4 weeks. Discharge is pending when the thoracentesis is done INR today is 1.5, she is afebrile, pulse is in the 80s or low 90s, Oxygen saturation is in the upper 90s or 100 at 2 L nasal cannula 08/30/2019 She has discussed with her nurse that she would like to change her CODE STATUS. I will go back upstairs and talk to her about this Only complaint involves nausea, however no vomiting. No complaint of chest pain no complaint of shortness of breath Patient's O2 sat is 96% on 2 L nasal cannula, which are stable CBC is normal chemistry panel is basically normal going to recheck an albumin level today as well as adjust her calcium based on the corrected value. Recent albumin level was 2 and based on that figure her corrected calcium is 8.7. May be able to go home tomorrow or Saturday if she is up and more ambulatory today with no problems Patient appears to have MSSA bacteremia and Pseudomonas UTI quiring a total of 4 weeks IV antibiotics - Time Time Spent with patient: 25-34 minutes
[2019-08-30] MEDS: POLYETHYLENE GLYCOL 3350 POWDER 17 GM/1 PACKET PO SCH (11:57)
[2019-08-30] MEDS: METOCLOPRAMIDE HCL 10 MG TABLET PO SCH ×3 (11:57→21:49)
[2019-08-30] MEDS: PROMETHAZINE HCL INJ 25 MG/1 ML VIAL IV PRN (16:39)
[2019-08-30] MEDS ORDERED: CEFAZOLIN 1 GM/D5W RTU 2 GM/100 ML RTUPB IV ONE (21:43)
[2019-08-30] MEDS ORDERED: CEFAZOLIN INJ 1 GM VIAL ONE (21:46)
[2019-08-31] MEDS: PROMETHAZINE HCL INJ 25 MG/1 ML VIAL IV PRN ×2 (02:17→18:47)
[2019-08-31] MEDS ORDERED: GUAIFENESIN SYRP 200 MG/10 ML UDC PO PRN (03:43)
[2019-08-31] MEDS ORDERED: FUROSEMIDE INJ/PF 40 MG/4 ML SDV ONE (03:57)
[2019-08-31] MEDS ORDERED: FUROSEMIDE INJ/PF 40 MG/4 ML SDV IV ONE (04:00)
--- NOTE | 2019-08-31 04:34 | RADIOLOGY REPORT (SQ) ---
EXAM DESCRIPTION: XR CHEST 1 VIEW COMPLETED DATE/TME: 08/31/2019 04:00 CLINICAL HISTORY: 88 years, Female, sob COMPARISON: 08/28/2019 chest NUMBER OF VIEWS: 1 TECHNIQUE: Portable chest LIMITATIONS: None. FINDINGS: Cardiomegaly. PICC catheter with the tip in the SVC. No pneumothorax. Bilateral pleural effusions and airspace opacities. Improved aeration of the left lung base. Slight worsening right pleural effusion. Diffuse interstitial edema. Osteopenia IMPRESSION: Cardiomegaly with pulmonary edema pattern. PICC catheter in unchanged position. Improved aeration of the left lung base. Slight worsening in the right pleural effusion. copyright 2010 [employer]- All Rights Reserved
[2019-08-31] MEDS: HEPARIN SOD (PORCINE) 5,000 UNIT/ML 1 ML VIAL SUBCUT SCH ×3 (05:16→21:25)
[2019-08-31] MEDS: CEFAZOLIN SODIUM 2 GM in DEXTROSE 5%-WATER 100 ML IV SCH ×3 (06:10→21:28)
[2019-08-31 08:34] LABS: BLOOD UREA NITROGEN 4 mg/dL (7-20); CARBON DIOXIDE 28 mmol/L (22-30); CHLORIDE 106 mmol/L (98-107); GLUCOSE 85 mg/dL (75-110); POTASSIUM 3.9 mmol/L (3.6-5.0)
[2019-08-31 08:39] LABS: ANION GAP 4 (5-19)
[2019-08-31] MEDS: ALBUMIN HUMAN 12.5 GM/50 ML RTUINJ IV SCH ×7 (08:53→20:19)
[2019-08-31] MEDS: METOCLOPRAMIDE HCL 10 MG TABLET PO SCH ×4 (08:54→21:43)
--- NOTE | 2019-08-31 09:19 | PDOC PROGRESS REPORT ---
Subjective Progress Note for:: 08/31/19 Reason For Visit: RESPIRATORY DISTRESS S/P THORACENTESIS 08-31 Patient was admitted 616 days ago for fever and sepsis. She has a chronic indwelling Alberto catheter and failed outpatient antibiotics. She will need IV antibiotics at discharge Physical Exam Vital Signs: Temp Pulse Resp BP Pulse Ox 98.6 F 99 17 134/58 H 98 08/31/19 07:55 08/31/19 07:55 08/31/19 07:55 08/31/19 07:55 08/31/19 07:55 Intake & Output 08/30/19 08/31/19 09/01/19 06:59 06:59 06:59 Intake Total 3017 2830 100 Output Total 2777 2150 Balance 240 680 100 Weight 80.5 kg 83.6 kg General appearance: PRESENT: no acute distress, other - Patient is awake and alert, last night had some shortness of breath Respiratory exam: PRESENT: clear to auscultation shannan, other - Patient really does not sound wet to me. ABSENT: rales, rhonchi, wheezes Cardiovascular exam: PRESENT: RRR. ABSENT: diastolic murmur, rubs, systolic murmur Neurological exam: PRESENT: alert, awake, oriented to person, oriented to place, oriented to time, oriented to situation, CN II-XII grossly intact. ABSENT: motor sensory deficit Psychiatric exam: PRESENT: appropriate affect, normal mood. ABSENT: homicidal ideation, suicidal ideation Results Laboratory Results: 08/30/19 08:48 08/31/19 07:02 08/28/19 08/30/19 08/30/19 15:00 08:48 08:48 WBC 8.9 RBC 3.18 L Hgb 8.7 L Hct 26.3 L MCV 82 MCH 27.3 MCHC 33.1 RDW 15.7 H Plt Count 248 Seg Neutrophils % 66.6 Sodium 138.1 Potassium 4.0 Chloride 109 H Carbon Dioxide 26 Anion Gap 3 L BUN 4 L Creatinine 0.66 Est GFR ( Amer) > 60 Glucose 89 Calcium 7.1 L Magnesium Albumin Fluid Total Protein 1.8 08/30/19 08/31/19 08:48 07:02 WBC RBC Hgb Hct MCV MCH MCHC RDW Plt Count Seg Neutrophils % Sodium 138.1 Potassium 3.9 Chloride 106 Carbon Dioxide 28 Anion Gap 4 L BUN 4 L Creatinine 0.61 Est GFR ( Amer) > 60 Glucose 85 Calcium 7.0 L* Magnesium 1.7 Albumin 1.8 L 2.0 L Fluid Total Protein Impressions: Guidance Fluoroscopy 08/24/19 00:00 IMPRESSION: SUCCESSFUL PLACEMENT OF A 5 FR DUAL LUMEN 40 CM PICC IN THE LEFT BASILIC VEIN. Interventional Vascular Procedure 08/24/19 00:00 IMPRESSION: SUCCESSFUL PLACEMENT OF A 5 FR DUAL LUMEN 40 CM PICC IN THE LEFT BASILIC VEIN. PICC Line Insertion 08/24/19 00:00 IMPRESSION: SUCCESSFUL PLACEMENT OF A 5 FR DUAL LUMEN 40 CM PICC IN THE LEFT BASILIC VEIN. Chest/Abdomen CTA 08/27/19 00:00 IMPRESSION: Cardiomegaly with large pleural effusions. No aortic dissection or aneurysm. No pulmonary embolus. No definite pneumonia. Thoracentesis Ultrasound 08/28/19 08:00 IMPRESSION: SUCCESSFUL THORACENTESIS USING ULTRASOUND GUIDANCE. Chest X-Ray 08/31/19 04:00 IMPRESSION: Cardiomegaly with pulmonary edema pattern. PICC catheter in unchanged position. Improved aeration of the left lung base. Slight worsening in the right pleural effusion. copyright 2010 [facility] [employer]- All Rights Reserved Assessment and Plan - Diagnosis (1) Decreased oral intake Is this a current diagnosis for this admission?: Yes (2) Decubitus ulcer of right heel Qualifiers: Pressure injury stage: unspecified pressure injury stage Qualified Code(s): L89.619 - Pressure ulcer of right heel, unspecified stage Is this a current diagnosis for this admission?: Yes (3) Decubitus ulcer of sacral area Qualifiers: Pressure injury stage: unspecified pressure injury stage Qualified Code(s): L89.159 - Pressure ulcer of sacral region, unspecified stage Is this a current diagnosis for this admission?: Yes (4) Positive blood culture Is this a current diagnosis for this admission?: Yes (5) Sacral decubitus ulcer, stage II Is this a current diagnosis for this admission?: Yes (6) Spina bifida Qualifiers: Spinal region: lumbosacral Presence of hydrocephalus: without hydrocephalus Qualified Code(s): Q05.7 - Lumbar spina bifida without hydrocephalus Is this a current diagnosis for this admission?: Yes (7) Paraplegia Is this a current diagnosis for this admission?: Yes - Plan Summary Summary: Patient is admitted to the medical floor and will receive routine supportive and symptomatic cares. She will be treated with IV fluid utilizing D5LR at 167 mL/h initially. She will be treated with IV antibiotics utilizing Rocephin 1 g daily. Her fever will be treated with Tylenol as required. She will have daily CBCs and metabolic profiles obtained for ongoing evaluation and adjustment of therapy. She will receive wound care by the nursing staff and a surgical consu lt may be obtained if required. Her current wound management is done by the local wound care clinic. She will use morphine sulfate 2 to 4 mg IV every 2 hours on as-needed basis for pain. She will have Phenergan 12.5 mg IV every 4 hours on an as-needed basis for nausea or vomiting. 08/25/2019 Temperature 97.4 pulse 81 blood pressure 141/45, O2 sat 93% on room air Labs have been checked recently, recheck in the a.m. She is scheduled for SYMONE tomorrow And has PICC line in place and will need IV antibiotics for the next 4 weeks if SYMONE is negative if it is positive she will need 6 weeks For swollen 2 g every 8 hours 08/26/2019 Eating SYMONE results, determine length of IV antibiotics at home Will discharge either tomorrow or Saturday Labs and chart reviewed as above 08/27/2019 She is vital signs are actually stable temperature 97.4, pulse 72, and regular blood pressure 144/58, O2 sat 99% on 2 L nasal cannula Patient Sleepy and arouses to pain appropriately Labs this morning showed normal white count 7.4 calcium is low at 7.5, albumin low at 2.0. Corrected calcium level of 9 Give patient some elemental calcium CT angiogram from last night shows large pleural effusions, not present on a dmission chest x-ray Patient may been symptomatic from this last night. Going to talk to the patient today and find out if she would like a therapeutic thoracentesis prior to going home. Up until last night patient has had no indication of being short of breath, hypoxic or symptomatic from the pleural effusions. 08/28/2019 Patient who is competent to make decisions like to have the pleural effusion drained. Her son who is at the bedside agreed. This will hopefully be done today. Discharge planning is working to set up home antibiotics for the next 4 weeks. Discharge is pending when the thoracentesis is done INR today is 1.5, she is afebrile, pulse is in the 80s or low 90s, Oxygen saturation is in the upper 90s or 100 at 2 L nasal cannula 08/30/2019 She has discussed with her nurse that she would like to change her CODE STATUS. I will go back upstairs and talk to her about this Only complaint involves nausea, however no vomiting. No complaint of chest pain no complaint of shortness of breath Patient's O2 sat is 96% on 2 L nasal cannula, which are stable CBC is normal chemistry panel is basically normal going to recheck an albumin level today as well as adjust her calcium based on the corrected value. Recent albumin level was 2 and based on that figure her corrected calcium is 8.7. May be able to go home tomorrow or Saturday if she is up and more ambulatory today with no problems Patient appears to have MSSA bacteremia and Pseudomonas UTI quiring a total of 4 weeks IV antibiotics 08/31/2019 It seems as though the longer the patient stays in the hospital the sicker she is getting. Patient is changed her CODE STATUS now she would like to be a DNR Last night patient had some shortness of breath and her chest x-ray shows some possible early fluid overload. She was given a one-time dose of Lasix last night and I have made it every 12 hours Today I am checking her magnesium and calcium and albumin and trying to correct those, as the longer she is staying in the hospital the lower they are going Has a persistent pleural effusion on the left that is not going to be tapped She has a PICC line in the left upper extremity to get her home antibiotics. This should be finalized today as far as the company and getting that set up Ancef 1 g IV every 8 hours. I am repeating blood cultures today. Patient did have negative blood cultures reported out on August 18. Blood cultures from today are negative then patient will need 2 more weeks of IV Ancef. If blood cultures are positive she will need at least 4 weeks more of IV Ancef Patient currently is being treated for the MSSA bacteremia and the Pseudomonas in her urine - Time Time Spent with patient: 35 or more minutes
[2019-08-31] MEDS: NORMAL SALINE 10 ML SDV (SCHEDULED) IV SCH ×2 (10:10→21:43)
[2019-08-31] MEDS: FUROSEMIDE 20 MG TABLET PO SCH ×2 (10:10→17:12)
[2019-08-31] MEDS: DOCUSATE SODIUM 100 MG CAPSULE PO SCH ×2 (10:10→17:12)
[2019-08-31] MEDS: FAMOTIDINE 20 MG TABLET PO SCH ×2 (10:10→21:26)
[2019-08-31] MEDS: NYSTATIN/TRIAMCIN CREAM 15 GM TP SCH ×4 (11:00→21:25)
[2019-08-31] MEDS: POLYETHYLENE GLYCOL 3350 POWDER 17 GM/1 PACKET PO SCH (12:12)
[2019-08-31] MEDS: MAG HYDROX/AL HYDROX/SIMETH SUSP 30 ML UDCUP PO PRN (20:21)
[2019-08-31] MEDS: ACETAMINOPHEN 325 MG TABLET PO PRN (21:26)
[2019-09-01] MEDS: CEFAZOLIN SODIUM 2 GM in DEXTROSE 5%-WATER 100 ML IV SCH ×3 (05:19→21:44)
[2019-09-01] MEDS: HEPARIN SOD (PORCINE) 5,000 UNIT/ML 1 ML VIAL SUBCUT SCH ×3 (05:19→21:46)
[2019-09-01] MEDS: METOCLOPRAMIDE HCL 10 MG TABLET PO SCH ×4 (09:56→21:44)
[2019-09-01] MEDS: DOCUSATE SODIUM 100 MG CAPSULE PO SCH ×2 (09:56→18:16)
[2019-09-01] MEDS: NYSTATIN/TRIAMCIN CREAM 15 GM TP SCH ×4 (09:57→21:45)
[2019-09-01] MEDS: NORMAL SALINE 10 ML SDV (SCHEDULED) IV SCH ×2 (09:57→21:46)
[2019-09-01] MEDS: FAMOTIDINE 20 MG TABLET PO SCH ×2 (09:57→21:44)
[2019-09-01] MEDS: FUROSEMIDE 20 MG TABLET PO SCH ×2 (09:57→18:16)
[2019-09-01] MEDS: POLYETHYLENE GLYCOL 3350 POWDER 17 GM/1 PACKET PO SCH (13:07)
--- NOTE | 2019-09-01 16:53 | PDOC PROGRESS REPORT ---
Subjective Progress Note for:: 09/01/19 Subjective:: No adverse events overnight. No new complaints. Still complaining of some chronic nausea which apparently has been going on for months. Her appetite is not been very good. No fevers. Reason For Visit: RESPIRATORY DISTRESS S/P THORACENTESIS Physical Exam Vital Signs: Temp Pulse Resp BP Pulse Ox 99.3 F 107 H 18 129/47 H 94 09/01/19 16:08 09/01/19 16:08 09/01/19 16:08 09/01/19 16:08 09/01/19 16:08 Intake & Output 08/31/19 09/01/19 09/02/19 06:59 06:59 06:59 Intake Total 2830 1113 100 Output Total 2150 5000 Balance 680 -4137 100 Weight 83.6 kg 77.5 kg 77.5 kg General appearance: PRESENT: no acute distress, cooperative, disheveled Eye exam: PRESENT: EOMI, PERRLA. ABSENT: conjunctival injection, nystagmus, scleral icterus Respiratory exam: PRESENT: clear to auscultation shannan, symmetrical, unlabored. ABSENT: accessory muscle use, chest wall tenderness, crackles, prolonged expiratory phas, rhonchi, tachypnea, wheezes Cardiovascular exam: PRESENT: RRR, +S1, +S2 Pulses: PRESENT: normal carotid pulses Vascular exam: PRESENT: normal capillary refill GI/Abdominal exam: PRESENT: normal bowel sounds, soft. ABSENT: distended, guarding, rebound, tenderness Neurological exam: PRESENT: alert, awake, oriented to person, oriented to place, oriented to time, oriented to situation Psychiatric exam: PRESENT: appropriate affect, normal mood Results Laboratory Results: 08/30/19 08:48 08/31/19 07:02 Impressions: Guidance Fluoroscopy 08/24/19 00:00 IMPRESSION: SUCCESSFUL PLACEMENT OF A 5 FR DUAL LUMEN 40 CM PICC IN THE LEFT BASILIC VEIN. Interventional Vascular Procedure 08/24/19 00:00 IMPRESSION: SUCCESSFUL PLACEMENT OF A 5 FR DUAL LUMEN 40 CM PICC IN THE LEFT BASILIC VEIN. PICC Line Insertion 08/24/19 00:00 IMPRESSION: SUCCESSFUL PLACEMENT OF A 5 FR DUAL LUMEN 40 CM PICC IN THE LEFT BASILIC VEIN. Chest/Abdomen CTA 08/27/19 00:00 IMPRESSION: Cardiomegaly with large pleural effusions. No aortic dissection or aneurysm. No pulmonary embolus. No definite pneumonia. Thoracentesis Ultrasound 08/28/19 08:00 IMPRESSION: SUCCESSFUL THORACENTESIS USING ULTRASOUND GUIDANCE. Chest X-Ray 08/31/19 04:00 IMPRESSION: Cardiomegaly with pulmonary edema pattern. PICC catheter in unchanged position. Improved aeration of the left lung base. Slight worsening in the right pleural effusion. copyright 2010 [employer]- All Rights Reserved Assessment and Plan - Diagnosis (1) Urinary tract infection Qualifiers: Urinary tract infection type: catheter-associated UTI Indwelling urinary catheter type: indwelling urethral catheter Encounter type: initial encounter Qualified Code(s): T83.511A - Infection and inflammatory reaction due to indwelling urethral catheter, initial encounter; N39.0 - Urinary tract infection, site not specified Is this a current diagnosis for this admission?: Yes Plan: Resolved, completed 10 days of cefepime. (2) Decubitus ulcer of right heel Qualifiers: Pressure injury stage: unspecified pressure injury stage Qualified Code(s): L89.619 - Pressure ulcer of right heel, unspecified stage Is this a current diagnosis for this admission?: Yes Plan: Local wound care including offloading. Dr. Clark did not believe the wound to be a source of infection. (3) Decubitus ulcer of sacral area Qualifiers: Pressure injury stage: unspecified pressure injury stage Qualified Code(s): L89.159 - Pressure ulcer of sacral region, unspecified stage Is this a current diagnosis for this admission?: Yes Plan: Local wound care as she was doing at home. Dr. Clark did not believe the wound to be a source of infection. (4) Paraplegia Is this a current diagnosis for this admission?: Yes (5) Spina bifida Qualifiers: Spinal region: lumbosacral Presence of hydrocephalus: without hydrocephalus Qualified Code(s): Q05.7 - Lumbar spina bifida without hydrocephalus Is this a current diagnosis for this admission?: Yes (6) Positive blood culture Is this a current diagnosis for this admission?: Yes Plan: She needs 2 more weeks of Ancef per infectious disease recommendations. There was apparently some trouble getting it over the weekend. At this point were planning on discharge for . She has had some electrolyte disturbances which continue to manifest primarily because she is just not eating enough. - Plan Summary Summary: Patient is admitted to the medical floor and will receive routine supportive and symptomatic cares. She will be treated with IV fluid utilizing D5LR at 167 mL/h initially. She will be treated with IV antibiotics utilizing Rocephin 1 g daily. Her fever will be treated with Tylenol as required. She will have daily CBCs and metabolic profiles obtained for ongoing evaluation and adjustment of therapy. She will receive wound care by the nursing staff and a surgical consult may be obtained if required. Her current wound management is done by the local wound care clinic. She will use morphine sulfate 2 to 4 mg IV every 2 hours on as-needed basis for pain. She will have Phenergan 12.5 mg IV every 4 hours on an as-needed basis for nausea or vomiting. 08/25/2019 Temperature 97.4 pulse 81 blood pressure 141/45, O2 sat 93% on room air Labs have been checked recently, recheck in the a.m. She is scheduled for SYMONE tomorrow And has PICC line in place and will need IV antibiotics for the next 4 weeks if SYMONE is negative if it is positive she will need 6 weeks For swollen 2 g every 8 hours 08/26/2019 Eating SYMONE results, determine length of IV antibiotics at home Will discharge either tomorrow or Saturday Labs and chart reviewed as above 08/27/2019 She is vital signs are actually stable temperature 97.4, pulse 72, and regular blood pressure 144/58, O2 sat 99% on 2 L nasal cannula Patient Sleepy and arouses to pain appropriately Labs this morning showed normal white count 7.4 calcium is low at 7.5, albumin low at 2.0. Corrected calcium level of 9 Give patient some elemental calcium CT angiogram from last night shows large pleural effusions, not present on admission chest x-ray Patient may been symptomatic from this last night. Going to talk to the patient today and find out if she would like a therapeutic thoracentesis prior to going home. Up until last night patient has had no indication of being short of breath, hypoxic or symptomatic from the pleural effusions. 08/28/2019 Patient who is competent to make decisions like to have the pleural effusion drained. Her son who is at the bedside agreed. This will hopefully be done today. Discharge planning is working to set up home antibiotics for the next 4 weeks. Discharge is pending when the thoracentesis is done INR today is 1.5, she is afebrile, pulse is in the 80s or low 90s, Oxygen saturation is in the upper 90s or 100 at 2 L nasal cannula 08/30/2019 She has discussed with her nurse that she would like to change her CODE STATUS. I will go back upstairs and talk to her about this Only complaint involves nausea, however no vomiting. No complaint of chest pain no complaint of shortness of breath Patient's O2 sat is 96% on 2 L nasal cannula, which are stable CBC is normal chemistry panel is basically normal going to recheck an albumin level today as well as adjust her calcium based on the corrected value. Recent albumin level was 2 and based on that figure her corrected calcium is 8.7. May be able to go home tomorrow or Saturday if she is up and more ambulatory today with no problems Patient appears to have MSSA bacteremia and Pseudomonas UTI quiring a total of 4 weeks IV antibiotics 08/31/2019 It seems as though the longer the patient stays in the hospital the sicker she is getting. Patient is changed her CODE STATUS now she would like to be a DNR Last night patient had some shortness of breath and her chest x-ray shows some possible early fluid overload. She was given a one-time dose of Lasix last night and I have made it every 12 hours Today I am checking her magnesium and calcium and albumin and trying to correct those, as the longer she is staying in the hospital the lower they are going Has a persistent pleural effusion on the left that is not going to be tapped She has a PICC line in the left upper extremity to get her home antibiotics. This should be finalized today as far as the company and getting that set up Ancef 1 g IV every 8 hours. I am repeating blood cultures today. Patient did have negative blood cultures reported out on August 18. Blood cultures from today are negative then patient will need 2 more weeks of IV Ancef. If blood cultures are positive she will need at least 4 weeks more of IV Ancef Patient currently is being treated for the MSSA bacteremia and the Pseudomonas in her urine - Time Time Spent with patient: 15-24 minutes
[2019-09-01] MEDS: PROMETHAZINE HCL INJ 25 MG/1 ML VIAL IV PRN (22:31)
[2019-09-02] MEDS: HEPARIN SOD (PORCINE) 5,000 UNIT/ML 1 ML VIAL SUBCUT SCH ×3 (05:34→21:16)
[2019-09-02] MEDS: CEFAZOLIN SODIUM 2 GM in DEXTROSE 5%-WATER 100 ML IV SCH ×2 (05:34→13:30)
[2019-09-02] MEDS: PROMETHAZINE HCL INJ 25 MG/1 ML VIAL IV PRN (05:44)
[2019-09-02] MEDS: METOCLOPRAMIDE HCL 10 MG TABLET PO SCH ×4 (09:27→21:16)
[2019-09-02] MEDS: FUROSEMIDE 20 MG TABLET PO SCH ×2 (09:27→18:17)
[2019-09-02] MEDS: DOCUSATE SODIUM 100 MG CAPSULE PO SCH ×2 (09:27→18:17)
[2019-09-02] MEDS: FAMOTIDINE 20 MG TABLET PO SCH ×2 (09:27→21:16)
[2019-09-02] MEDS: NORMAL SALINE 10 ML SDV (SCHEDULED) IV SCH ×2 (09:28→21:18)
[2019-09-02] MEDS: NYSTATIN/TRIAMCIN CREAM 15 GM TP SCH ×4 (09:28→21:17)
--- NOTE | 2019-09-02 10:18 | XCELERA REPORT ---
Study ID: [id number] Transesophageal Echocardiogram Report Name: DEBORA JOEL Age: 88 yrs Gender: Female : 1930 Patient Status: Inpatient Patient Location: [facility]^A Study Date: 08/26/2019 02:43 PM History: Infective Endocarditis Bacteremia MSSA Height: 62 in Weight: 148 lb BSA: 1.7 m2 Reason For Study: MSSA bacteremia Ordering Physician: OBEY TAVAREZ Performed By: Maxine Del Rio Interpretation Summary There is no evidence of a mass or vegetation. This does not rule out endocarditis. Left ventricular systolic function is mildly reduced. Ejection Fraction = 45-50%. The right ventricle is normal in size and function. There is trace mitral regurgitation. There is mild tricuspid regurgitation. There is no evidence of a mass or vegetation. This does not rule out endocarditis. Procedure A complete two-dimensional transesophageal echocardiogram was performed (2D, spectral and color flow Doppler). Informed consent for Transesophageal Echocardiogram, and use of a contrast agent as needed, was obtained prior to the procedure. The patient was brought to the Endoscopy unit in a fasting state. An intravenous line was placed. A topical anesthetic agent was used for oropharangeal anesthesia. A bite block was inserted. IV conscious sedation was administered using per anesthesia. The patient's vital signs, including blood pressure, heart rate, pulse oximetry and cardiac rhythm were monitored thoughout the procedure. A multifrequency, mutliplane transesophageal echocardiographic endoscope was inserted and manipulated in the standard fashion to achieve multiplane views. The transesophageal probe was passed without difficulty. The usual views were obtained; basal, mid-esophageal, transgastric and aortic views. The patient tolerated the procedure well without evidence of orophangeal or esophageal trauma. Subsequent to all the images being obtained the probe was removed with out trauma. Left Ventricle The left ventricle is borderline dilated. There is normal left ventricular wall thickness. Left ventricular systolic function is mildly reduced. Ejection Fraction = 45-50%. There is mild anterior wall hypokinesis. There is mild to moderate septal hypokinesis. There is borderline global hypokinesis of the left ventricle. Right Ventricle The right ventricle is normal in size and function. Atria The atrial septum is aneurysmal. There is no Doppler evidence for an atrial septal defect. The left atrium is mildly dilated. No thrombus is detected in the left atrial appendage. Right atrial size is normal. Mitral Valve The mitral valve is normal in structure and function. There is no vegetation seen on the mitral valve. There is no mitral valve stenosis. There is trace mitral regurgitation. Tricuspid Valve The tricuspid valve is normal in structure and function. There is no tricuspid valve vegetation. There is no tricuspid stenosis. There is mild tricuspid regurgitation. Aortic Valve The aortic valve is normal in structure and function. The aortic valve is trileaflet. The aortic valve opens well. There is no aortic valvular vegetation. No hemodynamically significant valvular aortic stenosis. No aortic regurgitation is present. Pulmonic Valve The pulmonic valve is not well seen, but is grossly normal. Trace pulmonic valvular regurgitation. Arteries The aortic root is normal size. Pericardium There is no pericardial effusion. : OBEY TAVAREZ Anil
[2019-09-02] MEDS: POLYETHYLENE GLYCOL 3350 POWDER 17 GM/1 PACKET PO SCH (13:30)
--- NOTE | 2019-09-02 15:40 | PDOC PROGRESS REPORT ---
Subjective Progress Note for:: 09/02/19 Subjective:: No adverse events overnight. No new complaints. Still complaining of some chronic nausea which apparently has been going on for months. Her appetite is not been very good. No fevers. She says she tries to eat when she does not feel nauseated but then after she eats she does feel nauseated. Reason For Visit: RESPIRATORY DISTRESS S/P THORACENTESIS Physical Exam Vital Signs: Temp Pulse Resp BP Pulse Ox 98.6 F 94 16 114/54 L 98 09/02/19 11:53 09/02/19 11:53 09/02/19 11:53 09/02/19 11:53 09/02/19 11:53 Intake & Output 09/01/19 09/02/19 09/03/19 06:59 06:59 06:59 Intake Total 1113 260 600 Output Total 5000 1550 400 Balance -3887 -1290 200 Weight 77.5 kg 76.6 kg General appearance: PRESENT: no acute distress, cooperative, disheveled Eye exam: PRESENT: EOMI, PERRLA. ABSENT: conjunctival injection, nystagmus, scleral icterus Respiratory exam: PRESENT: clear to auscultation shannan, symmetrical, unlabored. ABSENT: accessory muscle use, chest wall tenderness, crackles, prolonged expiratory phas, rhonchi, tachypnea, wheezes Cardiovascular exam: PRESENT: RRR, +S1, +S2 Pulses: PRESENT: normal carotid pulses Vascular exam: PRESENT: normal capillary refill GI/Abdominal exam: PRESENT: normal bowel sounds, soft. ABSENT: distended, guarding, rebound, tenderness Neurological exam: PRESENT: alert, awake, oriented to person, oriented to place, oriented to time, oriented to situation Psychiatric exam: PRESENT: appropriate affect, normal mood Results Laboratory Results: 08/30/19 08:48 08/31/19 07:02 Impressions: Guidance Fluoroscopy 08/24/19 00:00 IMPRESSION: SUCCESSFUL PLACEMENT OF A 5 FR DUAL LUMEN 40 CM PICC IN THE LEFT BASILIC VEIN. Interventional Vascular Procedure 08/24/19 00:00 IMPRESSION: SUCCESSFUL PLACEMENT OF A 5 FR DUAL LUMEN 40 CM PICC IN THE LEFT BASILIC VEIN. PICC Line Insertion 08/24/19 00:00 IMPRESSION: SUCCESSFUL PLACEMENT OF A 5 FR DUAL LUMEN 40 CM PICC IN THE LEFT BASILIC VEIN. Chest/Abdomen CTA 08/27/19 00:00 IMPRESSION: Cardiomegaly with large pleural effusions. No aortic dissection or aneurysm. No pulmonary embolus. No definite pneumonia. Thoracentesis Ultrasound 08/28/19 08:00 IMPRESSION: SUCCESSFUL THORACENTESIS USING ULTRASOUND GUIDANCE. Chest X-Ray 08/31/19 04:00 IMPRESSION: Cardiomegaly with pulmonary edema pattern. PICC catheter in unchanged position. Improved aeration of the left lung base. Slight worsening in the right pleural effusion. copyright 2011 [employer]- All Rights Reserved Assessment and Plan - Diagnosis (1) Urinary tract infection Qualifiers: Urinary tract infection type: catheter-associated UTI Indwelling urinary catheter type: indwelling urethral catheter Encounter type: initial encounter Qualified Code(s): T83.511A - Infection and inflammatory reaction due to indwelling urethral catheter, initial encounter; N39.0 - Urinary tract infection, site not specified Is this a current diagnosis for this admission?: Yes Plan: Resolved, completed 10 days of cefepime. (2) Decubitus ulcer of right heel Qualifiers: Pressure injury stage: unspecified pressure injury stage Qualified Code(s): L89.619 - Pressure ulcer of right heel, unspecified stage Is this a current diagnosis for this admission?: Yes Plan: Local wound care including offloading. Dr. Clark did not believe the wound to be a source of infection. (3) Decubitus ulcer of sacral area Qualifiers: Pressure injury stage: unspecified pressure injury stage Qualified Code(s): L89.159 - Pressure ulcer of sacral region, unspecified stage Is this a current diagnosis for this admission?: Yes Plan: Local wound care as she was doing at home. Dr. Clark did not believe the wound to be a source of infection. (4) Paraplegia Is this a current diagnosis for this admission?: Yes (5) Spina bifida Qualifiers: Spinal region: lumbosacral Presence of hydrocephalus: without hydrocephalus Qualified Code(s): Q05.7 - Lumbar spina bifida without hydrocephalus Is this a current diagnosis for this admission?: Yes (6) Positive blood culture Is this a current diagnosis for this admission?: Yes Plan: She needs 2 more weeks of Ancef per infectious disease recommendations. There was apparently some trouble getting it over the weekend. At this point were planning on discharge for . She has had some electrolyte disturbances which continue to manifest primarily because she is just not eating enough. - Plan Summary Summary: Patient is admitted to the medical floor and will receive routine supportive and symptomatic cares. She will be treated with IV fluid utilizing D5LR at 167 mL/h initially. She will be treated with IV antibiotics utilizing Rocephin 1 g daily. Her fever will be treated with Tylenol as required. She will have daily CBCs and metabolic profiles obtained for ongoing evaluation and adjustment of therapy. She will receive wound care by the nursing staff and a surgical consult may be obtained if required. Her current wound management is done by [facility]. She will use morphine sulfate 2 to 4 mg IV every 2 hours on as-needed basis for pain. She will have Phenergan 12.5 mg IV every 4 hours on an as-needed basis for nausea or vomiting. 08/25/2019 Temperature 97.4 pulse 81 blood pressure 141/45, O2 sat 93% on room air Labs have been checked recently, recheck in the a.m. She is scheduled for SYMONE tomorrow And has PICC line in place and will need IV antibiotics for the next 4 weeks if SYMONE is negative if it is positive she will need 6 weeks For swollen 2 g every 8 hours 08/26/2019 Eating SYMONE results, determine length of IV antibiotics at home Will discharge either tomorrow or Saturday Labs and chart reviewed as above 08/27/2019 She is vital signs are actually stable temperature 97.4, pulse 72, and regular blood pressure 144/58, O2 sat 99% on 2 L nasal cannula Patient Sleepy and arouses to pain appropriately Labs this morning showed normal white count 7.4 calcium is low at 7.5, albumin low at 2.0. Corrected calcium level of 9 Give patient some elemental calcium CT angiogram from last night shows large pleural effusions, not present on admission chest x-ray Patient may been symptomatic from this last night. Going to talk to the patient today and find out if she would like a therapeutic thoracentesis prior to going home. Up until last night patient has had no indication of being short of breath, hypoxic or symptomatic from the pleural effusions. 08/28/2019 Patient who is competent to make decisions like to have the pleural effusion drained. Her son who is at the bedside agreed. This will hopefully be done today. Discharge planning is working to set up home antibiotics for the next 4 weeks. Discharge is pending when the thoracentesis is done INR today is 1.5, she is afebrile, pulse is in the 80s or low 90s, Oxygen saturation is in the upper 90s or 100 at 2 L nasal cannula 08/30/2019 She has discussed with her nurse that she would like to change her CODE STATUS. I will go back upstairs and talk to her about this Only complaint involves nausea, however no vomiting. No complaint of chest pain no complaint of shortness of breath Patient's O2 sat is 96% on 2 L nasal cannula, which are stable CBC is normal chemistry panel is basically normal going to recheck an albumin level today as well as adjust her calcium based on the corrected value. Recent albumin level was 2 and based on that figure her corrected calcium is 8.7. May be able to go home tomorrow or Saturday if she is up and more ambulatory today with no problems Patient appears to have MSSA bacteremia and Pseudomonas UTI quiring a total of 4 weeks IV antibiotics 08/31/2019 It seems as though the longer the patient stays in the hospital the sicker she is getting. Patient is changed her CODE STATUS now she would like to be a DNR Last night patient had some shortness of breath and her chest x-ray shows some possible early fluid overload. She was given a one-time dose of Lasix last night and I have made it every 12 hours Today I am checking her magnesium and calcium and albumin and trying to correct those, as the longer she is staying in the hospital the lower they are going Has a persistent pleural effusion on the left that is not going to be tapped She has a PICC line in the left upper extremity to get her home antibiotics. This should be finalized today as far as the company and getting that set up Ancef 1 g IV every 8 hours. I am repeating blood cultures today. Patient did have negative blood cultures reported out on August 18. Blood cultures from today are negative then patient will need 2 more weeks of IV Ancef. If blood cultures are positive she will need at least 4 weeks more of IV Ancef Patient currently is being treated for the MSSA bacteremia and the Pseudomonas in her urine - Time Time Spent with patient: 15-24 minutes
[2019-09-03] MEDS: HEPARIN SOD (PORCINE) 5,000 UNIT/ML 1 ML VIAL SUBCUT SCH ×2 (05:32→14:08)
[2019-09-03] MEDS: DOCUSATE SODIUM 100 MG CAPSULE PO SCH (09:04)
[2019-09-03] MEDS: METOCLOPRAMIDE HCL 10 MG TABLET PO SCH ×2 (09:04→14:06)
[2019-09-03] MEDS: FUROSEMIDE 20 MG TABLET PO SCH (09:04)
[2019-09-03] MEDS: FAMOTIDINE 20 MG TABLET PO SCH (09:04)
[2019-09-03] MEDS: NYSTATIN/TRIAMCIN CREAM 15 GM TP SCH ×2 (09:05→14:09)
[2019-09-03] MEDS: NORMAL SALINE 10 ML SDV (SCHEDULED) IV SCH (09:05)
[2019-09-03] MEDS ORDERED: CEFAZOLIN SODIUM 2 GM in DEXTROSE 5%-WATER 100 ML IV SCH (14:00)
[2019-09-03] MEDS: POLYETHYLENE GLYCOL 3350 POWDER 17 GM/1 PACKET PO SCH (14:06)
--- NOTE | 2019-09-03 15:43 | PDOC DISCHARGE SUMMARY ---
Impression - Admit/DC Date/PCP Admission Date/Primary Care Provider: 08/15/19 23:24 Discharge Date: 09/03/19 - Discharge Diagnosis (1) Urinary tract infection Is this a current diagnosis for this admission?: Yes (2) Decubitus ulcer of right heel Is this a current diagnosis for this admission?: Yes (3) Decubitus ulcer of sacral area Is this a current diagnosis for this admission?: Yes (4) Paraplegia Is this a current diagnosis for this admission?: Yes (5) Spina bifida Is this a current diagnosis for this admission?: Yes (6) Positive blood culture Is this a current diagnosis for this admission?: Yes - Assessment Summary: Patient is admitted to the medical floor and will receive routine supportive and symptomatic cares. She will be treated with IV fluid utilizing D5LR at 167 mL/h initially. She will be treated with IV antibiotics utilizing Rocephin 1 g daily. Her fever will be treated with Tylenol as required. She will have daily CBCs and metabolic profiles obtained for ongoing evaluation and adjustment of therapy. She will receive wound care by the nursing staff and a surgical consult may be obtained if required. Her current wound management is done by the local wound care clinic. She will use morphine sulfate 2 to 4 mg IV every 2 hours on as-needed basis for pain. She will have Phenergan 12.5 mg IV every 4 hours on an as-needed basis for nausea or vomiting. 08/25/2019 Temperature 97.4 pulse 81 blood pressure 141/45, O2 sat 93% on room air Labs have been checked recently, recheck in the a.m. She is scheduled for SYMONE tomorrow And has PICC line in place and will need IV antibiotics for the next 4 weeks if SYMONE is negative if it is positive she will need 6 weeks For swollen 2 g every 8 hours 08/26/2019 Eating SYMONE results, determine length of IV antibiotics at home Will discharge either tomorrow or Saturday Labs and chart reviewed as above 08/27/2019 She is vital signs are actually stable temperature 97.4, pulse 72, and regular blood pressure 144/58, O2 sat 99% on 2 L nasal cannula Patient Sleepy and arouses to pain appropriately Labs this morning showed normal white count 7.4 calcium is low at 7.5, albumin low at 2.0. Corrected calcium level of 9 Give patient some elemental calcium CT angiogram from last night shows large pleural effusions, not present on admission chest x-ray Patient may been symptomatic from this last night. Going to talk to the patient today and find out if she would like a therapeutic thoracentesis prior to going home. Up until last night patient has had no indication of being short of breath, hypoxic or symptomatic from the pleural effusions. 08/28/2019 Patient who is competent to make decisions like to have the pleural effusion drained. Her son who is at the bedside agreed. This will hopefully be done today. Discharge planning is working to set up home antibiotics for the next 4 weeks. Discharge is pending when the thoracentesis is done INR today is 1.5, she is afebrile, pulse is in the 80s or low 90s, Oxygen saturation is in the upper 90s or 100 at 2 L nasal cannula 08/30/2019 She has discussed with her nurse that she would like to change her CODE STATUS. I will go back upstairs and talk to her about this Only complaint involves nausea, however no vomiting. No complaint of chest pain no complaint of shortness of breath Patient's O2 sat is 96% on 2 L nasal cannula, which are stable CBC is normal chemistry panel is basically normal going to recheck an albumin level today as well as adjust her calcium based on the corrected value. Recent albumin level was 2 and based on that figure her corrected calcium is 8.7. May be able to go home tomorrow or Saturday if she is up and more ambulatory today with no problems Patient appears to have MSSA bacteremia and Pseudomonas UTI quiring a total of 4 weeks IV antibiotics 08/31/2019 It seems as though the longer the patient stays in the hospital the sicker she is getting. Patient is changed her CODE STATUS now she would like to be a DNR Last night patient had some shortness of breath and her chest x-ray shows some possible early fluid overload. She was given a one-time dose of Lasix last night and I have made it every 12 hours Today I am checking her magnesium and calcium and albumin and trying to correct those, as the longer she is staying in the hospital the lower they are going Has a persistent pleural effusion on the left that is not going to be tapped She has a PICC line in the left upper extremity to get her home antibiotics. This should be finalized today as far as the company and getting that set up Ancef 1 g IV every 8 hours. I am repeating blood cultures today. Patient did have negative blood cultures reported out on August 18. Blood cultures from today are negative then patient will need 2 more weeks of IV Ancef. If blood cultures are positive she will need at least 4 weeks more of IV Ancef Patient currently is being treated for the MSSA bacteremia and the Pseudomonas in her urine - Additional Information Resuscitation Status: Do Not Resuscitate Discharge Diet: As Tolerated Discharge Activity: Other - resume previous level Referrals: WOUND CARE [Outside] - 09/15/19 10:00 am (pt discharging 08/28 -tried to call office no answer 08/25/19 @[id number]) ROULA ISAAC PA-C [NO LOCAL MD] - 09/10/19 2:00 pm Prescriptions: Metoclopramide HCl [Reglan 10 mg Tablet] 5 mg PO ACHS #120 tablet Home Medications: Mirtazapine [Remeron 15 mg Tablet] 15 mg PO DAILYP PRN 08/16/19 Ondansetron [Zofran Odt 4 mg Tablet (6 Tab/ER Disp)] 1 tab PO Q8H PRN 08/16/19 Metoclopramide HCl [Reglan 10 mg Tablet] 5 mg PO ACHS #120 tablet 09/03/19 History of Present Illiness History of Present Illness: DEBORA JOEL is a 88 year old female who presented to the emergency room with a a 10-day history of fever. The patient and her family admit that she had developed a subjective fever and was evaluated at a local walk-in clinic 10 days ago with a diagnosis of urinary tract infection (in the setting of a chronic indwelling Alberto catheter) and treatment with Macrobid twice daily which she has taken to the completion of the prescription (10 days). The urine culture from that visit grew Proteus mirabilis not sensitive to Macrobid (sensitive to Rocephin). Since that time her fever has progressively worsened and has been associated with chills and generalized malaise. For the last 3 days her fever has been accompanied by diarrhea, nausea and decreased oral intake. She denies other associated or accompanying signs and symptoms. She admits prior similar symptoms with infections in the past. She has not identified any aggravating or ameliorating factors for her fever. In the emergency room she is found to have an elevated temperature at 101 F, and elevated white blood count and signs of obvious dehydration. She was started on IV antibiotics and given bolus IV fluids. She will subsequently be admitted to the hospital for further evaluation and treatment. Hospital Course Hospital Course: She was put on antibiotics for UTI, which she has a history of several due to her catheter, and it was determined to be a Pseudomonas she was switched over to cefepime. She has since completed a course of cefepime. She required some IV fluids and developed a pleural effusion and got short of breath but then had a thoracentesis. There was no evidence of any pneumothorax. She got short of breath a few days later and spent a few hours in the ICU on BiPAP but then was back to her usual level of breathing and came back out to the floor. The thing that is kept here so long has been a positive blood culture. She grew out a Staphylococcus aureus, which fortunately turned out to be MSSA. Were not sure what the source is from, but we ruled out endocarditis. Infectious disease recommended 2 weeks of treatment for the blood culture. She is got a PICC line has been set up for home antibiotics. She says she is gotten antibiotics at home before family was comfortable administering them at home. One issue that she has had for months is the fact that she is nauseated quite frequently and does not want to eat very much. Some days her appetite will be good and some days she just feels nauseated and does not want to eat, and said is been going on for months. She says she responded favorably to oral Zofran at home, and we put her on some Reglan to see if that would help with her nausea as well. We have had mixed results with that, but she says overall she feels like she is eating better. She has a couple of chronic wounds on her sacrum and her right heel and she follows up with the wound clinic and will resume following up with them at discharge. Of note, it was felt by surgery after their evaluation that the wounds were clean and were not a source of infection. Her labs and examination were reassuring and she was discharged in stable condition. Physical Exam Vital Signs: Temp Pulse Resp BP Pulse Ox 98.1 F 88 18 102/39 L 95 09/03/19 11:42 09/03/19 11:42 09/03/19 11:42 09/03/19 11:42 09/03/19 11:42 Intake & Output 09/02/19 09/03/19 09/04/19 06:59 06:59 06:59 Intake Total 260 810 220 Output Total 1550 1562 500 Balance -5510 -505 -524 Weight 76.6 kg 77 kg General appearance: PRESENT: no acute distress, cooperative, disheveled Eye exam: PRESENT: EOMI, PERRLA. ABSENT: conjunctival injection, nystagmus, scleral icterus Respiratory exam: PRESENT: clear to auscultation shannan, symmetrical, unlabored. ABSENT: accessory muscle use, chest wall tenderness, crackles, prolonged expiratory phas, rhonchi, tachypnea, wheezes Cardiovascular exam: PRESENT: RRR, +S1, +S2 Pulses: PRESENT: normal carotid pulses Vascular exam: PRESENT: normal capillary refill GI/Abdominal exam: PRESENT: normal bowel sounds, soft. ABSENT: distended, guarding, rebound, tenderness Neurological exam: PRESENT: alert, awake, oriented to person, oriented to place, oriented to time, oriented to situation Psychiatric exam: PRESENT: appropriate affect, normal mood Results Laboratory Results: WBC 8.9 10^3/uL (4.0-10.5) 08/30/19 08:48 RBC 3.18 10^6/uL (3.72-5.28) L 08/30/19 08:48 Hgb 8.7 g/dL (12.0-15.5) L 08/30/19 08:48 Hct 26.3 % (36.0-47.0) L 08/30/19 08:48 MCV 82 fl (80-97) 08/30/19 08:48 MCH 27.3 pg (27.0-33.4) 08/30/19 08:48 MCHC 33.1 g/dL (32.0-36.0) 08/30/19 08:48 RDW 15.7 % (11.5-14.0) H 08/30/19 08:48 Plt Count 248 10^3/uL (150-450) 08/30/19 08:48 Lymph % (Auto) 21.4 % (13-45) 08/30/19 08:48 [place] % (Auto) 10.0 % (3-13) 08/30/19 08:48 Eos % (Auto) 0.9 % (0-6) 08/30/19 08:48 Baso % (Auto) 1.1 % (0-2) 08/30/19 08:48 Absolute Neuts (auto) 5.9 10^3/uL (1.7-8.2) 08/30/19 08:48 Absolute Lymphs (auto) 1.9 10^3/uL (0.5-4.7) 08/30/19 08:48 Absolute Monos (auto) 0.9 10^3/uL (0.1-1.4) 08/30/19 08:48 Absolute Eos (auto) 0.1 10^3/uL (0.0-0.6) 08/30/19 08:48 Absolute Basos (auto) 0.1 10^3/uL (0.0-0.2) 08/30/19 08:48 Total Counted 100 08/15/19 20:28 Seg Neutrophils % 66.6 % (42-78) 08/30/19 08:48 Seg Neuts % (Manual) 87 % (42-78) H 08/15/19 20:28 Band Neutrophils % 2 % (3-5) L 08/15/19 20:28 Lymphocytes % (Manual) 4 % (13-45) L 08/15/19 20:28 Monocytes % (Manual) 3 % (3-13) 08/15/19 20:28 Eosinophils % (Manual) 4 % (0-6) 08/15/19 20:28 Basophils % (Manual) 0 % (0-2) 08/15/19 20:28 Abs Neuts (Manual) 15.4 10^3/uL (1.7-8.2) H 08/15/19 20:28 Abs Lymphs (Manual) 0.7 10^3/uL (0.5-4.7) 08/15/19 20:28 Abs Monocytes (Manual) 0.5 10^3/uL (0.1-1.4) 08/15/19 20:28 Absolute Eos (Manual) 0.7 10^3/uL (0.0-0.6) H 08/15/19 20:28 Abs Basophils (Manual) 0.0 10^3/uL (0.0-0.2) 08/15/19 20:28 Platelet Comment ADEQUATE 08/15/19 20:28 Anisocytosis SLIGHT 08/15/19 20:28 PT 18.3 SEC (11.4-15.4) H 08/27/19 18:45 INR 1.50 08/27/19 18:45 APTT 43.4 SEC (23.5-35.8) H 08/27/19 18:45 Carbonic Acid 1.34 mmol/L (1.05-1.35) 08/28/19 16: HCO3/H2CO3 Ratio 18:1 08/28/19 16:29 ABG pH 7.37 (7.35-7.45) 08/28/19 16:29 ABG pCO2 44.6 mmHg (35-45) 08/28/19 16:29 ABG pO2 67.9 mmHg (80-100) L 08/28/19 16:29 ABG HCO3 25.0 mmol/L (20-24) H 08/28/19 16:29 ABG Total CO2 26.3 mmol/L (21-25) H 08/28/19 16:29 ABG O2 Saturation 92.9 % (94-98) L 08/28/19 16:29 ABG Base Excess -0.5 mmol/L 08/28/19 16:29 VBG pH 7.33 (7.30-7.42) 08/27/19 04:13 VBG pCO2 45.7 mmHg (35-63) 08/27/19 04:13 VBG HCO3 23.7 mmol/L (20-32) 08/27/19 04:13 VBG Base Excess -2.2 mmol/L 08/27/19 04:13 FiO2 4 08/28/19 16:29 Sodium 138.1 mmol/L (137-145) 08/31/19 07:02 Potassium 3.9 mmol/L (3.6-5.0) 08/31/19 07:02 Chloride 106 mmol/L (98-107) 08/31/19 07:02 Carbon Dioxide 28 mmol/L (22-30) 08/31/19 07:02 Anion Gap 4 (5-19) L 08/31/19 07:02 BUN 4 mg/dL (7-20) L 08/31/19 07:02 Creatinine 0.61 mg/dL (0.52-1.25) 08/31/19 07:02 Est GFR ( Amer) > 60 (>60) 08/31/19 07:02 Est GFR (MDRD) Non-Af > 60 (>60) 08/31/19 07:02 Glucose 85 mg/dL (75-110) 08/31/19 07:02 POC Glucose 129 mg/dL (70-110) H 08/27/19 03:40 Lactic Acid 1.5 mmol/L (0.7-2.1) 08/15/19 21:50 Calcium 7.0 mg/dL (8.4-10.2) L* 08/31/19 07:02 Ionized Calcium Diya 1.00 mmol/L (1.14-1.30) L 08/28/19 23:27 Magnesium 1.7 mg/dL (1.6-2.3) 08/31/19 07:02 Total Bilirubin 0.2 mg/dL (0.2-1.3) 08/27/19 08:50 Direct Bilirubin 0.1 mg/dL (0.0-0.4) 08/27/19 08:50 Neonat Total Bilirubin Not Reportable 08/27/19 08:50 Neonat Direct Bilirubin Not Reportable 08/27/19 08:50 Neonat Indirect Bili Not Reportable 08/27/19 08:50 AST 15 U/L (14-36) 08/27/19 08:50 ALT 8 U/L (<35) 08/27/19 08:50 Alkaline Phosphatase 125 U/L (38-126) 08/27/19 08:50 Total Protein 5.5 g/dL (6.3-8.2) L 08/27/19 08:50 Albumin 2.0 g/dL (3.5-5.0) L 08/31/19 07:02 Urine Color LYUDMILA 08/15/19 20:34 Urine Appearance SLIGHTLY-CLOUDY 08/15/19 20:34 Urine pH 7.0 (5.0-9.0) 08/15/19 20:34 Ur Specific [place] 1.015 08/15/19 20:34 Urine Protein 30 mg/dL (NEGATIVE) H 08/15/19 20:34 Urine Glucose (UA) NEGATIVE mg/dL (NEGATIVE) 08/15/19 20:34 Urine Ketones 20 mg/dL (NEGATIVE) H 08/15/19 20:34 Urine Blood MODERATE (NEGATIVE) H 08/15/19 20:34 Urine Nitrite POSITIVE (NEGATIVE) H 08/15/19 20:34 Urine Bilirubin NEGATIVE (NEGATIVE) 08/15/19 20:34 Urine Urobilinogen NEGATIVE mg/dL (<2.0) 08/15/19 20:34 Ur Leukocyte Esterase LARGE (NEGATIVE) H 08/15/19 20:34 Urine WBC (Auto) 52 /HPF 08/15/19 20:34 Urine RBC (Auto) 23 /HPF 08/15/19 20:34 U Hyaline Cast (Auto) 1 /LPF 08/15/19 20:34 Urine Bacteria (Auto) TRACE /HPF 08/15/19 20:34 Squamous Epi Cells Auto 1 /HPF 08/15/19 20:34 Urine Mucus (Auto) OCC /LPF 08/15/19 20:34 Urine Ascorbic Acid NEGATIVE (NEGATIVE) 08/15/19 20:34 Fluid Total Protein 1.8 g/dL (.) 08/28/19 15:00 Impressions: Chest X-Ray 08/15/19 20:52 IMPRESSION: 1. No acute pulmonary findings. Guidance Fluoroscopy 08/24/19 00:00 IMPRESSION: SUCCESSFUL PLACEMENT OF A 5 FR DUAL LUMEN 40 CM PICC IN THE LEFT BASILIC VEIN. Interventional Vascular Procedure 08/24/19 00:00 IMPRESSION: SUCCESSFUL PLACEMENT OF A 5 FR DUAL LUMEN 40 CM PICC IN THE LEFT BASILIC VEIN. PICC Line Insertion 08/24/19 00:00 IMPRESSION: SUCCESSFUL PLACEMENT OF A 5 FR DUAL LUMEN 40 CM PICC IN THE LEFT B ASILIC VEIN. Chest/Abdomen CTA 08/27/19 00:00 IMPRESSION: Cardiomegaly with large pleural effusions. No aortic dissection or aneurysm. No pulmonary embolus. No definite pneumonia. Chest X-Ray 08/28/19 00:00 IMPRESSION: Short interval development of hazy opacification of the right lower lung may represent pulmonary edema or aspiration. No pneumothorax. Thoracentesis Ultrasound 08/28/19 08:00 IMPRESSION: SUCCESSFUL THORACENTESIS USING ULTRASOUND GUIDANCE. Chest X-Ray 08/28/19 15:13 IMPRESSION: Post right thoracentesis. No right-sided pneumothorax. No significant residual right pleural fluid. Minimal right basilar atelectasis. Stable moderate left pleural effusion and left lower lobe airspace disease Chest X-Ray 08/28/19 17:13 IMPRESSION: Slightly improved radiographic appearance of the chest demonstrating improved aeration of the right lower lung with persistent left- sided pleural effusion. Chest X-Ray 08/31/19 04:00 IMPRESSION: Cardiomegaly with pulmonary edema pattern. PICC catheter in unchanged position. Improved aeration of the left lung base. Slight worsening in the right pleural effusion. copyright 2010 [employer]- All Rights Reserved Plan Time Spent: Greater than 30 Minutes Stroke Is this a Stroke Patient?: No Acute Heart Failure - Is this a Heart Failure Patient?: No
[2019-09-03 16:45] VITALS: BP 122/46
== END 2019-09-03 17:35 | disposition home health service (06) | DRG 699 ==
LOC: ER 20:05 → EH 23:24 → 4N 08-16 00:56 → ICU 08-28 17:55 → 3N 08-29 11:15
PROVIDERS: ADMIT Emergency Medicine; ATTEND Emergency Medicine
PROC: 02HV33Z Insertion of Infusion Device into Superior Vena Cava, Percutaneous Approach (ICD-10-PCS; principal; 2019-08-24)
PROC: B518ZZA Fluoroscopy of Superior Vena Cava, Guidance (ICD-10-PCS; 2019-08-24)
PROC: B548ZZA Ultrasonography of Superior Vena Cava, Guidance (ICD-10-PCS; 2019-08-24)
PROC: B246ZZ4 Ultrasonography of Right and Left Heart, Transesophageal (ICD-10-PCS; 2019-08-26)
PROC: 0W993ZX Drainage of Right Pleural Cavity, Percutaneous Approach, Diagnostic (ICD-10-PCS; 2019-08-28)
PROC: 3E0234Z Introduction of Serum, Toxoid and Vaccine into Muscle, Percutaneous Approach (ICD-10-PCS; 2019-09-03)
DX: T83.511A Infection and inflammatory reaction due to indwelling urethral catheter, initial encounter (principal); G82.20 Paraplegia, unspecified; Z16.23 Resistance to quinolones and fluoroquinolones; N39.0 Urinary tract infection, site not specified; B96.5 Pseudomonas (aeruginosa) (mallei) (pseudomallei) as the cause of diseases classified elsewhere; B95.61 Methicillin susceptible Staphylococcus aureus infection as the cause of diseases classified elsewhere; L89.612 Pressure ulcer of right heel, stage 2; L89.152 Pressure ulcer of sacral region, stage 2; E88.09 Other disorders of plasma-protein metabolism, not elsewhere classified; D64.9 Anemia, unspecified; Q05.7 Lumbar spina bifida without hydrocephalus; Z89.512 Acquired absence of left leg below knee; Z23 Encounter for immunization
CPT/HCPCS: 1922; 32555; 36415; 36569; 71045; 71275; 76937; 77001; 80048; 80053; 81001; 82040; 82330; 82803; 82962; 83605; 83735; 84157; 85025; 85027; 85610; 85730; 87040; 87077; 87086; 87088; 87186; 90686; 93306; 93312; 93325; 94660; 96361; 96365; 96375; 99285; 99291; J0610; J0690; J0692; J0696; J1642; J1644; J1940; J2060; J2405; J2550; J2704; J3490; J7030; J7060; J7121; P9047; S0119

== ENCOUNTER 2019-12-09 09:00 | Inpatient (IN) | payer MEDICARE ==
[2019-12-09 09:34] LABS: ABSOLUTE BASOPHILS # (AUTO) 0.1 10^3/uL (0.0-0.2); ABSOLUTE EOSINOPHILS # (AUTO) 0.1 10^3/uL (0.0-0.6); ABSOLUTE LYMPHOCYTES (AUTO) 1.5 10^3/uL (0.5-4.7); ABSOLUTE MONOCYTES (AUTO) 1.1 10^3/uL (0.1-1.4); ABSOLUTE NEUT (AUTO) 12.7 10^3/uL (1.7-8.2); BASOPHILS % (AUTO) 0.5 % (0-2); EOSINOPHILS % (AUTO) 0.5 % (0-6); HEMOGLOBIN 9.2 g/dL (12.0-15.5); LYMPHOCYTES % (AUTO) 9.4 % (13-45); MEAN CORPUSCULAR HEMOGLOBIN 26.1 pg (27.0-33.4); MEAN CORPUSCULAR HGB CONC 32.8 g/dL (32.0-36.0); MEAN CORPUSCULAR VOLUME 80 fl (80-97); MONOCYTES % (AUTO) 7.1 % (3-13); PLATELET COUNT 514 10^3/uL (150-450); RED BLOOD COUNT 3.53 10^6/uL (3.72-5.28); RED CELL DISTRIBUTION WIDTH 16.1 % (11.5-14.0); SEGMENTED NEUTROPHILS % (AUTO) 82.5 % (42-78); TOTAL CELLS COUNTED % (AUTO) 100 %; WHITE BLOOD COUNT 15.5 10^3/uL (4.0-10.5)
[2019-12-09] MEDS ORDERED: NORMAL SALINE 1000 ML 1,000 ML IV ONE ×2 (09:47→09:50)
[2019-12-09] MEDS ORDERED: NORMAL SALINE 500 ML IV ONE (09:50)
--- NOTE | 2019-12-09 09:58 | ER Document Report ---
ED General - General Chief Complaint: Altered Mental Status Stated Complaint: ALTERED MENTAL STATUS Time Seen by Provider: 12/09/19 09:31 Primary Care Provider: ROULA ISAAC PA-C [Primary Care Provider] - Follow up as needed TRAVEL OUTSIDE OF THE [place] IN LAST 30 DAYS: No - HPI Notes: Patient is 89-year-old female with a history of paraplegia scented to the emergency department for evaluation of confusion and altered mental status. The patient herself states that she has had diarrhea since Saturday. She complains of weakness and pain all over. No fevers. She has had some nausea but no emesis. She has a indwelling Alberto catheter. She states to me "it is not working." She cannot tell me how long it has not been working correctly. She has chronic wounds on her right lower extremity. She is being seen by wound care. She has a bandage in place, she states that was changed on Saturday. - Related Data Allergies/Adverse Reactions: latex Allergy (Verified 12/09/19 10:51) gabapentin Adverse Reaction (Verified 08/15/19 20:15) Past Medical History - General Information source: Patient, Emergency Med Personnel - Social History Smoking Status: Former Smoker Family History: denies: CAD, DM, Hypertension, Malignancy Patient has suicidal ideation: No Patient has homicidal ideation: No - Past Medical History Cardiac Medical History: Denies: Hx Coronary Artery Disease, Hx Hypercholesterolemia, Hx Hypertension Pulmonary Medical History: Denies: Hx Asthma, Hx COPD Neurological Medical History: Reports: Other - Spina bifida with resultant pa raplegia. Denies: Hx Seizures Endocrine Medical History: Denies: Hx Diabetes Mellitus Type 1, Hx Diabetes Mellitus Type 2, Hx Hyperthyroidism, Hx Hypothyroidism Renal/ Medical History: Denies: Hx Peritoneal Dialysis GI Medical History: Denies: Hx Cirrhosis, Hx Crohn's Disease, Hx Hepatitis, Hx Ulcerative Colitis Musculoskeletal Medical History: Denies Hx Arthritis, Denies Hx Gout Skin Medical History: Denies Hx Eczema, Denies Hx Psoriasis Psychiatric Medical History: Denies: Hx Depression Infectious Medical History: Denies: Hx Hepatitis Past Surgical History: Reports: Hx Orthopedic Surgery - [facility], Hx Vascular Surgery - PICC line placement, Other - Back surgery and surgery for spina bifi da. Review of Systems - Review of Systems Constitutional: See HPI Gastrointestinal: See HPI Genitourinary: See HPI Skin: See HPI -: Yes All other systems reviewed and negative Physical Exam - Vital signs Vitals: Pulse Ox 100 12/09/19 09:01 - Notes Notes: This is a frail-appearing 89-year-old female appears her stated age in no acute distress. She is sitting upright in the bed, leaning against the bed in semi- Amador's position. Head is normocephalic and atraumatic, pupils are equal round, reactive to light. Oral mucosa is dry. Heart is regular rate and rhythm, lungs show minor basilar crackles, most likely consistent with atelectasis, but no wheezes or rhonchi noted. Abdomen is soft, diffusely tender but no rebound or guarding noted. Alberto catheter is in place. Tubing shows large amount of sediment. There is foul-smelling urine draining around the Alberto catheter and lying against the skin. Patient has skin breakdown on her left proximal thigh with minimal bleeding. She also has a tunneling wound at the top of her sacrum. No signs of active infection at this time. Patient is a left BKA. Stump is intact. Examination of the right lower extremity yields a 2 cm wound on the lateral leg. There are 2 ulcerations noted to the foot, one overlying a bunion on the medial aspect of the foot, the second on the heel. She also has multiple more superficial skin wounds with granulation tissue noted to the rest of the sole of the foot. I do not see any signs of active infection. Patient is awake and alert. She is oriented x3. She moves upper extremity spontaneously with plus 4 out of 5 strength bilaterally. Course - Re-evaluation Re-evalutation: 12/09/19 09:58 Patient presents to the emergency department for evaluation. She is not febrile, but her blood pressures are soft. Her maps are low. Decision was made to proceed with a septic work-up. I do not trust that the indwelling Alberto catheter that she has now would give a reliable sample, and it does not seem to be functioning appropriately. Orders given to discontinue this Alberto and place another. Given her diarrhea I did also add a stool for C. difficile, and awaiting the remainder of her lab results. Patient is stable at this time, we will continue to monitor. 12/09/19 12:44 Patient's blood pressures were soft. She had low mean arterial pressures. She was given IV fluids as per sepsis protocol. She did see an increase in her pressures. Laboratory investigation showed a leukocytosis, dehydration, and urinary tract infection. She was given IV ceftriaxone. I spoke with Dr. Martinez, internal medicine physician. He evaluated the patient and agrees that admission is the most appropriate thing at this time. Patient will be admitted to the medical floor for further care. - Vital Signs Vital signs: Temp Pulse Resp BP Pulse Ox 98.4 F 25 H 94/45 L 97 12/09/19 10:50 12/09/19 09:19 12/09/19 09:51 12/09/19 09:51 - Laboratory Result Diagrams: 12/09/19 09:21 12/09/19 09:21 Laboratory results interpreted by me: 12/09/19 12/09/19 12/09/19 09:21 09:21 10:39 WBC 15.5 H RBC 3.53 L Hgb 9.2 L Hct 28.0 L MCH 26.1 L RDW 16.1 H Plt Count 514 H Lymph % (Auto) 9.4 L Absolute Neuts (auto) 12.7 H Seg Neutrophils % 82.5 H VBG HCO3 19.9 L Sodium 135.6 L Carbon Dioxide 18 L BUN 37 H Direct Bilirubin 0.5 H Albumin 2.7 L Urine Protein Urine Ketones Urine Blood Ur Leukocyte Esterase 12/09/19 11:07 WBC RBC Hgb Hct MCH RDW Plt Count Lymph % (Auto) Absolute Neuts (auto) Seg Neutrophils % VBG HCO3 Sodium Carbon Dioxide BUN Direct Bilirubin Albumin Urine Protein 100 H Urine Ketones TRACE H Urine Blood MODERATE H Ur Leukocyte Esterase LARGE H - Diagnostic Test Radiology reviewed: Reports reviewed Radiology results interpreted by me: 12/09/19 12:45 Chest X-Ray 12/09/19 09:49 IMPRESSION: Pleural and parenchymal changes bilaterally left greater than right. Most of which probably represents chronic disease. Overall findings are significantly improved when compared to the 08/31/2019. - EKG Interpretation by Me Additional EKG results interpreted by me: 12/09/19 12:45 Sinus mechanism with rate of 74 bpm. Normal axis and intervals. T wave inversions in the anterolateral leads concerning for possible ischemia. No significant change when compared to prior study. Discharge - Discharge Clinical Impression: Leukocytosis Qualifiers: Leukocytosis type: unspecified Qualified Code(s): D72.829 - Elevated white blood cell count, unspecified Urinary tract infection Qualifiers: Indwelling urinary catheter type: indwelling urethral catheter Encounter type: initial encounter Condition: Stable Disposition: ADMITTED INPATIENT Admitting Provider: Michelle (Hospitalist) Unit Admitted: Medical Floor Referrals: ROULA ISAAC PA-C [Primary Care Provider] - Follow up as needed
[2019-12-09 10:01] LABS: ALBUMIN 2.7 g/dL (3.5-5.0); ALKALINE PHOSPHATASE 109 U/L (38-126); ANION GAP 15 (5-19); ASPARTATE AMINO TRANSFERASE 23 U/L (14-36); BILIRUBIN,DIRECT 0.5 mg/dL (0.0-0.4); BILIRUBIN,TOTAL 0.7 mg/dL (0.2-1.3); BLOOD UREA NITROGEN 37 mg/dL (7-20); CALCIUM 8.5 mg/dL (8.4-10.2); CARBON DIOXIDE 18 mmol/L (22-30); CHLORIDE 103 mmol/L (98-107); GLUCOSE 93 mg/dL (75-110); POTASSIUM 3.6 mmol/L (3.6-5.0)
[2019-12-09 10:04] LABS: ALCOHOL < 10 mg/dL (NONE DETECTED)
[2019-12-09 10:14] LABS: INTERNATIONAL RATION (INR) 1.17
--- NOTE | 2019-12-09 10:43 | RADIOLOGY REPORT (SQ) ---
EXAM DESCRIPTION: CHEST SINGLE VIEW COMPLETED DATE/TIME: 12/09/2019 10:31 am REASON FOR STUDY: sepsis evaluation COMPARISON: 08/31/2019 EXAM PARAMETERS: NUMBER OF VIEWS: One view. TECHNIQUE: Single frontal radiographic view of the chest acquired. RADIATION DOSE: NA LIMITATIONS: None. FINDINGS: LUNGS AND PLEURA: Overall aeration is significantly improved from prior study. There hot end operator darrel appearing left-sided pleural and parenchymal changes. There is some pleural thickening. Loculat ed left-sided pleural effusion cannot be excluded. The right lung field demonstrates a small nodular opacities most likely pleural based as well. There were no suspicious subpleural lesions on CT ches t done 08/27/2019. These changes most likely represent scar, infectious or inflammatory process. MEDIASTINUM AND HILAR STRUCTURES: No masses. Contour normal. HEART AND VASCULAR STRUCTURES: Heart normal in size. Normal vasculature. BONES: No acute findings. HARDWARE: None in the chest. OTHER: No other significant finding. IMPRESSION: Pleural and parenchymal changes bilaterally left greater than right. Most of which prob ably represents chronic disease. Overall findings are significantly improved when compared to the . TECHNICAL DOCUMENTATION: JOB ID: [id number] 2010 [employer]- All Rights Reserved Reading location - IP/workstation name: [email or web address]
[2019-12-09 11:20] LABS: VENOUS BLOOD BASE EXCESS -5.8 mmol/L; VENOUS BLOOD HCO3 19.9 mmol/L (20-32); VENOUS BLOOD PCO2 39.8 mmHg (35-63); VENOUS BLOOD PH 7.32 (7.30-7.42)
[2019-12-09 11:41] LABS: APPEARANCE,URINE CLOUDY; BILIRUBIN,URINE NEGATIVE (NEGATIVE); GLUCOSE, URINE NEGATIVE (NEGATIVE); KETONES,URINE TRACE mg/dL (NEGATIVE); LEUKOCYTE ESTERASE,URINE LARGE (NEGATIVE); NITRITE,URINE NEGATIVE (NEGATIVE); PROTEIN,URINE 100 mg/dL (NEGATIVE); URINE SPECIFIC GRAVITY 1.014; UROBILINOGEN,URINE NEGATIVE mg/dL (<2.0)
[2019-12-09 11:47] LABS: COLOR,URINE DARK YELLOW
[2019-12-09 11:48] LABS: ADD MANUAL MICROSCOPIC YES
[2019-12-09 11:51] LABS: BACTERIA,URINE 4+ /HPF; WBC,URINE TOO NUMEROUS TO CNT /HPF
[2019-12-09 12:06] LABS: URINE AMPHETAMINES SCREEN NEGATIVE; URINE BENZODIAZEPINES SCREEN NEGATIVE; URINE COCAINE SCREEN NEGATIVE; URINE METHADONE SCREEN NEGATIVE; URINE PHENCYCLIDINE SCREEN NEGATIVE
[2019-12-09 12:07] LABS: URINE BARBITURATES SCREEN NEGATIVE; URINE MARIJUANA (THC) SCREEN UNCONFIRMED POSITIVE
[2019-12-09] MEDS ORDERED: CEFTRIAXONE 1 GM/D5W RTU 1 GM/50 ML RTUPB IV ONE ×2 (13:00→16:30)
[2019-12-09] MEDS ORDERED: CEFEPIME 1 GM/D5W RTU 1 GM/50 ML RTUPB IV SCH (14:00)
[2019-12-09] MEDS: CEFEPIME 1 GM/D5W RTU 1 GM/50 ML RTUPB IV SCH (16:23)
[2019-12-09] MEDS: HEPARIN SOD (PORCINE) 5,000 UNIT/ML 1 ML VIAL SUBCUT SCH ×2 (17:02→21:45)
[2019-12-09] MEDS ORDERED: MIRTAZAPINE 15 MG TABLET PO PRN (17:21)
[2019-12-09] MEDS ORDERED: ONDANSETRON 4 MG TAB.RAPDIS PO PRN (17:21)
--- NOTE | 2019-12-09 17:28 | EKG REPORT ---
SEVERITY:- ABNORMAL ECG - SINUS RHYTHM NONSPECIFIC T ABNORMALITIES vs ISCHEMIA : Confirmed by: Adriane Vega 09-Dec-2019 17:27:10
--- NOTE | 2019-12-09 17:31 | PDOC H&P ---
History of Present Illness Admission Date/PCP: 12/09/19 12:52 ROULA ISAAC PA-C History of Present Illness: DEBORA JOEL is a 89 year old female with a history of spina bifida and a chronic sacral wound and a chronic indwelling Alberto who presents with a couple of days of feeling weaker than usual and nauseated. She says she is not been able to eat very much. Urinalysis was checked because she has had many different pathogens causing infection in the past and was found to be positive. She still reports some nausea in the ER. Past Medical History Cardiac Medical History: Denies: Coronary Artery Disease, Hyperlipidema, Hypertension Pulmonary Medical History: Denies: Asthma, Chronic Obstructive Pulmonary Disease (COPD) Neurological Medical History: Reports: Other - Spina bifida with resultant paraplegia Denies: Seizures Endocrine Medical History: Denies: Diabetes Mellitus Type 1, Diabetes Mellitus Type 2, Hyperthyroidism, Hypothyroidism GI Medical History: Denies: Cirrhosis, Crohn's Disease, Hepatitis, Ulcerative Colitis Musculoskeltal Medical History: Denies: Arthritis, Gout Skin Medical History: Denies: Eczema, Psoriasis Psychiatric Medical History: Denies: Depression Hematology: Reports: Anemia - Chronic anemia Denies: Bleeding Tendencies Past Surgical History Past Surgical History: Reports: Orthopedic Surgery - [facility], Vascular Surgery - PICC line placement, Other - Back surgery and surgery for spina bifida. Social History Smoking Status: Former Smoker Electronic Cigarette use?: No Frequency of Alcohol Use: None Hx Recreational Drug Use: No Drugs: None Hx Prescription Drug Abuse: No - Advance Directive Resuscitation Status: Do Not Resuscitate Family History Family History: denies: CAD, DM, Hypertension, Malignancy Parental Family History Reviewed: Yes Children Family History Reviewed: Yes Sibling(s) Family History Reviewed.: Yes Medication/Allergy Home Medications: Mirtazapine [Remeron 15 mg Tablet] 15 mg PO DAILYP PRN 08/16/19 Metoclopramide HCl [Reglan 10 mg Tablet] 5 mg PO ACHS #120 tablet 09/03/19 Ondansetron [Zofran Odt 4 mg Tablet] 4 mg PO Q4HP PRN 12/09/19 Allergies/Adverse Reactions: latex Allergy (Verified 12/09/19 10:51) gabapentin Adverse Reaction (Verified 08/15/19 20:15) Review of Systems All systems: reviewed and no additional remarkable complaints except as stated - All systems were reviewed and were negative except as noted in the HPI Physical Exam Vital Signs: Temp Pulse Resp BP Pulse Ox 98.5 F 74 16 109/40 L 97 12/09/19 14:19 12/09/19 14:19 12/09/19 14:19 12/09/19 14:19 12/09/19 14:19 Intake & Output 12/08/19 12/09/19 12/10/19 06:59 06:59 06:59 Intake Total 1500 Balance 1500 Weight 57.4 kg General appearance: PRESENT: no acute distress, cooperative, disheveled, other - Very elderly and frail Head exam: PRESENT: atraumatic, normocephalic Eye exam: PRESENT: EOMI, PERRLA. ABSENT: conjunctival injection, nystagmus, scleral icterus Ear exam: PRESENT: normal external ear exam Mouth exam: PRESENT: dry mucosa, neck supple Teeth exam: PRESENT: poor dentation Throat exam: ABSENT: post pharyngeal erythema Neck exam: PRESENT: full ROM. ABSENT: carotid bruit, JVD, lymphadenopathy, meningismus, tenderness, thyromegaly Respiratory exam: PRESENT: clear to auscultation shannan, symmetrical, unlabored. ABSENT: accessory muscle use, chest wall tenderness, crackles, prolonged expiratory phas, retraction, rhonchi, tachypnea, wheezes Cardiovascular exam: PRESENT: RRR - Frequent PVCs, +S1, +S2 Pulses: PRESENT: normal carotid pulses Vascular exam: PRESENT: normal capillary refill GI/Abdominal exam: PRESENT: normal bowel sounds, soft. ABSENT: distended, guarding, rebound, tenderness Gentrourinary exam: PRESENT: indwelling catheter Extremities exam: ABSENT: clubbing, pedal edema Musculoskeletal exam: PRESENT: other - Atrophied lower extremities Neurological exam: PRESENT: alert, awake, oriented to person, oriented to place, oriented to situation, CN II-XII grossly intact Psychiatric exam: PRESENT: appropriate affect Skin exam: PRESENT: dry, warm, other - Sacral pressure sore that extends down the posterior of the right thigh Results Laboratory Results: 12/09/19 09:21 12/09/19 09:21 12/09/19 12/09/19 12/09/19 09:21 09:21 10:39 WBC 15.5 H RBC 3.53 L Hgb 9.2 L Hct 28.0 L MCV 80 MCH 26.1 L MCHC 32.8 RDW 16.1 H Plt Count 514 H Seg Neutrophils % 82.5 H VBG pH 7.32 VBG pCO2 39.8 VBG HCO3 19.9 L VBG Base Excess -5.8 Sodium 135.6 L Potassium 3.6 Chloride 103 Carbon Dioxide 18 L Anion Gap 15 BUN 37 H Creatinine 0.58 Est GFR ( Amer) > 60 Glucose 93 Lactic Acid Calcium 8.5 Magnesium 2.1 Total Bilirubin 0.7 AST 23 Alkaline Phosphatase 109 Total Protein 7.0 Albumin 2.7 L Urine Color Urine Appearance Urine pH Ur Specific [place] Urine Protein Urine Glucose (UA) Urine Ketones Urine Blood Urine Nitrite Ur Leukocyte Esterase Ur Squamous Epith Cells 12/09/19 12/09/19 12/09/19 10:39 11:07 15:01 WBC RBC Hgb Hct MCV MCH MCHC RDW Plt Count Seg Neutrophils % VBG pH VBG pCO2 VBG HCO3 VBG Base Excess Sodium Potassium Chloride Carbon Dioxide Anion Gap BUN Creatinine Est GFR ( Amer) Glucose Lactic Acid 1.4 1.6 Calcium Magnesium Total Bilirubin AST Alkaline Phosphatase Total Protein Albumin Urine Color DARK YELLOW Urine Appearance CLOUDY Urine pH 7.0 Ur Specific [place] 1.014 Urine Protein 100 H Urine Glucose (UA) NEGATIVE Urine Ketones TRACE H Urine Blood MODERATE H Urine Nitrite NEGATIVE Ur Leukocyte Esterase LARGE H Ur Squamous Epith Cells MODERATE 12/09/19 16:12 WBC RBC Hgb Hct MCV MCH MCHC RDW Plt Count Seg Neutrophils % VBG pH VBG pCO2 VBG HCO3 VBG Base Excess Sodium Potassium Chloride Carbon Dioxide Anion Gap BUN Creatinine Est GFR ( Amer) Glucose Lactic Acid 1.2 Calcium Magnesium Total Bilirubin AST Alkaline Phosphatase Total Protein Albumin Urine Color Urine Appearance Urine pH Ur Specific [place] Urine Protein Urine Glucose (UA) Urine Ketones Urine Blood Urine Nitrite Ur Leukocyte Esterase Ur Squamous Epith Cells 12/09/19 09:21 Troponin I 0.018 Impressions: Chest X-Ray 12/09/19 09:49 IMPRESSION: Pleural and parenchymal changes bilaterally left greater than right. Most of which probably represents chronic disease. Overall findings are significantly improved when compared to the 08/31/2019. Assessment and Plan - Diagnosis (1) Urinary tract infection Qualifiers: Indwelling urinary catheter type: indwelling urethral catheter Encounter type: initial encounter Is this a current diagnosis for this admission?: Yes Plan: Empirically on cefepime as this covers all of the pathogens that she has shown in the past year. Urine culture was obtained. Alberto catheter has been exchanged. (2) Anemia of chronic disease Is this a current diagnosis for this admission?: Yes Plan: Continue to encourage p.o. 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, stage 4 Is this a current diagnosis for this admission?: Yes Plan: Continue local wound care (5) Decubitus ulcer of sacral area Qualifiers: Pressure injury stage: stage 4 Qualified Code(s): L89.154 - Pressure ulcer of sacral region, stage 4 Is this a current diagnosis for this admission?: Yes Plan: Continue local wound care (6) Paraplegia Is this a current diagnosis for this admission?: Yes Plan: We will continue to try to offload to prevent worsening of her wounds - Time Time Spent with patient: 35 or more minutes - Inpatient Certification Based on my medical assessment, after consideration of the patient's comorbidities, presenting symptoms, or acuity I expect that the services needed warrant INPATIENT care.: Yes I certify that my determination is in accordance with my understanding of Medicare's requirements for reasonable and necessary INPATIENT services [42 CFR 412.3e].: Yes Medical Necessity: Significant Comorbidiites Make Outpatient Treatment Too Risky, Need Close Monitoring Due to Risk of Patient Decompensation, Need For IV Fluids, Need for IV Antibiotics, Risk of Complication if Not Cared For in Hospital
[2019-12-09] MEDS: METOCLOPRAMIDE HCL 10 MG TABLET PO SCH (21:45)
[2019-12-09] MEDS: NORMAL SALINE 1000 ML 1,000 ML IV PRN (21:48)
[2019-12-10] MEDS: NORMAL SALINE 1000 ML 1,000 ML IV PRN ×2 (03:47→17:24)
[2019-12-10] MEDS: HEPARIN SOD (PORCINE) 5,000 UNIT/ML 1 ML VIAL SUBCUT SCH ×3 (05:11→21:34)
[2019-12-10] MEDS: CEFEPIME 1 GM/D5W RTU 1 GM/50 ML RTUPB IV SCH ×2 (05:12→17:24)
[2019-12-10 06:37] LABS: HEMATOCRIT 23.6 % (36.0-47.0); MEAN CORPUSCULAR HEMOGLOBIN 26.1 pg (27.0-33.4); MEAN CORPUSCULAR VOLUME 79 fl (80-97); PLATELET COUNT 408 10^3/uL (150-450); RED BLOOD COUNT 2.98 10^6/uL (3.72-5.28); RED CELL DISTRIBUTION WIDTH 15.7 % (11.5-14.0); WHITE BLOOD COUNT 12.8 10^3/uL (4.0-10.5)
[2019-12-10 06:40] LABS: HEMOGLOBIN 7.8 g/dL (12.0-15.5)
[2019-12-10 06:46] LABS: ANION GAP 8 (5-19); BLOOD UREA NITROGEN 23 mg/dL (7-20); CALCIUM 7.6 mg/dL (8.4-10.2); CARBON DIOXIDE 18 mmol/L (22-30); CHLORIDE 110 mmol/L (98-107); GLUCOSE 123 mg/dL (75-110); POTASSIUM 3.7 mmol/L (3.6-5.0)
[2019-12-10] MEDS: METOCLOPRAMIDE HCL 10 MG TABLET PO SCH ×4 (09:32→21:34)
--- NOTE | 2019-12-10 16:55 | PDOC PROGRESS REPORT ---
Subjective Progress Note for:: 12/10/19 Subjective:: No adverse events overnight. No new complaints. Good urine output. She is feeling a lot better today. Her appetite is improved somewhat. No fevers. Reason For Visit: MDR,UTI,DEHYDRATION Physical Exam Vital Signs: Temp Pulse Resp BP Pulse Ox 99.1 F 88 19 102/39 L 98 12/10/19 00:00 12/10/19 15:53 12/10/19 15:53 12/10/19 15:53 12/10/19 15:53 Intake & Output 12/09/19 12/10/19 12/11/19 06:59 06:59 06:59 Intake Total 2669 1240 Output Total 200 Balance 2469 1240 Weight 57 kg 57 kg General appearance: PRESENT: no acute distress, cooperative, disheveled, other - Very elderly and frail Respiratory exam: PRESENT: clear to auscultation shannan, symmetrical, unlabored. ABSENT: accessory muscle use, chest wall tenderness, crackles, prolonged expiratory phas, retraction, rhonchi, tachypnea, wheezes Cardiovascular exam: PRESENT: RRR - Frequent PVCs, +S1, +S2 Pulses: PRESENT: normal carotid pulses Vascular exam: PRESENT: normal capillary refill GI/Abdominal exam: PRESENT: normal bowel sounds, soft. ABSENT: distended, guarding, rebound, tenderness Gentrourinary exam: PRESENT: indwelling catheter Extremities exam: ABSENT: clubbing, pedal edema Musculoskeletal exam: PRESENT: other - Atrophied lower extremities Neurological exam: PRESENT: alert, awake, oriented to person, oriented to place, oriented to situation Psychiatric exam: PRESENT: appropriate affect Skin exam: PRESENT: dry, warm, other - Sacral pressure sore that extends down the posterior of the right thigh Results Laboratory Results: 12/10/19 06:09 12/10/19 06:09 12/10/19 12/10/19 06:09 06:09 WBC 12.8 H RBC 2.98 L Hgb 7.8 L Hct 23.6 L MCV 79 L MCH 26.1 L MCHC 33.0 RDW 15.7 H Plt Count 408 Sodium 136.0 L Potassium 3.7 Chloride 110 H Carbon Dioxide 18 L Anion Gap 8 BUN 23 H Creatinine 0.44 L Est GFR ( Amer) > 60 Glucose 123 H Calcium 7.6 L 12/09/19 09:21 Troponin I 0.018 Impressions: Chest X-Ray 12/09/19 09:49 IMPRESSION: Pleural and parenchymal changes bilaterally left greater than right. Most of which probably represents chronic disease. Overall findings are significantly improved when compared to the 08/31/2019. Assessment and Plan - Diagnosis (1) Urinary tract infection Qualifiers: Indwelling urinary catheter type: indwelling urethral catheter Encounter type: initial encounter Is this a current diagnosis for this admission?: Yes Plan: Currently on cefepime. 2 organisms growing out of the urine. We will continue to monitor and adjust coverage accordingly. Alberto catheter was changed out on admission. (2) Anemia of chronic disease Is this a current diagnosis for this admission?: Yes Plan: Continue to encourage p.o. intake (3) Decreased oral intake Is this a current diagnosis for this admission?: Yes Plan: This is improving, she is eating a little bit more today, but this is a long- term issue for her (4) Decubitus ulcer of ischial area Qualifiers: Pressure injury stage: stage 4 Laterality: right Qualified Code(s): L89.314 - Pressure ulcer of right buttock, stage 4 Is this a current diagnosis for this admission?: Yes Plan: Continue local wound care (5) Decubitus ulcer of sacral area Qualifiers: Pressure injury stage: stage 4 Qualified Code(s): L89.154 - Pressure ulcer of sacral region, stage 4 Is this a current diagnosis for this admission?: Yes Plan: Continue local wound care (6) Paraplegia Is this a current diagnosis for this admission?: Yes Plan: We will continue to try to offload to prevent worsening of her wounds - Time Time Spent with patient: 15-24 minutes
--- NOTE | 2019-12-10 18:16 | CDI QUERY ---
CDI Query CDI Review: Dear Provider: To better reflect your patients severity of illness, morbidity, and resource utilization Please specify and document in the Progress Notes and Discharge Summary if you are monitoring / treating / evaluating any of the following conditions: Query Clinical indicators UTI secondary to indwelling Alberto catheter POA UTI unrelated to indwelling Alberto catheter Unable to determine Other * Coding cannot assume the link. It has to be documented ED Note: She has a indwelling Alberto catheter. She states to me "it is not working." She cannot tell me how long it has not been working correctly Hospitalist Progress Note: (1) Urinary tract infection Qualifiers: Indwelling urinary catheter type: indwelling urethral catheter Encounter type: initial encounter Is this a current diagnosis for this admission?: Yes Plan: Currently on cefepime. 2 organisms growing out of the urine. We will continue to monitor and adjust coverage accordingly. Alberto catheter was changed out on admission. The terms probable, suspected, likely, possible or still to be ruled out may be used if you are unable to determine the exact nature of a condition. Thank you, Clinical Documentation Physician Advisors ASHWIN Dockery RN, BSN RN Office [phone] Office [phone]
[2019-12-11] MEDS: CEFEPIME 1 GM/D5W RTU 1 GM/50 ML RTUPB IV SCH ×2 (05:02→18:01)
[2019-12-11] MEDS: HEPARIN SOD (PORCINE) 5,000 UNIT/ML 1 ML VIAL SUBCUT SCH ×2 (05:02→15:38)
[2019-12-11 06:13] LABS: HEMATOCRIT 23.7 % (36.0-47.0); MEAN CORPUSCULAR HEMOGLOBIN 26.3 pg (27.0-33.4); MEAN CORPUSCULAR HGB CONC 33.3 g/dL (32.0-36.0); MEAN CORPUSCULAR VOLUME 79 fl (80-97); PLATELET COUNT 410 10^3/uL (150-450); RED BLOOD COUNT 3.01 10^6/uL (3.72-5.28); RED CELL DISTRIBUTION WIDTH 15.9 % (11.5-14.0); WHITE BLOOD COUNT 11.1 10^3/uL (4.0-10.5)
[2019-12-11 06:15] LABS: HEMOGLOBIN 7.9 g/dL (12.0-15.5)
[2019-12-11 06:34] LABS: ANION GAP 5 (5-19); BLOOD UREA NITROGEN 15 mg/dL (7-20); CALCIUM 7.5 mg/dL (8.4-10.2); CARBON DIOXIDE 19 mmol/L (22-30); CHLORIDE 112 mmol/L (98-107); GLUCOSE 102 mg/dL (75-110); POTASSIUM 3.8 mmol/L (3.6-5.0)
[2019-12-11] MEDS: METOCLOPRAMIDE HCL 10 MG TABLET PO SCH ×3 (08:16→15:37)
[2019-12-11] MEDS: NORMAL SALINE 1000 ML 1,000 ML IV PRN (10:41)
[2019-12-11 17:28] VITALS: BP 113/45
--- NOTE | 2019-12-11 17:32 | PDOC DISCHARGE SUMMARY ---
Impression - Admit/DC Date/PCP Admission Date/Primary Care Provider: 12/09/19 12:52 ROULA ISAAC PA-C Discharge Date: 12/11/19 - Discharge Diagnosis (1) Urinary tract infection Is this a current diagnosis for this admission?: Yes (2) Anemia of chronic disease Is this a current diagnosis for this admission?: Yes (3) Decreased oral intake Is this a current diagnosis for this admission?: Yes (4) Decubitus ulcer of ischial area Is this a current diagnosis for this admission?: Yes (5) Decubitus ulcer of sacral area Is this a current diagnosis for this admission?: Yes (6) Paraplegia Is this a current diagnosis for this admission?: Yes - Additional Information Resuscitation Status: Do Not Resuscitate Discharge Diet: Regular Discharge Activity: Supervised Activity Referrals: ROULA ISAAC PA-C [Primary Care Provider] - (We will make an appointment for you and contact you with the date and time. Thank you!) Prescriptions: Cephalexin Monohydrate [Keflex 500 mg Capsule] 500 mg PO TID #21 capsule Home Medications: Mirtazapine [Remeron 15 mg Tablet] 15 mg PO DAILYP PRN 08/16/19 Metoclopramide HCl [Reglan 10 mg Tablet] 5 mg PO ACHS #120 tablet 09/03/19 Ondansetron [Zofran Odt 4 mg Tablet] 4 mg PO Q4HP PRN 12/09/19 Cephalexin Monohydrate [Keflex 500 mg Capsule] 500 mg PO TID #21 capsule 12/11/19 History of Present Illiness History of Present Illness: DEBORA JOEL is a 89 year old female with a history of spina bifida and a chronic sacral wound and a chronic indwelling Alberto who presents with a couple of days of feeling weaker than usual and nauseated. She says she is not been able to eat very much. Urinalysis was checked because she has had many different pathogens causing infection in the past and was found to be positive. She still reports some nausea in the ER. Hospital Course Hospital Course: She improved quickly with IV fluids and antibiotics. Her appetite did improve. Her grew 2 organisms that were sensitive to oral cephalosporins. She has been provided with a prescription for Keflex. Her other medications remain the same. She will resume home health. Her labs and examination were reassuring and she was discharged in stable condition. Physical Exam Vital Signs: Temp Pulse Resp BP Pulse Ox 98.9 F 88 16 113/45 L 95 12/11/19 16:10 12/11/19 16:10 12/11/19 16:10 12/11/19 16:10 12/11/19 16:10 Intake & Output 12/10/19 12/11/19 12/12/19 06:59 06:59 06:59 Intake Total 2669 3940 Output Total 200 900 175 Balance 2469 3040 -175 Weight 57 kg 60.3 kg General appearance: PRESENT: no acute distress, cooperative, disheveled, other - Very elderly and frail Respiratory exam: PRESENT: clear to auscultation shannan, symmetrical, unlabored. ABSENT: accessory muscle use, chest wall tenderness, crackles, prolonged expiratory phas, retraction, rhonchi, tachypnea, wheezes Cardiovascular exam: PRESENT: RRR - Frequent PVCs, +S1, +S2 Pulses: PRESENT: normal carotid pulses Vascular exam: PRESENT: normal capillary refill GI/Abdominal exam: PRESENT: normal bowel sounds, soft. ABSENT: distended, guarding, rebound, tenderness Gentrourinary exam: PRESENT: indwelling catheter Extremities exam: ABSENT: clubbing, pedal edema Musculoskeletal exam: PRESENT: other - Atrophied lower extremities Neurological exam: PRESENT: alert, awake, oriented to person, oriented to place, oriented to situation Psychiatric exam: PRESENT: appropriate affect Skin exam: PRESENT: dry, warm, other - Sacral pressure sore that extends down the posterior of the right thigh Results Laboratory Results: WBC 11.1 10^3/uL (4.0-10.5) H 12/11/19 05:34 RBC 3.01 10^6/uL (3.72-5.28) L 12/11/19 05:34 Hgb 7.9 g/dL (12.0-15.5) L 12/11/19 05:34 Hct 23.7 % (36.0-47.0) L 12/11/19 05:34 MCV 79 fl (80-97) L 12/11/19 05:34 MCH 26.3 pg (27.0-33.4) L 12/11/19 05:34 MCHC 33.3 g/dL (32.0-36.0) 12/11/19 05:34 RDW 15.9 % (11.5-14.0) H 12/11/19 05:34 Plt Count 410 10^3/uL (150-450) 12/11/19 05:34 Lymph % (Auto) 9.4 % (13-45) L 12/09/19 09:21 [place] % (Auto) 7.1 % (3-13) 12/09/19 09:21 Eos % (Auto) 0.5 % (0-6) 12/09/19 09:21 Baso % (Auto) 0.5 % (0-2) 12/09/19 09:21 Absolute Neuts (auto) 12.7 10^3/uL (1.7-8.2) H 12/09/19 09:21 Absolute Lymphs (auto) 1.5 10^3/uL (0.5-4.7) 12/09/19 09:21 Absolute Monos (auto) 1.1 10^3/uL (0.1-1.4) 12/09/19 09:21 Absolute Eos (auto) 0.1 10^3/uL (0.0-0.6) 12/09/19 09:21 Absolute Basos (auto) 0.1 10^3/uL (0.0-0.2) 12/09/19 09:21 Seg Neutrophils % 82.5 % (42-78) H 12/09/19 09:21 PT 15.0 SEC (11.4-15.4) 12/09/19 09:21 INR 1.17 12/09/19 09:21 VBG pH 7.32 (7.30-7.42) 12/09/19 10:39 VBG pCO2 39.8 mmHg (35-63) 12/09/19 10:39 VBG HCO3 19.9 mmol/L (20-32) L 12/09/19 10:39 VBG Base Excess -5.8 mmol/L 12/09/19 10:39 Sodium 135.9 mmol/L (137-145) L 12/11/19 05:34 Potassium 3.8 mmol/L (3.6-5.0) 12/11/19 05:34 Chloride 112 mmol/L (98-107) H 12/11/19 05:34 Carbon Dioxide 19 mmol/L (22-30) L 12/11/19 05:34 Anion Gap 5 (5-19) 12/11/19 05:34 BUN 15 mg/dL (7-20) 12/11/19 05:34 Creatinine 0.41 mg/dL (0.52-1.25) L 12/11/19 05:34 Est GFR ( Amer) > 60 (>60) 12/11/19 05:34 Est GFR (MDRD) Non-Af > 60 (>60) 12/11/19 05:34 Glucose 102 mg/dL (75-110) 12/11/19 05:34 POC Glucose 90 mg/dL (70-110) 12/09/19 12:11 Lactic Acid 1.2 mmol/L (0.7-2.1) 12/09/19 16:12 Calcium 7.5 mg/dL (8.4-10.2) L 12/11/19 05:34 Magnesium 2.1 mg/dL (1.6-2.3) 12/09/19 09:21 Total Bilirubin 0.7 mg/dL (0.2-1.3) 12/09/19 09:21 Direct Bilirubin 0.5 mg/dL (0.0-0.4) H 12/09/19 09:21 Neonat Total Bilirubin Not Reportable 12/09/19 09:21 Neonat Direct Bilirubin Not Reportable 12/09/19 09:21 Neonat Indirect Bili Not Reportable 12/09/19 09:21 AST 23 U/L (14-36) 12/09/19 09:21 ALT 9 U/L (<35) 12/09/19 09:21 Alkaline Phosphatase 109 U/L (38-126) 12/09/19 09:21 Troponin I 0.018 ng/mL 12/09/19 09:21 Total Protein 7.0 g/dL (6.3-8.2) 12/09/19 09:21 Albumin 2.7 g/dL (3.5-5.0) L 12/09/19 09:21 Urine Color DARK YELLOW 12/09/19 11:07 Urine Appearance CLOUDY 12/09/19 11:07 Urine pH 7.0 (5.0-9.0) 12/09/19 11:07 Ur Specific [place] 1.014 12/09/19 11:07 Urine Protein 100 mg/dL (NEGATIVE) H 12/09/19 11:07 Urine Glucose (UA) NEGATIVE mg/dL (NEGATIVE) 12/09/19 11:07 Urine Ketones TRACE mg/dL (NEGATIVE) H 12/09/19 11:07 Urine Blood MODERATE (NEGATIVE) H 12/09/19 11:07 Urine Nitrite NEGATIVE (NEGATIVE) 12/09/19 11:07 Urine Bilirubin NEGATIVE (NEGATIVE) 12/09/19 11:07 Urine Urobilinogen NEGATIVE mg/dL (<2.0) 12/09/19 11:07 Ur Leukocyte Esterase LARGE (NEGATIVE) H 12/09/19 11:07 Urine RBC 1-5 /HPF 12/09/19 11:07 Urine WBC TOO NUMEROUS TO CNT /HPF 12/09/19 11:07 Ur Squamous Epith Cells MODERATE /HPF 12/09/19 11:07 Urine Bacteria 4+ /HPF 12/09/19 11:07 Urine Mucus 1+ 12/09/19 11:07 Urine Ascorbic Acid NEGATIVE (NEGATIVE) 12/09/19 11:07 Urine Opiates Screen NEGATIVE 12/09/19 11:07 Urine Methadone Screen NEGATIVE 12/09/19 11:07 Ur Barbiturates Screen NEGATIVE 12/09/19 11:07 Ur Phencyclidine Scrn NEGATIVE 12/09/19 11:07 Ur Amphetamines Screen NEGATIVE 12/09/19 11:07 U Benzodiazepines Scrn NEGATIVE 12/09/19 11:07 Urine Cocaine Screen NEGATIVE 12/09/19 11:07 U Marijuana (THC) Screen UNCONFIRMED POSITIVE 12/09/19 11:07 Serum Alcohol < 10 mg/dL (NONE DETECTED) 12/09/19 09:21 12/09/19 09:21 Troponin I 0.018 Impressions: Chest X-Ray 12/09/19 09:49 IMPRESSION: Pleural and parenchymal changes bilaterally left greater than right. Most of which probably represents chronic disease. Overall findings are significantly improved when compared to the 08/31/2019. Plan Time Spent: Greater than 30 Minutes Stroke Is this a Stroke Patient?: No Acute Heart Failure - Is this a Heart Failure Patient?: No
== END 2019-12-11 19:40 | disposition home health service (06) | DRG 698 ==
LOC: ER 09:00 → EH 12:52 → 5 13:56
PROVIDERS: ADMIT Family Medicine; ATTEND Family Medicine
DX: T83.511A Infection and inflammatory reaction due to indwelling urethral catheter, initial encounter (principal); L89.154 Pressure ulcer of sacral region, stage 4; L89.314 Pressure ulcer of right buttock, stage 4; G82.20 Paraplegia, unspecified; N39.0 Urinary tract infection, site not specified; E86.0 Dehydration; D64.9 Anemia, unspecified; Y84.6 Urinary catheterization as the cause of abnormal reaction of the patient, or of later complication, without mention of misadventure at the time of the procedure; Q05.7 Lumbar spina bifida without hydrocephalus; Z89.512 Acquired absence of left leg below knee; Z87.891 Personal history of nicotine dependence; Z91.040 Latex allergy status; Z88.6 Allergy status to analgesic agent; Z66 Do not resuscitate
CPT/HCPCS: 36415; 71045; 80048; 80053; 80307; 81001; 82803; 82962; 83605; 83735; 84484; 85025; 85027; 85610; 87040; 87086; 87088; 87186; 93005; 93010; 96360; 99285; J0692; J1644; J7030; J7040

== ENCOUNTER 2019-12-11 21:48 | Inpatient (IN) | payer MEDICARE ==
--- NOTE | 2019-12-11 22:10 | RADIOLOGY REPORT (SQ) ---
INDICATION: STROKE ALERT. COMPARISON: None CORRELATION: None TECHNIQUE: Noncontrast spiral axial CT images were obtained from the skull base to vertex. This exam was performed according to our departmental dose-optimization program, which includes automated exposure control, adjustment of the mA and/or kV according to patient size and/or use of iterative reconstruction techniques. FINDINGS: There is no evidence of acute intracranial hemorrhage, midline shift, mass effect or mass lesion. 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 There is no evidence of acute large territory infarct. Ventricles and extracerebral spaces are within normal limits, for age. Vascular calcification The visualized paranasal sinuses are grossly clear. The orbits and eyeballs are unremarkable. The mastoid air cells are clear. Skull base and calvarium appear intact. IMPRESSION: No acute intracranial process is identified. 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 Age-related involutional changes are identified. Presumed old small vessel ischemic changes are seen predominantly in a periventricular distribution.
--- NOTE | 2019-12-11 22:20 | RADIOLOGY REPORT (SQ) ---
EXAM DESCRIPTION: XR CHEST 1 VIEW COMPLETED DATE/TME: 12/11/2019 00:00 CLINICAL HISTORY: 89 years, Female, STROKE ALERT COMPARISON: December 09, 2019 NUMBER OF VIEWS: Single TECHNIQUE: LIMITATIONS: None. FINDINGS: Cardiomediastinal silhouette is enlarged. Chronic parenchymal lung change. No significant pleural fluid. No pneumothorax. Osteoarthritis IMPRESSION: Chronic change. No acute process or adverse change copyright 2010 [employer]- All Rights Reserved
--- NOTE | 2019-12-11 22:30 | EKG REPORT ---
SEVERITY:- ABNORMAL ECG - SINUS RHYTHM ABNORMAL T, CONSIDER ISCHEMIA, LATERAL LEADS : Confirmed by: Adriane Vega 11-Dec-2019 22:29:49
[2019-12-11 22:32] LABS: ABSOLUTE EOSINOPHILS # (AUTO) 0.1 10^3/uL (0.0-0.6); ABSOLUTE LYMPHOCYTES (AUTO) 1.6 10^3/uL (0.5-4.7); ABSOLUTE MONOCYTES (AUTO) 1.1 10^3/uL (0.1-1.4); ABSOLUTE NEUT (AUTO) 10.6 10^3/uL (1.7-8.2); BASOPHILS % (AUTO) 0.3 % (0-2); EOSINOPHILS % (AUTO) 1.1 % (0-6); HEMATOCRIT 26.8 % (36.0-47.0); MEAN CORPUSCULAR HEMOGLOBIN 26.6 pg (27.0-33.4); MEAN CORPUSCULAR HGB CONC 33.4 g/dL (32.0-36.0); MEAN CORPUSCULAR VOLUME 80 fl (80-97); MONOCYTES % (AUTO) 8.4 % (3-13); PLATELET COUNT 485 10^3/uL (150-450); RED BLOOD COUNT 3.37 10^6/uL (3.72-5.28); RED CELL DISTRIBUTION WIDTH 16.2 % (11.5-14.0); SEGMENTED NEUTROPHILS % (AUTO) 78.2 % (42-78); TOTAL CELLS COUNTED % (AUTO) 100 %; WHITE BLOOD COUNT 13.5 10^3/uL (4.0-10.5)
[2019-12-11 22:35] LABS: INTERNATIONAL RATION (INR) 1.25; PARTIAL THROMBOPLASTIN TIME 31.8 SEC (23.5-35.8); PROTHROMBIN TIME 15.7 SEC (11.4-15.4)
[2019-12-11 22:55] LABS: ALBUMIN 2.3 g/dL (3.5-5.0); ALKALINE PHOSPHATASE 107 U/L (38-126); ANION GAP 9 (5-19); ASPARTATE AMINO TRANSFERASE 23 U/L (14-36); BILIRUBIN,DIRECT 0.4 mg/dL (0.0-0.4); BILIRUBIN,TOTAL 0.4 mg/dL (0.2-1.3); BLOOD UREA NITROGEN 12 mg/dL (7-20); CALCIUM 7.8 mg/dL (8.4-10.2); CARBON DIOXIDE 18 mmol/L (22-30); CHLORIDE 108 mmol/L (98-107); CREATINE KINASE 72 U/L (30-135); GLUCOSE 106 mg/dL (75-110); POTASSIUM 3.8 mmol/L (3.6-5.0); TOTAL PROTEIN 6.3 g/dL (6.3-8.2)
[2019-12-11 23:05] LABS: CREATINE KINASE MB 0.49 ng/mL (<4.55)
[2019-12-11 23:11] LABS: TROPONIN I < 0.012 ng/mL
--- NOTE | 2019-12-11 23:38 | ER Document Report ---
ED General - General Chief Complaint: S/S of Possible Stroke Stated Complaint: SUSPECTED STROKE Primary Care Provider: ROULA ISAAC PA-C [Primary Care Provider] - Follow up as needed Mode of Arrival: Medic Information source: Patient, Relative, [facility] Records Notes: Patient is an 89-year-old female presenting to the emergency department chief complaint of facial asymmetry. Patient was just discharged from the hospital earlier today. Patient son states that the patient called and spoke to family at about 1 PM however when the patient arrived home around 8 PM she had obvious left-sided facial droop and some difficulty with speech. He states that the fact that she cannot move her left arm or leg is also a new finding. Patient states that the patient was admitted to the hospital for UTI and was here for several days. He states that EMS brought the patient back to the hospital for evaluation and treatment. At time of evaluation patient is alert is able to answer simple questions however does have an obvious left-sided facial droop has left-sided neglect patient has a left BKA. TRAVEL OUTSIDE OF THE [place] IN LAST 30 DAYS: No - HPI Onset: This evening Onset/Duration: Persistent Quality of pain: No pain Severity: None Pain Level: Denies Associated symptoms: None, Weakness Exacerbated by: Denies Relieved by: Denies Similar symptoms previously: No Recently seen / treated by doctor: Yes - Related Data Allergies/Adverse Reactions: latex Allergy (Verified 12/09/19 10:51) gabapentin Adverse Reaction (Verified 08/15/19 20:15) Past Medical History - General Information source: Patient, Relative, [facility] Records - Social History Smoking Status: Unknown if Ever Smoked Cigarette use (# per day): No Chew tobacco use (# tins/day): No Smoking Education Provided: No Frequency of alcohol use: None Drug Abuse: None Lives with: Family Family History: Reviewed & Not Pertinent. denies: CAD, DM, Hypertension, Malignancy Patient has suicidal ideation: No Patient has homicidal ideation: No - Past Medical History Cardiac Medical History: Denies: Hx Coronary Artery Disease, Hx Hypercholesterolemia, Hx Hypertension Pulmonary Medical History: Denies: Hx Asthma, Hx COPD Neurological Medical History: Denies: Hx Seizures Endocrine Medical History: Denies: Hx Diabetes Mellitus Type 1, Hx Diabetes Me llitus Type 2, Hx Hyperthyroidism, Hx Hypothyroidism Renal/ Medical History: Reports: Hx Renal Insufficiency. Denies: Hx Peritoneal Dialysis GI Medical History: Denies: Hx Cirrhosis, Hx Crohn's Disease, Hx Hepatitis, Hx Ulcerative Colitis Musculoskeletal Medical History: Denies Hx Arthritis, Denies Hx Gout Skin Medical History: Denies Hx Eczema, Denies Hx Psoriasis Other: Decubiti Psychiatric Medical History: Denies: Hx Depression Infectious Medical History: Denies: Hx Hepatitis Past Surgical History: Reports: Hx Orthopedic Surgery - LBKA, Hx Vascular Surgery - PICC line placement, Other - Back surgery and surgery for spina bifida. Review of Systems - Review of Systems Notes: REVIEW OF SYSTEMS: CONSTITUTIONAL : Denies fever, chills, or sweats. Denies recent illness. EENT: Per HPI CARDIOVASCULAR: Denies chest pain. RESPIRATORY: Denies cough, cold, or chest congestion. Denies shortness of breath, difficulty breathing, or wheezing. GASTROINTESTINAL: Denies abdominal pain. Denies nausea, vomiting, or diarrhea. Denies constipation. GENITOURINARY: Denies difficulty urinating, painful urination, burning, frequency, or blood in urine. MUSCULOSKELETAL: Per HPI SKIN: Denies rash or skin lesions. HEMATOLOGIC : Denies easy bruising or bleeding. NEUROLOGICAL: Per HPI PSYCHIATRIC: Denies suicidal or homicidal ideations 10 Systems are negative unless otherwise specified above Physical Exam - Vital signs Vitals: Pulse Ox 99 12/11/19 21:59 - Notes Notes: PHYSICAL EXAMINATION: GENERAL: Patient is alert to self in no acute distress HEAD: Obvious left-sided facial droop EYES: Pupils equal round and reactive to light, extraocular movements intact, sclera anicteric, conjunctiva are normal. ENT: nares patent, oropharynx clear without exudates. Moist mucous membranes. NECK: Normal range of motion, supple without lymphadenopathy, no appreciable JVD LUNGS: Lungs clear to auscultation bilaterally and equal. No wheezes rales or rhonchi. HEART: Regular rate and rhythm without murmurs ABDOMEN: Soft, nontender, normal bowel sounds. No guarding, no rebound. No masses appreciated. EXTREMITIES: Left side upper and lower neglect, right side 4-5 transport analyst strength good range of motion to upper and lower extremity. NEUROLOGICAL: Patient has obvious left-sided facial droop no nystagmus no gaze paralysis patient does have left-sided neglect there is no sensation or movement to either upper or lower extremity, lower extremity also is BKA, patient does have sensitivity to right side to midline of her face but loses it to the left. Patient is alert and oriented x3 [place] Coma Scale of 15 SKIN: Warm, Dry, and intact. Normal turgor, no rashes or lesions noted. Course - Re-evaluation Re-evalutation: 12/11/19 23:37 We paged [facility] neurology services and I was able to speak with Dr. Cunningham who has requested CTA brain and neck of the patient to determine if the patient would possibly be a candidate for thrombectomy. Currently patient is stable in hospital bed no change in facial droop or awareness. Family member is no longer present at bedside. 12/12/19 01:02 Patient has returned from CAT scan CTA of brain and neck have been accomplished. Patient is resting comfortably in hospital bed we have re-paged the neurologist at [facility] for consultation. 12/12/19 01:[address] Valentin from [facility] and reviewed the patient's CTA of brain and neck. He states at this point in time does not believe the patient is in need of any neurosurgical intervention and recommends admission to the hospitalist service for medical management of the cerebrovascular accident. 12/12/19 01:37 Patient has been consulted to the hospitalist who is agreeable with admitting the patient for cerebrovascular accident. - Vital Signs Vital signs: Temp Pulse Resp BP Pulse Ox 98.2 F 84 23 H 131/56 H 99 12/11/19 23:01 12/11/19 23:29 12/11/19 23:29 12/11/19 23:29 12/11/19 23:29 - Laboratory Result Diagrams: 12/11/19 22:21 12/11/19 22:21 Laboratory results interpreted by me: 12/11/19 12/11/19 12/11/19 22:21 22:21 22:21 WBC 13.5 H RBC 3.37 L Hgb 9.0 L Hct 26.8 L MCH 26.6 L RDW 16.2 H Plt Count 485 H Lymph % (Auto) 12.0 L Absolute Neuts (auto) 10.6 H Seg Neutrophils % 78.2 H PT 15.7 H Sodium 135.0 L Chloride 108 H Carbon Dioxide 18 L Creatinine 0.40 L Calcium 7.8 L Albumin 2.3 L - Diagnostic Test Radiology reviewed: Reports reviewed - EKG Interpretation by Me EKG shows normal: Sinus rhythm Rate: Normal Rhythm: NSR When compared to previous EKG there are: No significant change Additional EKG results interpreted by me: 12/12/19 00:29 EKG is interpreted by me demonstrates sinus rhythm 87 bpm there is no ST elevation no axis deviation no obvious ectopy no major change compared to prior EKG of December 09, 2019. Discharge - Discharge Clinical Impression: CVA (cerebral vascular accident) Qualifiers: CVA mechanism: unspecified Qualified Code(s): I63.9 - Cerebral infarction, unspecified Condition: Fair Disposition: ADMITTED INPATIENT Admitting Provider: Frandy (Hospitalist) Unit Admitted: IMCU Referrals: ROULA ISAAC PA-C [Primary Care Provider] - Follow up as needed
--- NOTE | 2019-12-12 00:45 | RADIOLOGY REPORT (SQ) ---
CLINICAL INDICATION: cva. . TECHNIQUE: CT arteriography was obtained of the extracranial carotid and vertebral arteries with multiplanar MIP and/or 3-D angiographic reconstructions. This exam was performed according to our departmental dose-optimization program, which includes automated exposure control, adjustment of the mA and/or kV according to patient size and/or use of iterative reconstruction techniques. COMPARISON: None. CORRELATION: None. FINDINGS: The aortic arch demonstrates direct origin of left vertebral from the arch, anatomic variant. No hemodynamically significant stenosis is identified at the origin of great vessels. Atherosclerosis. Artifact from persistent venous opacification. Right: The brachiocephalic artery is unremarkable without evidence of hemodynamically significant stenosis. The central subclavian artery is unremarkable without evidence of hemodynamically significant stenosis. The common carotid artery is unremarkable without evidence of hemodynamically significant stenosis. The external carotid artery is unremarkable without evidence of hemodynamically significant stenosis. The cervical internal carotid artery is unremarkable without evidence of hemodynamically significant stenosis. Left: The common carotid artery is unremarkable without evidence of hemodynamically significant stenosis. The external carotid artery is unremarkable without evidence of hemodynamically significant stenosis. The cervical internal carotid artery is unremarkable without evidence of hemodynamically significant stenosis. Mild atherosclerosis at the level the bifurcation The vertebral arteries are unremarkable without evidence of hemodynamically significant stenosis. Surrounding soft tissues of the neck demonstrate the thyroid to be heterogeneous. No bulky adenopathy. Chronic changes are seen at the lung apices. Airspace disease left lung apex with adjacent moderate pleural effusion. This is mostly atelectasis. Additionally a soft tissue nodule is identified left upper lobe measuring 0.8 x 1.3 cm, series 3 image 3. Other smaller contralateral nodules. Intracranial CTA demonstrates atherosclerosis within the internal carotid arteries bilaterally. This is most prominent within the cavernous segment without focal high-grade stenosis. Stenosis on the left reaches approximately 50% diameter reduction. The central middle cerebral arteries are patent. The central anterior cerebral arteries are patent. The central posterior cerebral arteries are patent. The cerebral arteries more peripherally difficult to assess given adjacent venous opacification. Vertebrobasilar system is patent.. Brain dictated separately Internal carotid artery stenosis quantification and significance is defined utilizing the methods of [place] Symptomatic Carotid Endarterectomy Trial (NASCET). IMPRESSION: Atherosclerosis without evidence of hemodynamically significant stenosis of the extracranial carotid or vertebral systems. [place] is patent. Multiple pulmonary nodules, the largest left upper lobe. Is there a known history of a primary carcinoma?.
[2019-12-12] MEDS ORDERED: MAGNESIUM HYDROXIDE SUSP 30 ML UDCUP PO PRN (01:37)
[2019-12-12] MEDS ORDERED: ACETAMINOPHEN 325 MG TABLET PO PRN (01:37)
[2019-12-12] MEDS ORDERED: ATORVASTATIN CALCIUM 80 MG TABLET PO ONE (01:45)
--- NOTE | 2019-12-12 04:00 | PDOC H&P ---
History of Present Illness Admission Date/PCP: 12/12/19 02:32 ROULA ISAAC PA-C Patient complains of: Facial symmetry History of Present Illness: DEBORA JOEL is a 89 year old female with a past medical history of spina bifida, left AKA, chronic sacral wound, urinary tract infection with indwelling Alberto. Patient was discharged at 1 PM, discharge transportation resulting in arrival at 8 PM where she was noted to have altered mental status, left-sided neglect, dysarthria and return to the hospital for evaluation. She is awake and alert talking, denying pain but with profound left-sided weakness. CTA head and neck are unremarkable for thrombosis, CT head is negative thus far. She is discovered beyond the window for thrombolytics, evaluation with family declines aggressive measures. She is in normal sinus rhythm and [facility]. Past Medical History Cardiac Medical History: Denies: Coronary Artery Disease, Hyperlipidema, Hypertension Pulmonary Medical History: Denies: Asthma, Chronic Obstructive Pulmonary Disease (COPD) Neurological Medical History: Denies: Seizures Endocrine Medical History: Denies: Diabetes Mellitus Type 1, Diabetes Mellitus Type 2, Hyperthyroidism, Hypothyroidism GI Medical History: Denies: Cirrhosis, Crohn's Disease, Hepatitis, Ulcerative Colitis Musculoskeltal Medical History: Denies: Arthritis, Gout Skin Medical History: Denies: Eczema, Psoriasis Psychiatric Medical History: Denies: Depression Hematology: Reports: Anemia - Chronic anemia Denies: Bleeding Tendencies Past Surgical History Past Surgical History: Reports: Orthopedic Surgery - LBKA, Vascular Surgery - PICC line placement, Other - Back surgery and surgery for spina bifida. Social History Information Source: Patient, Emergency Med Personnel, [facility] Records Lives with: Family Smoking Status: Unknown if Ever Smoked Frequency of Alcohol Use: None Hx Recreational Drug Use: No Drugs: None Hx Prescription Drug Abuse: No - Advance Directive Resuscitation Status: Full Code Family History Family History: Other - Unobtainable. denies: Reviewed & Not Pertinent, CAD, DM, Hypertension, Malignancy Parental Family History Reviewed: No - Unobtainable Children Family History Reviewed: No - Unobtainable Sibling(s) Family History Reviewed.: No - Unobtainable Medication/Allergy Home Medications: Mirtazapine [Remeron 15 mg Tablet] 15 mg PO DAILYP PRN 08/16/19 Metoclopramide HCl [Reglan 10 mg Tablet] 5 mg PO ACHS #120 tablet 09/03/19 Ondansetron [Zofran Odt 4 mg Tablet] 4 mg PO Q4HP PRN 12/09/19 Cephalexin Monohydrate [Keflex 500 mg Capsule] 500 mg PO TID #21 capsule 12/11/19 Allergies/Adverse Reactions: latex Allergy (Verified 12/09/19 10:51) gabapentin Adverse Reaction (Verified 08/15/19 20:15) Review of Systems ROS unobtainable: Due to mental status - Unobtainable Physical Exam Vital Signs: Temp Pulse Resp BP Pulse Ox 98.1 F 83 20 124/56 L 99 12/12/19 02:01 12/12/19 01:45 12/12/19 02:01 12/12/19 02:01 12/12/19 02:01 Intake & Output 12/10/19 12/11/19 12/12/19 11:59 11:59 11:59 Weight 67.4 kg General appearance: PRESENT: no acute distress, cooperative, thin, well- developed, other - Severe temporal wasting and cachexia. ABSENT: well-nourished Head exam: PRESENT: atraumatic, normocephalic Eye exam: PRESENT: conjunctiva pink, EOMI, PERRLA. ABSENT: scleral icterus Ear exam: PRESENT: normal external ear exam Mouth exam: PRESENT: moist, tongue midline Neck exam: ABSENT: carotid bruit, JVD, lymphadenopathy, thyromegaly Respiratory exam: PRESENT: clear to auscultation shannan. ABSENT: rales, rhonchi, wheezes Cardiovascular exam: PRESENT: RRR. ABSENT: diastolic murmur, rubs, systolic murmur Pulses: PRESENT: normal dorsalis pedis pul Vascular exam: PRESENT: normal capillary refill GI/Abdominal exam: PRESENT: normal bowel sounds, soft. ABSENT: distended, gu arding, mass, organolmegaly, rebound, tenderness Rectal exam: PRESENT: deferred Extremities exam: PRESENT: other - Left upper extremity weakness Musculoskeletal exam: PRESENT: full ROM, normal inspection - Stage III sacral [place]. ABSENT: tenderness Neurological exam: PRESENT: alert, awake, oriented to person, oriented to situation, CN II-XII grossly intact. ABSENT: motor sensory deficit Psychiatric exam: PRESENT: appropriate affect, normal mood. ABSENT: homicidal i deation, suicidal ideation Skin exam: PRESENT: dry, intact - Stage III sacral decubiti, warm, other. ABSENT: cyanosis, rash Results Laboratory Results: 12/11/19 22:21 12/11/19 22:21 12/11/19 12/11/19 22:21 22:21 WBC 13.5 H RBC 3.37 L Hgb 9.0 L Hct 26.8 L MCV 80 MCH 26.6 L MCHC 33.4 RDW 16.2 H Plt Count 485 H Seg Neutrophils % 78.2 H Sodium 135.0 L Potassium 3.8 Chloride 108 H Carbon Dioxide 18 L Anion Gap 9 BUN 12 Creatinine 0.40 L Est GFR ( Amer) > 60 Glucose 106 Calcium 7.8 L Total Bilirubin 0.4 AST 23 Alkaline Phosphatase 107 Total Protein 6.3 Albumin 2.3 L 12/11/19 12/11/19 22:21 22:21 Creatine Kinase 72 CK-MB (CK-2) 0.49 Troponin I < 0.012 Impressions: Chest X-Ray 12/11/19 00:00 IMPRESSION: Chronic change. No acute process or adverse change copyright 2011 [employer]- All Rights Reserved Head CT 12/11/19 00:00 IMPRESSION: No acute intracranial process is identified. 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 Age-related involutional changes are identified. Presumed old small vessel ischemic changes are seen predominantly in a periventricular distribution. Head CTA 12/11/19 23:35 IMPRESSION: Atherosclerosis without evidence of hemodynamically significant stenosis of the extracranial carotid or vertebral systems. [place] is patent. Multiple pulmonary nodules, the largest left upper lobe. Is there a known history of a primary carcinoma?. Neck CTA 12/11/19 23:35 IMPRESSION: Atherosclerosis without evidence of hemodynamically significant stenosis of the extracranial carotid or vertebral systems. [place] is patent. Multiple pulmonary nodules, the largest left upper lobe. Is there a known history of a primary carcinoma?. Assessment and Plan - Diagnosis (1) CVA (cerebral vascular accident) Qualifiers: CVA mechanism: unspecified Qualified Code(s): I63.9 - Cerebral infarction, unspecified Is this a current diagnosis for this admission?: Yes Plan: CVA care set deployed, not a candidate for aggressive measures, consider hospice consult given chronic illness with comorbidity (2) Anemia of chronic disease Is this a current diagnosis for this admission?: Yes Plan: Supportive care but complicated by n.p.o. 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 Standard wound care management. - Time Time Spent with patient: 25-34 minutes - Inpatient Certification Medical Necessity: Need Close Monitoring Due to Risk of Patient Decompensation
[2019-12-12] MEDS: HEPARIN SOD (PORCINE) 5,000 UNIT/ML 1 ML VIAL SUBCUT SCH ×3 (06:35→22:00)
[2019-12-12] MEDS: ASPIRIN 81 MG TABLET, ENT COATED PO SCH (09:04)
[2019-12-12] MEDS: ATORVASTATIN CALCIUM 80 MG TABLET PO SCH (21:59)
[2019-12-13 06:11] LABS: CHOLESTEROL 107.05 mg/dL (0-200); TRIGLYCERIDES 111 mg/dL (<150)
[2019-12-13 06:21] LABS: DIRECT LDL 74 mg/dL (<100)
[2019-12-13] MEDS: HEPARIN SOD (PORCINE) 5,000 UNIT/ML 1 ML VIAL SUBCUT SCH ×3 (06:28→22:20)
[2019-12-13] MEDS: ASPIRIN 81 MG TABLET, ENT COATED PO SCH (09:14)
[2019-12-13] MEDS ORDERED: CEFAZOLIN 1 GM/D5W RTU 1 GM/50 ML RTUPB IV SCH (09:30)
[2019-12-13] MEDS: CEFAZOLIN 1 GM/D5W RTU 1 GM/50 ML RTUPB IV SCH ×2 (10:52→18:03)
--- NOTE | 2019-12-13 16:16 | PDOC PROGRESS REPORT ---
Subjective Progress Note for:: 12/13/19 Subjective:: No adverse events overnight. Her family says that her mood seems to be a little bit better but she still cannot swallow. She still cannot move her left arm. Reason For Visit: CVA CEREBRAL VASCULAR ACCIDENT Physical Exam Vital Signs: Temp Pulse Resp BP Pulse Ox 98.5 F 85 14 126/45 H 97 12/13/19 12:03 12/13/19 12:03 12/13/19 12:03 12/13/19 12:03 12/13/19 12:03 Intake & Output 12/12/19 12/13/19 12/14/19 06:59 06:59 06:59 Intake Total 0 50 Output Total 50 140 Balance -50 -140 50 Weight 60 kg 66.7 kg General appearance: PRESENT: no acute distress, cooperative, disheveled, other - Appears extremely elderly and frail Respiratory exam: PRESENT: symmetrical, unlabored. ABSENT: accessory muscle use, chest wall tenderness, crackles, prolonged expiratory phas, rhonchi, tachypnea, wheezes Cardiovascular exam: PRESENT: RRR, +S1, +S2 Pulses: PRESENT: normal carotid pulses Vascular exam: PRESENT: normal capillary refill GI/Abdominal exam: PRESENT: hypoactive bowel sounds, soft. ABSENT: distended, guarding, rebound, tenderness Extremities exam: ABSENT: clubbing, pedal edema Musculoskeletal exam: PRESENT: other - Muscle wasting of the lower extremities Neurological exam: PRESENT: awake, oriented to person, oriented to place, oriented to situation, motor sensory deficit - She cannot feel anything below the waist to move her lower extremities, which is chronic. She cannot move her left arm. She could move her right arm but she is weak. She has left-sided facial droop. Psychiatric exam: PRESENT: flat affect Skin exam: PRESENT: dry, pallor, warm, other - Sacral pressure sore that extends down towards the back of the right leg Results Laboratory Results: 12/11/19 22:21 12/11/19 22:21 12/13/19 05:10 Triglycerides 111 Cholesterol 107.05 LDL Cholesterol Direct 74 VLDL Cholesterol 22.0 HDL Cholesterol 18 L 12/11/19 12/11/19 22:21 22:21 Creatine Kinase 72 CK-MB (CK-2) 0.49 Troponin I < 0.012 Impressions: Chest X-Ray 12/11/19 00:00 IMPRESSION: Chronic change. No acute process or adverse change copyright 2010 [employer]- All Rights Reserved Head CT 12/11/19 00:00 IMPRESSION: No acute intracranial process is identified. 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 Age-related involutional changes are identified. Presumed old small vessel ischemic changes are seen predominantly in a periventricular distribution. Head CTA 12/11/19 23:35 IMPRESSION: Atherosclerosis without evidence of hemodynamically significant stenosis of the extracranial carotid or vertebral systems. [place] is patent. Multiple pulmonary nodules, the largest left upper lobe. Is there a known history of a primary carcinoma?. Neck CTA 12/11/19 23:35 IMPRESSION: Atherosclerosis without evidence of hemodynamically significant stenosis of the extracranial carotid or vertebral systems. [place] is patent. Multiple pulmonary nodules, the largest left upper lobe. Is there a known history of a primary carcinoma?. Assessment and Plan - Diagnosis (1) CVA (cerebral vascular accident) Qualifiers: CVA mechanism: occlusion Precerebral and cerebral artery: middle cerebral artery Laterality of affected vessel: right Qualified Code(s): I63.511 - Cerebral infarction due to unspecified occlusion or stenosis of right middle cerebral artery Is this a current diagnosis for this admission?: Yes Plan: Based on her physical exam this is the most likely location. Family at one point was thinking about hospice and now they want to see how she is going to do with her swallow evaluation tomorrow. Occupational Therapy evaluation is p ending. Whenever they did the CTA of her neck there was notice of some possible pulmonary nodules. Will talk with family to see how aggressive they want to be in working this up. (2) Decubitus ulcer of ischial area Qualifiers: Pressure injury stage: stage 4 Laterality: right Qualified Code(s): L89.3 14 - Pressure ulcer of right buttock, stage 4 Is this a current diagnosis for this admission?: Yes Plan: Complicated by poor mobility, malnutrition and comorbidities. Standard wound care management. (3) Decubitus ulcer of right heel Qualifiers: Pressure injury stage: unspecified pressure injury stage Qualified Code(s): L89.619 - Pressure ulcer of right heel, unspecified stage Is this a current diagnosis for this admission?: Yes (4) Decubitus ulcer of sacral area Qualifiers: Pressure injury stage: stage 4 Qualified Code(s): L89.154 - Pressure ulcer of sacral region, stage 4 Is this a current diagnosis for this admission?: Yes (5) Urinary tract infection Qualifiers: Indwelling urinary catheter type: indwelling urethral catheter Encounter type: initial encounter Is this a current diagnosis for this admission?: Yes Plan: She was on Keflex, since she cannot swallow we will put her on Ancef - Time Time Spent with patient: 15-24 minutes
[2019-12-13] MEDS: ATORVASTATIN CALCIUM 80 MG TABLET PO SCH (22:17)
[2019-12-14] MEDS: RINGERS SOLUTION,LACTATED 1,000 ML IV PRN ×2 (00:45→19:50)
[2019-12-14] MEDS: CEFAZOLIN 1 GM/D5W RTU 1 GM/50 ML RTUPB IV SCH ×4 (02:45→21:42)
[2019-12-14] MEDS: HEPARIN SOD (PORCINE) 5,000 UNIT/ML 1 ML VIAL SUBCUT SCH ×3 (06:48→21:43)
[2019-12-14] MEDS: ASPIRIN 300 MG SUPP, RECTAL PR SCH (09:30)
--- NOTE | 2019-12-14 14:07 | ST Inp Modified Barium Swallow ---
Medical Diagnosis - Medical Diagnoses Medical Diagnosis Description & ICD-10 Code(s): CVA - ICD-10 Tx Diagnosis Coding (1) Dysphagia as late effect of cerebrovascular accident (CVA) ICD-10 Code(s): I69.391 - DYSPHAGIA FOLLOWING CEREBRAL INFARCTION (2) Dysphagia, oral phase ICD-10 Code(s): R13.11 - DYSPHAGIA, ORAL PHASE (3) Dysphagia, oropharyngeal phase ICD-10 Code(s): R13.12 - DYSPHAGIA, OROPHARYNGEAL PHASE (4) Dysphagia, pharyngeal phase ICD-10 Code(s): R13.13 - DYSPHAGIA, PHARYNGEAL PHASE (5) CVA (cerebral vascular accident) ICD-10 Code(s): I63.9 - CEREBRAL INFARCTION, UNSPECIFIED (6) Anemia of chronic disease ICD-10 Code(s): D63.8 - ANEMIA IN OTHER CHRONIC DISEASES CLASSIFIED ELSEWHERE (7) Decreased oral intake ICD-10 Code(s): R63.8 - OTHER SYMPTOMS AND SIGNS CONCERNING FOOD AND FLUID INTAKE (8) Decubitus ulcer of ischial area ICD-10 Code(s): L89.309 - PRESSURE ULCER OF UNSPECIFIED BUTTOCK, UNSPECIFIED STAGE (9) Spina bifida ICD-10 Code(s): Q05.9 - SPINA BIFIDA, UNSPECIFIED ST [place] [facility] [place]: 12[place]14/19 Date of Onset: 12/11/19 - History History Obtained From: Other - EMR -: Medical - Patient admitted 12/11/2019 with CVA. Family & medical team were considering options including hospice at time of history & physical. Other admitting diagnoses include anemia of chronic disease (noted plan for supportive care is complicated by NPO status), decreased oral intake, decubitus ulcer complicated by poor mobility and malnutrition. Prior medical history includes spina bifida, left AKA, chronic sacral wound, recent hospital discharge with UTI with indwelling waterman cather. CT shows multiple pulmonary nodules with largest in left upper lobe. Patient failed swallow screen 2x. Patient's son reports that she was eating little before hospital admission, reports eating mostly soft foods. Clinical Dysphagia Evaluation completed 12/12/2019 with recommendation for ice chips only secondary to severe dysphagia. Medications: Medications Reviewed Allergies: Refer to medical record - Subjective Current Nutritional Means: NPO - ice chips only Current Symptoms: Poor intake, Aspiration - ssx aspiration on Dysphagia Evaluation Pain: 0/5 - Objective Assessment: Upright, Left Lateral - Food Trials Food Trials Used: Thin liquids, Honey-thickened liquids, [place] thick liquids, Pureed The Patient: fed by ST, via spoon - Assessment Labial Function: Impaired Lingual Function: Impaired Mandibular Function: Impaired Dentition: Edentulous Velo-Pharyngeal Function: Not assessed - Pharyngeal Stage Initiation of Pharyngeal Stage: Delayed Decreased Laryngeal Elevation: Yes Reduced Velo-Pharyngeal Closure: no Reduced Pressure Generation: Yes Reduced Tongue Base Retraction: Yes Pre-Swallowing Pooling in Valleculae: None Pre-Swallowing Pooling in Pyriforms: None Reduced Thyro-Hyiod Approximation: Yes Reduced Epiglottic Excursion: Yes Reduced Pharyngeal Peristalsis: Yes Multiple Swallows With: Ineffective Clearance Post Swallow Residuals in Valleculae: Mild Post Swallow Residuals in Pyriforms: None Post Swallow Residuals: Posterior pharyngeal wall - mild Pahryngeal Stage Comments: Patient did not aspiration on single, spoon sips of thin, nectar, honey, or puree; however with thin lost most of bolus to anterior oral spill. Patient did aspirate mixed residuals with puree & nectar, but did not aspirated puree & honey residuals. Patient did clear aspirated material from trachea. Patient demonstrated very limited pharyngeal movement and had mild residuals both in valleculae and on posterior pharyngeal wall. - Esophageal Stage Cricophageal Function: Normal - Impression/Summary Laryngeal Penetration: Yes Tracheal Aspiration: yes, cough, after swallow Effective Clearing: yes Patient Presents With: Oral stage dysphagia, Pharyngeal stage dysph., Oral- Pharyngeal dysph., Severe Risk of Aspiration: Severe Risk of Nutritional Compromise: Severe - Recommendations Solid Diet Recommendations: Pureed Liquid Diet Recommendations: Honey-Thick Regular Diet: No Strict Aspitarion Precautions: Yes Dysphagia Therapy with ENTERPRISE ANALYST: Yes, Inpatient Recommended Techniques: Fully Upright During Meal, Small Bites and Sips, Alternate Bites/Sips Supervision: requires assistance Other Recommendations: Recommendations: 1. Honey thick liquids by spoon sip or pinched straw (cannot sip from cup due to impaired labial seal). 2. Pureed solids - only able to tolerate thin purees. 3. Strict aspiration precautions - high risk for aspiration despite no observed aspiration on recommended consistencies. 4. Alternate bites & sips. 5. Small bites & sips. Written information provided for family (sent up with patient after MBSS) on diet recommendations, where to purchase thickener, and information on risks of aspiration. Recommend speech therapy to follow for diet tolerance and family education in hospital. Patient may be appropriate for free water protocol after discharge provided water given only between meals. Patient is also able to trial thin & nectar with speech therapists. - Time Total Time: 10 Total Timed Minutes: 0
--- NOTE | 2019-12-14 15:07 | PDOC PROGRESS REPORT ---
Subjective Progress Note for:: 12/14/19 Subjective:: No adverse events overnight. Vital signs stable. She still seems very weak. She has been somnolent. She had a modified barium swallow today. Occupational Therapy was going to evaluate her today. MRI of the head was ordered but the machine is down. Reason For Visit: CVA CEREBRAL VASCULAR ACCIDENT Physical Exam Vital Signs: Temp Pulse Resp BP Pulse Ox 97.4 F 74 17 116/46 L 99 12/14/19 11:29 12/14/19 12:00 12/14/19 12:00 12/14/19 12:00 12/14/19 12:00 Intake & Output 12/13/19 12/14/19 12/15/19 06:59 06:59 06:59 Intake Total 0 150 Output Total 140 300 125 Balance -140 -150 -125 Weight 66.7 kg 65.5 kg General appearance: PRESENT: no acute distress, cooperative, disheveled, other - Appears extremely elderly and frail Respiratory exam: PRESENT: symmetrical, unlabored. ABSENT: accessory muscle use, chest wall tenderness, crackles, prolonged expiratory phas, rhonchi, tac hypnea, wheezes Cardiovascular exam: PRESENT: RRR, +S1, +S2 Pulses: PRESENT: normal carotid pulses Vascular exam: PRESENT: normal capillary refill GI/Abdominal exam: PRESENT: hypoactive bowel sounds, soft. ABSENT: distended, guarding, rebound, tenderness Extremities exam: ABSENT: clubbing, pedal edema Musculoskeletal exam: PRESENT: other - Muscle wasting of the lower extremities Neurological exam: PRESENT: awake, oriented to person, oriented to place, oriented to situation, motor sensory deficit - She cannot feel anything below the waist to move her lower extremities, which is chronic. She cannot move her left arm. She could move her right arm but she is weak. She has left-sided facial droop. Psychiatric exam: PRESENT: flat affect Skin exam: PRESENT: dry, pallor, warm, other - Sacral pressure sore that extends down towards the back of the right leg Results Laboratory Results: 12/11/19 22:21 12/11/19 22:21 12/11/19 12/11/19 22:21 22:21 Creatine Kinase 72 CK-MB (CK-2) 0.49 Troponin I < 0.012 Impressions: Chest X-Ray 12/11/19 00:00 IMPRESSION: Chronic change. No acute process or adverse change copyright 2010 [employer]- All Rights Reserved Head CT 12/11/19 00:00 IMPRESSION: No acute intracranial process is identified. 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 Age-related involutional changes are identified. Presumed old small vessel ischemic changes are seen predominantly in a periventricular distribution. Head CTA 12/11/19 23:35 IMPRESSION: Atherosclerosis without evidence of hemodynamically significant stenosis of the extracranial carotid or vertebral systems. [place] is patent. Multiple pulmonary nodules, the largest left upper lobe. Is there a known history of a primary carcinoma?. Neck CTA 12/11/19 23:35 IMPRESSION: Atherosclerosis without evidence of hemodynamically significant stenosis of the extracranial carotid or vertebral systems. Central [place] is patent. Multiple pulmonary nodules, the largest left upper lobe. Is there a known history of a primary carcinoma?. Assessment and Plan - Diagnosis (1) CVA (cerebral vascular accident) Qualifiers: CVA mechanism: occlusion Precerebral and cerebral artery: middle cerebral artery Laterality of affected vessel: right Qualified Code(s): I63.511 - Cerebral infarction due to unspecified occlusion or stenosis of right middle cerebral artery Is this a current diagnosis for this admission?: Yes Plan: Based on her physical exam this is the most likely location. Family at one point was thinking about hospice and now they want to see how she is going to do with her swallow evaluation; speech therapy recommended a pured diet, and she has to use a spoon only to drink honey thick liquids. Occupational Therapy evaluation is pending. Whenever they did the CTA of her neck there was notice of some possible pulmonary nodules. Will talk with family to see how aggressive they want to be in working this up. We ordered an MRI of the hip but they do not know if the machine will be available through tomorrow. If it is not available by tomorrow morning. Will order a CT of the head to reassess. (2) Decubitus ulcer of ischial area Qualifiers: Pressure injury stage: stage 4 Laterality: right Qualified Code(s): L89.314 - Pressure ulcer of right buttock, stage 4 Is this a current diagnosis for this admission?: Yes Plan: Complicated by poor mobility, malnutrition and comorbidities. Standard wound care management. (3) Decubitus ulcer of right heel Qualifiers: Pressure injury stage: unspecified pressure injury stage Qualified Code(s): L89.619 - Pressure ulcer of right heel, unspecified stage Is this a current diagnosis for this admission?: Yes (4) Decubitus ulcer of sacral area Qualifiers: Pressure injury stage: stage 4 Qualified Code(s): L89.154 - Pressure ulcer of sacral region, stage 4 Is this a current diagnosis for this admission?: Yes (5) Urinary tract infection Qualifiers: Indwelling urinary catheter type: indwelling urethral catheter Encounter type: initial encounter Is this a current diagnosis for this admission?: Yes Plan: She was on Keflex, since she cannot swallow we have her on Ancef - Time Time Spent with patient: 15-24 minutes
--- NOTE | 2019-12-14 15:35 | RADIOLOGY REPORT (SQ) ---
EXAM DESCRIPTION: DORY SWALLOW COMPLETED DATE/TIME: 12/14/2019 1:06 pm REASON FOR STUDY: acute CVA, dysphagia COMPARISON: None. TECHNIQUE: Videofluoroscopic swallowing examination was performed in conjunction with speech patholo gy. Videofluoroscopic imaging was obtained and reviewed and these are the findings: RADIATION DOSE: 2 minutes 38 seconds of fluoroscopy was used. 2 images saved to PACS. LIMITATIONS: None FINDINGS: The patient was brought into the fluoro room and placed upright on a modified barium swall ow chair. The patient was then given multiple consistencies mixed with barium to swallow under live fluoroscopic video guidance. According to the Speech Pathologist there was laryngeal penetration and aspiration with nectar thick liquids. IMPRESSION: LARYNGEAL PENETRATION AND ASPIRATION WITH NECTAR THICK LIQUIDS. PLEASE SEE SPEECH PATHOL OGIST REPORT FOR OTHER FINDINGS AND RECOMMENDATIONS. COMMENT: Quality ID [id number]: Final reports for procedures using fluoroscopy that document radiation exp osure indices, or exposure time and number of fluorographic images (if radiation exposure indices are not available) TECHNICAL DOCUMENTATION: JOB ID: [id number] 2010 [employer]- All Rights Reserved Reading location - IP/workstation name: [email or web address]
[2019-12-14] MEDS: ATORVASTATIN CALCIUM 80 MG TABLET PO SCH (21:42)
[2019-12-15] MEDS: CEFAZOLIN 1 GM/D5W RTU 1 GM/50 ML RTUPB IV SCH ×3 (05:46→21:43)
[2019-12-15] MEDS: HEPARIN SOD (PORCINE) 5,000 UNIT/ML 1 ML VIAL SUBCUT SCH ×3 (05:50→21:49)
[2019-12-15] MEDS: ASPIRIN 300 MG SUPP, RECTAL PR SCH (10:20)
[2019-12-15] MEDS: RINGERS SOLUTION,LACTATED 1,000 ML IV PRN (10:24)
[2019-12-15] MEDS: ASPIRIN 325 MG TABLET, ENT COATED PO SCH (10:24)
--- NOTE | 2019-12-15 10:57 | PDOC PROGRESS REPORT ---
Subjective Progress Note for:: 12/15/19 Reason For Visit: CVA CEREBRAL VASCULAR ACCIDENT 12/15/2019 CVA, sacral decubitus, debilitated state, history of a tethered cord Physical Exam Vital Signs: Temp Pulse Resp BP Pulse Ox 98.0 F 73 20 125/38 L 99 12/15/19 08:10 12/15/19 08:10 12/15/19 08:10 12/15/19 08:10 12/15/19 08:10 Intake & Output 12/14/19 12/15/19 12/16/19 06:59 06:59 06:59 Intake Total 150 1150 1000 Output Total 300 375 Balance -352 844 3006 Weight 65.5 kg 66.8 kg General appearance: PRESENT: mild distress Respiratory exam: PRESENT: clear to auscultation shannan. ABSENT: rales, rhonchi, wheezes Cardiovascular exam: PRESENT: RRR. ABSENT: diastolic murmur, rubs, systolic murmur Neurological exam: PRESENT: awake - Difficulty speaking, other - Left upper extremity weakness Psychiatric exam: PRESENT: flat affect Results Laboratory Results: 12/11/19 22:21 12/11/19 22:21 12/11/19 12/11/19 22:21 22:21 Creatine Kinase 72 CK-MB (CK-2) 0.49 Troponin I < 0.012 Impressions: Chest X-Ray 12/11/19 00:00 IMPRESSION: Chronic change. No acute process or adverse change copyright 2011 [employer]- All Rights Reserved Head CT 12/11/19 00:00 IMPRESSION: No acute intracranial process is identified. 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 Age-related involutional changes are identified. Presumed old small vessel ischemic changes are seen predominantly in a periventricular distribution. Head CTA 12/11/19 23:35 IMPRESSION: Atherosclerosis without evidence of hemodynamically significant stenosis of the extracranial carotid or vertebral systems. Central [place] is patent. Multiple pulmonary nodules, the largest left upper lobe. Is there a known history of a primary carcinoma?. Neck CTA 12/11/19 23:35 IMPRESSION: Atherosclerosis without evidence of hemodynamically significant stenosis of the extracranial carotid or vertebral systems. Central [place] is patent. Multiple pulmonary nodules, the largest left upper lobe. Is there a known history of a primary carcinoma?. Modified Barium Swallow 12/14/19 00:00 IMPRESSION: LARYNGEAL PENETRATION AND ASPIRATION WITH NECTAR THICK LIQUIDS. PLEASE SEE SPEECH PATHOLOGIST REPORT FOR OTHER FINDINGS AND RECOMMENDATIONS. Assessment and Plan - Diagnosis (1) Dysphagia Is this a current diagnosis for this admission?: Yes (2) CVA (cerebral vascular accident) Qualifiers: CVA mechanism: occlusion Precerebral and cerebral artery: middle cerebral artery Laterality of affected vessel: right Qualified Code(s): I63.511 - Cerebral infarction due to unspecified occlusion or stenosis of right middle cerebral artery Is this a current diagnosis for this admission?: Yes (3) Sacral decubitus ulcer, stage II Is this a current diagnosis for this admission?: Yes (4) Spina bifida Qualifiers: Spinal region: lumbosacral Presence of hydrocephalus: without hydrocephalus Qualified Code(s): Q05.7 - Lumbar spina bifida without hydrocephalus Is this a current diagnosis for this admission?: Yes - Plan Summary Summary: 12/15/2019 Temperature 97.8 pulse between 68 and 82 blood pressure 112/39. Admission blood pressure was 131/52. Highest is been since in the hospital is 146/49 O2 sat is 98% on room air Patient was supposed to have an MRI scan of the brain but unfortunately the machine is broken. Fully this will be fixed later today. [place] to the son who is in the room the patient has been using a Felix lift for the last 5 to 6 years and has been at bedrest for probably close to 2 years. Patient lives at home with her son. Patient has failed the swallowing study and speech therapy is recommended pure and honey thickened. Patient has chronic room wounds to the sacral region as well as the heel. Zhane moeller was on Keflex for a UTI but she cannot swallow therefore she has been changed to Ancef. Patient was established with home health, [facility]. According to the son patient is a DNR. We will wait for the MRI of the brain. Patient is on 325 enteric-coated aspirin daily. According to her home meds she was taking no aspirin prior to her stroke - Time Time Spent with patient: 25-34 minutes
[2019-12-15] MEDS: ATORVASTATIN CALCIUM 80 MG TABLET PO SCH (21:42)
[2019-12-15] MEDS: DOCUSATE SODIUM 100 MG CAPSULE PO PRN (21:43)
[2019-12-16] MEDS: CEFAZOLIN 1 GM/D5W RTU 1 GM/50 ML RTUPB IV SCH ×3 (05:24→21:37)
[2019-12-16] MEDS: HEPARIN SOD (PORCINE) 5,000 UNIT/ML 1 ML VIAL SUBCUT SCH ×3 (05:29→21:38)
[2019-12-16 08:48] LABS: ABSOLUTE BASOPHILS # (AUTO) 0.2 10^3/uL (0.0-0.2); ABSOLUTE EOSINOPHILS # (AUTO) 0.1 10^3/uL (0.0-0.6); ABSOLUTE LYMPHOCYTES (AUTO) 1.5 10^3/uL (0.5-4.7); ABSOLUTE MONOCYTES (AUTO) 1.1 10^3/uL (0.1-1.4); ABSOLUTE NEUT (AUTO) 9.7 10^3/uL (1.7-8.2); BASOPHILS % (AUTO) 1.3 % (0-2); EOSINOPHILS % (AUTO) 0.8 % (0-6); HEMATOCRIT 26.5 % (36.0-47.0); HEMOGLOBIN 8.8 g/dL (12.0-15.5); LYMPHOCYTES % (AUTO) 11.5 % (13-45); MEAN CORPUSCULAR HEMOGLOBIN 25.9 pg (27.0-33.4); MEAN CORPUSCULAR VOLUME 79 fl (80-97); PLATELET COUNT 454 10^3/uL (150-450); RED BLOOD COUNT 3.38 10^6/uL (3.72-5.28); RED CELL DISTRIBUTION WIDTH 16.4 % (11.5-14.0); SEGMENTED NEUTROPHILS % (AUTO) 77.4 % (42-78); TOTAL CELLS COUNTED % (AUTO) 100 %; WHITE BLOOD COUNT 12.6 10^3/uL (4.0-10.5)
[2019-12-16 09:10] LABS: ANION GAP 9 (5-19); BLOOD UREA NITROGEN 5 mg/dL (7-20); CALCIUM 7.5 mg/dL (8.4-10.2); CARBON DIOXIDE 21 mmol/L (22-30); CHLORIDE 103 mmol/L (98-107); GLUCOSE 94 mg/dL (75-110); POTASSIUM 3.8 mmol/L (3.6-5.0)
[2019-12-16] MEDS: ASPIRIN 325 MG TABLET, ENT COATED PO SCH (09:30)
--- NOTE | 2019-12-16 13:54 | PDOC PROGRESS REPORT ---
Subjective Progress Note for:: 12/16/19 Reason For Visit: CVA CEREBRAL VASCULAR ACCIDENT 12/16/2019 Admitted 4 days ago with a new onset left-sided CVA Physical Exam Vital Signs: Temp Pulse Resp BP Pulse Ox 98.0 F 73 20 118/46 L 97 12/16/19 11:32 12/16/19 11:32 12/16/19 11:32 12/16/19 11:32 12/16/19 11:32 Intake & Output 12/15/19 12/16/19 12/17/19 06:59 06:59 06:59 Intake Total 1150 2210 50 Output Total 375 500 75 Balance 775 1710 -25 Weight 66.8 kg 70.9 kg General appearance: PRESENT: no acute distress Respiratory exam: PRESENT: clear to auscultation shannan. ABSENT: rales, rhonchi, wheezes Cardiovascular exam: PRESENT: RRR. ABSENT: diastolic murmur, rubs, systolic murmur Neurological exam: PRESENT: alert, awake, oriented to person, oriented to place, oriented to time, oriented to situation - Patient has a left upper extremity deficit rated at 0/5. 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 No acute process or adverse change copyright 2011 [employer]- All Rights Reserved Head CT 12/11/19 00:00 IMPRESSION: No acute intracranial process is identified. 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 Age-related involutional changes are identified. Presumed old small vessel ischemic changes are seen predominantly in a periventricular distribution. Head CTA 12/11/19 23:35 IMPRESSION: Atherosclerosis without evidence of hemodynamically significant stenosis of the extracranial carotid or vertebral systems. Central [place] is patent. Multiple pulmonary nodules, the largest left upper lobe. Is there a known history of a primary carcinoma?. Neck CTA 12/11/19 23:35 IMPRESSION: Atherosclerosis without evidence of hemodynamically significant stenosis of the extracranial carotid or vertebral systems. Central [place] is patent. Multiple pulmonary nodules, the largest left upper lobe. Is there a known history of a primary carcinoma?. Modified Barium Swallow 12/14/19 00:00 IMPRESSION: LARYNGEAL PENETRATION AND ASPIRATION WITH NECTAR THICK LIQUIDS. PLEASE SEE SPEECH PATHOLOGIST REPORT FOR OTHER FINDINGS AND RECOMMENDATIONS. Assessment and Plan - Diagnosis (1) Dysphagia Is this a current diagnosis for this admission?: Yes (2) CVA (cerebral vascular accident) Qualifiers: CVA mechanism: occlusion Precerebral and cerebral artery: middle cerebral artery Laterality of affected vessel: right Qualified Code(s): I63.511 - Cerebral infarction due to unspecified occlusion or stenosis of right middle cerebral artery Is this a current diagnosis for this admission?: Yes (3) Sacral decubitus ulcer, stage II Is this a current diagnosis for this admission?: Yes (4) Spina bifida Qualifiers: Spinal region: lumbosacral Presence of hydrocephalus: without hydrocephalus Qualified Code(s): Q05.7 - Lumbar spina bifida without hydrocephalus Is this a current diagnosis for this admission?: Yes - Plan Summary Summary: 12/15/2019 Temperature 97.8 pulse between 68 and 82 blood pressure 112/39. Admission blood pressure was 131/52. Highest is been since in the hospital is 146/49 O2 sat is 98% on room air Patient was supposed to have an MRI scan of the brain but unfortunately the machine is broken. Fully this will be fixed later today. [place] to the son who is in the room the patient has been using a Felix lift for the last 5 to 6 years and has been at bedrest for probably close to 2 years. Patient lives at home with her son. Patient has failed the swallowing study and speech therapy is recommended pure and honey thickened. Patient has chronic room wounds to the sacral region as well as the heel. Rachel chacon was on Keflex for a UTI but she cannot swallow therefore she has been changed to Ancef. Patient was established with home health, [facility]. According to the son patient is a DNR. We will wait for the MRI of the brain. Patient is on 325 enteric-coated aspirin daily. According to her home meds she was taking no aspirin prior to her stroke 12/16/2019 Vital signs remained extremely stable temperature 98.6 pulse between 66 and 82 and her blood pressure stable at 122/38 Oxygen 97% on 2 L nasal cannula White count today is 12.6 H&H is 8.8 and 26.5, this is all stable Chemistry panel is stable and normal Unfortunately the MRI scanner is still down therefore we cannot do a brain scan, however it would not change treatment at this time Son wants to take his mother home instead of long term facility. We will ask discharge planning to make sure equipment is available Patient is currently on Ancef - Time Time Spent with patient: 25-34 minutes
[2019-12-16] MEDS: RINGERS SOLUTION,LACTATED 1,000 ML IV PRN ×2 (14:47)
--- NOTE | 2019-12-16 17:55 | RADIOLOGY REPORT (SQ) ---
EXAM DESCRIPTION: MRI HEAD WITHOUT COMPLETED DATE/TIME: 12/16/2019 5:25 pm REASON FOR STUDY: acute CVA COMPARISON: CT brain 12/11/2019 CT angio head and neck 12/12/2019 TECHNIQUE: Multiplanar imaging includes non-contrasted T1, T2, FLAIR, and diffusion with ADC map seq uences. Images stored on PACS. LIMITATIONS: None. FINDINGS: ANATOMY: No developmental anomalies. Normal vascular flow voids. Pituitary fossa normal. CSF SPACES: Normal in size and contour. No hemorrhage. CEREBRUM: Diffusion-weighted images are positive for acute nonhemorrhagic ischemic change in the righ t middle cerebral artery distribution, along the insular cortex and right frontal perisylvian cortex and subcortical white matter. Elsewhere, there mild spotty bifrontal and biparietal chronic small vessel ischemic change the hemisp heric white matter. Old left occipital infarct. No acute hemorrhage. No mass effect. No midline shift. POSTERIOR FOSSA: No signal alteration. No hemorrhage. No edema, masses or mass effect. Internal nicolette tory canals, cerebello-pontine angles, mastoids normal. DIFFUSION IMAGING: Diffusion-weighted images are positive for acute nonhemorrhagic ischemic change in the right middle cerebral artery distribution, along the insular cortex and right frontal perisylvia n cortex and subcortical white matter. ORBITS: No masses. Globes post cataract surgery. PARANASAL SINUSES: No fluid levels. Mucosa normal. OTHER: No other significant finding. IMPRESSION: Acute right middle cerebral artery distribution nonhemorrhagic infarct EVIDENCE OF ACUTE STROKE: YES. COMMENT: Pertinent findings on the imaging study reported as a CRITICAL RESULT to at17:48 o n 12/16/2019. Category of Critical Result: Acute stroke TECHNICAL DOCUMENTATION: JOB ID: [id number] 2010 [employer]- All Rights Reserved Reading location - IP/workstation name: [email or web address]
[2019-12-16] MEDS: ATORVASTATIN CALCIUM 80 MG TABLET PO SCH (21:30)
[2019-12-16] MEDS: DOCUSATE SODIUM 100 MG CAPSULE PO PRN (21:37)
[2019-12-17] MEDS: CEFAZOLIN 1 GM/D5W RTU 1 GM/50 ML RTUPB IV SCH ×3 (05:21→21:27)
[2019-12-17] MEDS: HEPARIN SOD (PORCINE) 5,000 UNIT/ML 1 ML VIAL SUBCUT SCH ×3 (05:22→21:27)
[2019-12-17] MEDS: ASPIRIN 325 MG TABLET, ENT COATED PO SCH (10:00)
--- NOTE | 2019-12-17 11:48 | PDOC PROGRESS REPORT ---
Subjective Progress Note for:: 12/17/19 Reason For Visit: CVA CEREBRAL VASCULAR ACCIDENT 12/17/2019 Patient was admitted for left-sided CVA. Patient has multiple comorbidities prior to admission including paraplegia. She had just been discharged that same day for UTI when she had been hospitalized for several days Physical Exam Vital Signs: Temp Pulse Resp BP Pulse Ox 98.0 F 88 18 118/43 L 97 12/17/19 11:04 12/17/19 11:04 12/17/19 11:04 12/17/19 11:04 12/17/19 11:04 Intake & Output 12/16/19 12/17/19 12/18/19 06:59 06:59 06:59 Intake Total 2210 1275 50 Output Total 500 725 100 Balance 1710 550 -50 Weight 70.9 kg 68.4 kg General appearance: PRESENT: no acute distress Respiratory exam: PRESENT: clear to auscultation shannan. ABSENT: rales, rhonchi, wheezes Cardiovascular exam: PRESENT: RRR. ABSENT: diastolic murmur, rubs, systolic murmur Neurological exam: PRESENT: altered, other - Flaccid left upper extremity secondary to acute CVA. Also facial droop noted Patient will answer questions appropriately Psychiatric exam: PRESENT: flat affect Results Laboratory Results: 12/16/19 08:09 12/16/19 08:09 12/11/19 12/11/19 22:21 22:21 Creatine Kinase 72 CK-MB (CK-2) 0.49 Troponin I < 0.012 Impressions: Chest X-Ray 12/11/19 00:00 IMPRESSION: Chronic change. No acute process or adverse change copyright 2011 [employer]- All Rights Reserved Head CT 12/11/19 00:00 IMPRESSION: No acute intracranial process is identified. 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 Age-related involutional changes are identified. Presumed old small vessel ischemic changes are seen predominantly in a periventricular distribution. Head CTA 12/11/19 23:35 IMPRESSION: Atherosclerosis without evidence of hemodynamically significant stenosis of the extracranial carotid or vertebral systems. [place] is patent. Multiple pulmonary nodules, the largest left upper lobe. Is there a known history of a primary carcinoma?. Neck CTA 12/11/19 23:35 IMPRESSION: Atherosclerosis without evidence of hemodynamically significant stenosis of the extracranial carotid or vertebral systems. [place] is patent. Multiple pulmonary nodules, the largest left upper lobe. Is there a known history of a primary carcinoma?. Modified Barium Swallow 12/14/19 00:00 IMPRESSION: LARYNGEAL PENETRATION AND ASPIRATION WITH NECTAR THICK LIQUIDS. PLEASE SEE SPEECH PATHOLOGIST REPORT FOR OTHER FINDINGS AND RECOMMENDATIONS. Head MRI 12/16/19 00:00 IMPRESSION: Acute right middle cerebral artery distribution nonhemorrhagic infarct EVIDENCE OF ACUTE STROKE: YES. Assessment and Plan - Diagnosis (1) Dysphagia Is this a current diagnosis for this admission?: Yes (2) CVA (cerebral vascular accident) Qualifiers: CVA mechanism: occlusion Precerebral and cerebral artery: middle cerebral artery Laterality of affected vessel: right Qualified Code(s): I63.511 - Cerebral infarction due to unspecified occlusion or stenosis of right middle cerebral artery Is this a current diagnosis for this admission?: Yes (3) Sacral decubitus ulcer, stage II Is this a current diagnosis for this admission?: Yes (4) Spina bifida Qualifiers: Spinal region: lumbosacral Presence of hydrocephalus: without hydrocephalus Qualified Code(s): Q05.7 - Lumbar spina bifida without hydrocephalus Is this a current diagnosis for this admission?: Yes - Plan Summary Summary: 12/15/2019 Temperature 97.8 pulse between 68 and 82 blood pressure 112/39. Admission blood pressure was 131/52. Highest is been since in the hospital is 146/49 O2 sat is 98% on room air Patient was supposed to have an MRI scan of the brain but unfortunately the machine is broken. Fully this will be fixed later today. [place] to the son who is in the room the patient has been using a Felix lift for the last 5 to 6 years and has been at bedrest for probably close to 2 years. Patient lives at home with her son. Patient has failed the swallowing study and speech therapy is recommended pure and honey thickened. Patient has chronic room wounds to the sacral region as well as the heel. Patient was on Keflex for a UTI but she cannot swallow therefore she has been changed to Ancef. Patient was established with home health, [facility]. According to the son patient is a DNR. We will wait for the MRI of the brain. Patient is on 325 enteric-coated aspirin daily. According to her home meds she was taking no aspirin prior to her stroke 12/16/2019 Vital signs remained extremely stable temperature 98.6 pulse between 66 and 82 and her blood pressure stable at 122/38 Oxygen 97% on 2 L nasal cannula White count today is 12.6 H&H is 8.8 and 26.5, this is all stable Chemistry panel is stable and normal Unfortunately the MRI scanner is still down therefore we cannot do a brain scan, however it would not change treatment at this time Son wants to take his mother home instead of residential facility. We will ask discharge planning to make sure equipment is available Patient is currently on Ancef 12/17/2019 My of the brain shows a ischemic infarct right hemisphere Patient continues to work with speech therapy concerning aspiration risk Plan is for patient to be discharged home tomorrow Patient's O2 sat on room air is between 95 and 97% Temperature is 98.3, pulse 74, blood pressure 121/40. We will discharge patient home on Keflex suspension for her UTI I did discuss all of this with patient's son in the room - Time Time Spent with patient: 25-34 minutes
[2019-12-17] MEDS: RINGERS SOLUTION,LACTATED 1,000 ML IV PRN (12:58)
[2019-12-17] MEDS: ATORVASTATIN CALCIUM 80 MG TABLET PO SCH (21:27)
[2019-12-17] MEDS ORDERED: MAG HYDROX/AL HYDROX/SIMETH SUSP 30 ML UDCUP PO PRN (22:57)
[2019-12-17] MEDS ORDERED: ONDANSETRON HCL INJ/PF 4 MG/2 ML SDV IV PRN (22:57)
[2019-12-17] MEDS ORDERED: FAMOTIDINE INJ/PF 20 MG/2 ML SDV IV ONE (23:15)
[2019-12-18] MEDS: HEPARIN SOD (PORCINE) 5,000 UNIT/ML 1 ML VIAL SUBCUT SCH (05:55)
[2019-12-18] MEDS: CEFAZOLIN 1 GM/D5W RTU 1 GM/50 ML RTUPB IV SCH (05:55)
[2019-12-18] MEDS: ASPIRIN 325 MG TABLET, ENT COATED PO SCH (09:54)
[2019-12-18] MEDS ORDERED: FAMOTIDINE INJ/PF 20 MG/2 ML SDV IV SCH (10:00)
[2019-12-18 12:48] VITALS: BP 128/54
--- NOTE | 2019-12-18 16:14 | PDOC DISCHARGE SUMMARY ---
Impression - Admit/DC Date/PCP Admission Date/Primary Care Provider: 12/12/19 02:32 ROULA ISAAC PA-C Discharge Date: 12/18/19 - Discharge Diagnosis (1) Dysphagia Is this a current diagnosis for this admission?: Yes (2) CVA (cerebral vascular accident) Is this a current diagnosis for this admission?: Yes (3) Sacral decubitus ulcer, stage II Is this a current diagnosis for this admission?: Yes (4) Spina bifida Is this a current diagnosis for this admission?: Yes - Assessment Summary: 12/15/2019 Temperature 97.8 pulse between 68 and 82 blood pressure 112/39. Admission blood pressure was 131/52. Highest is been since in the hospital is 146/49 O2 sat is 98% on room air Patient was supposed to have an MRI scan of the brain but unfortunately the machine is broken. Fully this will be fixed later today. [place] to the son who is in the room the patient has been using a Felix lift for the last 5 to 6 years and has been at bedrest for probably close to 2 years. Patient lives at home with her son. Patient has failed the swallowing study and speech therapy is recommended pure and honey thickened. Patient has chronic room wounds to the sacral region as well as the heel. Patient was on Keflex for a UTI but she cannot swallow therefore she has been changed to Ancef. Patient was established with home health, [facility]. According to the son patient is a DNR. We will wait for the MRI of the brain. Patient is on 325 enteric-coated aspirin daily. According to her home meds she was taking no aspirin prior to her stroke 12/16/2019 Vital signs remained extremely stable temperature 98.6 pulse between 66 and 82 and her blood pressure stable at 122/38 Oxygen 97% on 2 L nasal cannula White count today is 12.6 H&H is 8.8 and 26.5, this is all stable Chemistry panel is stable and normal Unfortunately the MRI scanner is still down therefore we cannot do a brain scan, however it would not change treatment at this time Son wants to take his mother home instead of detention facility. We will ask discharge planning to make sure equipment is available Patient is currently on Ancef 12/17/2019 My of the brain shows a ischemic infarct right hemisphere Patient continues to work with speech therapy concerning aspiration risk Plan is for patient to be discharged home tomorrow Patient's O2 sat on room air is between 95 and 97% Temperature is 98.3, pulse 74, blood pressure 121/40. We will discharge patient home on Keflex suspension for her UTI I did discuss all of this with patient's son in the room 12/18/2019 She was discharged home today to the care of her family primarily her son, who has been here in her room pretty much Patient was discharged home with Keflex to finish out her prescription for her UTI She has home health already set up and will continue this Was originally admitted to the hospital on December 08 and discharged on December 10 Then she was readmitted on December 11 with this new onset CVA. This involved the right hemisphere of the brain and the left upper extremity MRI scan of the head performed on showed a ischemic infarct right hemisphere right middle cerebral artery distribution. She had a dense left upper extremity hemiplegia. She was on no aspirin prior to admission and on admission she was placed on 325 mg of aspirin. Patient was discharged home stable. Patient and family were given the option to go to rehab or to detention and they chose to go home. - Additional Information Resuscitation Status: Do Not Resuscitate Discharge Diet: Other (Comments) Discharge Activity: Activity As Tolerated Referrals: ROULA ISAAC PA-C [Primary Care Provider] - Follow up as needed (Office stated that they are using telemed right now and not scheduling inpatient appointments.) Prescriptions: Cephalexin Monohydrate [Keflex 500 mg Capsule] 500 mg PO TID 7 Days #21 capsule Atorvastatin Calcium [Lipitor 80 mg Tablet] 80 mg PO QHS 30 Days #30 tablet Home Medications: Mirtazapine [Remeron 15 mg Tablet] 15 mg PO HSP PRN 08/16/19 Metoclopramide HCl [Reglan 10 mg Tablet] 5 mg PO ACHS #120 tablet 09/03/19 Ondansetron [Zofran Odt 4 mg Tablet] 4 mg PO Q4HP PRN 12/09/19 Omeprazole 20 mg PO DAILY 12/12/19 Acetaminophen [Tylenol 325 mg Tablet] 650 mg PO Q4HP PRN tablet 12/18/19 Aspirin [Ecotrin 325 mg EC Tablet] 325 mg PO DAILY tabec 12/18/19 Atorvastatin Calcium [Lipitor 80 mg Tablet] 80 mg PO QHS 30 Days #30 tablet 12/18/19 Cephalexin Monohydrate [Keflex 500 mg Capsule] 500 mg PO TID 7 Days #21 capsule 12/18/19 Docusate Sodium [Colace 100 mg Capsule] 100 mg PO BIDP PRN capsule 12/18/19 Mag Hydrox/Al Hydrox/Simeth [Maalox Plus Susp 30 Udcup] 30 ml PO Q4HP PRN udc 12/18/19 Magnesium Hydroxide [Milk of Magnesia 30 ml Udcup] 30 ml PO HSP PRN udc 12/18/19 History of Present Illiness History of Present Illness: DEBORA JOEL is a 89 year old female Physical Exam Vital Signs: Temp Pulse Resp BP Pulse Ox 98.2 F 82 16 128/54 H 92 12/18/19 12:26 12/18/19 12:26 12/18/19 12:26 12/18/19 11:56 12/18/19 12:26 Intake & Output 12/17/19 12/18/19 12/19/19 06:59 06:59 06:59 Intake Total 2275 200 Output Total 725 400 Balance 1550 -200 Weight 68.4 kg 72.5 kg Results Laboratory Results: WBC 12.6 10^3/uL (4.0-10.5) H 12/16/19 08:09 RBC 3.38 10^6/uL (3.72-5.28) L 12/16/19 08:09 Hgb 8.8 g/dL (12.0-15.5) L 12/16/19 08:09 Hct 26.5 % (36.0-47.0) L 12/16/19 08:09 MCV 79 fl (80-97) L 12/16/19 08:09 MCH 25.9 pg (27.0-33.4) L 12/16/19 08:09 MCHC 33.0 g/dL (32.0-36.0) 12/16/19 08:09 RDW 16.4 % (11.5-14.0) H 12/16/19 08:09 Plt Count 454 10^3/uL (150-450) H 12/16/19 08:09 Lymph % (Auto) 11.5 % (13-45) L 12/16/19 08:09 [place] % (Auto) 9.0 % (3-13) 12/16/19 08:09 Eos % (Auto) 0.8 % (0-6) 12/16/19 08:09 Baso % (Auto) 1.3 % (0-2) 12/16/19 08:09 Absolute Neuts (auto) 9.7 10^3/uL (1.7-8.2) H 12/16/19 08:09 Absolute Lymphs (auto) 1.5 10^3/uL (0.5-4.7) 12/16/19 08:09 Absolute Monos (auto) 1.1 10^3/uL (0.1-1.4) 12/16/19 08:09 Absolute Eos (auto) 0.1 10^3/uL (0.0-0.6) 12/16/19 08:09 Absolute Basos (auto) 0.2 10^3/uL (0.0-0.2) 12/16/19 08:09 Seg Neutrophils % 77.4 % (42-78) 12/16/19 08:09 PT 15.7 SEC (11.4-15.4) H 12/11/19 22:21 INR 1.25 12/11/19 22:21 APTT 31.8 SEC (23.5-35.8) 12/11/19 22:21 Sodium 133.3 mmol/L (137-145) L 12/16/19 08:09 Potassium 3.8 mmol/L (3.6-5.0) 12/16/19 08:09 Chloride 103 mmol/L (98-107) 12/16/19 08:09 Carbon Dioxide 21 mmol/L (22-30) L 12/16/19 08:09 Anion Gap 9 (5-19) 12/16/19 08:09 BUN 5 mg/dL (7-20) L 12/16/19 08:09 Creatinine 0.34 mg/dL (0.52-1.25) L 12/16/19 08:09 Est GFR ( Amer) > 60 (>60) 12/16/19 08:09 Est GFR (MDRD) Non-Af > 60 (>60) 12/16/19 08:09 Glucose 94 mg/dL (75-110) 12/16/19 08:09 POC Glucose 142 mg/dL (70-110) H 12/11/19 22:06 Calcium 7.5 mg/dL (8.4-10.2) L 12/16/19 08:09 Total Bilirubin 0.4 mg/dL (0.2-1.3) 12/11/19 22:21 Direct Bilirubin 0.4 mg/dL (0.0-0.4) 12/11/19 22:21 Neonat Total Bilirubin Not Reportable 12/11/19 22:21 Neonat Direct Bilirubin Not Reportable 12/11/19 22:21 Neonat Indirect Bili Not Reportable 12/11/19 22:21 AST 23 U/L (14-36) 12/11/19 22:21 ALT 9 U/L (<35) 12/11/19 22:21 Alkaline Phosphatase 107 U/L (38-126) 12/11/19 22:21 Creatine Kinase 72 U/L (30-135) 12/11/19 22:21 CK-MB (CK-2) 0.49 ng/mL (<4.55) 12/11/19 22:21 Troponin I < 0.012 ng/mL 12/11/19 22:21 Total Protein 6.3 g/dL (6.3-8.2) 12/11/19 22:21 Albumin 2.3 g/dL (3.5-5.0) L 12/11/19 22:21 Triglycerides 111 mg/dL (<150) 12/13/19 05:10 Cholesterol 107.05 mg/dL (0-200) 12/13/19 05:10 LDL Cholesterol Direct 74 mg/dL (<100) 12/13/19 05:10 VLDL Cholesterol 22.0 mg/dL (10-31) 12/13/19 05:10 HDL Cholesterol 18 mg/dL (>40) L 12/13/19 05:10 12/11/19 22:21 CK-MB (CK-2) 0.49 Troponin I < 0.012 Impressions: Chest X-Ray 12/11/19 00:00 IMPRESSION: Chronic change. No acute process or adverse change copyright 2011 [employer]- All Rights Reserved Head CT 12/11/19 00:00 IMPRESSION: No acute intracranial process is identified. 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 Age-related involutional changes are identified. Presumed old small vessel ischemic changes are seen predominantly in a periventricular distribution. Head CTA 12/11/19 23:35 IMPRESSION: Atherosclerosis without evidence of hemodynamically significant stenosis of the extracranial carotid or vertebral systems. [place] is patent. Multiple pulmonary nodules, the largest left upper lobe. Is there a known history of a primary carcinoma?. Neck CTA 12/11/19 23:35 IMPRESSION: Atherosclerosis without evidence of hemodynamically significant stenosis of the extracranial carotid or vertebral systems. [place] is patent. Multiple pulmonary nodules, the largest left upper lobe. Is there a known history of a primary carcinoma?. Modified Barium Swallow 12/14/19 00:00 IMPRESSION: LARYNGEAL PENETRATION AND ASPIRATION WITH NECTAR THICK LIQUIDS. PLEASE SEE SPEECH PATHOLOGIST REPORT FOR OTHER FINDINGS AND RECOMMENDATIONS. Head MRI 12/16/19 00:00 IMPRESSION: Acute right middle cerebral artery distribution nonhemorrhagic infarct EVIDENCE OF ACUTE STROKE: YES. Stroke Is this a Stroke Patient?: Yes Stroke Pt being discharged on Anti-thrombolytic therapy?: No Reason(s) for not prescribing Anti-thrombolytic therapy:: Not indicated Stroke Pt being discharged on Anti-coagulation therapy?: Yes Stroke Pt being discharged on Statins?: Yes Acute Heart Failure - Is this a Heart Failure Patient?: No
== END 2019-12-18 13:19 | disposition home health service (06) | DRG 64 ==
LOC: ER 21:48 → EH 12-12 02:32 → 3W 12-12 03:10
PROVIDERS: ADMIT Internal Medicine; ATTEND Physician Assistant
DX: I63.511 Cerebral infarction due to unspecified occlusion or stenosis of right middle cerebral artery (principal); L89.154 Pressure ulcer of sacral region, stage 4; L89.314 Pressure ulcer of right buttock, stage 4; T83.511A Infection and inflammatory reaction due to indwelling urethral catheter, initial encounter; N39.0 Urinary tract infection, site not specified; G82.20 Paraplegia, unspecified; D63.8 Anemia in other chronic diseases classified elsewhere; L89.619 Pressure ulcer of right heel, unspecified stage; Z66 Do not resuscitate; R29.810 Facial weakness; Y84.6 Urinary catheterization as the cause of abnormal reaction of the patient, or of later complication, without mention of misadventure at the time of the procedure; Q05.7 Lumbar spina bifida without hydrocephalus; Z79.899 Other long term (current) drug therapy; Z89.612 Acquired absence of left leg above knee; Z88.6 Allergy status to analgesic agent; Z91.040 Latex allergy status
CPT/HCPCS: 36415; 70450; 70496; 70498; 70551; 71045; 74230; 80048; 80061; 82550; 82553; 82962; 84484; 85025; 85610; 85730; 87070; 93005; 93010; 99291; J0690; J1644; J2405; J3490; J7120; S0028

== ENCOUNTER 2019-12-28 20:34 | Inpatient (IN) | payer MEDICARE, OTHER ==
[2019-12-28] MEDS ORDERED: ACETAMINOPHEN 325 MG SUPP.RECT PR ONE (20:45)
[2019-12-28] MEDS ORDERED: VANCOMYCIN HCL INJ 1000 MG VIAL ONE (20:46)
[2019-12-28] MEDS ORDERED: DILTIAZEM HCL INJ 25 MG/5 ML VIAL ONE (20:46)
[2019-12-28] MEDS ORDERED: CEFEPIME 2 GM/D5W RTU 2 GM/50 ML RTUPB IV ONE ×2 (20:46→21:44)
[2019-12-28] MEDS ORDERED: DILTIAZEM HCL/D5W 125 MG/125 ML RTUINJ IV ONE (20:57)
[2019-12-28 21:16] LABS: INTERNATIONAL RATION (INR) 4.25
--- NOTE | 2019-12-28 21:19 | ER Document Report ---
ED General - General Chief Complaint: Arrhythmia Stated Complaint: STEMI Time Seen by Provider: 12/28/19 21:04 Primary Care Provider: ROULA ISAAC PA-C [Primary Care Provider] - Follow up as needed Mode of Arrival: Medic Information source: [facility], Emergency Med Personnel TRAVEL OUTSIDE OF THE [place] 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 She also apparently was complained of some chest pain earlier today. Patient is unresponsive here and is unable to give any significant history. She does arrive with a DO NOT RESUSCITATE order. Per paramedics they were called out for the altered mental status and chest pain. They state the patient was somewhat conversant when they arrived but ceased talking on the way to the hospital. For me she has had no significant response to any type of stimulus verbal or pain. Patient cannot contribute to history for me. Patient does have a history of a left lower extremity amputation as well as a chronic decubitus of the sacral area as well as of the right lower extremity. She is apparently chronically bedridden. She was apparently recently admitted to the hospital and discharged several days ago. She has had fevers. She has not had cough or any known covid exposures. Patient symptoms have been severe. Nothing makes them better or worse. They are constant. They do obviously radiate throughout her body. - Related Data Allergies/Adverse Reactions: latex Allergy (Verified 12/09/19 10:51) gabapentin Adverse Reaction (Verified 08/15/19 20:15) Past Medical History - General Information source: Emergency Med Personnel, [facility] Records - Social History Smoking Status: Former Smoker Frequency of alcohol use: None Drug Abuse: None Family History: Other - Unobtainable. denies: Reviewed & Not Pertinent, CAD, DM, Hypertension, Malignancy - Past Medical History Cardiac Medical History: Denies: Hx Coronary Artery Disease, Hx Hypercholesterolemia, Hx Hypertension Pulmonary Medical History: Denies: Hx Asthma, Hx COPD Neurological Medical History: Denies: Hx Seizures Endocrine Medical History: Denies: Hx Diabetes Mellitus Type 1, Hx Diabetes Me llitus Type 2, Hx Hyperthyroidism, Hx Hypothyroidism Renal/ Medical History: Reports: Hx Renal Insufficiency. Denies: Hx Peritoneal Dialysis GI Medical History: Denies: Hx Cirrhosis, Hx Crohn's Disease, Hx Hepatitis, Hx Ulcerative Colitis Musculoskeletal Medical History: Denies Hx Arthritis, Denies Hx Gout Skin Medical History: Denies Hx Eczema, Denies Hx Psoriasis Psychiatric Medical History: Denies: Hx Depression Infectious Medical History: Denies: Hx Hepatitis Past Surgical History: Reports: Hx Orthopedic Surgery - [facility], Hx Vascular Surgery - PICC line placement, Other - Back surgery and surgery for spina bifi da. - Immunizations Hx Pneumococcal Vaccination: 09/30/14 Review of Systems - Review of Systems -: Yes ROS unobtainable due to patient's medical condition - Review of symptoms is unobtainable due to patient's sepsis Physical Exam - Vital signs Vitals: Resp Pulse Ox 52 H 97 12/28/19 20:50 12/28/19 20:50 Interpretation: Hypotensive, Tachycardic, Tachypneic, Febrile - General General appearance: Unresponsive In distress: Severe - HEENT Head: Normocephalic, Atraumatic Eyes: Normal Pupils: PERRL - Respiratory Respiratory status: Respiratory distress, Tachypnea Breath sounds: Decreased air movement Chest palpation: Normal - Cardiovascular Rhythm: Irregularly irregular, Tachycardia Heart sounds: Normal auscultation Murmur: No - Abdominal Inspection: Normal Distension: No distension Bowel sounds: Normal Tenderness: Nontender Organomegaly: No organomegaly - Back Back: Wounds - 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 Patient also has right lower extremity chronic wound.. No: Davida's sign - Neurological Cognition: Confused Orientation: Disoriented to person, Disoriented to place, Disoriented to time Trevon Coma Scale Eye Opening: Spontaneous Trevon Coma Scale Verbal: None Trevon Coma Scale Motor: None [place] Coma Scale Total: 6 - Psychological Associated symptoms: Confused, Uncooperative - Skin Skin Temperature: Cool Skin Moisture: Dry Skin Color: Erythema Course - Re-evaluation Re-evalutation: 12/28/19 21:52 Patient arrives by EMS unresponsive. She was obviously septic with a fever 103. She was hypotensive and tachycardic with atrial fibrillation. She also has a signed DNR. I personally spoke with the son here we have agreed that patient would not to be intubated. Also defibrillation will not be done. Patient has been placed on BiPAP and seems to be oxygenating and ventilating adequately. Patient's low blood pressure has been treated with fluids as well as Cardizem to try to slow down the heart rate increased to filling time. Pressors were not felt to be prudent considering patient's significant tachycardia. Patient has received antibiotics for her obvious sepsis. She has multiple sources at this time that would include urine as well as chronic wounds. I discussed the case with the ICU. They are going to see the patient in the emergency department. Patient is also been given Tylenol for fever. - Vital Signs Vital signs: Temp Pulse Resp BP Pulse Ox 52 H 97 12/28/19 20:50 12/28/19 20:50 - Laboratory Result Diagrams: 12/28/19 20:58 12/28/19 20:58 Laboratory results interpreted by me: 12/28/19 12/28/19 12/28/19 20:58 20:58 20:58 PT 42.0 H Sodium 136.7 L Potassium 3.0 L* Carbon Dioxide 15 L Glucose 64 L Lactic Acid 7.8 H Calcium 7.1 L Total Protein 4.9 L Albumin 1.7 L - Diagnostic Test Radiology reviewed: Image reviewed, Reports reviewed - EKG Interpretation by Me Rate: Tachycardia - 170 Rhythm: A.Fib, PVC's Critical Care Note - Critical Care Note Total time excluding time spent on procedures (mins): 60 Comments: Approximate 60 minutes of critical care time were spent on this patient. This included multiple reassessments. It included discussions with family and multiple consultants. And also included reviewing old records labs and imaging. Discharge - Discharge Clinical Impression: Hypokalemia, Atrial fibrillation with rapid ventricular response Sepsis Qualifiers: Sepsis type: sepsis due to unspecified organism Sepsis acute organ dysfunction status: with acute organ dysfunction Severe sepsis acute organ dysfunction type: encephalopathy Severe sepsis shock status: with septic shock Qualified Code(s): A41.9 - Sepsis, unspecified organism; R65.21 - Severe sepsis with septic shock; G93.40 - Encephalopathy, unspecified Decubitus ulcer of ischial area Qualifiers: Pressure injury stage: stage 4 Laterality: unspecified laterality Qualified Code(s): L89.304 - Pressure ulcer of unspecified buttock, stage 4 Decubitus ulcer of right heel Qualifiers: Pressure injury stage: stage 4 Qualified Code(s): L89.614 - Pressure ulcer of right heel, stage 4 Condition: Critical Disposition: ADMITTED INPATIENT Admitting Provider: Williams (Time Clock Mechanic) Unit Admitted: ICU Referrals: ROULA ISAAC PA-C [Primary Care Provider] - Follow up as needed
[2019-12-28 21:23] LABS: RED BLOOD COUNT 3.09 10^6/uL (3.72-5.28); RED CELL DISTRIBUTION WIDTH 17.5 % (11.5-14.0)
[2019-12-28 21:24] LABS: ALBUMIN 1.7 g/dL (3.5-5.0); ALKALINE PHOSPHATASE 90 U/L (38-126); ANION GAP 15 (5-19); ASPARTATE AMINO TRANSFERASE 21 U/L (14-36); BILIRUBIN,DIRECT 0.4 mg/dL (0.0-0.4); BILIRUBIN,TOTAL 0.6 mg/dL (0.2-1.3); BLOOD UREA NITROGEN 11 mg/dL (7-20); CALCIUM 7.1 mg/dL (8.4-10.2); CARBON DIOXIDE 15 mmol/L (22-30); CHLORIDE 107 mmol/L (98-107); TOTAL PROTEIN 4.9 g/dL (6.3-8.2)
[2019-12-28 21:29] LABS: HEMATOCRIT 25.1 % (36.0-47.0); HEMOGLOBIN 8.1 g/dL (12.0-15.5); MEAN CORPUSCULAR HEMOGLOBIN 26.2 pg (27.0-33.4); MEAN CORPUSCULAR HGB CONC 32.3 g/dL (32.0-36.0); MEAN CORPUSCULAR VOLUME 81 fl (80-97); PLATELET COUNT 311 10^3/uL (150-450)
[2019-12-28 21:33] LABS: GLUCOSE 64 mg/dL (75-110)
[2019-12-28] MEDS ORDERED: ACETAMINOPHEN 650 MG SUPP.RECT PR ONE (21:44)
[2019-12-28] MEDS ORDERED: VANCOMYCIN HCL INJ 1000 MG VIAL IV ONE (21:44)
[2019-12-28] MEDS ORDERED: DILTIAZEM HCL INJ 25 MG/5 ML VIAL IV ONE (21:44)
[2019-12-28] MEDS ORDERED: DILTIAZEM HCL/D5W 125 MG/125 ML RTUINJ IV PRN (21:45)
[2019-12-28] MEDS ORDERED: NORMAL SALINE 1000 ML 4,000 ML IV ONE (21:45)
[2019-12-28 21:46] LABS: BASOPHILS % (MANUAL) 0 % (0-2); EOSINOPHILS % (MANUAL) 0 % (0-6); LYMPHOCYTES % (MANUAL) 6 % (13-45); METAMYELOCYTES % (MANUAL) 1 % (0-1); MONOCYTES % (MANUAL) 0 % (3-13); SEGMENTED NEUTROPHILS % (MAN) 79 % (42-78); TOTAL CELLS COUNTED 100
[2019-12-28 21:49] LABS: ANISOCYTOSIS 1+; BURR CELLS SLIGHT; HYPOCHROMASIA SLIGHT; OVALOCYTES SLIGHT; PLATELET COMMENT ADEQUATE; POIKILOCYTOSIS SLIGHT; SCHISTOCYTES SLIGHT
[2019-12-28 21:51] LABS: BAND NEUTROPHILS % (MANUAL) 14 % (3-5)
--- NOTE | 2019-12-28 22:23 | RADIOLOGY REPORT (SQ) ---
EXAM DESCRIPTION: XR CHEST 1 VIEW COMPLETED DATE/TME: 12/28/2019 21:05 CLINICAL HISTORY: 89 years Female fever COMPARISON: 12/11/2019. FINDINGS: Cardiac enlargement which appears stable. No evidence of acute consolidation. No pulmonary infiltrates. No pleural fluid. IMPRESSION: No acute abnormality is identified.
[2019-12-28 22:26] LABS: ARTERIAL BLOOD BASE EXCESS -14.9 mmol/L; ARTERIAL BLOOD H2CO3 0.65 mmol/L (1.05-1.35); ARTERIAL BLOOD HCO3 10.2 mmol/L (20-24); ARTERIAL BLOOD O2 SATURATION 95.8 % (94-98); ARTERIAL BLOOD PCO2 21.6 mmHg (35-45); ARTERIAL BLOOD PH 7.29 (7.35-7.45); ARTERIAL BLOOD TOTAL CO2 10.9 mmol/L (21-25)
[2019-12-28 22:27] LABS: ARTERIAL BLOOD FIO2 32%
[2019-12-28] MEDS ORDERED: DEXTROSE 5%-WATER 250 ML with NOREPINEPHRINE BITARTRATE 4 MG IV PRN ×2 (22:45)
[2019-12-28] MEDS ORDERED: METOPROLOL TARTRATE PF/INJ 5 MG/5 ML SDV IV PRN (22:46)
[2019-12-28] MEDS ORDERED: AMIODARONE HCL 150 MG in DEXTROSE 5%-WATER 100 ML IV ONE (22:47)
[2019-12-28] MEDS ORDERED: CALCIUM GLUCONATE 1000 MG/10 ML INJ IV ONE (22:48)
[2019-12-28] MEDS ORDERED: DEXTROSE 5%-WATER 500 ML with AMIODARONE HCL 900 MG IV PRN ×2 (22:49)
[2019-12-28] MEDS ORDERED: AMIODARONE HCL INJ 150 MG/3 ML VIAL IV ONE (23:20)
[2019-12-28] MEDS ORDERED: NOREPINEPHRINE BITARTRATE INJ/PF 4 MG/4 ML SDV IV ONE (23:21)
[2019-12-28] MEDS: CALCIUM GLUCONATE 1 GM/NS 50 ML RTU IV SCH ×2 (23:35→23:55)
[2019-12-29] MEDS: POTASSI CL 20 MEQ/50 ML RIDER 20 MEQ/50 ML RTUPB IV SCH ×2 (00:14→01:04)
[2019-12-29] MEDS ORDERED: AMIODARONE HCL INJ 150 MG/3 ML VIAL IV ONE (00:22)
[2019-12-29 00:54] VITALS: BP 80/45
[2019-12-29] MEDS: MAGNESIUM SULFATE/D5W 1 GM/100 ML RTUPB IV SCH ×2 (00:56)
--- NOTE | 2019-12-29 04:03 | PDOC CRITICAL CARE PROG REPORT ---
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 She doesn't follow commands, attempts to localize with RUE to central noxious stimuli, though the LUE exhibits decorticate posturing, and both lower extremities are flaccid. She is mostly non-verbal and confused. Patient is unable to provide any significant medical/surgical history. Reportedly per EMS the patient was somewhat conversant when they initially arrived on scene, but ceased talking on the way to the hospital. She also informed her son, Barney Johnson, that she wasn't feeling well earlier today. She was noted to have hypotension with BP 59/32 MAP 41, new onset a-fib with RVR HR 183, tachypnea with RR 26 and labored for which she was placed on BiPAP, and a fever of 102 associated with leukocytosis. No significant ST elevation or depression on EKG. She received 3L of crystalloid boluses which helped but did not resolve her hypotension. Patient was confirmed to be [id number]-wjltblyaulx and [id number]-lhuocuzx by Dr Jensen, though a discussion of comfort care was not discussed at the time. She has not had a cough, SOB, or any known COVID-19 exposures. ICU team was asked by Dr Jensen to evaluate Mrs Johnson for A-fib RVR and refractory hypotension. Upon entering the room, the patient was clearly hypotensive and on a Diltiazem infusion at 15 mg/hr. I performed hrtlz-iw-ihmu-ultrasonography demonstrating no significant respirophasic diameter changes of the IVC as well as the cardiac apex appears akinetic. I stopped the Diltiazem infusion and ordered Norepinephrine to start at 5 mcg/min. The patient's serum Ca+ was noted to be 7.1 for which I ordered 2g of Calcium Gluconate, ordered 2g of Magnesium Sulfate for new onset A-fib RVR in setting of adequate renal function, and ordered 40 mEq of Potassium Chloride for hypokalemia. Without knowing whether or not the aortic valve has stenosis, I did not feel it would be a good idea to initiate Dobutamine/Milrinone at this time, though I ordered a formal transthoracic echocardiogram with the intent of consulting cardiology. Patient unlabored, tolerating BiPAP well and is likely tachypneic compensating for metabolic acidosis as PaCO2 is 22 with pH 7.29. Background: Mrs Johnson lives with her son Barney and has been bedridden for the past two years. Per her son, Mrs Johnson has progressively deteriorated over the past five years following spinal surgery for a "tethered cord" from spina bifida, for which she went from ambulatory prior to surgery to being essentially wheelchair dependent afterwards. Her son was using a Felix lift to get her out of bed for approximately 3 years before the patient became bedridden. 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 She has a chronic indwelling urinary catheter due to urinary incontinence and non-healing sacral wounds which was changed out today in the ED. She was recently treated for a UTI with E. Coli and Proteus Mirabilis last admission. Mrs Johnson has also been dealing with chronic nausea for two years for which she takes Odansetron prn. Her nutritional status has worsened, especially given recent dysphagia following her CVA, only taking a few sips of nutritional shakes or water at a time. Overall, her son has done a wonderful job taking care of her, attempting to keep her nourished/hydrated, caring for her wounds, as well as making/keeping specialist appointments. Update: I had a lengthy discussion with Mrs Johnson's son Barney about her quality of life trend over the past several years, now faced with heart failure, malnourishment, altered mental status and septic shock due to UTI vs PNA. She would need invasive procedures including central and arterial lines, an echocardiogram with cardiology consultation, will likely get weaker over the next several days while attempting to resolve the shock process and for metabolic encephalopathy to improve, and may possibly need pro-contractility medications for her heart failu re. After giving it some thought, he expressed that her quality of life has worsened, he had a feeling he would be back at the hospital with her within 10 days of discharge which unfortunately did actually happen, and he has decided not to put her through any more procedures or extraordinary life-sustaining measures. He requested that we make Mrs Johnson comfort care to include cessation of the Norepinephrine infusion for which he understands she will likely some time within the next 24 hrs without this medication. I discussed the above with Dr Kramer, Editorial Cartoonist, as well as Dr Wise, Hospitalist, who are both in agreement proceeding with comfort care. Patient will be admitted to the floor. Past Medical History Cardiac Medical History: Denies: Coronary Artery Disease, Congestive Heart Failure, Hyperlipidema, Hypertension, Atrial Fibrillation Pulmonary Medical History: Denies: Asthma, Chronic Obstructive Pulmonary Disease (COPD), Pneumonia Neurological Medical History: Denies: Seizures, recent R MCA CVA November 2019 Endocrine Medical History: Denies: Diabetes Mellitus Type 1, Diabetes Mellitus Type 2, Hyperthyroidism, Hypothyroidism GI Medical History: Reports: chronic nausea x2 yrs. Denies: Cirrhosis, Crohn's Disease, He patitis, Ulcerative Colitis Medical History: Reports: remote renal calculi, multiple UTI's Musculoskeltal Medical History: Denies: Arthritis, Gout Skin Medical History: Denies: Eczema, Psoriasis Psychiatric Medical History: Denies: Depression Hematology: Reports: Anemia - Chronic anemia Denies: Bleeding Tendencies Past Surgical History Past Surgical History: Reports: Orthopedic Surgery - Left BKA, Vascular Surgery - PICC line placement, Other - Back surgery for spina bifida, "Surgery" for renal calculi Social/Family History - Social History Smoking Status: Former Smoker Frequency of Alcohol Use: None Hx Recreational Drug Use: No Drugs: None Hx Prescription Drug Abuse: No - Medication/Allergies Home Medications: Mirtazapine [Remeron 15 mg Tablet] 15 mg PO HSP PRN 08/16/19 Metoclopramide HCl [Reglan 10 mg Tablet] 5 mg PO ACHS #120 tablet 09/03/19 Ondansetron [Zofran Odt 4 mg Tablet] 4 mg PO Q4HP PRN 12/09/19 Omeprazole 20 mg PO DAILY 12/12/19 Acetaminophen [Tylenol 325 mg Tablet] 650 mg PO Q4HP PRN tablet 12/18/19 Aspirin [Ecotrin 325 mg EC Tablet] 325 mg PO DAILY tabec 12/18/19 Atorvastatin Calcium [Lipitor 80 mg Tablet] 80 mg PO QHS 30 Days #30 tablet 12/18/19 Cephalexin Monohydrate [Keflex 500 mg Capsule] 500 mg PO TID 7 Days #21 capsule 03/20/20 Docusate Sodium [Colace 100 mg Capsule] 100 mg PO BIDP PRN capsule 12/18/19 Mag Hydrox/Al Hydrox/Simeth [Maalox Plus Susp 30 Udcup] 30 ml PO Q4HP PRN udc 12/18/19 Magnesium Hydroxide [Milk of Magnesia 30 ml Udcup] 30 ml PO HSP PRN udc 12/18/19 Allergies/Adverse Reactions: latex Allergy (Verified 12/09/19 10:51) gabapentin Adverse Reaction (Verified 08/15/19 20:15) Review of Systems -: Yes ROS unobtainable due to patient's medical condition - Review of symptoms is unobtainable due to patient's sepsis. See HPI and physical exam. - Medications: Medications reviewed and adjusted accordingly: Yes Vasopressors:: Norepinephrine Sedation:: None Physical Exam Vital Signs: Temp Pulse Resp BP Pulse Ox 100.0 F 33 H 78/45 L 99 12/28/19 23:03 12/29/19 00:15 12/28/19 22:45 12/29/19 00:15 Intake & Output 12/27/19 12/28/19 12/29/19 06:59 06:59 06:59 Intake Total 4096 Balance 4096 Weight 59.1 kg Weight/Height Weight 59.1 kg General appearance: PRESENT: no acute distress - on BiPAP, thin, other - malnourished Head exam: PRESENT: atraumatic, normocephalic Eye exam: PRESENT: conjunctiva pink, EOMI, PERRLA, other - patient has bilateral corneal abrasions. ABSENT: periorbital swelling, scleral icterus Ear exam: PRESENT: normal external ear exam Mouth exam: PRESENT: dry mucosa, neck supple, tongue midline Throat exam: ABSENT: post pharyngeal erythema Neck exam: PRESENT: full ROM. ABSENT: JVD, lymphadenopathy, tenderness, tracheal deviation Respiratory exam: PRESENT: clear to auscultation shannan, symmetrical, tachypnea, unlabored. ABSENT: accessory muscle use Cardiovascular exam: PRESENT: irregular rhythm - atrial fibrillation with RVR, +S1, +S2 Pulses: PRESENT: other - bilateral radial, left popliteal, and right DP/PT doppler signals present but unable to palpate pulses Vascular exam: PRESENT: pallor - cap refill 3 seconds GI/Abdominal exam: PRESENT: hypoactive bowel sounds, soft. ABSENT: distended, firm, guarding, rebound, rigid, tenderness Rectal exam: PRESENT: deferred Gentrourinary exam: PRESENT: indwelling catheter Extremities exam: PRESENT: full ROM - via passive ROM. ABSENT: joint swelling, pedal edema, tenderness Musculoskeletal exam: ABSENT: tenderness Neurological exam: PRESENT: altered, oriented to person. ABSENT: oriented to place, oriented to time, oriented to situation Skin exam: PRESENT: dry, other - Cool to touch. Various stages pressure ulcer wounds to right heal/foot, R calf, sacral region without purulent drainage and evidence of granulation tissue. Chronic right toe wounds as well.. ABSENT: jaundice, mottled Laboratory/Radiographs Laboratory Results: 12/28/19 20:58 12/28/19 20:58 12/28/19 12/28/19 12/28/19 20:58 20:58 20:58 WBC 17.0 H RBC 3.09 L Hgb 8.1 L Hct 25.1 L MCV 81 MCH 26.2 L MCHC 32.3 RDW 17.5 H Plt Count 311 Seg Neutrophils % Not Reportable Carbonic Acid HCO3/H2CO3 Ratio ABG pH ABG pCO2 ABG pO2 ABG HCO3 ABG O2 Saturation ABG Base Excess FiO2 Sodium 136.7 L Potassium 3.0 L* Chloride 107 Carbon Dioxide 15 L Anion Gap 15 BUN 11 Creatinine 0.62 Est GFR ( Amer) > 60 Glucose 64 L Lactic Acid 7.8 H Calcium 7.1 L Total Bilirubin 0.6 AST 21 Alkaline Phosphatase 90 Total Protein 4.9 L Albumin 1.7 L 12/28/19 22:05 WBC RBC Hgb Hct MCV MCH MCHC RDW Plt Count Seg Neutrophils % Carbonic Acid 0.65 L HCO3/H2CO3 Ratio 15:1 ABG pH 7.29 L ABG pCO2 21.6 L ABG pO2 86.0 ABG HCO3 10.2 L ABG O2 Saturation 95.8 ABG Base Excess -14.9 FiO2 32% Sodium Potassium Chloride Carbon Dioxide Anion Gap BUN Creatinine Est GFR ( Amer) Glucose Lactic Acid Calcium Total Bilirubin AST Alkaline Phosphatase Total Protein Albumin 12/28/19 20:58 Troponin I 0.057 Impressions: Chest X-Ray 12/28/19 21:05 MY IMPRESSION: CXR with cardiomegaly and RLL opacification which could be infiltrate, though when I performed POCUS, I noted a moderate-sized right pleural effusion for which I would favor is what is elucidated on CXR. The moderate effusion is not new and has been commented on previously as well as the son confirms she had bilateral effusions, one of which was the only one that was drained (due to patient discomfort). EKG: EKG: with no significant ST elevation or depression indicating acute UT, though voltage is lower on a repeat EKG that I performed. All labs, radiographs, diagnostic studies and EKGs were personally reviewed: Yes Assessment and Plan Plan Summary: Problem List: Septic shock -suspect due to UTI versus pneumonia Leukocytosis -due to above Acute metabolic encephalopathy -due to sepsis, hypotension Metabolic acidosis -from sepsis Elevated Troponin -likely from hypotension causing demand ischemia given no significant ST elevation/depression on EKG indicating acute UT Heart failure -suspect chronic & undiagnosed given presentation with cardiomegaly on CXR and absence of acute UT findings on EKG New onset atrial fibrillation with RVR -multifactorial due to sepsis, hypotension, and electrolyte abnormalities Acute respiratory failure, unspecified if hypoxia or hypercapnia -suspect due to sepsis attempting to correct metabolic acidosis Chronic moderate sized right pleural effusion -stable in size compared to previous imaging, this is not contributing to resp failure Protein calorie malnutrition -worsened since her recent CVA this month Hypokalemia, Hypocalcemia -due to malnourishment Prolonged INR -not certain why as the son denies anticoagulation or Hx of a-fib, reporting she only takes ASA since her CVA Chronic anemia-not currently a problem Plan is for comfort care at this time per the son Barney's wishes, which is certainly reasonable given Mrs Johnson's slow decline over the past several years. Being bedridden, even if she were to survive this hospital admission, she is at high risk of recurrent hospitalizations for either pneumonia, wound infection, or UTI given incontinence and chronic indwelling urinary catheter. Critical Time Critical Time (minutes): 80 - ICD-10 code [id number] Level of Care: MEDICAL Anticipated discharge: Other - Comfort Care Within: when bed available -: 1. The care of a critical patient is a dynamic process. This note is a sales service representative synopsis but static in nature. The timeframe for treatments given in order is not necessarily the actual time these treatments may have been done. 2. This patient requires critical care secondary to ongoing requirements for therapy not offered or safe outside the critical care environment. Transfer to a lower level of care will result in altered life or limb morbidity and mortality. 3. Multidisciplinary rounds completed. 4. ABCDE bundle addressed.
[2019-12-29] MEDS: MORPHINE SULFATE 10 MG/ML INJ IV PRN ×2 (08:51→12:54)
--- NOTE | 2019-12-29 09:26 | EKG REPORT ---
SEVERITY:- ABNORMAL ECG - ATRIAL FIBRILLATION WITH RAPID V-RATE BORDERLINE R WAVE PROGRESSION, ANTERIOR LEADS REPOLARIZATION ABNORMALITY, PROB RATE RELATED : Confirmed by: Adriane Vega 29-Dec-2019 09:25:26
--- NOTE | 2019-12-29 09:26 | EKG REPORT ---
SEVERITY:- ABNORMAL ECG - ATRIAL FLUTTER/FIBRILLATION, A-RATE 221 MULTIPLE PREMATURE COMPLEXES, VENT LOW VOLTAGE IN FRONTAL LEADS : Confirmed by: Adriane Vega 29-Dec-2019 09:25:07
[2019-12-29 09:44] LABS: PATH REVIEW PATHOLOGIST REVIEWED
--- NOTE | 2019-12-29 14:10 | Death Summary ---
Summary Date : 12/29/19 Time of :: 13:10 Autopsy: No Resuscitation Status: Comfort Measures Only Primary Care Provider: Robbie Willoughby - Final Diagnosis (1) Sepsis Is this a current diagnosis for this admission?: Yes (2) Urinary tract infection Is this a current diagnosis for this admission?: Yes (3) Atrial fibrillation with rapid ventricular response Is this a current diagnosis for this admission?: Yes (4) Decubitus ulcer of ischial area Is this a current diagnosis for this admission?: Yes (5) Lactic acidosis Is this a current diagnosis for this admission?: Yes (6) Pneumonia Is this a current diagnosis for this admission?: Yes Hospital Course:: Patient was admitted early on today. She was seen by director emergency initially on admission. She was found to have septic shock possibly due to UTI or pneumonia. She had received vasopressors for hypotension in addition to her other regimens. It appears after discussion with family patient was made comfort care. She was admitted to the floor and treated with morphine and other comfort measures. Patient ultimately succumbed a few hours later at 1310 on December 29, 2019.
--- NOTE | 2019-12-29 17:01 | PDOC H&P ---
History of Present Illness Admission Date/PCP: 12/28/19 22:16 ROULA ISAAC PA-C Patient complains of: Altered mental status History of Present Illness: DEBORA JOEL is a 89 year old female with an extensive past medical history of spina bifida, left AKA, chronic sacral, leg and heel wound, recurrent UTI, CVA with left romeo-paresis and recurrent pleural effusions. She presents after an episode of chest pain but in the emergency department she is found unresponsive with hypotension, leukocytosis and bandemia. In sepsis with shock the patient's portable CODE STATUS is verified as DNR. Son at bedside verifies comfort measures only given a recent rapid decline after chronic illness. She is referred to the hospitalist for admission and comfort measures only. She is ordered morphine and comfort is verified by nurse and son at bedside. Past Medical History Cardiac Medical History: Denies: Coronary Artery Disease, Hyperlipidema, Hypertension Pulmonary Medical History: Denies: Asthma, Chronic Obstructive Pulmonary Disease (COPD) Neurological Medical History: Denies: Seizures Endocrine Medical History: Denies: Diabetes Mellitus Type 1, Diabetes Mellitus Type 2, Hyperthyroidism, Hypothyroidism GI Medical History: Denies: Cirrhosis, Crohn's Disease, Hepatitis, Ulcerative Colitis Musculoskeltal Medical History: Denies: Arthritis, Gout Skin Medical History: Denies: Eczema, Psoriasis Psychiatric Medical History: Denies: Depression Hematology: Reports: Anemia - Chronic anemia Denies: Bleeding Tendencies Past Surgical History Past Surgical History: Reports: Orthopedic Surgery - LBKA, Vascular Surgery - PICC line placement, Other - Back surgery and surgery for spina bifida. Social History Smoking Status: Unknown if Ever Smoked Frequency of Alcohol Use: None Hx Recreational Drug Use: No Drugs: None Hx Prescription Drug Abuse: No - Advance Directive Resuscitation Status: Do Not Resuscitate - Also Do Not Intubate Family History Family History: Other - Unobtainable. denies: Reviewed & Not Pertinent, CAD, DM, Hypertension, Malignancy Parental Family History Reviewed: No - Unobtainable Children Family History Reviewed: No - Unobtainable Sibling(s) Family History Reviewed.: No - Unobtainable Medication/Allergy Home Medications: Mirtazapine [Remeron 15 mg Tablet] 15 mg PO HSP PRN 08/16/19 Metoclopramide HCl [Reglan 10 mg Tablet] 5 mg PO ACHS #120 tablet 09/03/19 Ondansetron [Zofran Odt 4 mg Tablet] 4 mg PO Q4HP PRN 12/09/19 Omeprazole 20 mg PO DAILY 12/12/19 Acetaminophen [Tylenol 325 mg Tablet] 650 mg PO Q4HP PRN tablet 12/18/19 Aspirin [Ecotrin 325 mg EC Tablet] 325 mg PO DAILY tabec 12/18/19 Atorvastatin Calcium [Lipitor 80 mg Tablet] 80 mg PO QHS 30 Days #30 tablet 12/18/19 Cephalexin Monohydrate [Keflex 500 mg Capsule] 500 mg PO TID 7 Days #21 capsule 12/18/19 Docusate Sodium [Colace 100 mg Capsule] 100 mg PO BIDP PRN capsule 12/18/19 Mag Hydrox/Al Hydrox/Simeth [Maalox Plus Susp 30 Udcup] 30 ml PO Q4HP PRN udc 12/18/19 Magnesium Hydroxide [Milk of Magnesia 30 ml Udcup] 30 ml PO HSP PRN udc 12/18/19 Allergies/Adverse Reactions: latex Allergy (Verified 12/09/19 10:51) gabapentin Adverse Reaction (Verified 08/15/19 20:15) Review of Systems ROS unobtainable: Due to mental status - Unobtainable Physical Exam Vital Signs: Temp Pulse Resp BP Pulse Ox 100.0 F 26 H 80/45 L 98 12/28/19 23:03 12/29/19 01:00 12/29/19 00:26 12/29/19 01:00 Intake & Output 12/27/19 12/28/19 12/29/19 11:59 11:59 11:59 Intake Total 4406 Balance 4406 Weight 59.1 kg General appearance: PRESENT: severe distress - Unresponsive. ABSENT: cooperative Head exam: PRESENT: atraumatic, normocephalic Eye exam: PRESENT: conjunctiva pink, EOMI, PERRLA. ABSENT: scleral icterus Ear exam: PRESENT: normal external ear exam Mouth exam: PRESENT: dry mucosa Neck exam: ABSENT: carotid bruit, JVD, lymphadenopathy, thyromegaly Respiratory exam: PRESENT: accessory muscle use, crackles, decreased breath sounds, prolonged expiratory phas, retraction, tachypnea Cardiovascular exam: PRESENT: gallop, irregular rhythm, tachycardia Pulses: PRESENT: normal dorsalis pedis pul Vascular exam: PRESENT: normal capillary refill GI/Abdominal exam: PRESENT: normal bowel sounds, soft. ABSENT: distended, guarding, mass, organolmegaly, rebound, tenderness Extremities exam: PRESENT: other - Stage IV sacral decub Musculoskeletal exam: ABSENT: ambulatory, deformity, dislocation Neurological exam: ABSENT: alert, altered, awake, oriented to person, oriented to place, CN II-XII grossly intact Skin exam: PRESENT: other - Several large stage IV decubiti of the sacrum, heels bilaterally and leg Results Laboratory Results: 12/28/19 20:58 12/28/19 20:58 12/28/19 12/28/19 12/28/19 20:58 20:58 20:58 WBC 17.0 H RBC 3.09 L Hgb 8.1 L Hct 25.1 L MCV 81 MCH 26.2 L MCHC 32.3 RDW 17.5 H Plt Count 311 Seg Neutrophils % Not Reportable Carbonic Acid HCO3/H2CO3 Ratio ABG pH ABG pCO2 ABG pO2 ABG HCO3 ABG O2 Saturation ABG Base Excess FiO2 Sodium 136.7 L Potassium 3.0 L* Chloride 107 Carbon Dioxide 15 L Anion Gap 15 BUN 11 Creatinine 0.62 Est GFR ( Amer) > 60 Glucose 64 L Lactic Acid 7.8 H Calcium 7.1 L Total Bilirubin 0.6 AST 21 Alkaline Phosphatase 90 Total Protein 4.9 L Albumin 1.7 L 12/28/19 22:05 WBC RBC Hgb Hct MCV MCH MCHC RDW Plt Count Seg Neutrophils % Carbonic Acid 0.65 L HCO3/H2CO3 Ratio 15:1 ABG pH 7.29 L ABG pCO2 21.6 L ABG pO2 86.0 ABG HCO3 10.2 L ABG O2 Saturation 95.8 ABG Base Excess -14.9 FiO2 32% Sodium Potassium Chloride Carbon Dioxide Anion Gap BUN Creatinine Est GFR ( Amer) Glucose Lactic Acid Calcium Total Bilirubin AST Alkaline Phosphatase Total Protein Albumin 12/28/19 20:58 Troponin I 0.057 Impressions: Chest X-Ray 12/28/19 21:05 IMPRESSION: No acute abnormality is identified. Assessment and Plan - Diagnosis (1) Sepsis Qualifiers: Sepsis type: sepsis due to unspecified organism Sepsis acute organ dysfunction status: with acute organ dysfunction Severe sepsis acute organ dysfunction type: encephalopathy Severe sepsis shock status: with septic shock Qualified Code(s): A41.9 - Sepsis, unspecified organism; R65.21 - Severe sepsis with septic shock; G93.40 - Encephalopathy, unspecified Is this a current diagnosis for this admission?: Yes Plan: Please see HPI, [employer] (2) Pneumonia Is this a current diagnosis for this admission?: Yes Plan: [employer]
== END 2019-12-29 14:38 | disposition expired | DRG 871 ==
LOC: ER 20:34 → EH 22:16 → 4S 12-29 01:47
PROVIDERS: ADMIT Internal Medicine; ATTEND Internal Medicine
DX: A41.9 Sepsis, unspecified organism (principal); L89.154 Pressure ulcer of sacral region, stage 4; J96.90 Respiratory failure, unspecified, unspecified whether with hypoxia or hypercapnia; R65.21 Severe sepsis with septic shock; G93.41 Metabolic encephalopathy; L89.814 Pressure ulcer of head, stage 4; L89.894 Pressure ulcer of other site, stage 4; J18.9 Pneumonia, unspecified organism; E46 Unspecified protein-calorie malnutrition; E87.2 Acidosis; I69.354 Hemiplegia and hemiparesis following cerebral infarction affecting left non-dominant side; N39.0 Urinary tract infection, site not specified; Z51.5 Encounter for palliative care; Z89.612 Acquired absence of left leg above knee; I50.9 Heart failure, unspecified; I48.91 Unspecified atrial fibrillation; Z66 Do not resuscitate; D64.9 Anemia, unspecified; E87.6 Hypokalemia; R32 Unspecified urinary incontinence; R79.89 Other specified abnormal findings of blood chemistry; Q05.9 Spina bifida, unspecified; Z88.6 Allergy status to analgesic agent; Z91.040 Latex allergy status; Z74.01 Bed confinement status; Z87.891 Personal history of nicotine dependence
CPT/HCPCS: 36415; 36600; 71045; 80053; 82803; 82962; 83605; 84484; 85025; 85610; 87040; 87077; 87150; 87186; 93005; 93010; 94660; 96365; 96368; 96376; 99285; J0610; J0282; J0692; J2270; J3370; J3475; J3480; J3490; J7030; J7060